=== PATIENT | male | born 1940 | race Hispanic/Latino ===

== ENCOUNTER 2016-08-30 10:42 | Emergency (ER) | payer MEDICARE ==
[2016-08-30 10:43] VITALS: BMI 29.7
[2016-08-30 11:20] VITALS: TEMP 98.2
[2016-08-30 13:02] LABS: BASO % 0.4 % (0.0-2.0); EOS # 0.2 K/uL (0.0-0.7); EOS % 2.3 % (0.0-4.0); HEMATOCRIT 37.7 % (35.0-51.0); LYMPH # 2.7 K/uL (1.0-4.3); MEAN CELL VOLUME 73.3 fl (80.0-94.0); MEAN CORPUSCULAR HEMOGLOBIN 23.8 pg (27.0-31.0); MEAN CORPUSCULAR HGB CONC 32.5 g/dL (33.0-37.0); MEAN PLATELET VOLUME 8.1 fl (7.2-11.7); MONO # 0.6 K/uL (0.0-0.8); MONO % 8.3 % (0.0-10.0); NEUT # 3.7 K/uL (1.8-7.0); NRBC % 0.1 % (0.0-0.0); RED CELL DISTRIBUTION WIDTH 18.2 % (11.5-14.5); WHITE BLOOD COUNT 7.2 K/uL (4.8-10.8)
[2016-08-30] MEDS: Sodium Chloride 0.9% 1,000 ML IV STA (13:02)
[2016-08-30 13:09] LABS: CARBON DIOXIDE 28 mmol/L (22-30); CHLORIDE 104 mmol/L (98-107); GFR AFRICAN-AMERICAN > 60; GLUCOSE,RANDOM 94 mg/dL (75-110); POTASSIUM 3.6 MMOL/L (3.6-5.0); SODIUM 145 mmol/l (132-148)
[2016-08-30 13:10] LABS: ALB/GLOB RATIO 1.1 (1.0-2.1); ALKALINE PHOSPHATASE 68 U/L (38-126); ALT/SGPT 43 U/L (21-72); AST/SGOT 39 U/L (17-59); BILIRUBIN,TOTAL 0.8 mg/dl (0.2-1.3); BLOOD UREA NITROGEN 7 mg/dl (9-20)
[2016-08-30 13:13] LABS: RBC URINE < 1 /hpf (0-3); URINE BILIRUBIN NEGATIVE (NEGATIVE); URINE BLOOD NEGATIVE (NEGATIVE); URINE COLOR STRAW (YELLOW); URINE GLUCOSE (UA) NEG (Normal); URINE KETONE NEGATIVE (NEGATIVE); URINE LEUKOCYTE ESTERASE NEG Leu/uL (Negative); URINE PROTEIN NEGATIVE (NEGATIVE); URINE UROBILINOGEN 0.2-1.0 mg/dL (0.2-1.0); WBC URINE < 1 /hpf (0-5)
[2016-08-30] MEDS ORDERED: Iohexol 240 (50 ml) ONE (14:55)
[2016-08-30] MEDS: Iohexol 240 (50 ml) PO ONE (15:07)
[2016-08-30] MEDS ORDERED: Iohexol 300 100 ML IJ ONE (15:38)
[2016-08-30] MEDS ORDERED: Sodium Chloride 0.9% 50 ML IV ONE (15:39)
[2016-08-30 15:46] VITALS: BP 143/83; PULSE 61; RESP 18; O2SAT 100
--- NOTE | 2016-08-30 17:06 | CT ---
PROCEDURE: CT Abdomen and Pelvis with contrast HISTORY: Left sided abdominal pain, frequency COMPARISON: Comparison is made to the previous study dated 06/27/2012 TECHNIQUE: Contrast dose: 95 cc of Omnipaque 300 Radiation dose: Total exam DLP = 949.6 mGy-cm. FINDINGS: LOWER THORAX: The heart is mildly enlarged. Small bibasilar opacity likely atelectasis. LIVER: Unremarkable. No gross lesion or ductal dilatation. GALLBLADDER AND BILE DUCTS: No evidence of acute cholecystitis PANCREAS: No evidence of pancreatitis. The main pancreatic duct is not dilated. SPLEEN: Unremarkable. ADRENALS: Unremarkable. No mass. KIDNEYS AND URETERS: Again seen is 7.5 millimeter calcification at the midpole left kidney. No evidence of hydronephrosis. The kidneys enhance symmetrically. VASCULATURE: Unremarkable. No aortic aneurysm. BOWEL: Few scattered colonic diverticulosis without evidence of diverticulitis. No evidence of bowel obstruction. APPENDIX: No evidence of appendicitis. PERITONEUM: Unremarkable. No free fluid. No free air. LYMPH NODES: Unremarkable. No enlarged lymph nodes. BLADDER: The urinary bladder is mildly distended. REPRODUCTIVE: Prostate is mildly enlarged. BONES: Moderate to severe degenerative changes more prominent at L2-L3. OTHER FINDINGS: None. IMPRESSION: 7.5 millimeter calcification at the midpole left kidney. No evidence of hydronephrosis or hydroureter. Few scattered colonic diverticulosis without CT evidence of diverticulitis.
--- NOTE | 2016-08-30 18:42 | ED PDOC ---
HPI: Male Pain Time Seen by Provider: 08/30/16 11:33 Chief Complaint (Nursing): Male Genitourinary Past Medical History Vital Signs: Last Vital Signs Temp 98.2 F 08/30/16 11:18 Pulse 61 08/30/16 15:45 Resp 18 08/30/16 15:45 BP 143/83 08/30/16 15:45 Pulse Ox 100 08/30/16 15:45 - Medical History PMH: Anxiety, Bronchitis, Diabetes, Gastritis, HTN Denies: Chronic Kidney Disease - Surgical History Surgical History: Appendectomy, Endoscopy - Family History Family History: States: Unknown Family Hx - Home Medications Home Medications: Ambulatory Orders Medication Instructions Recorded Amlodipine Besylate/Benazepril 1 cap PO DAILY 05/21/15 [Amlodipine Besylate and Benazepril Hydrochlor] Omeprazole 1 ecc PO DAILY 05/21/15 Oxybutynin Chloride 1 tab PO DAILY 05/21/15 Sitagliptin Phos/Metformin HCl 1 tab PO BID 05/21/15 [Janumet Xr 500 mg-50 mg] Tamsulosin [Flomax] 1 cap PO BID 05/21/15 Azithromycin [Zithromax] 250 mg PO DAILY #6 tab 04/15/16 predniSONE [predniSONE Tab] 10 mg PO TID #15 tab 04/15/16 Tamsulosin [Flomax] 0.4 mg PO BID #20 cap 08/30/16 - Allergies Allergies/Adverse Reactions: Allergies Allergy/AdvReac Type Severity Reaction Status Date / Time No Known Allergies Allergy Verified 08/30/16 11:18 - Laboratory Results Result Diagrams: 08/30/16 12:40 08/30/16 12:40 - ECG O2 Sat by Pulse Oximetry: 100 Disposition - Clinical Impression Clinical Impression: Enlarged prostate - Patient ED Disposition Is Patient to be Admitted: No Counseled Patient/Family Regarding: Diagnosis, Need For Followup, Rx Given - Disposition Referrals: [facility] [Outside] Disposition: Routine/Home Disposition Time: 18:37 Condition: GOOD Prescriptions: Tamsulosin [Flomax] 0.4 mg PO BID #20 cap Instructions: Benign Prostatic Hypertrophy (ED)
--- NOTE | 2016-08-31 07:10 | CARD ---
APPROVED REPORT EKG Measurement Heart [id number] <Conclusion> Sinus rhythm with occasional premature ventricular complexes Left anterior fascicular block Nonspecific ST and T wave abnormality Abnormal ECG
== END 2016-08-30 18:50 | disposition home or self-care (01) ==
LOC: H.ER 10:42
DX: N40.0 Benign prostatic hyperplasia without lower urinary tract symptoms (principal); E11.9 Type 2 diabetes mellitus without complications; I10 Essential (primary) hypertension; I49.3 Ventricular premature depolarization; K57.30 Diverticulosis of large intestine without perforation or abscess without bleeding
CPT/HCPCS: 74177; 80053; 81003; 82948; 85025; 87086; 93005; 96360; 96361; 99285; J7040; Q9966; Q9967

== ENCOUNTER 2016-09-09 15:59 | Emergency (ER) | payer MEDICARE, OTHER ==
[2016-09-09 15:59] VITALS: BMI 29.7
[2016-09-09 16:05] VITALS: BP 123/72; PULSE 78; RESP 16; O2SAT 100
[2016-09-09 16:13] VITALS: TEMP 97.8
[2016-09-09] MEDS ORDERED: Sodium Chloride 0.9% 1,000 ML IV STA (16:21)
[2016-09-09] MEDS ORDERED: Iohexol 240 (50 ml) PO ONE (16:21)
--- NOTE | 2016-09-09 16:27 | ED PDOC ---
HPI: Abdomen Time Seen by Provider: 09/09/16 16:12 Chief Complaint (Nursing): GI Problem Chief Complaint (Provider): GI Problem History Per: Patient History/Exam Limitations: no limitations Onset/Duration Of Symptoms: Days (x2 days) Additional Complaint(s): 76 y/o male with a past medical history of hypertension, hypercholesterolemia, arthritis, and diabetes who presents to the emergency department with a complaint of nausea, abdominal pain and 9 diarrhea (non-bloody, had resolved since) episodes since yesterday, 09/08/2016. Reports taking pepto bismol for the relief of symptoms. Denies any new foods or drinks, vomiting, chest pain, and shortness of breath. PMD: Dr. Shaik Kavya CHURCH Past Medical History Reviewed: Historical Data, Nursing Documentation, Vital Signs Vital Signs: Last Vital Signs Temp 97.8 F 09/09/16 16:03 Pulse 78 09/09/16 16:03 Resp 16 09/09/16 16:03 BP 123/72 09/09/16 16:03 Pulse Ox 100 09/09/16 16:30 - Medical History PMH: Anxiety, Bronchitis, Diabetes, Gastritis, HTN Denies: Chronic Kidney Disease - Surgical History Surgical History: Appendectomy, Endoscopy - Family History Family History: States: Unknown Family Hx - Social History Current smoker - smoking cessation education provided: No Alcohol: None Drugs: Denies - Home Medications Home Medications: Ambulatory Orders Medication Instructions Recorded Amlodipine Besylate/Benazepril 1 cap PO DAILY 05/21/15 [Amlodipine Besylate and Benazepril Hydrochlor] Omeprazole 1 ecc PO DAILY 05/21/15 Oxybutynin Chloride 1 tab PO DAILY 05/21/15 Sitagliptin Phos/Metformin HCl 1 tab PO BID 05/21/15 [Janumet Xr 500 mg-50 mg] Tamsulosin [Flomax] 1 cap PO BID 05/21/15 Azithromycin [Zithromax] 250 mg PO DAILY #6 tab 04/15/16 predniSONE [predniSONE Tab] 10 mg PO TID #15 tab 04/15/16 Tamsulosin [Flomax] 0.4 mg PO BID #20 cap 08/30/16 - Allergies Allergies/Adverse Reactions: Allergies Allergy/AdvReac Type Severity Reaction Status Date / Time No Known Allergies Allergy Verified 08/30/16 11:18 Review of Systems ROS Statement: Except As Marked, All Systems Reviewed And Found Negative Cardiovascular: Negative for: Chest Pain Respiratory: Negative for: Shortness of Breath Gastrointestinal: Positive for: Nausea, Abdominal Pain, Diarrhea (9 episodes). Negative for: Vomiting Physical Exam - Reviewed Nursing Documentation Reviewed: Yes Vital Signs Reviewed: Yes - Physical Exam Appears: Positive for: Non-toxic, No Acute Distress Head Exam: Positive for: ATRAUMATIC, NORMOCEPHALIC Skin: Positive for: Normal Color, Warm, Dry Neck: Positive for: Normal, Supple Cardiovascular/Chest: Positive for: Regular Rate, Rhythm. Negative for: Murmur Respiratory: Positive for: Normal Breath Sounds. Negative for: Accessory Muscle Use, Respiratory Distress Gastrointestinal/Abdominal: Positive for: Soft, Tenderness (Periumbilical) Back: Positive for: Normal Inspection. Negative for: L CVA Tenderness, R CVA Tenderness Extremity: Positive for: Normal ROM. Negative for: Pedal Edema, Swelling Neurologic/Psych: Positive for: Alert, Oriented - Laboratory Results Result Diagrams: 09/09/16 17:03 09/09/16 17:03 Interpretation Of Abn Labs: 11.2 wbc - ECG O2 Sat by Pulse Oximetry: 100 (RA) Pulse Ox Interpretation: Normal - Progress ED Course And Treament: 1833: Dr. Uribe to take over care. FU on CT. Stable. Medical Decision Making Medical Decision Making: Time: 16:12 Initial impression: Abdominal Pain Initial plan: --Abd pelvis PO & IV Contrast CT --COMP Metabolic Panel --Lipase Stat --CBC w/ differential --Bentyl 10 mg PO --Sodium Chloride 1,000 m IV 1,000 mls/hr --Omnipaque 240 50 ml PO --Toradol 50 mg IV --Zofran Inj 4 mg IV --Revaluation Scribe Attestation: Documented by Kaylin Perez, acting as a scribe for Junito Comer MD. Provider Scribe Attestation: All medical record entries made by the Scribe were at my direction and personally dictated by me. I have reviewed the chart and agree that the record accurately reflects my personal performance of the history, physical exam, medical decision making, and the department course for this patient. I have also personally directed, reviewed, and agree with the discharge instructions and disposition. Disposition - Clinical Impression Clinical Impression: Abdominal pain - Patient ED Disposition Is Patient to be Admitted: Transfer of Care - Disposition Disposition: Transfer of Care Disposition Time: 18:40 Condition: STABLE Patient Signed Over To: Kwesi Uribe
[2016-09-09] MEDS ORDERED: Iohexol 240 (50 ml) ONE (16:37)
[2016-09-09 17:07] LABS: BASO % 0.1 % (0.0-2.0); EOS # 0.1 K/uL (0.0-0.7); EOS % 0.6 % (0.0-4.0); HEMATOCRIT 37.5 % (35.0-51.0); LYMPH # 0.7 K/uL (1.0-4.3); LYMPH % 6.3 % (20.0-40.0); MEAN CELL VOLUME 73.9 fl (80.0-94.0); MEAN CORPUSCULAR HEMOGLOBIN 23.4 pg (27.0-31.0); MEAN CORPUSCULAR HGB CONC 31.6 g/dL (33.0-37.0); MEAN PLATELET VOLUME 8.1 fl (7.2-11.7); MONO # 0.6 K/uL (0.0-0.8); MONO % 4.9 % (0.0-10.0); NEUT # 9.9 K/uL (1.8-7.0); NEUT % 88.1 % (50.0-75.0); PLATELET COUNT 294 K/uL (130-400); RED CELL DISTRIBUTION WIDTH 18.4 % (11.5-14.5); WHITE BLOOD COUNT 11.2 K/uL (4.8-10.8)
[2016-09-09 18:11] LABS: ALKALINE PHOSPHATASE 71 U/L (38-126); ALT/SGPT 42 U/L (21-72); AST/SGOT 52 U/L (17-59); BLOOD UREA NITROGEN 17 mg/dl (9-20); CALCIUM 9.7 mg/dL (8.4-10.2); CARBON DIOXIDE 26 mmol/L (22-30); CHLORIDE 105 mmol/L (98-107); GFR AFRICAN-AMERICAN > 60; GLUCOSE,RANDOM 141 mg/dL (75-110); LIPASE 60 U/L (23-300); SODIUM 147 mmol/l (132-148)
[2016-09-09 18:37] LABS: EOSINOPHIL 1 % (0-7); NEUTROPHIL 89 % (42-75); TOTAL CELLS COUNTED 100
[2016-09-09 18:38] LABS: LARGE PLATELETS PRESENT
[2016-09-09 18:39] LABS: PLATELET CLUMPS PRESENT
[2016-09-09] MEDS ORDERED: Iohexol 300 100 ML IJ ONE (18:51)
--- NOTE | 2016-09-09 19:16 | ED PDOC ---
- Laboratory Results Result Diagrams: 09/09/16 17:03 09/09/16 17:03 - ECG O2 Sat by Pulse Oximetry: 100 (RA) Pulse Ox Interpretation: Normal - CT Scan/US CT A/P w/PO and IV contrast Other Rad Studies (CT/US): Read By Radiologist, Radiology Report Reviewed Other Rad Interpretation: see MDM - Progress Re-evaluation Time: 19:52 Condition: Re-examined, Improved Medical Decision Making Medical Decision Makin:00 Patient endorsed over to me by Junito Comer MD, pending CT A/P, reevaluation and final disposition. 19:26 CT A/P report reviewed: FINDINGS: Limitations: Study limited by patient motion. Lower thorax: Bibasilar atelectasis. ABDOMEN: Liver: Unremarkable. No mass. Gallbladder and bile ducts: Unremarkable. No calcified stones. No ductal dilation. Pancreas: Unremarkable. No mass. No ductal dilation. Spleen: Unremarkable. No splenomegaly. Adrenals: Unremarkable. No mass. Kidneys and ureters: 7 mm nonobstructing stone in the collecting system of the left kidney. No additional urinary calculi. No hydronephrosis. Stomach and bowel: No bowel obstruction or inflammation. Appendix: No findings to suggest acute appendicitis. PELVIS: Bladder: Unremarkable. No mass. Reproductive: Unremarkable as visualized. ABDOMEN and PELVIS: Intraperitoneal space: Unremarkable. No free air. No significant fluid collection. Bones/joints: No acute fracture. No dislocation. Soft tissues: Unremarkable. Vasculature: Unremarkable. No abdominal aortic aneurysm. Lymph nodes: Unremarkable. No enlarged lymph nodes. IMPRESSION: 7 mm nonobstructing stone in the collecting system of the left kidney. No additional urinary calculi. No hydronephrosis. No bowel obstruction or inflammation. Scribe Attestation: Documented by Liberty Youngblood, acting as a scribe for Kwesi Uribe MD. Provider Scribe Attestation: All medical record entries made by the Scribe were at my direction and personally dictated by me. I have reviewed the chart and agree that the record accurately reflects my personal performance of the history, physical exam, medical decision making, and the department course for this patient. I have also personally directed, reviewed, and agree with the discharge instructions and disposition. Disposition Doctor Will See Patient In The: Office Counseled Patient/Family Regarding: Studies Performed, Diagnosis, Need For Followup - Clinical Impression Clinical Impression: Abdominal pain, Diarrhea, Renal calculus, left - POA Present On Arrival: None - Disposition Referrals: Shaik Hoff MD [Family Provider] - Disposition: Routine/Home Disposition Time: 19:53 Condition: GOOD Additional Instructions: Follow up with your PCP in 2-3 days. Prescriptions: Dicyclomine [Dicyclomine HCl] 10 mg PO Q8 PRN #12 cap PRN Reason: Diarrhea Ondansetron ODT [Zofran ODT] 4 mg PO Q8 PRN #12 odt PRN Reason: Nausea/Vomiting Instructions: Acute Diarrhea (ED), Kidney Stones (ED)
--- NOTE | 2016-09-10 09:00 | CT ---
PROCEDURE: CT Abdomen and Pelvis with contrast HISTORY: abd pain COMPARISON: TECHNIQUE: Contrast dose: 100 mL Omnipaque 300 Radiation dose: Total exam DLP = 941.81 mGy-cm. This CT exam was performed using one or more of the following dose reduction techniques: Automated exposure control, adjustment of the mA and/or kV according to patient size, and/or use of iterative reconstruction technique. FINDINGS: LOWER THORAX: Unremarkable. LIVER: Normal size, contour and attenuation. No mass. No biliary dilatation. Punctate calcification in lateral left hepatic lobe consistent with calcified granuloma. GALLBLADDER AND BILE DUCTS: Unremarkable. PANCREAS: Unremarkable. No gross lesion or ductal dilatation. SPLEEN: Unremarkable. ADRENALS: Unremarkable. No mass. KIDNEYS AND URETERS: Nonobstructing 8 mm left upper pole renal calculus. No hydronephrosis. No renal mass. No hydroureter. VASCULATURE: Unremarkable. No aortic aneurysm. BOWEL: Unremarkable. No obstruction. No gross mural thickening. APPENDIX: Not definitely identified. No secondary findings to suggest acute appendicitis. PERITONEUM: Unremarkable. No free fluid. No free air. LYMPH NODES: Unremarkable. No enlarged lymph nodes. BLADDER: Unremarkable. REPRODUCTIVE: Normal prostate BONES: No fracture. 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 OTHER FINDINGS: None. IMPRESSION: Nonobstructing 8 mm left upper pole renal calculus. No other significant abnormality. Preliminary interpretation of this examination was reported by [employer] at 7:26 p.m. on 09/09/2016. There is concurrence of this report with the preliminary interpretation.
== END 2016-09-09 20:10 | disposition home or self-care (01) ==
LOC: H.ER 15:59
DX: N20.0 Calculus of kidney (principal); R19.7 Diarrhea, unspecified; E11.9 Type 2 diabetes mellitus without complications; F41.9 Anxiety disorder, unspecified; I10 Essential (primary) hypertension
CPT/HCPCS: 74177; 80053; 83690; 85025; 96360; 99282; J1885; J2405; J7040; Q9966; Q9967

== ENCOUNTER 2016-12-22 02:20 | Emergency (ER) | payer MEDICARE, OTHER ==
[2016-12-22 02:21] VITALS: BMI 29.7
[2016-12-22 02:29] VITALS: BP 142/75; PULSE 74; RESP 16; TEMP 99; O2SAT 98
[2016-12-22 03:23] LABS: BASO % 0.4 % (0.0-2.0); EOS # 0.1 K/uL (0.0-0.7); EOS % 2.7 % (0.0-4.0); HEMOGLOBIN 11.3 g/dL (12.0-18.0); LYMPH # 2.1 K/uL (1.0-4.3); LYMPH % 40.2 % (20.0-40.0); MEAN CELL VOLUME 72.9 fl (80.0-94.0); MEAN CORPUSCULAR HEMOGLOBIN 23.7 pg (27.0-31.0); MEAN CORPUSCULAR HGB CONC 32.6 g/dL (33.0-37.0); MEAN PLATELET VOLUME 7.5 fl (7.2-11.7); MONO # 0.5 K/uL (0.0-0.8); MONO % 8.8 % (0.0-10.0); NEUT # 2.5 K/uL (1.8-7.0); NEUT % 47.9 % (50.0-75.0); NRBC % 0.1 % (0.0-0.0); RBC 4.75 Mil/uL (4.40-5.90); RED CELL DISTRIBUTION WIDTH 18.6 % (11.5-14.5); WHITE BLOOD COUNT 5.3 K/uL (4.8-10.8)
[2016-12-22 03:48] LABS: BLOOD UREA NITROGEN 10 mg/dl (9-20); CALCIUM 8.9 mg/dL (8.4-10.2); GFR AFRICAN-AMERICAN > 60; GFR NON-AFRICAN AMERICAN > 60
--- NOTE | 2016-12-22 04:31 | ED PDOC ---
HPI: Back Time Seen by Provider: 12/22/16 02:40 Chief Complaint (Nursing): Cough, Cold, Congestion Chief Complaint (Provider): Cough, Cold, Congestion History Per: Patient History/Exam Limitations: no limitations Onset/Duration Of Symptoms: Other ((+)Chronic) Current Symptoms Are (Timing): Still Present Previous Symptoms: Back Pain, Chronic Pain Exacerbating Factor(s): Movement, Other ((+)Bending) Additional Complaint(s): 76 y/o male patient presenting to the ED with back pain and congestion. Patient states he has been having lower back pain for three hours radiating to the upper back that worsens with movement or bending. He states he has taken nothing for the pain and that he has had several months of this pain due to Arthritis. Patient denies any dizziness, respiratory distress, chest pain and states that he does not take medications for his medical history because "he does not like how the side effects make him feel". Patient also states he has a history of bronchitis but no congestion is currently present in addition to high blood pressure, hypertension and diabetes. He also has chronic prostate issues which include enlargement of his prostate. His primary care physician is Dr. Kavya MD. Past Medical History Reviewed: Historical Data, Nursing Documentation, Vital Signs Vital Signs: Last Vital Signs Temp 99 F 12/22/16 02:26 Pulse 74 12/22/16 02:26 Resp 16 12/22/16 02:26 BP 142/75 12/22/16 02:26 Pulse Ox 98 12/22/16 02:26 - Medical History PMH: Anxiety, Bronchitis, Diabetes, Gastritis, HTN Denies: Chronic Kidney Disease - Surgical History Surgical History: Appendectomy, Endoscopy - Family History Family History: States: Unknown Family Hx - Social History Current smoker - smoking cessation education provided: No Alcohol: None Drugs: Denies - Home Medications Home Medications: Ambulatory Orders Medication Instructions Recorded Amlodipine Besylate/Benazepril 1 cap PO DAILY 05/21/15 [Amlodipine Besylate and Benazepril Hydrochlor] Omeprazole 1 ecc PO DAILY 05/21/15 Oxybutynin Chloride 1 tab PO DAILY 05/21/15 Sitagliptin Phos/Metformin HCl 1 tab PO BID 05/21/15 [Janumet Xr 500 mg-50 mg] Tamsulosin [Flomax] 1 cap PO BID 05/21/15 Azithromycin [Zithromax] 250 mg PO DAILY #6 tab 04/15/16 predniSONE [predniSONE Tab] 10 mg PO TID #15 tab 04/15/16 Tamsulosin [Flomax] 0.4 mg PO BID #20 cap 08/30/16 Dicyclomine [Dicyclomine HCl] 10 mg PO Q8 PRN #12 cap 09/09/16 Ondansetron ODT [Zofran ODT] 4 mg PO Q8 PRN #12 odt 09/09/16 Naproxen 500 mg PO BID #20 ect 12/22/16 - Allergies Allergies/Adverse Reactions: Allergies Allergy/AdvReac Type Severity Reaction Status Date / Time No Known Allergies Allergy Verified 08/30/16 11:18 Review of Systems ROS Statement: Except As Marked, All Systems Reviewed And Found Negative ENT: Negative for: Nose Congestion Cardiovascular: Negative for: Chest Pain, Palpitations Respiratory: Negative for: Cough, Shortness of Breath Musculoskeletal: Positive for: Back Pain ((+)Lower back pain radiating to the upper back.) Neurological: Negative for: Dizziness Physical Exam - Reviewed Nursing Documentation Reviewed: Yes Vital Signs Reviewed: Yes - Physical Exam Appears: Positive for: Non-toxic, No Acute Distress Head Exam: Positive for: ATRAUMATIC, NORMAL INSPECTION, NORMOCEPHALIC Skin: Positive for: Normal Color, Warm, Dry Neck: Positive for: Normal, Painless ROM, Supple Cardiovascular/Chest: Positive for: Regular Rate, Rhythm. Negative for: Murmur Respiratory: Positive for: Normal Breath Sounds. Negative for: Respiratory Distress Back: Positive for: L CVA Tenderness, R CVA Tenderness Extremity: Positive for: Normal ROM Neurologic/Psych: Positive for: Alert, Oriented. Negative for: Motor/Sensory Deficits - Laboratory Results Result Diagrams: 12/22/16 03:17 12/22/16 03:17 - ECG ECG: Positive for: Interpreted By Me, Viewed By Me ECG Rhythm: Positive for: Normal QRS, Normal ST Segment, Sinus Rhythm, Nonspecific Changes Rate: 74 O2 Sat by Pulse Oximetry: 98 (RA) Pulse Ox Interpretation: Normal Medical Decision Making Medical Decision Making: Time: 250 Initial impression: Acute and Chronic Back Pain, Muscular/Skeletal pain, ACS rule out Initial plan: --EKG --DIPSTICK --EKG-ED --KETOROLAC Scribe Attestation: Documented by Anita Swanson, acting as a scribe for Kwesi Uribe MD. Scribe Attestation: All medical record entries made by the Scribe were at my direction and personally dictated by me. I have reviewed the chart and agree that the record accurately reflects my personal performance of the history, physical exam, medical decision making, and the department course for this patient. I have also personally directed, reviewed, and agree with the discharge instructions and disposition. Disposition - Clinical Impression Clinical Impression: Back pain - Patient ED Disposition Is Patient to be Admitted: No Doctor Will See Patient In The: Office Counseled Patient/Family Regarding: Studies Performed, Diagnosis, Need For Followup - Disposition Referrals: Shaik Hoff MD [Medical Doctor] - Disposition: Routine/Home Disposition Time: 05:00 Condition: GOOD Additional Instructions: Follow up with your PCP in 2-3 days. Prescriptions: Naproxen 500 mg PO BID #20 ect Instructions: Back Pain (ED)
--- NOTE | 2016-12-22 16:02 | CARD ---
APPROVED REPORT EKG Measurement Heart [id number] <Conclusion> Normal sinus rhythm Left anterior fascicular block T wave abnormality, consider anterolateral ischemia Abnormal ECG
== END 2016-12-22 05:06 | disposition home or self-care (01) ==
LOC: H.ER 02:20
DX: M54.9 Dorsalgia, unspecified (principal); R05 Cough; E11.9 Type 2 diabetes mellitus without complications; F41.9 Anxiety disorder, unspecified; G89.29 Other chronic pain; I10 Essential (primary) hypertension; N40.0 Benign prostatic hyperplasia without lower urinary tract symptoms
CPT/HCPCS: 80048; 84484; 85025; 93005; 96372; 99281; J1885

== ENCOUNTER 2018-05-11 13:49 | Emergency (ER) | payer MEDICARE, OTHER ==
[2018-05-11 13:50] VITALS: BMI 29.7
--- NOTE | 2018-05-11 14:26 | ED PDOC ---
HPI: Abdomen Time Seen by Provider: 05/11/18 14:10 Chief Complaint (Nursing): Abdominal Pain Chief Complaint (Provider): Abdominal Pain History Per: Patient, [employer] (MikeRoselia Baker #[id number]) History/Exam Limitations: no limitations Onset/Duration Of Symptoms: Days (x 4) Current Symptoms Are (Timing): Still Present Location Of Pain/Discomfort: RLQ Quality Of Discomfort: "Pain" Associated Symptoms: Urinary Symptoms (mild dysuria) Additional Complaint(s): 77 year old male with a history of arthritis and HTN presents to the ED with constant right lower quadrant pain for four days. Patient was sent to the ED by his PMD in [place]. He also reports mild pain with urination intermittently. Denies nausea, vomiting, constipation and diarrhea. PMD: Dr. Gwendolyn Tai Past Medical History Reviewed: Historical Data, Nursing Documentation, Vital Signs Vital Signs: Last Vital Signs Temp 97.4 F L 05/11/18 13:55 Pulse 91 H 05/11/18 13:55 Resp 16 05/11/18 13:55 BP 139/78 05/11/18 13:55 Pulse Ox 98 05/11/18 13:55 - Medical History PMH: Anxiety, Bronchitis, Diabetes, Gastritis, HTN Denies: Chronic Kidney Disease - Surgical History Surgical History: Appendectomy, Endoscopy - Family History Family History: States: Unknown Family Hx - Social History Current smoker - smoking cessation education provided: No Alcohol: None - Home Medications Home Medications: Ambulatory Orders Medication Instructions Recorded Amlodipine Besylate/Benazepril 1 cap PO DAILY 05/21/15 [Amlodipine Besylate and Benazepril Hydrochlor] Omeprazole 1 ecc PO DAILY 05/21/15 Oxybutynin Chloride 1 tab PO DAILY 05/21/15 Sitagliptin Phos/Metformin HCl 1 tab PO BID 05/21/15 [Janumet Xr 500 mg-50 mg] Tamsulosin [Flomax] 1 cap PO BID 05/21/15 Azithromycin [Zithromax] 250 mg PO DAILY #6 tab 04/15/16 predniSONE [predniSONE Tab] 10 mg PO TID #15 tab 04/15/16 Tamsulosin [Flomax] 0.4 mg PO BID #20 cap 08/30/16 Dicyclomine [Dicyclomine HCl] 10 mg PO Q8 PRN #12 cap 09/09/16 Ondansetron ODT [Zofran ODT] 4 mg PO Q8 PRN #12 odt 09/09/16 Naproxen 500 mg PO BID #20 ect 12/22/16 - Allergies Allergies/Adverse Reactions: Allergies Allergy/AdvReac Type Severity Reaction Status Date / Time No Known Allergies Allergy Verified 08/30/16 11:18 Review of Systems ROS Statement: Except As Marked, All Systems Reviewed And Found Negative Gastrointestinal: Positive for: Abdominal Pain (constant RLQ). Negative for: Nausea, Vomiting, Diarrhea, Constipation Genitourinary Male: Positive for: Dysuria (mild intermittent) Physical Exam - Reviewed Nursing Documentation Reviewed: Yes Vital Signs Reviewed: Yes - Physical Exam Appears: Positive for: No Acute Distress Head Exam: Positive for: ATRAUMATIC, NORMAL INSPECTION, NORMOCEPHALIC Skin: Positive for: Normal Color, Warm, Dry Eye Exam: Positive for: EOMI, Normal appearance, PERRL Neck: Positive for: Normal, Painless ROM, Supple Cardiovascular/Chest: Positive for: Regular Rate, Rhythm. Negative for: Murmur Respiratory: Positive for: Normal Breath Sounds. Negative for: Respiratory Distress Gastrointestinal/Abdominal: Positive for: Soft, Tenderness (RLQ ) Extremity: Positive for: Normal ROM (upper and lower). Negative for: Deformity Neurologic/Psych: Positive for: Alert, Oriented. Negative for: Motor/Sensory Deficits - ECG O2 Sat by Pulse Oximetry: 98 (RA) Pulse Ox Interpretation: Normal Medical Decision Making Medical Decision Makin:22 Impression: RLQ abdominal pain Initial Plan: --CT Abd & Pelvis --CBC --CMP --PTT/PT --Morphine 2 mg IV --UA --Urine dip Scribe Attestation: Documented by Billie Rodriguez acting as a scribe for Theresa Prater MD Provider Scribe Attestation: All medical record entries made by the Scribe were at my direction and personally dictated by me. I have reviewed the chart and agree that the record accurately reflects my personal performance of the history, physical exam, medical decision making, and the department course for this patient. I have also personally directed, reviewed, and agree with the discharge instructions and disposition. Disposition - Disposition Condition: STABLE Forms: [employer] (Slovenian)
[2018-05-11 14:37] LABS: BASO # 0.1 K/uL (0.0-0.2); EOS # 0.1 K/uL (0.0-0.7); EOS % 1.6 % (0.0-4.0); HEMOGLOBIN 11.2 g/dL (12.0-18.0); LYMPH # 2.2 K/uL (1.0-4.3); LYMPH % 30.8 % (20.0-40.0); MEAN CELL VOLUME 69.4 fl (80.0-94.0); MEAN CORPUSCULAR HEMOGLOBIN 22.3 pg (27.0-31.0); MEAN CORPUSCULAR HGB CONC 32.2 g/dL (33.0-37.0); MEAN PLATELET VOLUME 8.6 fl (7.2-11.7); MONO # 0.6 K/uL (0.0-0.8); MONO % 8.1 % (0.0-10.0); NEUT # 4.1 K/uL (1.8-7.0); NEUT % 58.5 % (50.0-75.0); NRBC % 0.3 % (0.0-0.0); RBC 5.02 Mil/uL (4.40-5.90); RED CELL DISTRIBUTION WIDTH 21.1 % (11.5-14.5); WHITE BLOOD COUNT 7.1 K/uL (4.8-10.8)
[2018-05-11 14:42] LABS: INR 1.1; PROTHROMBIN TIME 12.3 Seconds (9.8-13.1)
[2018-05-11 14:45] LABS: PARTIAL THROMBOPLASTIN TIME 28.5 Seconds (25.6-37.1)
[2018-05-11 15:01] LABS: ALB/GLOB RATIO 0.9 (1.0-2.1); ALBUMIN 4.1 g/dL (3.5-5.0); CALCIUM 9.7 mg/dL (8.4-10.2)
--- NOTE | 2018-05-11 15:27 | ED PDOC ---
- Laboratory Results Result Diagrams: 05/11/18 14:20 05/11/18 14:20 - ECG O2 Sat by Pulse Oximetry: 98 (RA) Pulse Ox Interpretation: Normal Medical Decision Making Medical Decision Making: Time: 1500 --Patient presents with right lower quadrant pain and occasional dysuria. Workup for abdominal pathology. Patient signed out to this provider by Dr. Prater pending labs and CT Abdomen and Pelvis. 18:00 CT Abdomen and Pelvis FINDINGS: LUNG BASES: Small parenchymal nodules measuring up to 1 9 mm in dimension is seen at the lung bases more prominently at the right lung base. Small left pleural effusion. LIVER: Unremarkable. GALLBLADDER AND BILE DUCTS: The gallbladder appears within normal limits. No radioopaque gallstones are seen. No biliary ductal dilatation is evident. PANCREAS: Unremarkable. SPLEEN: Unremarkable. ADRENAL GLANDS: Unremarkable. KIDNEYS, URETERS, AND BLADDER: Right kidney is moderately enlarged and heterogeneous attenuation and there is no perinephric stranding about the kidney. There is no clear obstruction or obvious renal calculus. An inflammatory process such as pyelonephritis may be considered. There is an approximate 6 mm calculus at the midportion left kidney. Note is made of a small amount of free fluid right flank region. Prostate gland appears moderately enlarged. STOMACH AND BOWEL: Unremarkable appearance of the stomach and bowel. No evidence of bowel obstruction. No evidence suggesting enteritis or colitis. APPENDIX: No evidence of acute appendicitis on CT examination. PERITONEUM: No free fluid. No free air. LYMPH NODES: No lymphadenopathy is evident. VASCULATURE: No evidence of abdominal aortic aneurysm. BONES: No aggressive appearing osseous lesion. No acute osseous pathology evident. IMPRESSION: Small parenchymal nodules at the lung bases more seen at the right lung base. Small left pleural effusion. Enlarged heterogeneous right kidney with perinephric stranding which may be inflammatory in nature such as pyelonephritis. A small nonobstructing left renal calculus. Enlarged prostate gland. Correlation with ultrasound examination of the kidneys recommended. 18:53 --CT shows perinephric renal stranding, no obstructing stones and an enlarged prostate with the recommendation of an ultrasound of kidneys Patient refuses to stay for further examination Given Bactrim for UTI. Discussed results for kidney infection, kidney stones and incidental findings of pulmonary nodules Will follow up with PMD and urologist in one week and discharged with prescription for Bactrim. Scribe Attestation: Documented by Yasmeen Marcelo, acting as a scribe for Yvrose Dias MD Provider Scribe Attestation: All medical record entries made by the Scribe were at my direction and personally dictated by me. I have reviewed the chart and agree that the record accurately reflects my personal performance of the history, physical exam, medical decision making, and the department course for this patient. I have also personally directed, reviewed, and agree with the discharge instructions and disposition. Disposition - Clinical Impression Clinical Impression: Pyelonephritis, Renal stones - POA Present On Arrival: None - Disposition Disposition: Routine/Home Disposition Time: 18:45 Condition: IMPROVED Additional Instructions: Follow up with your urologist in one week for evaluation of kidney stones, kidney infection, and enlarged prostate. Follow up with your primary doctor regarding incidental nodules seen on your lungs. Take antibiotics as prescribed. Continue to take all home medications as prescribed by your other doctors. Return to the emergency department if symptoms worsen or if new symptoms develop. Prescriptions: Sulfamethoxazole/Trimethoprim [Bactrim DS 800 mg-160 mg] 1 tab PO BID #28 tab Instructions: Kidney Stones (DC), Renal Colic (DC), Kidney Infection (DC) Forms: [employer] [facility] (Welsh) Print Language: FILIPINO
[2018-05-11 15:47] LABS: SQUAMOUS EPITHIAL < 1 /hpf (0-5); URINE BACTERIA RARE (<OCC); URINE BILIRUBIN NEGATIVE (NEGATIVE); URINE BLOOD LARGE (NEGATIVE); URINE CLARITY CLOUDY (Clear); URINE COLOR YELLOW (YELLOW); URINE GLUCOSE (UA) NEG (NEGATIVE); URINE LEUKOCYTE ESTERASE NEG Leu/uL (Negative); URINE PROTEIN 30 mg/dL (NEGATIVE); URINE UROBILINOGEN 0.2-1.0 mg/dL (0.2-1.0)
[2018-05-11] MEDS ORDERED: Sodium Chloride 0.9% 50 ML IV ONE (16:48)
[2018-05-11] MEDS ORDERED: Iohexol 300 100 ML IJ ONE (16:48)
[2018-05-11] MEDS ORDERED: Tmp-Smz 800 mg-160 mg DS Tab PO STA (18:42)
[2018-05-11] MEDS ORDERED: Tmp-Smz 800 mg-160 mg DS Tab ONE (18:47)
[2018-05-11 18:56] VITALS: BP 138/66; PULSE 71; RESP 18; TEMP 97.9
[2018-05-11 19:12] VITALS: O2SAT 98
--- NOTE | 2018-05-12 09:04 | CT ---
Date of service: 05/11/2018 PROCEDURE: CT Abdomen and Pelvis with and without intravenous contrast HISTORY: RLQ pain, h/o appendectomy COMPARISON: 09/09/2016 TECHNIQUE: Axial images of the abdomen were obtained in the pre contrast, portal venous and delayed phases of enhancement. Coronal and sagittal reformats were generated. Contrast dose: Radiation dose: Total exam DLP = 644.79 mGy-cm. This CT exam was performed using one or more of the following dose reduction techniques: Automated exposure control, adjustment of the mA and/or kV according to patient size, and/or use of iterative reconstruction technique. FINDINGS: LOWER THORAX: Multiple nonspecific right basilar lung nodules measuring up to 8 millimeters. Small left pleural effusion with subsegmental atelectasis. LIVER: Unremarkable. No gross lesion or ductal dilatation. GALLBLADDER AND BILE DUCTS: Unremarkable. PANCREAS: Unremarkable. No gross lesion or ductal dilatation. SPLEEN: Unremarkable. ADRENALS: Unremarkable. No mass. KIDNEYS AND URETERS: Hypertrophied right kidney with perinephric stranding and delayed nephrogram with soft tissue density in the renal hilum. Hyperdense material in the right renal pelvis and collecting system. Findings may be secondary to an acute obstruction of the possibility of an obstruction secondary to underlying tumor is not excluded. Associated retroperitoneal and retrocaval lymphadenopathy suspicious for underlying malignancy. VASCULATURE: Unremarkable. No aortic aneurysm. No aortic atherosclerotic calcification or mural plaque present. BOWEL: Unremarkable. No obstruction. No gross mural thickening. APPENDIX: Normal appendix. PERITONEUM: Unremarkable. No free fluid. No free air. LYMPH NODES: Unremarkable. No enlarged lymph nodes. BLADDER: Unremarkable. REPRODUCTIVE: Unremarkable. BONES: No acute fracture. OTHER FINDINGS: None. IMPRESSION: Hypertrophied right kidney with perinephric stranding and delayed nephrogram with soft tissue density in the renal hilum. Hyperdense material in the right renal pelvis and collecting system. Right renal artery encasement. Findings may be secondary to an acute obstruction of the possibility of an obstruction secondary to underlying tumor is not excluded. Associated retroperitoneal and retrocaval lymphadenopathy suspicious for underlying malignancy.
== END 2018-05-11 18:20 | disposition home or self-care (01) ==
LOC: H.ER 13:49
DX: N12 Tubulo-interstitial nephritis, not specified as acute or chronic (principal); N20.0 Calculus of kidney
CPT/HCPCS: 74177; 80053; 81003; 85025; 85610; 85730; 96374; 99283; J2270; Q9967

== ENCOUNTER 2018-06-08 12:23 | Inpatient (IN) | payer OTHER ==
[2018-06-08 12:23] VITALS: BMI 29.7
[2018-06-08] MEDS ORDERED: Sodium Chloride 0.9% 1,000 ML IV STA (13:41)
--- NOTE | 2018-06-08 14:02 | ED PDOC ---
HPI: General Adult Time Seen by Provider: 06/08/18 12:56 Chief Complaint (Nursing): Abdominal Pain Chief Complaint (Provider): Back pain and pain with urination History Per: Patient History/Exam Limitations: no limitations Current Symptoms Are (Timing): Still Present Additional Complaint(s): 77 year old male, with a past medical history of HTN and kidney stones, presents to the ED with multiple days of worsening bilateral back pain and pain with urination. Patient reports he has worked up for this before but has had no recent treatment. Denies blood in urine, penile discharge, testicular swelling, or vomiting, but states he has had decreased appetite due to pain. He also denies other abdominal pain or other complaints at this time. PMD: none provided Past Medical History Reviewed: Historical Data, Nursing Documentation, Vital Signs Vital Signs: Last Vital Signs Temp 97.7 F 06/08/18 12:38 Pulse 94 H 06/08/18 12:38 Resp 20 06/08/18 12:38 BP 135/83 06/08/18 12:38 Pulse Ox 96 06/08/18 12:38 - Medical History PMH: Anxiety, Bronchitis, Diabetes, Gastritis, HTN, Kidney Stones Denies: Chronic Kidney Disease - Surgical History Surgical History: Appendectomy, Endoscopy - Family History Family History: States: Unknown Family Hx - Home Medications Home Medications: Ambulatory Orders Medication Instructions Recorded Amlodipine Besylate/Benazepril 1 cap PO DAILY 05/21/15 [Amlodipine Besylate and Benazepril Hydrochlor] Sitagliptin Phos/Metformin HCl 1 tab PO BID 05/21/15 [Janumet Xr 500 mg-50 mg] Finasteride [Proscar] 5 mg PO DAILY 06/08/18 Icosapent Ethyl [Vascepa] 2 gm PO BID 06/08/18 Meloxicam [Mobic] 7.5 mg PO DAILY 06/08/18 RX: Esomeprazole Magnesium [Nexium 20 mg PO DAILY 06/08/18 24Hr] RX: Tamsulosin [Flomax] 0.4 mg PO DAILY 06/08/18 levoFLOXacin [Levaquin] 500 mg PO DAILY 06/08/18 - Allergies Allergies/Adverse Reactions: Allergies Allergy/AdvReac Type Severity Reaction Status Date / Time No Known Allergies Allergy Verified 08/30/16 11:18 Review of Systems ROS Statement: Except As Marked, All Systems Reviewed And Found Negative Gastrointestinal: Negative for: Vomiting, Abdominal Pain Genitourinary Male: Positive for: Dysuria. Negative for: Hematuria, Penile Discharge, Other (testicular swelling) Musculoskeletal: Positive for: Back Pain Physical Exam - Reviewed Nursing Documentation Reviewed: Yes Vital Signs Reviewed: Yes - Physical Exam Appears: Positive for: Non-toxic, No Acute Distress Head Exam: Positive for: ATRAUMATIC, NORMOCEPHALIC Skin: Positive for: Normal Color, Warm, Dry Eye Exam: Positive for: Normal appearance Neck: Positive for: Normal, Painless ROM Cardiovascular/Chest: Positive for: Regular Rate, Rhythm Respiratory: Positive for: Normal Breath Sounds. Negative for: Wheezing, Respiratory Distress Gastrointestinal/Abdominal: Positive for: Soft, Other (round enlarged stomach). Negative for: Tenderness Back: Positive for: L CVA Tenderness, R CVA Tenderness (worse on the right) Extremity: Positive for: Normal ROM Neurologic/Psych: Positive for: Alert, Oriented - Laboratory Results Result Diagrams: 06/10/18 05:40 06/10/18 05:40 - ECG O2 Sat by Pulse Oximetry: 96 (RA) Pulse Ox Interpretation: Normal Medical Decision Making Medical Decision Making: Initial Impression: workup for renal stones vs other genitourinary tract abnormalites Initial Plan: --CT abd/pelvis --ECG --CMP --CBC --Sodium chloride 1000mL IV --Toradol 15mg IV --Zofran 4mg IV --Urinalysis Basic labs, IV fluids, pain control, CT abd/pelvis without contrast to workup for stones and reevaluate. 16:36 CT scan shows multiple nodules on the kidneys, liver, and lungs which is increased from last CT. Chart review shows patient was to follow up with his primary doctor regarding nodules of the kidney after last visit. Patient states he knew he had the nodules but never followed up with his primary doctor. Patient told of nodules to the liver and lungs. He denies any shortness of breath or cough but states his stomach has been feeling full lately. Will attempt to call Dr. Kem Tai at [phone] and will admit patient for oncology follow up. Field Auditor number is [phone]. Had multiple discussions with the patient to explain the need for immediate follow up. Pt stated that he wanted to go home and would take a "shark carti samara drink" from [place] that cured his niece's cancer. Spoke with the patient in depth with healthcare interpreter and he now agrees to stay for further work up. Pt's currently bedside. Scribe Attestation: Documented by Mukesh Marcelo acting as a scribe for Yvrose Dias MD. Provider Scribe Attestation: All medical record entries made by the Scribe were at my direction and person ally dictated by me. I have reviewed the chart and agree that the record accurately reflects my personal performance of the history, physical exam, medical decision making, and the department course for this patient. I have also personally directed, reviewed, and agree with the discharge instructions and disposition. Disposition - Clinical Impression Clinical Impression: Renal mass, Metastasis - Patient ED Disposition Is Patient to be Admitted: Yes - Disposition Disposition Time: 16:36 Condition: STABLE
[2018-06-08 14:30] LABS: BASO % 0.3 % (0.0-2.0); EOS # 0.1 K/uL (0.0-0.7); HEMOGLOBIN 11.1 g/dL (12.0-18.0); LYMPH # 1.8 K/uL (1.0-4.3); LYMPH % 25.7 % (20.0-40.0); MEAN CELL VOLUME 72.2 fl (80.0-94.0); MEAN CORPUSCULAR HEMOGLOBIN 22.9 pg (27.0-31.0); MEAN CORPUSCULAR HGB CONC 31.6 g/dL (33.0-37.0); MEAN PLATELET VOLUME 7.3 fl (7.2-11.7); MONO # 0.6 K/uL (0.0-0.8); MONO % 8.4 % (0.0-10.0); NEUT # 4.4 K/uL (1.8-7.0); NEUT % 63.6 % (50.0-75.0); NRBC % 0.1 % (0.0-0.0); RBC 4.87 Mil/uL (4.40-5.90); RED CELL DISTRIBUTION WIDTH 21.4 % (11.5-14.5); WHITE BLOOD COUNT 6.9 K/uL (4.8-10.8)
[2018-06-08 14:41] LABS: URINE BILIRUBIN NEGATIVE (NEGATIVE); URINE BLOOD NEGATIVE (NEGATIVE); URINE CLARITY SLIGHTY-CLOUDY (Clear); URINE COLOR YELLOW (YELLOW); URINE GLUCOSE (UA) NEG (NEGATIVE); URINE LEUKOCYTE ESTERASE NEG Leu/uL (Negative); URINE PROTEIN NEGATIVE (NEGATIVE); URINE UROBILINOGEN 0.2-1.0 mg/dL (0.2-1.0)
[2018-06-08 14:45] LABS: ALBUMIN 4.1 g/dL (3.5-5.0); CALCIUM 9.9 mg/dL (8.4-10.2)
--- NOTE | 2018-06-08 15:34 | CT ---
Date of service: 06/08/2018 PROCEDURE: CT Abdomen and Pelvis without intravenous contrast HISTORY: renal stones COMPARISON: None. TECHNIQUE: Technique. Contrast dose: Radiation dose: Total exam DLP = 790.67 mGy-cm. This CT exam was performed using one or more of the following dose reduction techniques: Automated exposure control, adjustment of the mA and/or kV according to patient size, and/or use of iterative reconstruction technique. FINDINGS: LOWER THORAX: Redemonstration of multiple bibasilar lung nodules, increase in number likely metastatic. LIVER: Compared the prior report there are new numerous hypodense lesions scattered throughout the liver compatible with metastatic disease. GALLBLADDER AND BILE DUCTS: Unremarkable. PANCREAS: Unremarkable. No gross lesion or ductal dilatation. SPLEEN: Unremarkable. ADRENALS: 1.8 centimeter nodule in the right adrenal gland which could also be metastatic. KIDNEYS AND URETERS: Redemonstration of a hypertrophied right kidney with dilatation of the right renal collecting system which appears hyperdense possibly secondary to underlying tumor. Accompanying retroperitoneal soft tissue density which could represent metastatic adenopathy. 4 millimeter left renal calculus, nonobstructive. VASCULATURE: Unremarkable. No aortic aneurysm. No aortic atherosclerotic calcification or mural plaque present. BOWEL: Unremarkable. No obstruction. No gross mural thickening. APPENDIX: Unremarkable. Normal appendix. PERITONEUM: Unremarkable. No free fluid. No free air. LYMPH NODES: Multiple retroperitoneal, precaval and aortic caval lymph nodes suspicious for metastatic disease measuring up to 1.6 centimeters. BLADDER: Unremarkable. REPRODUCTIVE: Unremarkable. BONES: No acute fracture. OTHER FINDINGS: None. IMPRESSION: Metastatic disease likely originating from the right kidney with numerous metastatic lung nodules, liver nodules as well as retroperitoneal lymph nodes. Findings could be secondary to a transitional cell carcinoma in the proximal ureter versus renal cell carcinoma (less likely.)
[2018-06-08] MEDS: Insulin Regular 100 units/ml SC SCH (22:52)
[2018-06-09] MEDS: Insulin Regular 100 units/ml SC SCH ×4 (05:23→22:00)
[2018-06-09] MEDS ORDERED: levoFLOXacin 750 mg in D5W 150 ML BAG IVPB SCH (09:00)
[2018-06-09] MEDS ORDERED: METFORMIN HCL PO SCH (09:00)
[2018-06-09] MEDS ORDERED: [UNRECOGNIZED DRUG - OTHER] PO SCH (09:00)
[2018-06-09] MEDS ORDERED: AMLODIPINE BESYLATE PO SCH (09:00)
[2018-06-09] MEDS ORDERED: BENAZEPRIL PO SCH (09:00)
[2018-06-09] MEDS ORDERED: ICOSAPENT ETHYL 2 GM PO SCH (09:00)
[2018-06-09] MEDS ORDERED: Patient's Own Med (Meloxicam [Mobic] 7.5 MG) PO SCH (09:00)
[2018-06-09] MEDS ORDERED: SITAGLIPTIN PHOS PO SCH (09:00)
[2018-06-09] MEDS ORDERED: ESOMEPRAZOLE MAGNESIUM 20 MG PO SCH (09:00)
[2018-06-09] MEDS: Pantoprazole 40 mg EC Tab PO SCH (09:37)
--- NOTE | 2018-06-09 12:03 | HP ---
CHIEF COMPLAINT: Abdominal and back pain and pain with urination. HISTORY OF PRESENT ILLNESS: This is a 77-year-old male known case of hypertension, kidney stones, gastritis, diabetes, anxiety, bronchitis, who was having abdominal pain and back pain and pain with urination, so the patient was brought to emergency room and was admitted for further management. The patient was having for a while but was worse this time, so the patient came to emergency room. REVIEW OF SYSTEMS: Positive for abdominal pain, back pain, and urinary symptoms. Review of systems otherwise is negative for headache, dizziness, syncope, loss of consciousness, chest pain, shortness of breath, nausea, vomiting, diarrhea, constipation, any new joint or extremity pain other than the one described in the history of present illness. Review of systems of all other organ system is unremarkable. PAST MEDICAL HISTORY: Significant for diabetes, hypertension, dyspepsia, kidney stones, bronchitis, and anxiety. PAST SURGICAL HISTORY: Remarkable for endoscopies and appendectomy. PERSONAL HISTORY: The patient is currently nonsmoker, nondrinker, no substance abuse. MEDICATIONS: The patient is on Lotrel, omeprazole, oxybutynin, Janumet, Flomax, azithromycin, Levaquin, prednisone, dicyclomine, Zofran, Naprosyn, and Bactrim. ALLERGIES: THE PATIENT IS NOT ALLERGIC TO ANY MEDICATIONS. FAMILY HISTORY: Noncontributory. PHYSICAL EXAMINATION: GENERAL: A well-built, well-nourished, overweight, 77-year-old male in no acute distress. VITAL SIGNS: Temperature 98.2, pulse 72, respirations 20, blood pressure 155/81, saturation 97%. HEENT: Pupils reacting to light. No nystagmus. Normocephalic and atraumatic skull. NECK: No JVD, no thyromegaly, no lymphadenopathy. HEART: S1 and S2 normal and regular. No significant murmur, gallop or rub is heard. LUNGS: Exam shows good bilateral air exchange. No rales or rhonchi. ABDOMEN: Soft and nontender. No organomegaly, no fluid. Bowel sounds are present and normal. No sign of acute abdomen. No guarding, no rigidity, no rebound. EXTREMITIES: No edema, no calf swelling, no tenderness, no acute ischemia. CENTRAL NERVOUS SYSTEM: Essentially unchanged. DIAGNOSTIC DATA: Available diagnostic data reviewed. Urinalysis showed 7 WBC's, the patient was on antibiotic. WBC 6.9, hemoglobin 11.1, hematocrit 35.2, platelets 323. Sodium 140, potassium 4.8, chloride 106, bicarbonate 23, BUN 25, creatinine 1.5. SMA-12 is unremarkable. 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 Plan as ordered. Case and plan discussed with the patient. ADMITTING IMPRESSION: Metastatic urogenital carcinoma, diabetes type 2 with hyperglycemia, hypertension, bronchitis, anxiety, overweight with body mass index of 27. PLAN: As ordered. Case and plan discussed with the patient. Dax Brownlee MD
--- NOTE | 2018-06-09 20:15 | CARD ---
APPROVED REPORT Date of service: 06/08/2018 EKG Measurement Heart [id number] <Conclusion> Normal sinus rhythm Left anterior fascicular block Nonspecific ST abnormality Abnormal ECG
[2018-06-10 01:44] VITALS: PULSE 67; TEMP 97.5
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
[2018-06-10] MEDS: Insulin Regular 100 units/ml SC SCH (04:53)
[2018-06-10 06:32] LABS: HEMOGLOBIN 10.7 g/dL (12.0-18.0); MEAN CELL VOLUME 70.6 fl (80.0-94.0); MEAN CORPUSCULAR HGB CONC 32.6 g/dL (33.0-37.0); RBC 4.66 Mil/uL (4.40-5.90); RED CELL DISTRIBUTION WIDTH 21.6 % (11.5-14.5); WHITE BLOOD COUNT 6.9 K/uL (4.8-10.8)
[2018-06-10 06:50] LABS: ALBUMIN 3.7 g/dL (3.5-5.0); CALCIUM 9.4 mg/dL (8.4-10.2)
[2018-06-10 07:15] LABS: FERRITIN 42.5 ng/Ml (17.9-464)
[2018-06-10 08:44] VITALS: BP 131/80; RESP 20
[2018-06-10] MEDS: Pantoprazole 40 mg EC Tab PO SCH (09:20)
[2018-06-10 11:11] LABS: INR 1.2; PROTHROMBIN TIME 13.7 Seconds (9.8-13.1)
[2018-06-10 11:13] LABS: PARTIAL THROMBOPLASTIN TIME 25.5 Seconds (25.6-37.1)
[2018-06-10] MEDS ORDERED: Insulin Regular 100 units/ml SC SCH (11:45)
[2018-06-10] MEDS ORDERED: Sodium Chloride 0.9% 1,000 ML IV SCH (12:15)
[2018-06-10 12:57] LABS: FOLATE 9.7 ng/mL
--- NOTE | 2018-06-10 13:16 | PN ---
DATE: 06/10/2018 SUBJECTIVE: The patient seen and examined. Interim events noted. Consults noted and appreciated. Hematology/Oncology interventions noted and appreciated. The patient remains in regular medical floor. Feels okay. Complains of pain, back pain and abdominal pain, but no chest pain or shortness of breath. PHYSICAL EXAMINATION: GENERAL: The patient is in no acute distress. VITAL SIGNS: Stable. HEART: S1, S2 normal and regular. LUNGS: Good bilateral air exchange. ABDOMEN: Soft, nontender. No sign of acute abdomen. No guarding, no rigidity, no rebound. EXTREMITIES: No edema. No calf swelling. No tenderness. No acute ischemia. CENTRAL NERVOUS SYSTEM: Essentially unchanged. DIAGNOSTIC DATA: Available diagnostic data reviewed. ASSESSMENT AND PLAN: Overall, the patient's general medical condition is stable. Plan as ordered. Dax Brownlee MD
[2018-06-10] MEDS ORDERED: Omega-3-Acid Ethyl Esters 1 GM Cap PO SCH (17:00)
--- NOTE | 2018-06-11 05:01 | CON ---
DATE: 06/10/2018 NEPHROLOGY CONSULTATION HISTORY OF PRESENT ILLNESS: The patient is a 77-year-old male with past medical history of hypertension, kidney stone, and diabetes, reportedly presented to the ED with worsening bilateral back pain and dysuria; Nephrology being consulted for acute kidney injury. The patient presented to the ED initially about one month ago with right lower quadrant pain and some dysuria. At that time, CAT scan of abdomen and pelvis was done which showed hypertrophied right kidney with delayed nephrogram and right renal artery encasement with findings concerning for possible obstruction secondary to underlying tumor. The patient was discharged with outpatient followup; however, he was not able to see a urologist. He was discharged on p.o. Bactrim and reports that dysuria did improve. The patient reports significant weight loss lately. Denies any night sweats. Appetite has been poor. Denies any vomiting or diarrhea. The patient otherwise without any shortness of breath, chest pain or palpitations. Denies any leg swelling. He says he is only taking Tylenol Arthritis for pain in his legs; sometimes has somewhat foul smelling urine. PAST MEDICAL HISTORY: As above. SOCIAL HISTORY: Denies smoking. FAMILY HISTORY: Reports mother had some sort of cancer. REVIEW OF SYSTEMS: CONSTITUTIONAL: As per HPI. HEENT: Denies any difficulty swallowing. RESPIRATORY: As per HPI. CARDIOVASCULAR: As per HPI. GI: As per HPI. : As per HPI. MUSCULOSKELETAL: Gets arthritis type pains in his legs. Has low back pain. SKIN: Denies any pruritus or rashes. PHYSICAL EXAMINATION: VITAL SIGNS: This morning blood pressure 131/80, heart rate 67, respirations 20, temperature 97.5, O2 sat 95% on room air. GENERAL: No distress. Conversing coherently in full sentences. HEENT: Moist mucous membranes. Nonicteric. NECK: No cervical lymphadenopathy. RESPIRATORY: Lungs are clear to auscultation bilaterally. No rales. No rhonchi. No wheezes. CARDIOVASCULAR: Heart sounds S1, S2 normal. No murmurs. No gallops. No rubs. GASTROINTESTINAL: Abdomen is soft, nontender, nondistended. GENITOURINARY: No overt bladder distention. No CVA tenderness. EXTREMITIES: No lower leg edema. SKIN: Warm. No cyanosis. PSYCHIATRIC: Normal mood. Normal affect. NEURO: No overt resting tremor. LABORATORY DATA: From this morning, CBC: WBC 6.9, hemoglobin 10.7, hematocrit 32.9, platelets 302. Chemistry panel: Sodium 139, potassium 4.5, chloride 102, bicarb 27, BUN 29, creatinine 1.9 - increased from 1.5 on presentation, glucose 95, calcium 9.4, phosphorus 4.1, magnesium 1.7, AST 44, ALT 19, albumin 3.7. Urine studies: UA negative for protein, negative for blood, 7 wbc's per high power field. Abdominal CT, abdomen and pelvis without contrast reviewed showing dilatation of right renal collecting system, left renal calculus. ASSESSMENT AND PLAN: 1. Acute kidney injury. 2. Baseline renal function unclear as serum creatinine was 1.4 one month ago but 0.8 back in 12/2016; has evidence of right-sided obstruction on imaging. Given findings of retroperitoneal lymphadenopathy and what was eventually noted as right renal artery encasement, findings are concerning for metastatic disease with unclear primary tumor. I agree with obtaining biopsy of either lymph node or the kidney itself. Need to also assess for any partial left-sided obstruction despite lack of hydronephrosis as renal function has worsened significantly. We will stop any nephrotoxic medications. Should avoid nonsteroidal antiinflammatory drugs as the patient is already on [id number] system blockade with lisinopril and nonsteroidal antiinflammatory drugs will further blunt any renal artery regulation necessary to sustain adequate glomerular filtration rate. We will obtain renal nuclear scan with Lasix to assess for left-sided partial obstruction. 3. Hypertension, blood pressure currently controlled on amlodipine 10 mg daily and lisinopril 20 mg daily. Continue the same. Thank you for this referral. We will be following closely. Eliseo Jean MD
[2018-06-12 23:06] VITALS: O2SAT 96
--- NOTE | 2018-06-17 13:26 | PQF ---
PROVIDER RESPONSE TEXT: Provider was unable to determine a response for this query. REVIEWER QUERY TEXT: Clarification of Clinical Diagnostic Findings COULD YOU PLEASE CLARIFY IF SITE OF METASTATIC NEOPLASM EVER DETERMINED? PLEASE CONFIRM THE PRINCIPAL DIAGNOSIS. Please clarify documentation or clinical relevance for the clinical / diagnostic findings or whether those are insignificant or unable to be further specified. The patient's Clinical Indicators include: HEMATOLOGY/ONCOLOGY CONSULT: STATES ? METASTATIC DISEASE UROTHELIAL Query created by: Gogo Duron on 06/12/2018 3:06 PM Electronically signed by: Dax Brownlee 06/17/2018 1:23 PM
== END 2018-06-10 15:20 | disposition left against medical advice (07) | DRG 687 ==
LOC: H.ER 12:23 → H.ERHOLD 17:08 → H.MEDSURG1 21:10
PROVIDERS: ADMIT Internal Medicine; ATTEND Internal Medicine
DX: C79.01 Secondary malignant neoplasm of right kidney and renal pelvis (principal); N17.9 Acute kidney failure, unspecified; C78.01 Secondary malignant neoplasm of right lung; C77.2 Secondary and unspecified malignant neoplasm of intra-abdominal lymph nodes; C78.7 Secondary malignant neoplasm of liver and intrahepatic bile duct; N20.0 Calculus of kidney; C80.1 Malignant (primary) neoplasm, unspecified; E66.3 Overweight; Z68.27 Body mass index [BMI] 27.0-27.9, adult; F41.9 Anxiety disorder, unspecified; I12.9 Hypertensive chronic kidney disease with stage 1 through stage 4 chronic kidney disease, or unspecified chronic kidney disease; E11.22 Type 2 diabetes mellitus with diabetic chronic kidney disease; E11.65 Type 2 diabetes mellitus with hyperglycemia; J40 Bronchitis, not specified as acute or chronic; K29.70 Gastritis, unspecified, without bleeding; N18.9 Chronic kidney disease, unspecified; Z79.4 Long term (current) use of insulin; Z79.899 Other long term (current) drug therapy; Z87.442 Personal history of urinary calculi; Z90.49 Acquired absence of other specified parts of digestive tract; M19.90 Unspecified osteoarthritis, unspecified site; R26.81 Unsteadiness on feet; R59.0 Localized enlarged lymph nodes; N28.89 Other specified disorders of kidney and ureter

== ENCOUNTER 2018-06-10 16:10 | Inpatient (IN) | payer OTHER ==
[2018-06-10 16:11] VITALS: BMI 29.7
[2018-06-10] MEDS ORDERED: Sodium Chloride 0.9% 1,000 ML IV STA (19:45)
[2018-06-10 20:17] LABS: HEMOGLOBIN 10.9 g/dL (12.0-18.0); MEAN CELL VOLUME 70.1 fl (80.0-94.0); MEAN CORPUSCULAR HEMOGLOBIN 22.9 pg (27.0-31.0); MEAN CORPUSCULAR HGB CONC 32.6 g/dL (33.0-37.0); RBC 4.77 Mil/uL (4.40-5.90); RED CELL DISTRIBUTION WIDTH 20.7 % (11.5-14.5); WHITE BLOOD COUNT 7.5 K/uL (4.8-10.8)
[2018-06-10 20:26] LABS: CALCIUM 9.3 mg/dL (8.4-10.2)
--- NOTE | 2018-06-10 22:13 | ED PDOC ---
HPI: General Adult Time Seen by Provider: 06/10/18 19:23 Chief Complaint (Nursing): Abnormal Labs History Per: Patient, Family, Nurse Researcher (Olivia [id number]) History/Exam Limitations: no limitations Additional Complaint(s): Hx of DM, recently diagnosed urinary cancer presenting with abdominal pain, states he left the hospital today because he had bills to pay, returns to the ER for completion of his workup. States he's still having abdominal pain and bloating but denies fevers, chills, sweats, nausea, vomiting, diarrhea. Past Medical History Reviewed: Historical Data, Nursing Documentation, Vital Signs Vital Signs: Last Vital Signs Temp 98.0 F 06/10/18 22:00 Pulse 79 06/10/18 22:00 Resp 18 06/10/18 22:00 BP 149/94 H 06/10/18 22:00 Pulse Ox 95 06/10/18 22:00 - Medical History PMH: Anxiety, Bronchitis, Diabetes, Gastritis, HTN, Kidney Stones, Chronic Kidney Disease - Surgical History Surgical History: Appendectomy, Endoscopy - Family History Family History: States: Unknown Family Hx - Home Medications Home Medications: Ambulatory Orders Medication Instructions Recorded Amlodipine Besylate/Benazepril 1 cap PO DAILY 05/21/15 [Amlodipine Besylate and Benazepril Hydrochlor] Sitagliptin Phos/Metformin HCl 1 tab PO BID 05/21/15 [Janumet Xr 500 mg-50 mg] Esomeprazole Magnesium [Nexium 20 mg PO DAILY 06/08/18 24Hr] Finasteride [Proscar] 5 mg PO DAILY 06/08/18 Icosapent Ethyl [Vascepa] 2 gm PO BID 06/08/18 Meloxicam [Mobic] 7.5 mg PO DAILY 06/08/18 Tamsulosin [Flomax] 0.4 mg PO DAILY 06/08/18 levoFLOXacin [Levaquin] 500 mg PO DAILY 06/08/18 - Allergies Allergies/Adverse Reactions: Allergies Allergy/AdvReac Type Severity Reaction Status Date / Time No Known Allergies Allergy Verified 08/30/16 11:18 Review of Systems ROS Statement: Except As Marked, All Systems Reviewed And Found Negative Gastrointestinal: Positive for: Abdominal Pain Physical Exam - Reviewed Nursing Documentation Reviewed: Yes Vital Signs Reviewed: Yes - Physical Exam Appears: Positive for: Well, Non-toxic, No Acute Distress Head Exam: Positive for: ATRAUMATIC, NORMAL INSPECTION, NORMOCEPHALIC Skin: Positive for: Normal Color, Warm, DRY Eye Exam: Positive for: EOMI, Normal appearance, PERRL ENT: Positive for: Normal ENT Inspection Neck: Positive for: Normal, Painless ROM Cardiovascular/Chest: Positive for: Regular Rate, Rhythm Respiratory: Positive for: CNT, Normal Breath Sounds Gastrointestinal/Abdominal: Positive for: Soft, Asicites. Negative for: Tenderness Back: Positive for: Normal Inspection Extremity: Positive for: Normal ROM Neurologic/Psych: Positive for: Alert, Oriented - Laboratory Results Result Diagrams: 06/10/18 20:05 06/10/18 20:05 - ECG O2 Sat by Pulse Oximetry: 95 Pulse Ox Interpretation: Normal Medical Decision Making Medical Decision MakinPM Patient returns for completion of workup for cancer Abdomen with ascites Case discussed with Dr. Brownlee, will admit for further workup Disposition - Clinical Impression Clinical Impression: Abdominal pain, Metastatic disease - Disposition Disposition Time: 20:00 Condition: FAIR
[2018-06-11] MEDS: Sodium Chloride 0.9% 1,000 ML IV SCH ×2 (06:56→19:50)
[2018-06-11] MEDS ORDERED: Insulin Regular 100 units/ml SC SCH (07:00)
[2018-06-11] MEDS: levoFLOXacin 750 mg in D5W 750 MG/150 ML BAG IVPB SCH (08:05)
--- NOTE | 2018-06-11 08:13 | CP.PCM.HP ---
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 States patient lost 14 lbs w/in last couple of months. Patient initially presented to hospital on 06/08/18 for similar complaints, admitted to [facility] but signed out against medical advice yesterday. Patient returned to ER yesterday later in the evening w/ complaints of abdominal pain and right flank pain, and to have workup for recently diagnosed with ?metastatic urothelial cancer. CT of the abdomen and pelvis on 06/08/18 shows metastatic disease likely originating from the right kidney with numerous metastatic lung nodules, liver nodules as well as retroperitoneal lymph nodes. ROS: All 12 systems reviewed and negative except as mentioned above PMD: Dr. Gwendolyn Tai PMHx: HTN, DMII, renal stone, gastritis and BPH PSHx: Appendectomy Family hx: mother of unknown abdominal CA at age 49 Social hx: Denies smoking cigarettes, drinking EtOH or using drugs. Allergies: NKDA Medications: reviewed stunt person: Lupe Youssef (daughter in law) [phone] Present on Admission - Present on Admission Any Indicators Present on Admission: No Review of Systems - Review of Systems All systems: reviewed and no additional remarkable complaints except Past Patient History - Past Medical History & Family History Past Medical History?: Yes - Past Social History Smoking Status: Never Smoked - CARDIAC Hx Cardiac Disorders: Yes Hx Hypertension: Yes - PULMONARY Hx Respiratory Disorders: Yes Hx Asthma: Yes Hx Bronchitis: Yes - NEUROLOGICAL Hx Neurological Disorder: No - HEENT Hx HEENT Problems: No - RENAL Hx Chronic Kidney Disease: Yes (CKD) Hx Kidney Stones: Yes - ENDOCRINE/METABOLIC Hx Endocrine Disorders: Yes Hx Diabetes Mellitus Type 2: Yes - HEMATOLOGICAL/ONCOLOGICAL Hx Blood Disorders: No - INTEGUMENTARY Hx Dermatological Problems: No - MUSCULOSKELETAL/RHEUMATOLOGICAL Hx Musculoskeletal Disorders: Yes Hx Back Pain: Yes Hx Falls: No - GASTROINTESTINAL Hx Gastrointestinal Disorders: Yes Hx Gastritis: Yes - GENITOURINARY/GYNECOLOGICAL Hx Genitourinary Disorders: Yes Other/Comment: BPH - PSYCHIATRIC Hx Psychophysiologic Disorder: Yes Hx Anxiety: Yes Hx Substance Use: No - SURGICAL HISTORY Hx Surgeries: Yes Hx Appendectomy: Yes - ANESTHESIA Hx Anesthesia: Yes Hx Anesthesia Reactions: No Hx Malignant Hyperthermia: No Meds Allergies/Adverse Reactions: Allergies Allergy/AdvReac Type Severity Reaction Status Date / Time No Known Allergies Allergy Verified 08/30/16 11:18 Physical Exam - Constitutional Appears: Non-toxic, No Acute Distress - Head Exam Head Exam: NORMAL INSPECTION - Eye Exam Eye Exam: Normal appearance - ENT Exam ENT Exam: Mucous Membranes Moist, Normal Exam - Neck Exam Neck exam: Positive for: Normal Inspection - Respiratory Exam Respiratory Exam: Clear to Auscultation Bilateral, NORMAL BREATHING PATTERN. absent: Rhonchi, Wheezes - Cardiovascular Exam Cardiovascular Exam: REGULAR RHYTHM, +S1, +S2 - GI/Abdominal Exam GI & Abdominal Exam: Distended, Normal Bowel Sounds, Soft, Tenderness (mild tenderness to right sided abdomen). absent: Guarding, Rebound - Extremities Exam Extremities exam: Positive for: normal inspection. Negative for: calf tenderness, pedal edema - Back Exam Back exam: absent: CVA tenderness (L), CVA tenderness (R) - Neurological Exam Neurological exam: Alert, Oriented x3 - Psychiatric Exam Psychiatric exam: Normal Affect, Normal Mood - Skin Skin Exam: Normal Color Results - Vital Signs Recent Vital Signs: Last Vital Signs Temp 97.8 F 06/11/18 00:08 Pulse 70 06/11/18 00:08 Resp 18 06/11/18 00:08 BP 129/77 06/11/18 00:08 Pulse Ox 95 06/11/18 00:08 - Labs Result Diagrams: 06/10/18 20:05 06/10/18 20:05 Labs: Laboratory Results - last 24 hr 06/10/18 06/10/18 06/11/18 20:05 20:05 07:03 WBC 7.5 RBC 4.77 Hgb 10.9 L Hct 33.4 L MCV 70.1 L MCH 22.9 L MCHC 32.6 L RDW 20.7 H Plt Count 303 Sodium 138 Potassium 4.9 Chloride 102 Carbon Dioxide 27 Anion Gap 14 BUN 31 H Creatinine 2.0 H Est GFR ( Amer) 40 Est GFR (Non-Af Amer) 33 POC Glucose (mg/dL) 93 Random Glucose 118 H Calcium 9.3 Assessment & Plan - Assessment and Plan (Free Text) Assessment: 77 year old male with PMHx of DMII, HTN, left renal stone and BPH presented to [facility] ER w/ complaints of right sided abdominal pain and right flank pain for more than 1 month associated with poor appetite and weight loss. CT of the abdomen and pelvis shows metastatic disease likely originating from the right kidney with numerous metastatic lung nodules, liver nodules as well as retroper itoneal lymph nodes. Patient is admitted for evaluation of metastatic CA and acute kidney injury. Plan: Metastatic disease likely secondary to urothelial CA -Afebrile with stable vitals -WBC 6.9 yesterday. -CT A/P on 06/08/18 : IMPRESSION: Metastatic disease likely originating from the right kidney with numerous metastatic lung nodules, liver nodules as well as retroperitoneal lymph nodes. Findings could be secondary to a transitional cell carcinoma in the proximal ureter versus renal cell carcinoma (less likely.) -Hematology/oncology consult, Dr. Maynard, consult appreciated. -IR consult, Dr. Sena -Pain management -f/u AM labs Acute kidney injury -BUN/Cr 29/1.9 with eGFR 35 -Nephrology consult, Dr. Jean, recs appreciated. -Avoid nephrotoxic drugs -f/u Renal scan w/ Lasix Anemia -H&H 10.7/32.9 -Hem/onc on board -f/u AM labs Hypertension -Continue home medications DMII -Hold metformin due to RAMILA -c/w Januvia -Sliding scale insulin BPH -c/w flomax and finasteride DVT prophylasix -SCDs -Encourage ambulation Diet -Heart Healthy diet Patient seen, examined and plan d/w Dr. Kem Chacko, pgy-2 <Dax Brownlee - Last Filed: 06/12/18 10:37> Results - Vital Signs Recent Vital Signs: Last Vital Signs Temp 100.2 F H 06/12/18 08:09 Pulse 88 06/12/18 08:09 Resp 20 06/12/18 08:09 BP 136/80 06/12/18 08:09 Pulse Ox 91 L 06/12/18 08:09 - Labs Result Diagrams: 06/12/18 08:06 06/12/18 08:06 Labs: Laboratory Results - last 24 hr 0106/11/18 06/11/18 10:42 14:00 14:00 WBC RBC Hgb Hct MCV MCH MCHC RDW Plt Count PT INR APTT Sodium Potassium Chloride Carbon Dioxide Anion Gap BUN Creatinine Est GFR ( Amer) Est GFR (Non-Af Amer) POC Glucose (mg/dL) 159 H Random Glucose Calcium Total Bilirubin AST ALT Alkaline Phosphatase Total Protein Albumin Globulin Albumin/Globulin Ratio Urine Color Urine Clarity Urine pH Ur Specific Mouthcard Urine Protein Urine Glucose (UA) Urine Ketones Urine Blood Urine Nitrate Urine Bilirubin Urine Urobilinogen Ur Leukocyte Esterase Urine RBC (Auto) Urine Microscopic WBC Urine Bacteria U Random Total Protein 33 Urine Creatinine 56 Urine Microalbumin 7.3 Microalb/Creat Ratio 130 H 06/11/18 06/11/18 06/11/18 14:10 17:05 21:12 WBC RBC Hgb Hct MCV MCH MCHC RDW Plt Count PT INR APTT Sodium Potassium Chloride Carbon Dioxide Anion Gap BUN Creatinine Est GFR ( Amer) Est GFR (Non-Af Amer) POC Glucose (mg/dL) 124 H 97 Random Glucose Calcium Total Bilirubin AST ALT Alkaline Phosphatase Total Protein Albumin Globulin Albumin/Globulin Ratio Urine Color Yellow Urine Clarity Slighty-cloudy Urine pH 6.0 Ur Specific Mouthcard 1.010 Urine Protein Negative Urine Glucose (UA) Neg Urine Ketones Negative Urine Blood Small Urine Nitrate Positive H Urine Bilirubin Negative Urine Urobilinogen 0.2-1.0 Ur Leukocyte Esterase Mod Urine RBC (Auto) 5 H Urine Microscopic WBC 41 H Urine Bacteria Rare U Random Total Protein Urine Creatinine Urine Microalbumin Microalb/Creat Ratio 06/12/18 06/12/18 06/12/18 05:31 08:06 08:06 WBC 15.7 H D RBC 4.63 Hgb 10.5 L Hct 33.1 L MCV 71.5 L MCH 22.7 L MCHC 31.8 L RDW 21.0 H Plt Count 330 PT INR APTT Sodium 138 Potassium 3.9 Chloride 103 Carbon Dioxide 25 Anion Gap 14 BUN 28 H Creatinine 1.8 H Est GFR ( Amer) 45 Est GFR (Non-Af Amer) 37 POC Glucose (mg/dL) 116 H Random Glucose 116 H Calcium 9.1 Total Bilirubin 0.4 AST 35 ALT 12 L D Alkaline Phosphatase 126 Total Protein 7.6 Albumin 3.7 Globulin 3.9 Albumin/Globulin Ratio 1.0 Urine Color Urine Clarity Urine pH Ur Specific Mouthcard Urine Protein Urine Glucose (UA) Urine Ketones Urine Blood Urine Nitrate Urine Bilirubin Urine Urobilinogen Ur Leukocyte Esterase Urine RBC (Auto) Urine Microscopic WBC Urine Bacteria U Random Total Protein Urine Creatinine Urine Microalbumin Microalb/Creat Ratio 06/12/18 08:06 WBC RBC Hgb Hct MCV MCH MCHC RDW Plt Count PT 15.0 H INR 1.3 APTT 27.4 Sodium Potassium Chloride Carbon Dioxide Anion Gap BUN Creatinine Est GFR ( Amer) Est GFR (Non-Af Amer) POC Glucose (mg/dL) Random Glucose Calcium Total Bilirubin AST ALT Alkaline Phosphatase Total Protein Albumin Globulin Albumin/Globulin Ratio Urine Color Urine Clarity Urine pH Ur Specific Mouthcard Urine Protein Urine Glucose (UA) Urine Ketones Urine Blood Urine Nitrate Urine Bilirubin Urine Urobilinogen Ur Leukocyte Esterase Urine RBC (Auto) Urine Microscopic WBC Urine Bacteria U Random Total Protein Urine Creatinine Urine Microalbumin Microalb/Creat Ratio Assessment & Plan - Assessment and Plan (Free Text) Assessment: Patient was personally seen and examined by me in rounds with residents. Available labs and diagnostic data reviewed. Case, Patient's condition and management plan discussed with residents in rounds. Agree with resident's progress note. Plan: As ordered.
[2018-06-11] MEDS: Omega-3-Acid Ethyl Esters 1 GM Cap PO SCH ×2 (09:22→17:20)
[2018-06-11] MEDS: Pantoprazole 40 mg EC Tab PO SCH (09:28)
[2018-06-11] MEDS: Insulin Regular 100 units/ml SC SCH ×3 (12:49→22:04)
--- NOTE | 2018-06-11 14:18 | CP.PCM.CON ---
History of Present Illness - History of Present Illness History of Present Illness: 77 year old male with a history of HTN, kidney stones, representing with back pain, found to have radiographic evidence of metastatic malignancy. The patient left the hospital as he had to take care of an emergent financial issue. The patient notes to increasing flank/back pain which prompted him to come to the hospital. A CT A/P revealed dilation of renal collecting system with lung, liver, adrenal nodules and retroperitoneal lymphadenopathy. Past medical history: HTN, kidney stones Past surgical history: Appendectomy Family history: Denies hematologic and oncologic problems Social history: Denies tobacco, alcohol, and illicit drug use. Allergies: NKA Review of systems: All remaining review of systems including HEENT, cardiovascular, respiratory, gastrointestinal, genitourinary, musculoskeletal, dermatologic, neurologic, and psychiatric are negative unless mentioned in the HPI. Past Patient History - Past Medical History & Family History Past Medical History?: Yes - Past Social History Smoking Status: Never Smoked - CARDIAC Hx Cardiac Disorders: Yes Hx Hypertension: Yes - PULMONARY Hx Respiratory Disorders: Yes Hx Asthma: Yes Hx Bronchitis: Yes - NEUROLOGICAL Hx Neurological Disorder: No - HEENT Hx HEENT Problems: No - RENAL Hx Chronic Kidney Disease: Yes (CKD) Hx Kidney Stones: Yes - ENDOCRINE/METABOLIC Hx Endocrine Disorders: Yes Hx Diabetes Mellitus Type 2: Yes - HEMATOLOGICAL/ONCOLOGICAL Hx Blood Disorders: No - INTEGUMENTARY Hx Dermatological Problems: No - MUSCULOSKELETAL/RHEUMATOLOGICAL Hx Musculoskeletal Disorders: Yes Hx Back Pain: Yes Hx Falls: No - GASTROINTESTINAL Hx Gastrointestinal Disorders: Yes Hx Gastritis: Yes - GENITOURINARY/GYNECOLOGICAL Hx Genitourinary Disorders: Yes Other/Comment: BPH - PSYCHIATRIC Hx Psychophysiologic Disorder: Yes Hx Anxiety: Yes Hx Substance Use: No - SURGICAL HISTORY Hx Surgeries: Yes Hx Appendectomy: Yes - ANESTHESIA Hx Anesthesia: Yes Hx Anesthesia Reactions: No Hx Malignant Hyperthermia: No Meds Allergies/Adverse Reactions: Allergies Allergy/AdvReac Type Severity Reaction Status Date / Time No Known Allergies Allergy Verified 08/30/16 11:18 - Medications Medications: Current Medications Acetaminophen (Tylenol 325mg Tab) 650 mg PO Q6 PRN PRN Reason: Pain, Mild (1-3) Amlodipine Besylate (Norvasc) 10 mg PO DAILY [facility] Last Admin: 06/11/18 09:28 Dose: 10 mg Finasteride (Proscar) 5 mg PO DAILY [facility] Last Admin: 06/11/18 09:21 Dose: 5 mg Levofloxacin/Dextrose (Levaquin 750mg) 750 mg in 150 mls @ 100 mls/hr IVPB DAILY [facility]; Protocol Last Admin: 06/11/18 08:05 Dose: 100 mls/hr Sodium Chloride (Sodium Chloride 0.9%) 1,000 mls @ 75 mls/hr IV .[id number] [facility] Stop: 06/12/18 06:26 Last Admin: 06/11/18 06:56 Dose: Not Given Insulin Human Regular (Humulin R) 0 units SC ACHS [facility]; Protocol Last Admin: 06/11/18 12:49 Dose: 2 units Lisinopril (Zestril) 20 mg PO DAILY [facility] Last Admin: 06/11/18 09:28 Dose: 20 mg Metformin HCl (Glucophage) 500 mg PO BID [facility] Last Admin: 06/11/18 09:21 Dose: 500 mg Morphine Sulfate (Morphine) 1 mg IVP Q4 PRN PRN Reason: Pain, moderate (4-7) Morphine Sulfate (Morphine) 2 mg IVP Q4 PRN PRN Reason: Pain, severe (8-10) [id number] Ethyl Esters (Lovaza) 2 gm PO BID [facility] Last Admin: 06/11/18 09:22 Dose: 2 gm Pantoprazole Sodium (Protonix Ec Tab) 40 mg PO DAILY [facility] Last Admin: 06/11/18 09:28 Dose: 40 mg Sitagliptin Phosphate (Januvia) 50 mg PO BID [facility] Last Admin: 06/11/18 09:21 Dose: 50 mg Tamsulosin HCl (Flomax) 0.4 mg PO DAILY [facility] Last Admin: 06/11/18 09:28 Dose: 0.4 mg Physical Exam - Head Exam Head Exam: ATRAUMATIC - Eye Exam Eye Exam: Normal appearance - ENT Exam ENT Exam: Mucous Membranes Dry - Respiratory Exam Respiratory Exam: NORMAL BREATHING PATTERN - Cardiovascular Exam Cardiovascular Exam: +S1, +S2 - GI/Abdominal Exam GI & Abdominal Exam: Normal Bowel Sounds - Extremities Exam Extremities exam: Positive for: normal inspection - Neurological Exam Neurological exam: Oriented x3 - Psychiatric Exam Psychiatric exam: Normal Affect, Normal Mood - Skin Skin Exam: Warm Results - Vital Signs Recent Vital Signs: Last Vital Signs Temp 97.5 F L 06/11/18 08:51 Pulse 82 06/11/18 09:28 Resp 19 06/11/18 08:51 BP 162/82 H 06/11/18 09:28 Pulse Ox 96 06/11/18 08:51 - Labs Result Diagrams: 06/10/18 20:05 06/10/18 20:05 Labs: Laboratory Results - last 24 hr 06/10/18 06/10/18 06/11/18 20:05 20:05 07:03 WBC 7.5 RBC 4.77 Hgb 10.9 L Hct 33.4 L MCV 70.1 L MCH 22.9 L MCHC 32.6 L RDW 20.7 H Plt Count 303 Sodium 138 Potassium 4.9 Chloride 102 Carbon Dioxide 27 Anion Gap 14 BUN 31 H Creatinine 2.0 H Est GFR ( Amer) 40 Est GFR (Non-Af Amer) 33 POC Glucose (mg/dL) 93 Random Glucose 118 H Calcium 9.3 06/11/18 10:42 WBC RBC Hgb Hct MCV MCH MCHC RDW Plt Count Sodium Potassium Chloride Carbon Dioxide Anion Gap BUN Creatinine Est GFR ( Amer) Est GFR (Non-Af Amer) POC Glucose (mg/dL) 159 H Random Glucose Calcium Assessment & Plan (1) Anemia Assessment and Plan: hypoproliferative erythroid response borderline iron stores will start IV iron Status: Acute (2) Metastatic disease Assessment and Plan: needs IR biopsy of most accessible lesion Thank you for this interesting consult. Status: Acute
[2018-06-11 14:25] LABS: URINE BACTERIA RARE (<OCC); URINE BILIRUBIN NEGATIVE (NEGATIVE); URINE BLOOD SMALL (NEGATIVE); URINE CLARITY SLIGHTY-CLOUDY (Clear); URINE COLOR YELLOW (YELLOW); URINE GLUCOSE (UA) NEG (NEGATIVE); URINE LEUKOCYTE ESTERASE MOD Leu/uL (Negative); URINE PROTEIN NEGATIVE (NEGATIVE); URINE UROBILINOGEN 0.2-1.0 mg/dL (0.2-1.0)
--- NOTE | 2018-06-11 21:57 | CP.PCM.CON ---
History of Present Illness - History of Present Illness History of Present Illness: The patient is a 77-year-old male with past medical history of hypertension, kidney stone, and diabetes, initially presented to the ED 3 days ago with worsening bilateral back pain and dysuria; Nephrology being consulted for acute kidney injury. Of note, patient was seen by us yesterday but then decided to sign AMA due to having to take care of some financial issues; he promptly came back to ED for admission; The patient presented to the ED initially about one month ago with right lower quadrant pain and some dysuria. At that time, CAT scan of abdomen and pelvis was done which showed hypertrophied right kidney with delayed nephrogram and right renal artery encasement with findings concerning for possible obstruction secondary to underlying tumor. The patient was discharged with outpatient followup; however, he was not able to see a urologist. He was discharged on p.o. Bactrim and reports that dysuria did improve. The patient reports significant weight loss lately. Denies any night sweats. Appetite has been poor. Denies any vomiting or diarrhea. The patient otherwise without any shortness of breath, chest pain or palpitations. Denies any leg swelling. He says he is only taking Tylenol Arthritis for pain in his legs; sometimes has somewhat foul smelling urine. PAST MEDICAL HISTORY: As above. SOCIAL HISTORY: Denies smoking. FAMILY HISTORY: Reports mother had some sort of cancer. REVIEW OF SYSTEMS: CONSTITUTIONAL: As per HPI. HEENT: Denies any difficulty swallowing. RESPIRATORY: As per HPI. CARDIOVASCULAR: As per HPI. GI: As per HPI; has R sided abd pain; : As per HPI. MUSCULOSKELETAL: Gets arthritis type pains in his legs. Has low back pain. SKIN: Denies any pruritus or rashes. PHYSICAL EXAMINATION: GENERAL: No distress. Conversing coherently in full sentences. HEENT: Moist mucous membranes. Nonicteric. NECK: No cervical lymphadenopathy. RESPIRATORY: Lungs are clear to auscultation bilaterally. No rales. No rhonchi. No wheezes. CARDIOVASCULAR: Heart sounds S1, S2 normal. No murmurs. No gallops. No rubs. GASTROINTESTINAL: Abdomen is soft, R sided tenderness, nondistended. GENITOURINARY: No overt bladder distention. EXTREMITIES: No lower leg edema. SKIN: Warm. No cyanosis. PSYCHIATRIC: Normal mood. Normal affect. NEURO: No overt resting tremor. Abdominal CT, abdomen and pelvis without contrast reviewed showing dilatation of right renal collecting system, left renal calculus. ASSESSMENT AND PLAN: 1. Acute kidney injury. Baseline renal function unclear as serum creatinine was 1.4 one month ago but 0.8 back in 12/2016; has evidence of right-sided obstruction on imaging. Given findings of retroperitoneal lymphadenopathy and what was noted as right renal artery encasement, findings are concerning for metastatic disease with unclear primary tumor. I agree with obtaining biopsy of either lymph node or any lesion adjacent to the kidney. -Obtaining renal lasix scan to assess for any partial left-sided obstruction despite lack of hydronephrosis as renal function has worsened significantly. -Stop any nephrotoxic medications. Should avoid nonsteroidal antiinflammatory drugs as the patient is already on fpgbq-bpeolopbocd-ebvnxcdunob system blockade with lisinopril and nonsteroidal antiinflammatory drugs will further blunt any renal auto-regulation necessary to sustain adequate glomerular filtration rate. -Agree with gentle IVF; 2. Hypertension, blood pressure currently controlled on amlodipine 10 mg daily and lisinopril 20 mg daily. Continue the same. Thank you for this referral. We will be following closely. Past Patient History - Past Medical History & Family History Past Medical History?: Yes - Past Social History Smoking Status: Never Smoked - CARDIAC Hx Cardiac Disorders: Yes Hx Hypertension: Yes - PULMONARY Hx Respiratory Disorders: Yes Hx Asthma: Yes Hx Bronchitis: Yes - NEUROLOGICAL Hx Neurological Disorder: No - HEENT Hx HEENT Problems: No - RENAL Hx Chronic Kidney Disease: Yes (CKD) Hx Kidney Stones: Yes - ENDOCRINE/METABOLIC Hx Endocrine Disorders: Yes Hx Diabetes Mellitus Type 2: Yes - HEMATOLOGICAL/ONCOLOGICAL Hx Blood Disorders: No - INTEGUMENTARY Hx Dermatological Problems: No - MUSCULOSKELETAL/RHEUMATOLOGICAL Hx Musculoskeletal Disorders: Yes Hx Back Pain: Yes Hx Falls: No - GASTROINTESTINAL Hx Gastrointestinal Disorders: Yes Hx Gastritis: Yes - GENITOURINARY/GYNECOLOGICAL Hx Genitourinary Disorders: Yes Other/Comment: BPH - PSYCHIATRIC Hx Psychophysiologic Disorder: Yes Hx Anxiety: Yes Hx Substance Use: No - SURGICAL HISTORY Hx Surgeries: Yes Hx Appendectomy: Yes - ANESTHESIA Hx Anesthesia: Yes Hx Anesthesia Reactions: No Hx Malignant Hyperthermia: No Meds Allergies/Adverse Reactions: Allergies Allergy/AdvReac Type Severity Reaction Status Date / Time No Known Allergies Allergy Verified 08/30/16 11:18 - Medications Medications: Current Medications Acetaminophen (Tylenol 325mg Tab) 650 mg PO Q6 PRN PRN Reason: Pain, Mild (1-3) Amlodipine Besylate (Norvasc) 10 mg PO DAILY [facility] Last Admin: 06/11/18 09:28 Dose: 10 mg Finasteride (Proscar) 5 mg PO DAILY [facility] Last Admin: 06/11/18 09:21 Dose: 5 mg Levofloxacin/Dextrose (Levaquin 750mg) 750 mg in 150 mls @ 100 mls/hr IVPB DAILY [facility]; Protocol Last Admin: 06/11/18 08:05 Dose: 100 mls/hr Sodium Chloride (Sodium Chloride 0.9%) 1,000 mls @ 75 mls/hr IV .[id number] [facility] Stop: 06/12/18 06:26 Last Admin: 06/11/18 06:56 Dose: Not Given Iron Sucrose 200 mg/ Sodium (Chloride) 110 mls @ 110 mls/hr IVPB DAILY [facility] Last Admin: 06/11/18 17:47 Dose: 110 mls/hr Insulin Human Regular (Humulin R) 0 units SC ACHS [facility]; Protocol Last Admin: 06/11/18 17:19 Dose: Not Given Lisinopril (Zestril) 20 mg PO DAILY [facility] Last Admin: 06/11/18 09:28 Dose: 20 mg Metformin HCl (Glucophage) 500 mg PO BID [facility] Last Admin: 06/11/18 09:21 Dose: 500 mg Morphine Sulfate (Morphine) 1 mg IVP Q4 PRN PRN Reason: Pain, moderate (4-7) Morphine Sulfate (Morphine) 2 mg IVP Q4 PRN PRN Reason: Pain, severe (8-10) Nfunp-5-[id number] Ethyl Esters (Lovaza) 2 gm PO BID [facility] Last Admin: 06/11/18 17:20 Dose: 2 gm Pantoprazole Sodium (Protonix Ec Tab) 40 mg PO DAILY [facility] Last Admin: 06/11/18 09:28 Dose: 40 mg Sitagliptin Phosphate (Januvia) 50 mg PO BID [facility] Last Admin: 06/11/18 17:47 Dose: 50 mg Tamsulosin HCl (Flomax) 0.4 mg PO DAILY [facility] Last Admin: 06/11/18 09:28 Dose: 0.4 mg Results - Vital Signs Recent Vital Signs: Last Vital Signs Temp 97.5 F L 06/11/18 17:00 Pulse 78 06/11/18 17:00 Resp 19 06/11/18 17:00 BP 143/83 06/11/18 17:00 Pulse Ox 78 L 06/11/18 17:00 - Labs Result Diagrams: 06/12/18 08:06 06/12/18 08:06 Labs: Laboratory Results - last 24 hr 06/11/18 06/11/18 06/11/18 07:03 10:42 14:00 POC Glucose (mg/dL) 93 159 H Urine Color Urine Clarity Urine pH Ur Specific [place] Urine Protein Urine Glucose (UA) Urine Ketones Urine Blood Urine Nitrate Urine Bilirubin Urine Urobilinogen Ur Leukocyte Esterase Urine RBC (Auto) Urine Microscopic WBC Urine Bacteria U Random Total Protein 33 06/11/18 06/11/18 06/11/18 14:10 17:05 21:12 POC Glucose (mg/dL) 124 H 97 Urine Color Yellow Urine Clarity Slighty-cloudy Urine pH 6.0 Ur Specific [place] 1.010 Urine Protein Negative Urine Glucose (UA) Neg Urine Ketones Negative Urine Blood Small Urine Nitrate Positive H Urine Bilirubin Negative Urine Urobilinogen 0.2-1.0 Ur Leukocyte Esterase Mod Urine RBC (Auto) 5 H Urine Microscopic WBC 41 H Urine Bacteria Rare U Random Total Protein
[2018-06-11] MEDS: Morphine 4 MG/ML VIAL IVP PRN (23:06)
[2018-06-12] MEDS: Sodium Chloride 0.9% 1,000 ML IV SCH (05:41)
--- NOTE | 2018-06-12 07:44 | CP.PCM.PN ---
<ElmiraSultan del - Last Filed: 06/12/18 09:39> Subjective - Date & Time of Evaluation Date of Evaluation: 06/12/18 Time of Evaluation: 07:00 - Subjective Subjective: Patient seen and examined this morning with Dr. Brownlee No acute overnight events. Reports intermittent right sided abdominal pain and pain is controlled with pain medications. States he felt warm and had nausea last night but denies any chills, vomiting or dizziness. Denies any dysuria or hematuria. Patient declined blood test this morning but agreed to do it after explaining importance of checking labs. NPO for IR biopsy today. Objective - Vital Signs/Intake and Output Vital Signs (last 24 hours): Temp Pulse Resp BP Pulse Ox 98.8 F 84 18 126/72 95 06/12/18 00:18 06/12/18 00:18 06/12/18 00:18 06/12/18 00:18 06/12/18 00:18 - Medications Medications: Current Medications Acetaminophen (Tylenol 325mg Tab) 650 mg PO Q6 PRN PRN Reason: Pain, Mild (1-3) Amlodipine Besylate (Norvasc) 10 mg PO DAILY [facility] Last Admin: 06/11/18 09:28 Dose: 10 mg Finasteride (Proscar) 5 mg PO DAILY [facility] Last Admin: 06/11/18 09:21 Dose: 5 mg Levofloxacin/Dextrose (Levaquin 750mg) 750 mg in 150 mls @ 100 mls/hr IVPB DAILY [facility]; Protocol Last Admin: 06/11/18 08:05 Dose: 100 mls/hr Iron Sucrose 200 mg/ Sodium (Chloride) 110 mls @ 110 mls/hr IVPB DAILY [facility] Last Admin: 06/11/18 17:47 Dose: 110 mls/hr Insulin Human Regular (Humulin R) 0 units SC ACHS [facility]; Protocol Last Admin: 06/11/18 22:04 Dose: Not Given Lisinopril (Zestril) 20 mg PO DAILY [facility] Last Admin: 06/11/18 09:28 Dose: 20 mg Metformin HCl (Glucophage) 500 mg PO BID [facility] Last Admin: 06/11/18 09:21 Dose: 500 mg Morphine Sulfate (Morphine) 1 mg IVP Q4 PRN PRN Reason: Pain, moderate (4-7) Morphine Sulfate (Morphine) 2 mg IVP Q4 PRN PRN Reason: Pain, severe (8-10) Last Admin: 06/11/18 23:06 Dose: 2 mg Unxny-0-Bvhu Ethyl Esters (Lovaza) 2 gm PO BID [facility] Last Admin: 06/11/18 17:20 Dose: 2 gm Pantoprazole Sodium (Protonix Ec Tab) 40 mg PO DAILY [facility] Last Admin: 06/11/18 09:28 Dose: 40 mg Sitagliptin Phosphate (Januvia) 50 mg PO BID [facility] Last Admin: 06/11/18 17:47 Dose: 50 mg Tamsulosin HCl (Flomax) 0.4 mg PO DAILY [facility] Last Admin: 06/11/18 09:28 Dose: 0.4 mg - Labs Labs: 06/10/18 20:05 06/10/18 20:05 - Constitutional Appears: No Acute Distress - Head Exam Head Exam: NORMAL INSPECTION - Eye Exam Eye Exam: Normal appearance - ENT Exam ENT Exam: Mucous Membranes Moist - Respiratory Exam Respiratory Exam: Clear to Ausculation Bilateral, NORMAL BREATHING PATTERN. absent: Rhonchi, Wheezes - Cardiovascular Exam Cardiovascular Exam: REGULAR RHYTHM, +S1, +S2 - GI/Abdominal Exam GI & Abdominal Exam: Distended, Soft, Normal Bowel Sounds. absent: Guarding, Tenderness, Rebound - Extremities Exam Extremities Exam: Normal Inspection. absent: Calf Tenderness, Pedal Edema - Back Exam Back Exam: CVA tenderness (R). absent: CVA tenderness (L) - Neurological Exam Neurological Exam: Alert, Awake, Oriented x3 - Psychiatric Exam Psychiatric exam: Normal Affect, Normal Mood - Skin Skin Exam: Normal Color Assessment and Plan - Assessment and Plan (Free Text) Assessment: 77 year old male with PMHx of DMII, HTN, left renal stone and BPH presented to [facility] ER w/ complaints of right sided abdominal pain and right flank pain for more than 1 month associated with poor appetite and weight loss. CT of the abd omen and pelvis shows metastatic disease likely originating from the right kidney with numerous metastatic lung nodules, liver nodules as well as retroperitoneal lymph nodes. Patient is admitted for evaluation of metastatic CA, acute kidney injury and complicated UTI. Plan: Metastatic disease likely secondary to urothelial CA -CT A/P on 06/08/18 : IMPRESSION: Metastatic disease likely originating from the right kidney with numerous metastatic lung nodules, liver nodules as well as retroperitoneal lymph nodes. Findings could be secondary to a transitional cell carcinoma in the proximal ureter versus renal cell carcinoma (less likely.) -Hematology/oncology consult, Dr. Maynard, consult appreciated. -IR consult, Dr. Sena. Scheduled for biopsy today. -NPO -Pain management -f/u AM labs Complicated urinary tract infection -UA: +nitrite and moderate leuk -WBC 15.7 this morning -Vitals stable -Urology consult, Dr. Mojica, f/u recommendation. -s/p Levaquin 750 mg IVPB yesterday -Stop levaquin due to CrCl ( patient's CrCl is 41 and recommended dosing is q48 hrs) -Start Ceftriaxone 1 gm IVPB Q24 -f/u blood cx, urine cx and AM labs Acute kidney injury -BUN/Cr 28/1.8 with eGFR 37, slight improvement. -IVF's NS @75 CC/hr -[facility] Warm Up Dr. Jean on board, recs appreciated. -Avoid nephrotoxic drugs -f/u Renal scan w/ Lasix and AM labs Anemia -H&H 10.5/33.1 -retic count 1.0%, b12 and folate: WNL -Hem/onc on board -C/W IV venofar 200 mg daily. -f/u AM labs Hypertension -Continue home medications DMII -Hold metformin due to RAMILA -c/w Januvia -Sliding scale insulin BPH -c/w flomax and finasteride DVT prophylasix -SCDs -Encourage ambulation Diet -Heart Healthy diet Patient seen, examined and plan d/w Dr. Kem Chacko, pgy-2 <Dax Brownlee - Last Filed: 06/12/18 10:36> Objective - Vital Signs/Intake and Output Vital Signs (last 24 hours): Temp Pulse Resp BP Pulse Ox 100.2 F H 88 20 136/80 91 L 06/12/18 08:09 06/12/18 08:09 06/12/18 08:09 06/12/18 08:09 06/12/18 08:09 - Medications Medications: Current Medications Acetaminophen (Tylenol 325mg Tab) 650 mg PO Q6 PRN PRN Reason: Pain, Mild (1-3) Amlodipine Besylate (Norvasc) 10 mg PO DAILY [facility] Last Admin: 06/12/18 09:50 Dose: Not Given Finasteride (Proscar) 5 mg PO DAILY [facility] Last Admin: 06/12/18 09:50 Dose: Not Given Iron Sucrose 200 mg/ Sodium (Chloride) 110 mls @ 110 mls/hr IVPB DAILY [facility] Last Admin: 06/12/18 08:54 Dose: 110 mls/hr Ceftriaxone Sodium 1 gm/ (Sodium Chloride) 100 mls @ 100 mls/hr IVPB DAILY [facility]; Protocol Insulin Human Regular (Humulin R) 0 units SC ACHS [facility]; Protocol Last Admin: 06/12/18 09:49 Dose: Not Given Lisinopril (Zestril) 20 mg PO DAILY [facility] Last Admin: 06/12/18 09:50 Dose: Not Given Metformin HCl (Glucophage) 500 mg PO BID [facility] Last Admin: 06/11/18 09:21 Dose: 500 mg Morphine Sulfate (Morphine) 1 mg IVP Q4 PRN PRN Reason: Pain, moderate (4-7) Last Admin: 06/12/18 08:46 Dose: 1 mg Morphine Sulfate (Morphine) 2 mg IVP Q4 PRN PRN Reason: Pain, severe (8-10) Last Admin: 06/11/18 23:06 Dose: 2 mg Ryqbz-4-Mkox Ethyl Esters (Lovaza) 2 gm PO BID [facility] Last Admin: 06/12/18 09:50 Dose: Not Given Ondansetron HCl (Zofran Inj) 4 mg IVP Q6 PRN PRN Reason: Nausea/Vomiting Pantoprazole Sodium (Protonix Ec Tab) 40 mg PO DAILY [facility] Last Admin: 06/12/18 09:50 Dose: Not Given Sitagliptin Phosphate (Januvia) 50 mg PO BID [facility] Last Admin: 06/12/18 09:49 Dose: Not Given Tamsulosin HCl (Flomax) 0.4 mg PO DAILY [facility] Last Admin: 06/12/18 09:49 Dose: Not Given - Labs Labs: 06/12/18 08:06 06/12/18 08:06 PT 15.0 Seconds (9.8-13.1) H 06/12/18 08:06 INR 1.3 06/12/18 08:06 APTT 27.4 Seconds (25.6-37.1) 06/12/18 08:06 Assessment and Plan - Assessment and Plan (Free Text) Assessment: Patient was personally seen and examined by me in rounds with residents. Available labs and diagnostic data reviewed. Case, Patient's condition and management plan discussed with residents in rounds. Agree with resident's progress note. Plan: As ordered.
[2018-06-12 08:15] LABS: HEMOGLOBIN 10.5 g/dL (12.0-18.0); MEAN CELL VOLUME 71.5 fl (80.0-94.0); MEAN CORPUSCULAR HEMOGLOBIN 22.7 pg (27.0-31.0); MEAN CORPUSCULAR HGB CONC 31.8 g/dL (33.0-37.0); RBC 4.63 Mil/uL (4.40-5.90); WHITE BLOOD COUNT 15.7 K/uL (4.8-10.8)
[2018-06-12 08:39] LABS: INR 1.3
[2018-06-12 08:42] LABS: PARTIAL THROMBOPLASTIN TIME 27.4 Seconds (25.6-37.1)
[2018-06-12] MEDS: Morphine 4 MG/ML VIAL IVP PRN ×2 (08:46→21:06)
[2018-06-12 08:48] LABS: ALBUMIN 3.7 g/dL (3.5-5.0); CALCIUM 9.1 mg/dL (8.4-10.2)
[2018-06-12] MEDS: levoFLOXacin 750 mg in D5W 750 MG/150 ML BAG IVPB SCH (08:48)
[2018-06-12] MEDS: Insulin Regular 100 units/ml SC SCH ×4 (09:49→23:00)
[2018-06-12] MEDS: Pantoprazole 40 mg EC Tab PO SCH (09:50)
[2018-06-12] MEDS: Omega-3-Acid Ethyl Esters 1 GM Cap PO SCH ×2 (09:50→17:21)
--- NOTE | 2018-06-12 11:32 | NM ---
Date of service: 06/11/2018 PROCEDURE: Renal scan with Lasix challenge. HISTORY: assess for partial L sided obstruction COMPARISON: 06/08/2018 CT abdomen and pelvis TECHNIQUE: 8.25 mg technetium 99 M Mag 3 administered intravenously. 40 mg of Lasix administered intravenously at 25 min. FINDINGS: Right Kidney: Flow component: Diminished flow/perfusion to the right kidney relative to the left. Time to peak: 1.26 min Peak to T1/2 Peak: 31 min. Diuretic T1 half 31 min. Left Kidney: Flow component: Normal flow/perfusion of the left kidney. Time to peak: 4.26 min Peak to T1/2 Peak: 11 min Diuretic T1 half 11 min Split Renal Function: Right kidney 16.7 % Left kidney 83.3 % IMPRESSION: Poorly functioning right kidney consistent with findings on recent CT scan. No evidence of obstructive uropathy left kidney.
[2018-06-12] MEDS ORDERED: Midazolam 2 MG/2 ML VIAL ONE (13:40)
[2018-06-12] MEDS ORDERED: Absorbable Gelatin Sponge Size 12-7 ONE (13:48)
[2018-06-12] MEDS ORDERED: Lidocaine 1% Inj (20ml) ONE (13:48)
--- NOTE | 2018-06-12 14:01 | PCM.SURG1 ---
Surgeon's Initial Post Op Note - Surgeon's Notes Surgeon: Shar Sena MD Online Marketing Manager: NONE Type of Anesthesia: IV Sedation Pre-Operative Diagnosis: Right renal mass Operative Findings: US showed increased size and decrease echogenicity of right kidney compared to left. Post-Operative Diagnosis: Right renal mass Operation Performed: US guided core biopsy right renal biopsy Specimen/Specimens Removed: 18 g core x 3 Estimated Blood Loss: EBL {In ML}: 3 Blood Products Given: N/A Drains Used: No Drains Post-Op Condition: Fair Date of Surgery/Procedure: 06/12/18 Time of Surgery/Procedure: 14:00
[2018-06-12] MEDS ORDERED: Sodium Chloride 0.9% 250 ML IV ONE (14:05)
--- NOTE | 2018-06-12 15:56 | RAD ---
Date of service: 06/12/2018 HISTORY: low grade fever and elevated WBC COMPARISON: 09/11/2016 TECHNIQUE: Chest PA and lateral FINDINGS: LUNGS: Multiple pulmonary nodules/masses consistent with metastatic disease. PLEURA: No significant pleural effusion identified. No pneumothorax apparent. CARDIOVASCULAR: No aortic atherosclerotic calcification present. Normal cardiac size. No pulmonary vascular congestion. OSSEOUS STRUCTURES: No significant abnormalities. VISUALIZED UPPER ABDOMEN: Normal. OTHER FINDINGS: None. IMPRESSION: Innumerable pulmonary nodules/metastatic lesions.
--- NOTE | 2018-06-12 19:19 | CP.PCM.PN ---
Subjective - Date & Time of Evaluation Date of Evaluation: 06/12/18 Time of Evaluation: 19:16 - Subjective Subjective: 77 year old male who was found right renal mass with evidence of Distant mets to lung and liver PE is unremarkabke. Plan Await biopsy results pt should be referd to oncology there is no indication for surgery in metestatic renal cancer. [place] Objective - Vital Signs/Intake and Output Vital Signs (last 24 hours): Temp Pulse Resp BP Pulse Ox 97.7 F 86 20 117/72 92 L 06/12/18 16:01 06/12/18 16:01 06/12/18 16:01 06/12/18 16:01 06/12/18 16:01 Intake and Output: 06/12/18 06/13/18 18:59 06:59 Intake Total 100 Output Total 100 Balance 0 - Medications Medications: Current Medications Acetaminophen (Tylenol 325mg Tab) 650 mg PO Q6 PRN PRN Reason: Pain, Mild (1-3) Amlodipine Besylate (Norvasc) 10 mg PO DAILY [facility] Last Admin: 06/12/18 09:50 Dose: Not Given Finasteride (Proscar) 5 mg PO DAILY [facility] Last Admin: 06/12/18 09:50 Dose: Not Given Iron Sucrose 200 mg/ Sodium (Chloride) 110 mls @ 110 mls/hr IVPB DAILY [facility] Last Admin: 06/12/18 08:54 Dose: 110 mls/hr Ceftriaxone Sodium 1 gm/ (Sodium Chloride) 100 mls @ 100 mls/hr IVPB DAILY [facility]; Protocol Last Admin: 06/12/18 11:37 Dose: 100 mls/hr Insulin Human Regular (Humulin R) 0 units SC ACHS [facility]; Protocol Last Admin: 06/12/18 17:19 Dose: Not Given Lisinopril (Zestril) 20 mg PO DAILY [facility] Last Admin: 06/12/18 09:50 Dose: Not Given Metformin HCl (Glucophage) 500 mg PO BID [facility] Last Admin: 06/11/18 09:21 Dose: 500 mg Morphine Sulfate (Morphine) 1 mg IVP Q4 PRN PRN Reason: Pain, moderate (4-7) Last Admin: 06/12/18 08:46 Dose: 1 mg Morphine Sulfate (Morphine) 2 mg IVP Q4 PRN PRN Reason: Pain, severe (8-10) Last Admin: 06/11/18 23:06 Dose: 2 mg Xgvaq-9-Tfuu Ethyl Esters (Lovaza) 2 gm PO BID [facility] Last Admin: 06/12/18 17:21 Dose: 2 gm Ondansetron HCl (Zofran Inj) 4 mg IVP Q6 PRN PRN Reason: Nausea/Vomiting Pantoprazole Sodium (Protonix Ec Tab) 40 mg PO DAILY [facility] Last Admin: 06/12/18 09:50 Dose: Not Given Sitagliptin Phosphate (Januvia) 50 mg PO BID [facility] Last Admin: 06/12/18 17:21 Dose: 50 mg Tamsulosin HCl (Flomax) 0.4 mg PO DAILY [facility] Last Admin: 06/12/18 09:49 Dose: Not Given - Labs Labs: 06/12/18 08:06 06/12/18 08:06 PT 15.0 Seconds (9.8-13.1) H 06/12/18 08:06 INR 1.3 06/12/18 08:06 APTT 27.4 Seconds (25.6-37.1) 06/12/18 08:06
--- NOTE | 2018-06-12 22:18 | CP.PCM.PN ---
Subjective - Date & Time of Evaluation Date of Evaluation: 06/12/18 Time of Evaluation: 11:00 - Subjective Subjective: For percutaneous biopsy by IR today. Objective - Vital Signs/Intake and Output Vital Signs (last 24 hours): Temp Pulse Resp BP Pulse Ox 98 F 82 20 112/72 93 L 06/12/18 17:15 06/12/18 17:15 06/12/18 17:15 06/12/18 17:15 06/12/18 17:15 Intake and Output: 06/12/18 06/13/18 18:59 06:59 Intake Total 100 Output Total 100 Balance 0 - Medications Medications: Current Medications Acetaminophen (Tylenol 325mg Tab) 650 mg PO Q6 PRN PRN Reason: Pain, Mild (1-3) Amlodipine Besylate (Norvasc) 10 mg PO DAILY [facility] Last Admin: 06/12/18 09:50 Dose: Not Given Finasteride (Proscar) 5 mg PO DAILY [facility] Last Admin: 06/12/18 09:50 Dose: Not Given Iron Sucrose 200 mg/ Sodium (Chloride) 110 mls @ 110 mls/hr IVPB DAILY [facility] Last Admin: 06/12/18 08:54 Dose: 110 mls/hr Ceftriaxone Sodium 1 gm/ (Sodium Chloride) 100 mls @ 100 mls/hr IVPB DAILY [facility]; Protocol Last Admin: 06/12/18 11:37 Dose: 100 mls/hr Insulin Human Regular (Humulin R) 0 units SC ACHS [facility]; Protocol Last Admin: 06/12/18 17:19 Dose: Not Given Lisinopril (Zestril) 20 mg PO DAILY [facility] Last Admin: 06/12/18 09:50 Dose: Not Given Metformin HCl (Glucophage) 500 mg PO BID [facility] Last Admin: 06/11/18 09:21 Dose: 500 mg Morphine Sulfate (Morphine) 1 mg IVP Q4 PRN PRN Reason: Pain, moderate (4-7) Last Admin: 06/12/18 21:06 Dose: 1 mg Morphine Sulfate (Morphine) 2 mg IVP Q4 PRN PRN Reason: Pain, severe (8-10) Last Admin: 06/11/18 23:06 Dose: 2 mg Lwwfn-2-Wygz Ethyl Esters (Lovaza) 2 gm PO BID [facility] Last Admin: 06/12/18 17:21 Dose: 2 gm Ondansetron HCl (Zofran Inj) 4 mg IVP Q6 PRN PRN Reason: Nausea/Vomiting Pantoprazole Sodium (Protonix Ec Tab) 40 mg PO DAILY [facility] Last Admin: 06/12/18 09:50 Dose: Not Given Sitagliptin Phosphate (Januvia) 50 mg PO BID [facility] Last Admin: 06/12/18 17:21 Dose: 50 mg Tamsulosin HCl (Flomax) 0.4 mg PO DAILY [facility] Last Admin: 06/12/18 09:49 Dose: Not Given - Labs Labs: 06/12/18 08:06 06/12/18 08:06 PT 15.0 Seconds (9.8-13.1) H 06/12/18 08:06 INR 1.3 06/12/18 08:06 APTT 27.4 Seconds (25.6-37.1) 06/12/18 08:06 - Head Exam Head Exam: ATRAUMATIC - Eye Exam Eye Exam: Normal appearance - ENT Exam ENT Exam: Mucous Membranes Dry - Respiratory Exam Respiratory Exam: NORMAL BREATHING PATTERN - Cardiovascular Exam Cardiovascular Exam: +S1, +S2 - GI/Abdominal Exam GI & Abdominal Exam: Normal Bowel Sounds Assessment and Plan (1) Anemia Assessment & Plan: chronic disease Status: Acute (2) Metastatic disease Assessment & Plan: for IR biopsy today further treatment recommendations based on pathology Status: Acute
[2018-06-13 06:21] LABS: BASO % 0.2 % (0.0-2.0); EOS % 0.2 % (0.0-4.0); LYMPH # 1.8 K/uL (1.0-4.3); MEAN CELL VOLUME 70.3 fl (80.0-94.0); MEAN CORPUSCULAR HEMOGLOBIN 22.7 pg (27.0-31.0); MEAN CORPUSCULAR HGB CONC 32.3 g/dL (33.0-37.0); MEAN PLATELET VOLUME 7.6 fl (7.2-11.7); MONO # 1.5 K/uL (0.0-0.8); MONO % 7.7 % (0.0-10.0); NEUT # 16.4 K/uL (1.8-7.0); NEUT % 82.9 % (50.0-75.0); PLATELET COUNT 276 K/uL (130-400); RBC 4.41 Mil/uL (4.40-5.90); RED CELL DISTRIBUTION WIDTH 20.7 % (11.5-14.5); WHITE BLOOD COUNT 19.7 K/uL (4.8-10.8)
[2018-06-13 06:37] LABS: ALB/GLOB RATIO 0.9 (1.0-2.1); ALBUMIN 3.4 g/dL (3.5-5.0); CALCIUM 8.9 mg/dL (8.4-10.2)
--- NOTE | 2018-06-13 07:29 | CP.PCM.PN ---
<Sultan Ginna - Last Filed: 06/13/18 09:23> Subjective - Date & Time of Evaluation Date of Evaluation: 06/13/18 Time of Evaluation: 07:05 - Subjective Subjective: Patient seen and examined with Dr. Brownlee this morning. Patient had temperature of 101.3 F yesterday afternoon. No acute overnight events. Reports abdominal pain is better. Had renal biopsy yesterday. Objective - Vital Signs/Intake and Output Vital Signs (last 24 hours): Temp Pulse Resp BP Pulse Ox 98.1 F 87 18 129/72 95 06/13/18 00:27 06/13/18 00:27 06/13/18 00:27 06/13/18 00:27 06/13/18 00:27 - Medications Medications: Current Medications Acetaminophen (Tylenol 325mg Tab) 650 mg PO Q6 PRN PRN Reason: Pain, Mild (1-3) Amlodipine Besylate (Norvasc) 10 mg PO DAILY [facility] Last Admin: 06/12/18 09:50 Dose: Not Given Enoxaparin Sodium (Lovenox) 40 mg SC DAILY [facility]; Protocol Finasteride (Proscar) 5 mg PO DAILY [facility] Last Admin: 06/12/18 09:50 Dose: Not Given Iron Sucrose 200 mg/ Sodium (Chloride) 110 mls @ 110 mls/hr IVPB DAILY [facility] Last Admin: 06/12/18 08:54 Dose: 110 mls/hr Ceftriaxone Sodium 1 gm/ (Sodium Chloride) 100 mls @ 100 mls/hr IVPB DAILY [facility]; Protocol Last Admin: 06/12/18 11:37 Dose: 100 mls/hr Insulin Human Regular (Humulin R) 0 units SC ACHS [facility]; Protocol Last Admin: 06/12/18 23:00 Dose: Not Given Lisinopril (Zestril) 20 mg PO DAILY [facility] Last Admin: 06/12/18 09:50 Dose: Not Given Metformin HCl (Glucophage) 500 mg PO BID [facility] Last Admin: 06/11/18 09:21 Dose: 500 mg Morphine Sulfate (Morphine) 1 mg IVP Q4 PRN PRN Reason: Pain, moderate (4-7) Last Admin: 06/12/18 21:06 Dose: 1 mg Morphine Sulfate (Morphine) 2 mg IVP Q4 PRN PRN Reason: Pain, severe (8-10) Last Admin: 06/11/18 23:06 Dose: 2 mg Tdzpx-2-Surl Ethyl Esters (Lovaza) 2 gm PO BID [facility] Last Admin: 06/12/18 17:21 Dose: 2 gm Ondansetron HCl (Zofran Inj) 4 mg IVP Q6 PRN PRN Reason: Nausea/Vomiting Pantoprazole Sodium (Protonix Ec Tab) 40 mg PO DAILY [facility] Last Admin: 06/12/18 09:50 Dose: Not Given Sitagliptin Phosphate (Januvia) 50 mg PO BID [facility] Last Admin: 06/12/18 17:21 Dose: 50 mg Tamsulosin HCl (Flomax) 0.4 mg PO DAILY [facility] Last Admin: 06/12/18 09:49 Dose: Not Given - Labs Labs: 06/13/18 05:45 06/13/18 05:45 PT 15.0 Seconds (9.8-13.1) H 06/12/18 08:06 INR 1.3 06/12/18 08:06 APTT 27.4 Seconds (25.6-37.1) 06/12/18 08:06 - Constitutional Appears: No Acute Distress - Head Exam Head Exam: NORMAL INSPECTION - Eye Exam Eye Exam: Normal appearance - ENT Exam ENT Exam: Mucous Membranes Moist - Respiratory Exam Respiratory Exam: Clear to Ausculation Bilateral, NORMAL BREATHING PATTERN. absent: Rhonchi, Wheezes - Cardiovascular Exam Cardiovascular Exam: REGULAR RHYTHM, +S1, +S2 - GI/Abdominal Exam GI & Abdominal Exam: Soft, Normal Bowel Sounds. absent: Guarding, Tenderness - Extremities Exam Extremities Exam: Normal Inspection. absent: Calf Tenderness - Back Exam Back Exam: CVA tenderness (R). absent: CVA tenderness (L) - Neurological Exam Neurological Exam: Alert, Awake - Psychiatric Exam Psychiatric exam: Normal Affect, Normal Mood - Skin Skin Exam: Normal Color Assessment and Plan - Assessment and Plan (Free Text) Assessment: 77 year old male with PMHx of DMII, HTN, left renal stone and BPH presented to [facility] ER w/ complaints of right sided abdominal pain and right flank pain for more than 1 month associated with poor appetite and weight loss. CT of the abdomen and pelvis shows metastatic disease likely originating from the right kidney with numerous metastatic lung nodules, liver nodules as well as retroperitoneal lymph nodes. Patient is admitted for evaluation of metastatic CA, acute kidney injury and complicated UTI. Plan: Metastatic disease likely secondary to urothelial CA -CT A/P on 06/08/18 : IMPRESSION: Metastatic disease likely originating from the right kidney with numerous metastatic lung nodules, liver nodules as well as retroperitoneal lymph nodes. Findings could be secondary to a transitional cell carcinoma in the proximal ureter versus renal cell carcinoma (less likely.) -Hematology/oncology consult, Dr. Maynard, consult appreciated. --Urology consult, Dr. Mojica, rec appreciated -IR consult, Dr. Sena. s/p renal biopsy on 06/12/18. -Pain management -f/u AM labs Complicated urinary tract infection -UA: +nitrite and moderate leuk -WBC 19.7, trending up -ID consult, Dr. Self, f/u recommendation. -s/p Levaquin 750 mg IVPB on 02/09/19 -cw Ceftriaxone 1 gm IVPB Q24 (day 2) -f/u blood cx, urine cx and AM labs Acute kidney injury -BUN/Cr 26/1.7 improving. -IVF's NS @75 CC/hr -Insurance Defense Attorney Dr. Jean on board, recs appreciated. -Avoid nephrotoxic drugs -Renal scan w/ Lasix: impression: poorly functioning right kidney consistent findings on recent CT scan. No evidence of obstructive uropathy. -f/u AM labs Anemia -H&H 10.0/31.0 -retic count 1.0%, b12 and folate: WNL -Hem/onc on board -C/W IV venofar 200 mg daily. -f/u AM labs Hypertension -Continue home medications DMII -Hold metformin due to RAMILA -c/w Januvia -Sliding scale insulin BPH -c/w flomax and finasteride DVT prophylasix -Lovenox 40 mg sc -Encourage ambulation Diet -Heart Healthy diet Patient seen, examined and plan d/w Dr. Kem Chacko, pgy-2 <Dax Brownlee - Last Filed: 06/13/18 15:42> Objective - Vital Signs/Intake and Output Vital Signs (last 24 hours): Temp Pulse Resp BP Pulse Ox 98 F 83 20 129/76 96 06/13/18 15:38 06/13/18 15:38 06/13/18 15:38 06/13/18 15:38 06/13/18 15:38 - Medications Medications: Current Medications Acetaminophen (Tylenol 325mg Tab) 650 mg PO Q6 PRN PRN Reason: Pain, Mild (1-3) Amlodipine Besylate (Norvasc) 10 mg PO DAILY [facility] Last Admin: 06/13/18 11:11 Dose: 10 mg Enoxaparin Sodium (Lovenox) 40 mg SC DAILY [facility]; Protocol Last Admin: 06/13/18 11:11 Dose: 40 mg Finasteride (Proscar) 5 mg PO DAILY [facility] Last Admin: 06/13/18 11:12 Dose: 5 mg Iron Sucrose 200 mg/ Sodium (Chloride) 110 mls @ 110 mls/hr IVPB DAILY [facility] Last Admin: 06/13/18 11:12 Dose: 110 mls/hr Meropenem 500 mg/ Sodium (Chloride) 100 mls @ 100 mls/hr IVPB Q8 [facility]; Protocol Last Admin: 06/13/18 11:23 Dose: 100 mls/hr Insulin Human Regular (Humulin R) 0 units SC ACHS [facility]; Protocol Last Admin: 06/13/18 14:26 Dose: 3 units Lisinopril (Zestril) 20 mg PO DAILY [facility] Last Admin: 06/13/18 11:13 Dose: 20 mg Metformin HCl (Glucophage) 500 mg PO BID [facility] Last Admin: 06/11/18 09:21 Dose: 500 mg Morphine Sulfate (Morphine) 1 mg IVP Q4 PRN PRN Reason: Pain, moderate (4-7) Last Admin: 06/12/18 21:06 Dose: 1 mg Morphine Sulfate (Morphine) 2 mg IVP Q4 PRN PRN Reason: Pain, severe (8-10) Last Admin: 06/11/18 23:06 Dose: 2 mg Cpaho-5-Lnjj Ethyl Esters (Lovaza) 2 gm PO BID [facility] Last Admin: 06/13/18 11:11 Dose: 2 gm Ondansetron HCl (Zofran Inj) 4 mg IVP Q6 PRN PRN Reason: Nausea/Vomiting Pantoprazole Sodium (Protonix Ec Tab) 40 mg PO DAILY [facility] Last Admin: 06/13/18 11:12 Dose: 40 mg Sitagliptin Phosphate (Januvia) 50 mg PO BID [facility] Last Admin: 06/13/18 11:10 Dose: 50 mg Tamsulosin HCl (Flomax) 0.4 mg PO DAILY [facility] Last Admin: 06/13/18 11:08 Dose: 0.4 mg - Labs Labs: 06/13/18 05:45 06/13/18 05:45 PT 15.0 Seconds (9.8-13.1) H 06/12/18 08:06 INR 1.3 06/12/18 08:06 APTT 27.4 Seconds (25.6-37.1) 06/12/18 08:06 Assessment and Plan - Assessment and Plan (Free Text) Assessment: Patient was personally seen and examined by me in rounds with residents. Available labs and diagnostic data reviewed. Case, Patient's condition and management plan discussed with residents in rounds. Agree with resident's progress note. Plan: As ordered.
[2018-06-13] MEDS: Insulin Regular 100 units/ml SC SCH ×4 (11:10→22:36)
[2018-06-13] MEDS: Enoxaparin 40 mg Syringe SC SCH (11:11)
[2018-06-13] MEDS: Omega-3-Acid Ethyl Esters 1 GM Cap PO SCH ×2 (11:11→17:41)
[2018-06-13] MEDS: Pantoprazole 40 mg EC Tab PO SCH (11:12)
[2018-06-13] MEDS: Meropenem 500 MG in Sodium Chloride 0.9% 100 ML IVPB SCH ×2 (11:23→17:40)
[2018-06-13 11:54] LABS: LYMPHOCYTE 7 % (20-50); MONOCYTE 5 % (0-10); NEUTROPHIL 87 % (42-75); REACTIVE LYMPHOCYTES 1 % (0-0); TOTAL CELLS COUNTED 100
[2018-06-13 11:55] LABS: ANISOCYTOSIS MODERATE; PLATELET ESTIMATE NORMAL (NORMAL)
[2018-06-13 11:56] LABS: HYPOCHROMIC SLIGHT; MICROCYTOSIS SLIGHT; TOXIC GRANULATION PRESENT
[2018-06-13 13:32] LABS: FOLATE 8.3 ng/mL
--- NOTE | 2018-06-13 14:27 | CT ---
PROCEDURE: Date of procedure: 06/12/2018 Procedure: Ultrasound-guided biopsy of right renal mass Medications: The patient was received IV sedation administered by anesthesiologist along with physiologic monitoring, 6cc 1 percent lidocaine. HISTORY: Right renal mass TECHNIQUE: Following informed consent and procedure time-out, the patient was placed prone and limited ultrasound of the patient's right kidney showed an enlarged, hypoechoic kidney. After the patient right back was prepped and draped in the usual sterile fashion, the skin was anesthetized with 1% lidocaine. An 17 g core needle was advanced under ultrasound guidance into the mass. Upon confirmation of needle position, Ultrasound-guided core biopsy was performed using a coaxial technique. Three 18-gauge core biopsy specimens were obtained and sent for routine pathology. The biopsy tract was embolized with Gelfoam. The post biopsy ultrasound showed no hematoma. IMPRESSION: Ultrasound-guided core biopsy of right renal mass. There were no immediate complications.
--- NOTE | 2018-06-13 15:08 | PCM.SURG1 ---
Surgeon's Initial Post Op Note - Surgeon's Notes Surgeon: Shar Sena MD Wire Drawing Machine Tender: NONE Type of Anesthesia: IV Sedation Pre-Operative Diagnosis: Infection Operative Findings: Patent right IJV Post-Operative Diagnosis: Infection Operation Performed: Tunneled picc via right IJV, 22 cm. Tip in the SVC. Specimen/Specimens Removed: None Estimated Blood Loss: EBL {In ML}: 3 Blood Products Given: N/A Drains Used: No Drains Post-Op Condition: Fair Date of Surgery/Procedure: 06/13/18 Time of Surgery/Procedure: 15:05
--- NOTE | 2018-06-13 18:01 | CP.PCM.CON ---
History of Present Illness - History of Present Illness History of Present Illness: 77 yo male with recently diagnosed renal mass is spiking fevers and c/o worsening dysuria s/p renal biopsy Infectious disease consulted for this Had been seen here several weeks ago for mass lesion but left hospital before diagnostics completed A CT abdomen revealed dilation of renal collecting system with lung, liver, adrenal nodules and retroperitoneal lymphadenopathy. Past medical history: HTN, kidney stones Past surgical history: Appendectomy Family history: Denies hematologic and oncologic problems Social history: Denies tobacco, alcohol, and illicit drug use. Allergies: NKA Review of Systems - Review of Systems All systems: reviewed and no additional remarkable complaints except - Constitutional Constitutional: As Per HPI, Chills, Fever - EENT Eyes: absent: As Per HPI, Blind Spots, Blurred Vision, Change in Vision, Decreased Night Vision, Diplopia, Discharge, Dry Eye, Exophthalmos, Floaters, Irritation, Itchy Eyes, Loss of Peripheral Vision, Pain, Photophobia, Requires Corrective Lenses, Sees Flashes, Spots in Vision, Tunnel Vision, Other Visual Disturbances, Loss of Vision, Other Ears: absent: As Per HPI, Decreased Hearing, Ear Discharge, Ear Pain, Tinnitus, Abnormal Hearing, Disequilibrium, Dizziness, Other Nose/Mouth/Throat: absent: As Per HPI, Epistaxis, Nasal Congestion, Nasal Discharge, Nasal Obstruction, Nasal Trauma, Nose Pain, Post Nasal Drip, Sinus Pain, Sinus Pressure, Bleeding Gums, Change in Voice, Dental Pain, Dry Mouth, Dysphagia, Halitosis, Hoarsness, Lip Swelling, Mouth Lesions, Mouth Pain, Odynophagia, Sore Throat, Throat Swelling, Tongue Swelling, Facial Pain, Neck Pain, Neck Mass, Other - Cardiovascular Cardiovascular: absent: As Per HPI, Acrocyanosis, Chest Pain, Chest Pain at Rest, Chest Pain with Activity, Claudication, Diaphoresis, Dyspnea, Dyspnea on Exertion, Edema, Irregular Heart Rhythm, Pain Radiating to Arm/Neck/Jaw, Leg Edema, Leg Ulcers, Lightheadedness, Orthopnea, Palpitations, Paroxysmal Nocturnal Dyspnea, Pedal Edema, Radiating Pain, Rapid Heart Rate, Slow Heart Rate, Syncope, Other - Respiratory Respiratory: absent: As Per HPI, Cough, Dyspnea, Hemoptysis, Dyspnea on Exert ion, Wheezing, Snoring, Stridor, Pain on Inspiration, Chest Congestion, Excessive Mucous Production, Change in Mucous Color, Pain with Coughing, Other - Gastrointestinal Gastrointestinal: absent: As Per HPI, Abdominal Pain, Belching, Bloating, Change in Bowel Habits, Change in Stool Character, Coffee Ground Emesis, Constipation, Cramping, Diarrhea, Dyspepsia, Dysphagia, Early Satiety, Excessive Flatus, Fecal Incontinence, Heartburn, Hematemesis, Hematochezia, Loose Stools, Melena, Nausea, Odynophagia, Temesmus, Vomiting, Other - Genitourinary Genitourinary: As Per HPI - Musculoskeletal Musculoskeletal: absent: As Per HPI, Abnormal Gait, Arthralgias, Atrophy, Back Pain, Deformity, Joint Swelling, Limited Range of Motion, Loss of Height, Muscle Cramps, Muscle Weakness, Myalgias, Neck Pain, Numbness, Radiating Pain into Limb, Stiffness, Tingling, Other - Integumentary Integumentary: absent: As Per HPI, Acne, Alopecia, Bleeding Lesions, Change in Hair, Change in Nails, Change in Pigmentation, Changing Lesions, Dry Skin, Erythema, Furuncle, Hirsutism, Lesions, New Lesions, Non-Healing Lesions, Photosensitivity, Pruritus, Rash, Skin Pain, Skin Ulcer, Sores, Striae, Swelling, Unusual Bruising, Wounds, Jaundice, Other - Neurological Neurological: absent: As Per HPI, Abnormal Gait, Abnormal Hearing, Abnormal Movements, Abnormal Speech, Behavioral Changes, Burning Sensations, Confusion, Convulsions, Disequilibrium, Dizziness, Numbness, Focal Weakness, Frequent Falls, Headaches, Lack of Coordination, Loss of Vision, Memory Loss, Paresthesias, Radicular Pain, Restless Legs, Sensory Deficit, Syncope, Tingling, Tremor, Vertigo, Weakness, Other Visual Disturbances, Other - Psychiatric Psychiatric: absent: As Per HPI, Abnormal Sleep Pattern, Anhedonia, Anxiety, Auditory Hallucinations, Behavioral Changes, Change in Appetite, Change in Libido, Confusion, Depression, Difficulty Concentrating, Hallucinations, Homicidal Ideation, Hopelessness, Irritability, Memory Loss, Mood Swings, Panic Attacks, Paranoia, Suicidal Ideation, Visual Hallucinations, Tactile Hallucinations, Other - Endocrine Endocrine: absent: As Per HPI, Change in Body Appearance, Change in Libido, Cold Intolorance, Deepening of Voice, Excessive Sweating, Fatigue, Flushing, Heat Intolorance, Increase in Ring/Shoe/Hat Size, Palpitations, Polydipsia, Polyphagia, Polyuria, Other - Hematologic/Lymphatic Hematologic: absent: As Per HPI, Easy Bleeding, Easy Bruising, Lymphadenopathy, Other Past Patient History - Past Medical History & Family History Past Medical History?: Yes - Past Social History Smoking Status: Never Smoked - CARDIAC Hx Cardiac Disorders: Yes Hx Hypertension: Yes - PULMONARY Hx Respiratory Disorders: Yes Hx Asthma: Yes Hx Bronchitis: Yes - NEUROLOGICAL Hx Neurological Disorder: No - HEENT Hx HEENT Problems: No - RENAL Hx Chronic Kidney Disease: Yes (CKD) Hx Kidney Stones: Yes - ENDOCRINE/METABOLIC Hx Endocrine Disorders: Yes Hx Diabetes Mellitus Type 2: Yes - HEMATOLOGICAL/ONCOLOGICAL Hx Blood Disorders: No - INTEGUMENTARY Hx Dermatological Problems: No - MUSCULOSKELETAL/RHEUMATOLOGICAL Hx Musculoskeletal Disorders: Yes Hx Back Pain: Yes Hx Falls: No - GASTROINTESTINAL Hx Gastrointestinal Disorders: Yes Hx Gastritis: Yes - GENITOURINARY/GYNECOLOGICAL Hx Genitourinary Disorders: Yes Other/Comment: BPH - PSYCHIATRIC Hx Psychophysiologic Disorder: Yes Hx Anxiety: Yes Hx Substance Use: No - SURGICAL HISTORY Hx Surgeries: Yes Hx Appendectomy: Yes - ANESTHESIA Hx Anesthesia: Yes Hx Anesthesia Reactions: No Hx Malignant Hyperthermia: No Meds Allergies/Adverse Reactions: Allergies Allergy/AdvReac Type Severity Reaction Status Date / Time No Known Allergies Allergy Verified 08/30/16 11:18 - Medications Medications: Current Medications Acetaminophen (Tylenol 325mg Tab) 650 mg PO Q6 PRN PRN Reason: Pain, Mild (1-3) Amlodipine Besylate (Norvasc) 10 mg PO DAILY [facility] Last Admin: 06/13/18 11:11 Dose: 10 mg Enoxaparin Sodium (Lovenox) 40 mg SC DAILY [facility]; Protocol Last Admin: 06/13/18 11:11 Dose: 40 mg Finasteride (Proscar) 5 mg PO DAILY [facility] Last Admin: 06/13/18 11:12 Dose: 5 mg Iron Sucrose 200 mg/ Sodium (Chloride) 110 mls @ 110 mls/hr IVPB DAILY [facility] Last Admin: 06/13/18 11:12 Dose: 110 mls/hr Meropenem 500 mg/ Sodium (Chloride) 100 mls @ 100 mls/hr IVPB Q8 [facility]; Protocol Last Admin: 06/13/18 17:40 Dose: 100 mls/hr Insulin Human Regular (Humulin R) 0 units SC ACHS [facility]; Protocol Last Admin: 06/13/18 17:41 Dose: 2 units Lisinopril (Zestril) 20 mg PO DAILY [facility] Last Admin: 06/13/18 11:13 Dose: 20 mg Metformin HCl (Glucophage) 500 mg PO BID [facility] Last Admin: 06/11/18 09:21 Dose: 500 mg Morphine Sulfate (Morphine) 1 mg IVP Q4 PRN PRN Reason: Pain, moderate (4-7) Last Admin: 06/12/18 21:06 Dose: 1 mg Morphine Sulfate (Morphine) 2 mg IVP Q4 PRN PRN Reason: Pain, severe (8-10) Last Admin: 06/11/18 23:06 Dose: 2 mg Jdmia-5-Idtr Ethyl Esters (Lovaza) 2 gm PO BID [facility] Last Admin: 06/13/18 17:41 Dose: 2 gm Ondansetron HCl (Zofran Inj) 4 mg IVP Q6 PRN PRN Reason: Nausea/Vomiting Pantoprazole Sodium (Protonix Ec Tab) 40 mg PO DAILY [facility] Last Admin: 06/13/18 11:12 Dose: 40 mg Sitagliptin Phosphate (Januvia) 50 mg PO BID [facility] Last Admin: 06/13/18 17:41 Dose: 50 mg Tamsulosin HCl (Flomax) 0.4 mg PO DAILY [facility] Last Admin: 06/13/18 11:08 Dose: 0.4 mg Physical Exam - Constitutional Appears: Non-toxic, Chronically Ill - Head Exam Head Exam: NORMOCEPHALIC - Eye Exam Eye Exam: absent: Scleral icterus - ENT Exam ENT Exam: Mucous Membranes Dry - Neck Exam Neck exam: Negative for: Lymphadenopathy - Respiratory Exam Respiratory Exam: Decreased Breath Sounds - Cardiovascular Exam Cardiovascular Exam: REGULAR RHYTHM, +S1, +S2 - GI/Abdominal Exam GI & Abdominal Exam: Diminished Bowel Sounds, Distended, Soft, Tenderness. absent: Guarding, Rebound, Rigid - Rectal Exam Rectal Exam: Deferred - Exam Exam: NORMAL INSPECTION - Extremities Exam Extremities exam: Negative for: pedal edema - Back Exam Back exam: absent: CVA tenderness (L), CVA tenderness (R) - Neurological Exam Neurological exam: Alert, CN II-XII Intact, Oriented x3, Reflexes Normal - Psychiatric Exam Psychiatric exam: Depressed - Skin Skin Exam: Dry Results - Vital Signs Recent Vital Signs: Last Vital Signs Temp 98 F 06/13/18 15:38 Pulse 83 06/13/18 15:38 Resp 20 06/13/18 15:38 BP 129/76 06/13/18 15:38 Pulse Ox 96 06/13/18 15:38 - Labs Result Diagrams: 06/13/18 05:45 06/13/18 05:45 Labs: Laboratory Results - last 24 hr 06/12/18 06/13/18 06/13/18 20:22 05:45 05:45 WBC 19.7 H RBC 4.41 Hgb 10.0 L Hct 31.0 L MCV 70.3 L MCH 22.7 L MCHC 32.3 L RDW 20.7 H Plt Count 276 MPV 7.6 Neut % (Auto) 82.9 H Lymph % (Auto) 9.0 L Garvin % (Auto) 7.7 Eos % (Auto) 0.2 Baso % (Auto) 0.2 Neut # (Auto) 16.4 H Lymph # (Auto) 1.8 Garvin # (Auto) 1.5 H Eos # (Auto) 0.0 Baso # (Auto) 0.0 Neutrophils % (Manual) 87 H Lymphocytes % (Manual) 7 L Reactive Lymphs % 1 H Monocytes % (Manual) 5 Toxic Granulation Present Platelet Estimate Normal Hypochromasia (manual) Slight Anisocytosis (manual) Moderate Microcytosis (manual) Slight Retic Count Sodium 138 Potassium 3.9 Chloride 103 Carbon Dioxide 26 Anion Gap 13 BUN 26 H Creatinine 1.7 H Est GFR ( Amer) 48 Est GFR (Non-Af Amer) 39 POC Glucose (mg/dL) 160 H Random Glucose 131 H Calcium 8.9 Phosphorus 3.2 Magnesium 1.8 Ferritin 258.0 Total Bilirubin 0.6 AST 42 ALT 22 Alkaline Phosphatase 128 H Total Protein 7.3 Albumin 3.4 L Globulin 3.9 Albumin/Globulin Ratio 0.9 L Vitamin B12 508 Folate 8.3 06/13/18 06/13/18 06/13/18 05:45 05:53 10:58 WBC RBC Hgb Hct MCV MCH MCHC RDW Plt Count MPV Neut % (Auto) Lymph % (Auto) Garvin % (Auto) Eos % (Auto) Baso % (Auto) Neut # (Auto) Lymph # (Auto) Garvin # (Auto) Eos # (Auto) Baso # (Auto) Neutrophils % (Manual) Lymphocytes % (Manual) Reactive Lymphs % Monocytes % (Manual) Toxic Granulation Platelet Estimate Hypochromasia (manual) Anisocytosis (manual) Microcytosis (manual) Retic Count 1.5 D Sodium Potassium Chloride Carbon Dioxide Anion Gap BUN Creatinine Est GFR ( Amer) Est GFR (Non-Af Amer) POC Glucose (mg/dL) 136 H 233 H Random Glucose Calcium Phosphorus Magnesium Ferritin Total Bilirubin AST ALT Alkaline Phosphatase Total Protein Albumin Globulin Albumin/Globulin Ratio Vitamin B12 Folate 06/13/18 15:53 WBC RBC Hgb Hct MCV MCH MCHC RDW Plt Count MPV Neut % (Auto) Lymph % (Auto) Garvin % (Auto) Eos % (Auto) Baso % (Auto) Neut # (Auto) Lymph # (Auto) Garvin # (Auto) Eos # (Auto) Baso # (Auto) Neutrophils % (Manual) Lymphocytes % (Manual) Reactive Lymphs % Monocytes % (Manual) Toxic Granulation Platelet Estimate Hypochromasia (manual) Anisocytosis (manual) Microcytosis (manual) Retic Count Sodium Potassium Chloride Carbon Dioxide Anion Gap BUN Creatinine Est GFR ( Amer) Est GFR (Non-Af Amer) POC Glucose (mg/dL) 174 H Random Glucose Calcium Phosphorus Magnesium Ferritin Total Bilirubin AST ALT Alkaline Phosphatase Total Protein Albumin Globulin Albumin/Globulin Ratio Vitamin B12 Folate Assessment & Plan (1) Abdominal pain Status: Acute (2) Metastatic disease Status: Acute (3) Complicated UTI (urinary tract infection) Status: Acute - Assessment and Plan (Free Text) Assessment: add merrem pending cultures await final reports duration of rx to be determined
[2018-06-13] MEDS: Morphine 4 MG/ML VIAL IVP PRN (18:18)
--- NOTE | 2018-06-13 22:39 | CP.PCM.PN ---
Subjective - Date & Time of Evaluation Date of Evaluation: 06/13/18 Time of Evaluation: 20:00 - Subjective Subjective: s/p percutaneous biopsy Objective - Vital Signs/Intake and Output Vital Signs (last 24 hours): Temp Pulse Resp BP Pulse Ox 98 F 83 20 129/76 96 06/13/18 15:38 06/13/18 15:38 06/13/18 15:38 06/13/18 15:38 06/13/18 15:38 - Medications Medications: Current Medications Acetaminophen (Tylenol 325mg Tab) 650 mg PO Q6 PRN PRN Reason: Pain, Mild (1-3) Amlodipine Besylate (Norvasc) 10 mg PO DAILY [facility] Last Admin: 06/13/18 11:11 Dose: 10 mg Enoxaparin Sodium (Lovenox) 40 mg SC DAILY [facility]; Protocol Last Admin: 06/13/18 11:11 Dose: 40 mg Finasteride (Proscar) 5 mg PO DAILY [facility] Last Admin: 06/13/18 11:12 Dose: 5 mg Iron Sucrose 200 mg/ Sodium (Chloride) 110 mls @ 110 mls/hr IVPB DAILY [facility] Last Admin: 06/13/18 11:12 Dose: 110 mls/hr Meropenem 500 mg/ Sodium (Chloride) 100 mls @ 100 mls/hr IVPB Q8 [facility]; Protocol Last Admin: 06/13/18 17:40 Dose: 100 mls/hr Insulin Human Regular (Humulin R) 0 units SC ACHS [facility]; Protocol Last Admin: 06/13/18 17:41 Dose: 2 units Lisinopril (Zestril) 20 mg PO DAILY [facility] Last Admin: 06/13/18 11:13 Dose: 20 mg Metformin HCl (Glucophage) 500 mg PO BID [facility] Last Admin: 06/11/18 09:21 Dose: 500 mg Morphine Sulfate (Morphine) 1 mg IVP Q4 PRN PRN Reason: Pain, moderate (4-7) Last Admin: 06/13/18 18:18 Dose: 1 mg Morphine Sulfate (Morphine) 2 mg IVP Q4 PRN PRN Reason: Pain, severe (8-10) Last Admin: 06/11/18 23:06 Dose: 2 mg Viand-2-Qvkz Ethyl Esters (Lovaza) 2 gm PO BID [facility] Last Admin: 06/13/18 17:41 Dose: 2 gm Ondansetron HCl (Zofran Inj) 4 mg IVP Q6 PRN PRN Reason: Nausea/Vomiting Pantoprazole Sodium (Protonix Ec Tab) 40 mg PO DAILY [facility] Last Admin: 06/13/18 11:12 Dose: 40 mg Sitagliptin Phosphate (Januvia) 50 mg PO BID [facility] Last Admin: 06/13/18 17:41 Dose: 50 mg Tamsulosin HCl (Flomax) 0.4 mg PO DAILY [facility] Last Admin: 06/13/18 11:08 Dose: 0.4 mg - Labs Labs: 06/13/18 05:45 06/13/18 05:45 PT 15.0 Seconds (9.8-13.1) H 06/12/18 08:06 INR 1.3 06/12/18 08:06 APTT 27.4 Seconds (25.6-37.1) 06/12/18 08:06 - Head Exam Head Exam: ATRAUMATIC - Eye Exam Eye Exam: Normal appearance - ENT Exam ENT Exam: Mucous Membranes Dry - Respiratory Exam Respiratory Exam: NORMAL BREATHING PATTERN - Cardiovascular Exam Cardiovascular Exam: +S1, +S2 - GI/Abdominal Exam GI & Abdominal Exam: Normal Bowel Sounds Assessment and Plan (1) Anemia Assessment & Plan: chronic disease from likely malignancy Status: Acute (2) Metastatic disease Assessment & Plan: s/p percutaneous biopsy f/u pathology Status: Acute
--- NOTE | 2018-06-13 23:42 | CP.PCM.PN ---
Subjective - Date & Time of Evaluation Date of Evaluation: 06/13/18 Time of Evaluation: 13:00 - Subjective Subjective: Decreased appetite but eating; still some dysuria, suprapubic pain improved; Objective - Vital Signs/Intake and Output Vital Signs (last 24 hours): Temp Pulse Resp BP Pulse Ox 98 F 83 20 129/76 96 06/13/18 15:38 06/13/18 15:38 06/13/18 15:38 06/13/18 15:38 06/13/18 15:38 - Medications Medications: Current Medications Acetaminophen (Tylenol 325mg Tab) 650 mg PO Q6 PRN PRN Reason: Pain, Mild (1-3) Amlodipine Besylate (Norvasc) 10 mg PO DAILY [facility] Last Admin: 06/13/18 11:11 Dose: 10 mg Enoxaparin Sodium (Lovenox) 40 mg SC DAILY [facility]; Protocol Last Admin: 06/13/18 11:11 Dose: 40 mg Finasteride (Proscar) 5 mg PO DAILY [facility] Last Admin: 06/13/18 11:12 Dose: 5 mg Iron Sucrose 200 mg/ Sodium (Chloride) 110 mls @ 110 mls/hr IVPB DAILY [facility] Last Admin: 06/13/18 11:12 Dose: 110 mls/hr Meropenem 500 mg/ Sodium (Chloride) 100 mls @ 100 mls/hr IVPB Q8 [facility]; Protocol Last Admin: 06/13/18 17:40 Dose: 100 mls/hr Insulin Human Regular (Humulin R) 0 units SC ACHS [facility]; Protocol Last Admin: 06/13/18 17:41 Dose: 2 units Lisinopril (Zestril) 20 mg PO DAILY [facility] Last Admin: 06/13/18 11:13 Dose: 20 mg Metformin HCl (Glucophage) 500 mg PO BID [facility] Last Admin: 06/11/18 09:21 Dose: 500 mg Morphine Sulfate (Morphine) 1 mg IVP Q4 PRN PRN Reason: Pain, moderate (4-7) Last Admin: 06/13/18 18:18 Dose: 1 mg Morphine Sulfate (Morphine) 2 mg IVP Q4 PRN PRN Reason: Pain, severe (8-10) Last Admin: 06/11/18 23:06 Dose: 2 mg Hgjpq-9-[id number] Ethyl Esters (Lovaza) 2 gm PO BID [facility] Last Admin: 06/13/18 17:41 Dose: 2 gm Ondansetron HCl (Zofran Inj) 4 mg IVP Q6 PRN PRN Reason: Nausea/Vomiting Pantoprazole Sodium (Protonix Ec Tab) 40 mg PO DAILY [facility] Last Admin: 06/13/18 11:12 Dose: 40 mg Sitagliptin Phosphate (Januvia) 50 mg PO BID [facility] Last Admin: 06/13/18 17:41 Dose: 50 mg Tamsulosin HCl (Flomax) 0.4 mg PO DAILY [facility] Last Admin: 06/13/18 11:08 Dose: 0.4 mg - Labs Labs: 06/13/18 05:45 06/13/18 05:45 PT 15.0 Seconds (9.8-13.1) H 06/12/18 08:06 INR 1.3 06/12/18 08:06 APTT 27.4 Seconds (25.6-37.1) 06/12/18 08:06 - Constitutional Appears: Non-toxic, No Acute Distress - Eye Exam Eye Exam: Normal appearance. absent: Scleral icterus - ENT Exam ENT Exam: Mucous Membranes Moist - Respiratory Exam Respiratory Exam: Clear to Ausculation Bilateral. absent: Respiratory Distress - Cardiovascular Exam Cardiovascular Exam: RRR, +S1, +S2 - GI/Abdominal Exam GI & Abdominal Exam: Soft. absent: Distended, Tenderness - Extremities Exam Additional comments: no leg edema - Neurological Exam Neurological Exam: Alert, Awake - Psychiatric Exam Psychiatric exam: Normal Mood. absent: Agitated - Skin Skin Exam: Warm. absent: Cyanosis Assessment and Plan (1) Acute kidney injury Assessment & Plan: RAMILA on CKD; renal function improved, likely had some pre-renal component; nevertheless, R renal function is severely impaired due to obstruction with mass/metastatic disease and is likely not salvageable; L kidney showing no obstruction on renal lasix scan; -continue lisinopril (for both proteinuric and anti-htn control, especially with likely renal artery compression involving R kidney); -avoid nephrotoxic agents (especially NSAIDS which will interfere with already compromised renal perfusion); -f/u pathology from renal mass biopsy; Status: Acute (2) HTN (hypertension) Assessment & Plan: BP controlled, continue current meds; Status: Chronic (3) Complicated UTI (urinary tract infection) Assessment & Plan: Symptoms improved, no longer febrile; antibiotics changed to meropenem, dosed for renal insufficiency; f/u culture results; Status: Acute (4) Metastatic disease Status: Acute
[2018-06-14] MEDS: Meropenem 500 MG in Sodium Chloride 0.9% 100 ML IVPB SCH ×3 (00:32→16:27)
[2018-06-14] MEDS: Morphine 4 MG/ML VIAL IVP PRN ×2 (00:33→20:42)
[2018-06-14] MEDS: Insulin Regular 100 units/ml SC SCH ×4 (06:40→21:19)
[2018-06-14 06:46] LABS: BASO % 0.2 % (0.0-2.0); EOS # 0.2 K/uL (0.0-0.7); EOS % 1.1 % (0.0-4.0); HEMOGLOBIN 9.2 g/dL (12.0-18.0); LYMPH # 1.5 K/uL (1.0-4.3); LYMPH % 9.3 % (20.0-40.0); MEAN CELL VOLUME 70.7 fl (80.0-94.0); MEAN CORPUSCULAR HEMOGLOBIN 23.3 pg (27.0-31.0); MEAN PLATELET VOLUME 7.7 fl (7.2-11.7); MONO # 1.4 K/uL (0.0-0.8); NEUT # 12.9 K/uL (1.8-7.0); NEUT % 80.4 % (50.0-75.0); RBC 3.95 Mil/uL (4.40-5.90); RED CELL DISTRIBUTION WIDTH 21.5 % (11.5-14.5); WHITE BLOOD COUNT 16.1 K/uL (4.8-10.8)
[2018-06-14 06:52] LABS: ALB/GLOB RATIO 0.9 (1.0-2.1); ALBUMIN 3.1 g/dL (3.5-5.0); CALCIUM 8.4 mg/dL (8.4-10.2)
--- NOTE | 2018-06-14 08:53 | CP.PCM.PN ---
<CaroleenSultan - Last Filed: 06/14/18 09:58> Subjective - Date & Time of Evaluation Date of Evaluation: 06/14/18 Time of Evaluation: 08:10 - Subjective Subjective: Patient seen and examined this morning with Dr. Perea No acute overnight events. Afebrile for >24 hours. Still reports dysuria and right flank pain improved. Denies any nausea,vomiting, fever, chills or dizziness. Objective - Vital Signs/Intake and Output Vital Signs (last 24 hours): Temp Pulse Resp BP Pulse Ox 97.8 F 73 18 125/75 95 06/14/18 08:22 06/14/18 08:22 06/14/18 08:22 06/14/18 08:22 06/14/18 08:22 - Medications Medications: Current Medications Acetaminophen (Tylenol 325mg Tab) 650 mg PO Q6 PRN PRN Reason: Pain, Mild (1-3) Amlodipine Besylate (Norvasc) 10 mg PO DAILY [facility] Last Admin: 06/13/18 11:11 Dose: 10 mg Enoxaparin Sodium (Lovenox) 40 mg SC DAILY [facility]; Protocol Last Admin: 06/13/18 11:11 Dose: 40 mg Finasteride (Proscar) 5 mg PO DAILY [facility] Last Admin: 06/13/18 11:12 Dose: 5 mg Iron Sucrose 200 mg/ Sodium (Chloride) 110 mls @ 110 mls/hr IVPB DAILY [facility] Last Admin: 06/13/18 11:12 Dose: 110 mls/hr Meropenem 500 mg/ Sodium (Chloride) 100 mls @ 100 mls/hr IVPB Q8 [facility]; Protocol Last Admin: 06/14/18 00:32 Dose: 100 mls/hr Insulin Human Regular (Humulin R) 0 units SC ACHS [facility]; Protocol Last Admin: 06/14/18 06:40 Dose: Not Given Lisinopril (Zestril) 20 mg PO DAILY [facility] Last Admin: 06/13/18 11:13 Dose: 20 mg Metformin HCl (Glucophage) 500 mg PO BID [facility] Last Admin: 06/11/18 09:21 Dose: 500 mg Morphine Sulfate (Morphine) 1 mg IVP Q4 PRN PRN Reason: Pain, moderate (4-7) Last Admin: 06/13/18 18:18 Dose: 1 mg Morphine Sulfate (Morphine) 2 mg IVP Q4 PRN PRN Reason: Pain, severe (8-10) Last Admin: 06/14/18 00:33 Dose: 2 mg Vqsih-5-Cqto Ethyl Esters (Lovaza) 2 gm PO BID [facility] Last Admin: 06/13/18 17:41 Dose: 2 gm Ondansetron HCl (Zofran Inj) 4 mg IVP Q6 PRN PRN Reason: Nausea/Vomiting Pantoprazole Sodium (Protonix Ec Tab) 40 mg PO DAILY [facility] Last Admin: 06/13/18 11:12 Dose: 40 mg Phenazopyridine HCl (Pyridium) 100 mg PO TID [facility] Sitagliptin Phosphate (Januvia) 50 mg PO BID [facility] Last Admin: 06/13/18 17:41 Dose: 50 mg Tamsulosin HCl (Flomax) 0.4 mg PO DAILY [facility] Last Admin: 06/13/18 11:08 Dose: 0.4 mg - Labs Labs: 06/14/18 05:55 06/14/18 05:55 PT 15.0 Seconds (9.8-13.1) H 06/12/18 08:06 INR 1.3 06/12/18 08:06 APTT 27.4 Seconds (25.6-37.1) 06/12/18 08:06 - Constitutional Appears: No Acute Distress - Head Exam Head Exam: NORMAL INSPECTION - ENT Exam ENT Exam: Mucous Membranes Moist - Respiratory Exam Respiratory Exam: Clear to Ausculation Bilateral, NORMAL BREATHING PATTERN. absent: Rhonchi, Wheezes - Cardiovascular Exam Cardiovascular Exam: REGULAR RHYTHM, +S1, +S2 - GI/Abdominal Exam GI & Abdominal Exam: Distended, Soft, Normal Bowel Sounds. absent: Guarding, Tenderness, Rebound - Back Exam Back Exam: absent: CVA tenderness (L), CVA tenderness (R) - Neurological Exam Neurological Exam: Alert, Normal Gait - Psychiatric Exam Psychiatric exam: Normal Affect, Normal Mood - Skin Skin Exam: Normal Color Assessment and Plan - Assessment and Plan (Free Text) Assessment: 77 year old male with PMHx of DMII, HTN, left renal stone and BPH presented to [facility] ER w/ complaints of right sided abdominal pain and right flank pain for more than 1 month associated with poor appetite and weight loss. CT of the abdomen and pelvis shows metastatic disease likely originating from the right kidney with numerous metastatic lung nodules, liver nodules as well as retroperitoneal lymph nodes. Patient is admitted for evaluation of metastatic CA, acute kidney injury and complicated UTI. Plan: Metastatic disease likely secondary to urothelial CA -CT A/P on 06/08/18 : IMPRESSION: Metastatic disease likely originating from the right kidney with numerous metastatic lung nodules, liver nodules as well as retroperitoneal lymph nodes. Findings could be secondary to a transitional cell carcinoma in the proximal ureter versus renal cell carcinoma (less likely.) -Hematology/oncology consult, Dr. Maynard, consult appreciated. --Urology consult, Dr. Mojica, rec appreciated -IR consult, Dr. Sena. s/p renal biopsy on 06/12/18. -Pain management -f/u RENAL biopsy, AM labs Complicated urinary tract infection -Urine culture this morning: Klebsiella pneumoniae, sensitive to meropenem -WBC 16.1, slightly improved. -ID consult, Dr. Self, recs appreciated. -s/p Levaquin 750 mg IVPB on 02/09/19 -s/p Ceftriaxone 1 gm IVPB Q24 (2 days) -c/w Meropenem 500 mg IPV Q8 -f/u blood cx, AM labs Acute kidney injury -BUN/Cr mproving. -IVF's NS @60 CC/hr -Branding Machine Operator Dr. Jean on board, recs appreciated. -Avoid nephrotoxic drugs -Renal scan w/ Lasix: impression: poorly functioning right kidney consistent findings on recent CT scan. No evidence of obstructive uropathy. -f/u AM labs Anemia -H&H 9.2/27.9 -retic count 1.0%, b12 and folate: WNL -Hem/onc on board -C/W IV venofar 200 mg daily. -f/u AM labs Hypertension -Continue home medications DMII -Hold metformin due to RAMILA -c/w Januvia -Sliding scale insulin BPH -c/w flomax and finasteride DVT prophylasix -Lovenox 40 mg sc -Encourage ambulation Diet -Heart Healthy diet Patient seen, examined and plan discussed with Dr. Eliazar Chacko, pgy-2 <Brian Perea - Last Filed: 06/16/18 23:04> Objective - Vital Signs/Intake and Output Vital Signs (last 24 hours): Temp Pulse Resp BP Pulse Ox 98.4 F 90 20 153/77 H 94 L 06/16/18 16:48 06/16/18 16:48 06/16/18 16:48 06/16/18 16:48 06/16/18 16:48 - Medications Medications: Current Medications Acetaminophen (Tylenol 325mg Tab) 650 mg PO Q6 PRN PRN Reason: Pain, Mild (1-3) Amlodipine Besylate (Norvasc) 10 mg PO DAILY [facility] Last Admin: 06/16/18 09:59 Dose: 10 mg Finasteride (Proscar) 5 mg PO DAILY [facility] Last Admin: 06/16/18 09:59 Dose: 5 mg Iron Sucrose 200 mg/ Sodium (Chloride) 110 mls @ 110 mls/hr IVPB DAILY [facility] Last Admin: 06/16/18 10:00 Dose: 110 mls/hr Meropenem 500 mg/ Sodium (Chloride) 100 mls @ 100 mls/hr IVPB Q8 [facility]; Protocol Last Admin: 06/16/18 17:03 Dose: 100 mls/hr Insulin Human Regular (Humulin R) 0 units SC ACHS [facility]; Protocol Last Admin: 06/16/18 17:12 Dose: 2 units Lisinopril (Zestril) 20 mg PO DAILY [facility] Last Admin: 06/16/18 10:00 Dose: 20 mg Metformin HCl (Glucophage) 500 mg PO BID [facility] Last Admin: 06/11/18 09:21 Dose: 500 mg Morphine Sulfate (Morphine) 1 mg IVP Q4 PRN PRN Reason: Pain, moderate (4-7) Last Admin: 06/13/18 18:18 Dose: 1 mg Morphine Sulfate (Morphine) 2 mg IVP Q4 PRN PRN Reason: Pain, severe (8-10) Last Admin: 06/16/18 01:11 Dose: 2 mg Xzgmz-8-Cupo Ethyl Esters (Lovaza) 2 gm PO BID [facility] Last Admin: 06/16/18 17:12 Dose: 2 gm Ondansetron HCl (Zofran Inj) 4 mg IVP Q6 PRN PRN Reason: Nausea/Vomiting Pantoprazole Sodium (Protonix Ec Tab) 40 mg PO DAILY [facility] Last Admin: 06/16/18 10:00 Dose: 40 mg Phenazopyridine HCl (Pyridium) 100 mg PO TID [facility] Last Admin: 01/13/19 17:12 Dose: 100 mg Sitagliptin Phosphate (Januvia) 50 mg PO BID [facility] Last Admin: 06/16/18 17:12 Dose: 50 mg Tamsulosin HCl (Flomax) 0.4 mg PO DAILY [facility] Last Admin: 06/16/18 09:57 Dose: 0.4 mg - Labs Labs: 06/15/18 05:30 06/15/18 05:30 PT 15.0 Seconds (9.8-13.1) H 06/12/18 08:06 INR 1.3 06/12/18 08:06 APTT 27.4 Seconds (25.6-37.1) 06/12/18 08:06 Assessment and Plan - Assessment and Plan (Free Text) Plan: I was present during evaluation and discussed with Dr Ginna miramontes of [facility] [place] and [facility]. Brian Perea M.D.
[2018-06-14] MEDS: Omega-3-Acid Ethyl Esters 1 GM Cap PO SCH ×2 (09:10→16:24)
[2018-06-14] MEDS: Enoxaparin 40 mg Syringe SC SCH (09:10)
[2018-06-14] MEDS: Pantoprazole 40 mg EC Tab PO SCH (09:12)
--- NOTE | 2018-06-14 14:04 | CP.PCM.PN ---
Subjective - Date & Time of Evaluation Date of Evaluation: 06/14/18 Time of Evaluation: 09:00 - Subjective Subjective: 77 yo male with recently diagnosed renal mass is spiking fevers and c/o worsening dysuria s/p renal biopsy Infectious disease consulted for this Had been seen here several weeks ago for mass lesion but left hospital before diagnostics completed A CT abdomen revealed dilation of renal collecting system with lung, liver, adrenal nodules and retroperitoneal lymphadenopathy. Objective - Vital Signs/Intake and Output Vital Signs (last 24 hours): Temp Pulse Resp BP Pulse Ox 97.8 F 73 18 125/73 95 06/14/18 08:22 06/14/18 09:14 06/14/18 08:22 06/14/18 09:14 06/14/18 08:22 - Medications Medications: Current Medications Acetaminophen (Tylenol 325mg Tab) 650 mg PO Q6 PRN PRN Reason: Pain, Mild (1-3) Amlodipine Besylate (Norvasc) 10 mg PO DAILY [facility] Last Admin: 06/14/18 09:12 Dose: 10 mg Enoxaparin Sodium (Lovenox) 40 mg SC DAILY [facility]; Protocol Last Admin: 06/14/18 09:10 Dose: 40 mg Finasteride (Proscar) 5 mg PO DAILY [facility] Last Admin: 06/14/18 09:12 Dose: 5 mg Iron Sucrose 200 mg/ Sodium (Chloride) 110 mls @ 110 mls/hr IVPB DAILY [facility] Last Admin: 06/14/18 10:48 Dose: 110 mls/hr Meropenem 500 mg/ Sodium (Chloride) 100 mls @ 100 mls/hr IVPB Q8 [facility]; Protocol Last Admin: 06/14/18 09:10 Dose: 100 mls/hr Insulin Human Regular (Humulin R) 0 units SC ACHS [facility]; Protocol Last Admin: 06/14/18 12:36 Dose: Not Given Lisinopril (Zestril) 20 mg PO DAILY [facility] Last Admin: 06/14/18 09:14 Dose: 20 mg Metformin HCl (Glucophage) 500 mg PO BID [facility] Last Admin: 06/11/18 09:21 Dose: 500 mg Morphine Sulfate (Morphine) 1 mg IVP Q4 PRN PRN Reason: Pain, moderate (4-7) Last Admin: 06/13/18 18:18 Dose: 1 mg Morphine Sulfate (Morphine) 2 mg IVP Q4 PRN PRN Reason: Pain, severe (8-10) Last Admin: 06/14/18 00:33 Dose: 2 mg Rfzoj-5-Jqgg Ethyl Esters (Lovaza) 2 gm PO BID [facility] Last Admin: 06/14/18 09:10 Dose: 2 gm Ondansetron HCl (Zofran Inj) 4 mg IVP Q6 PRN PRN Reason: Nausea/Vomiting Pantoprazole Sodium (Protonix Ec Tab) 40 mg PO DAILY [facility] Last Admin: 06/14/18 09:12 Dose: 40 mg Phenazopyridine HCl (Pyridium) 100 mg PO TID [facility] Last Admin: 06/14/18 13:55 Dose: 100 mg Sitagliptin Phosphate (Januvia) 50 mg PO BID [facility] Last Admin: 06/14/18 09:09 Dose: 50 mg Tamsulosin HCl (Flomax) 0.4 mg PO DAILY [facility] Last Admin: 06/14/18 09:09 Dose: 0.4 mg - Labs Labs: 06/14/18 05:55 06/14/18 05:55 PT 15.0 Seconds (9.8-13.1) H 06/12/18 08:06 INR 1.3 06/12/18 08:06 APTT 27.4 Seconds (25.6-37.1) 06/12/18 08:06 - Constitutional Appears: Non-toxic, Chronically Ill - Head Exam Head Exam: NORMOCEPHALIC - Eye Exam Eye Exam: absent: Scleral icterus Pupil Exam: NORMAL ACCOMODATION - ENT Exam ENT Exam: Mucous Membranes Dry - Neck Exam Neck Exam: absent: Lymphadenopathy - Respiratory Exam Respiratory Exam: Decreased Breath Sounds - Cardiovascular Exam Cardiovascular Exam: REGULAR RHYTHM, +S1, +S2 - GI/Abdominal Exam GI & Abdominal Exam: Distended, Soft - Rectal Exam Rectal Exam: Deferred - Exam Exam: NORMAL INSPECTION. absent: Scrotal Swelling - Extremities Exam Extremities Exam: Pedal Edema - Back Exam Back Exam: absent: CVA tenderness (L), CVA tenderness (R) - Neurological Exam Neurological Exam: Alert, Awake, CN II-XII Intact, Oriented x3 - Psychiatric Exam Psychiatric exam: Depressed - Skin Skin Exam: Dry Assessment and Plan (1) Abdominal pain Status: Acute (2) Metastatic disease Status: Acute (3) Complicated UTI (urinary tract infection) Status: Acute (4) Infection due to ESBL-producing Klebsiella pneumoniae Status: Acute - Assessment and Plan (Free Text) Assessment: + Klebs ESBL + On Merrem day 2 cont rx min 14-21 days
--- NOTE | 2018-06-14 22:05 | CP.PCM.PN ---
Subjective - Date & Time of Evaluation Date of Evaluation: 06/14/18 Time of Evaluation: 11:00 - Subjective Subjective: Has some flank pain. Objective - Vital Signs/Intake and Output Vital Signs (last 24 hours): Temp Pulse Resp BP Pulse Ox 98 F 72 20 147/80 97 06/14/18 16:24 06/14/18 16:24 06/14/18 16:24 06/14/18 16:24 06/14/18 16:24 - Medications Medications: Current Medications Acetaminophen (Tylenol 325mg Tab) 650 mg PO Q6 PRN PRN Reason: Pain, Mild (1-3) Amlodipine Besylate (Norvasc) 10 mg PO DAILY [facility] Last Admin: 06/14/18 09:12 Dose: 10 mg Enoxaparin Sodium (Lovenox) 40 mg SC DAILY [facility]; Protocol Last Admin: 06/14/18 09:10 Dose: 40 mg Finasteride (Proscar) 5 mg PO DAILY [facility] Last Admin: 06/14/18 09:12 Dose: 5 mg Iron Sucrose 200 mg/ Sodium (Chloride) 110 mls @ 110 mls/hr IVPB DAILY [facility] Last Admin: 06/14/18 10:48 Dose: 110 mls/hr Meropenem 500 mg/ Sodium (Chloride) 100 mls @ 100 mls/hr IVPB Q8 [facility]; Protocol Last Admin: 06/14/18 16:27 Dose: 100 mls/hr Insulin Human Regular (Humulin R) 0 units SC ACHS [facility]; Protocol Last Admin: 06/14/18 21:19 Dose: Not Given Lisinopril (Zestril) 20 mg PO DAILY [facility] Last Admin: 06/14/18 09:14 Dose: 20 mg Metformin HCl (Glucophage) 500 mg PO BID [facility] Last Admin: 06/11/18 09:21 Dose: 500 mg Morphine Sulfate (Morphine) 1 mg IVP Q4 PRN PRN Reason: Pain, moderate (4-7) Last Admin: 06/13/18 18:18 Dose: 1 mg Morphine Sulfate (Morphine) 2 mg IVP Q4 PRN PRN Reason: Pain, severe (8-10) Last Admin: 06/14/18 20:42 Dose: 2 mg Rrpin-4-Qouo Ethyl Esters (Lovaza) 2 gm PO BID [facility] Last Admin: 06/14/18 16:24 Dose: 2 gm Ondansetron HCl (Zofran Inj) 4 mg IVP Q6 PRN PRN Reason: Nausea/Vomiting Pantoprazole Sodium (Protonix Ec Tab) 40 mg PO DAILY [facility] Last Admin: 06/14/18 09:12 Dose: 40 mg Phenazopyridine HCl (Pyridium) 100 mg PO TID [facility] Last Admin: 06/14/18 16:24 Dose: 100 mg Sitagliptin Phosphate (Januvia) 50 mg PO BID [facility] Last Admin: 06/14/18 16:23 Dose: 50 mg Tamsulosin HCl (Flomax) 0.4 mg PO DAILY [facility] Last Admin: 06/14/18 09:09 Dose: 0.4 mg - Labs Labs: 06/14/18 05:55 06/14/18 05:55 PT 15.0 Seconds (9.8-13.1) H 06/12/18 08:06 INR 1.3 06/12/18 08:06 APTT 27.4 Seconds (25.6-37.1) 06/12/18 08:06 - Head Exam Head Exam: ATRAUMATIC - Eye Exam Eye Exam: Normal appearance - ENT Exam ENT Exam: Mucous Membranes Dry - Respiratory Exam Respiratory Exam: NORMAL BREATHING PATTERN - Cardiovascular Exam Cardiovascular Exam: +S1, +S2 - GI/Abdominal Exam GI & Abdominal Exam: Normal Bowel Sounds Assessment and Plan (1) Anemia Assessment & Plan: anemia of chronic disease Status: Acute (2) Metastatic disease Assessment & Plan: f/u percutaneous biopsy results. Status: Acute
--- NOTE | 2018-06-14 22:07 | CP.PCM.PN ---
Subjective - Date & Time of Evaluation Date of Evaluation: 06/14/18 Time of Evaluation: 19:00 - Subjective Subjective: Reports decreased appetite; no nausea/vomiting/diarrhea; no sob; still with some dysuria; Objective - Vital Signs/Intake and Output Vital Signs (last 24 hours): Temp Pulse Resp BP Pulse Ox 98 F 72 20 147/80 97 06/14/18 16:24 06/14/18 16:24 06/14/18 16:24 06/14/18 16:24 06/14/18 16:24 - Medications Medications: Current Medications Acetaminophen (Tylenol 325mg Tab) 650 mg PO Q6 PRN PRN Reason: Pain, Mild (1-3) Amlodipine Besylate (Norvasc) 10 mg PO DAILY [facility] Last Admin: 06/14/18 09:12 Dose: 10 mg Enoxaparin Sodium (Lovenox) 40 mg SC DAILY [facility]; Protocol Last Admin: 06/14/18 09:10 Dose: 40 mg Finasteride (Proscar) 5 mg PO DAILY [facility] Last Admin: 06/14/18 09:12 Dose: 5 mg Iron Sucrose 200 mg/ Sodium (Chloride) 110 mls @ 110 mls/hr IVPB DAILY [facility] Last Admin: 06/14/18 10:48 Dose: 110 mls/hr Meropenem 500 mg/ Sodium (Chloride) 100 mls @ 100 mls/hr IVPB Q8 [facility]; Protocol Last Admin: 06/14/18 16:27 Dose: 100 mls/hr Insulin Human Regular (Humulin R) 0 units SC ACHS [facility]; Protocol Last Admin: 06/14/18 21:19 Dose: Not Given Lisinopril (Zestril) 20 mg PO DAILY [facility] Last Admin: 06/14/18 09:14 Dose: 20 mg Metformin HCl (Glucophage) 500 mg PO BID [facility] Last Admin: 06/11/18 09:21 Dose: 500 mg Morphine Sulfate (Morphine) 1 mg IVP Q4 PRN PRN Reason: Pain, moderate (4-7) Last Admin: 06/13/18 18:18 Dose: 1 mg Morphine Sulfate (Morphine) 2 mg IVP Q4 PRN PRN Reason: Pain, severe (8-10) Last Admin: 06/14/18 20:42 Dose: 2 mg Cvoni-8-Ezvp Ethyl Esters (Lovaza) 2 gm PO BID [facility] Last Admin: 06/14/18 16:24 Dose: 2 gm Ondansetron HCl (Zofran Inj) 4 mg IVP Q6 PRN PRN Reason: Nausea/Vomiting Pantoprazole Sodium (Protonix Ec Tab) 40 mg PO DAILY [facility] Last Admin: 06/14/18 09:12 Dose: 40 mg Phenazopyridine HCl (Pyridium) 100 mg PO TID [facility] Last Admin: 06/14/18 16:24 Dose: 100 mg Sitagliptin Phosphate (Januvia) 50 mg PO BID [facility] Last Admin: 06/14/18 16:23 Dose: 50 mg Tamsulosin HCl (Flomax) 0.4 mg PO DAILY [facility] Last Admin: 06/14/18 09:09 Dose: 0.4 mg - Labs Labs: 06/14/18 05:55 06/14/18 05:55 PT 15.0 Seconds (9.8-13.1) H 06/12/18 08:06 INR 1.3 06/12/18 08:06 APTT 27.4 Seconds (25.6-37.1) 06/12/18 08:06 - Constitutional Appears: Non-toxic, No Acute Distress - Eye Exam Eye Exam: Normal appearance - Respiratory Exam Respiratory Exam: Clear to Ausculation Bilateral. absent: Respiratory Distress - Cardiovascular Exam Cardiovascular Exam: RRR, +S1, +S2 - GI/Abdominal Exam GI & Abdominal Exam: Soft. absent: Distended, Tenderness - Extremities Exam Additional comments: no leg edema; - Neurological Exam Neurological Exam: Alert, Awake - Psychiatric Exam Psychiatric exam: Normal Mood. absent: Agitated - Skin Skin Exam: Warm. absent: Cyanosis Assessment and Plan (1) Acute kidney injury Assessment & Plan: RAMILA in the setting of R kidney obstructive/infiltrative process from malignancy, possible pyelo; improving with patient on antibiotics for E coli ESBL; -continue antibiotics per ID; -avoid nephrotoxic agents (especially NSAIDS); -can restart metformin as eGFR > 30 ml/min; -f/u pathology results; Status: Acute (2) HTN (hypertension) Assessment & Plan: BP well controlled on lisinopril and amlodipine, continue same; Status: Chronic (3) Complicated UTI (urinary tract infection) Status: Acute (4) Metastatic disease Status: Acute
[2018-06-15] MEDS: Meropenem 500 MG in Sodium Chloride 0.9% 100 ML IVPB SCH ×3 (01:36→17:30)
[2018-06-15 07:53] LABS: ALB/GLOB RATIO 0.9 (1.0-2.1); ALBUMIN 3.2 g/dL (3.5-5.0); CALCIUM 8.8 mg/dL (8.4-10.2)
[2018-06-15 07:55] LABS: BASO % 0.5 % (0.0-2.0); EOS # 0.1 K/uL (0.0-0.7); EOS % 0.9 % (0.0-4.0); HEMOGLOBIN 9.7 g/dL (12.0-18.0); LYMPH # 1.4 K/uL (1.0-4.3); LYMPH % 14.8 % (20.0-40.0); MEAN CELL VOLUME 70.6 fl (80.0-94.0); MEAN CORPUSCULAR HEMOGLOBIN 23.3 pg (27.0-31.0); MEAN PLATELET VOLUME 8.1 fl (7.2-11.7); MONO # 1.1 K/uL (0.0-0.8); MONO % 11.5 % (0.0-10.0); NEUT # 6.7 K/uL (1.8-7.0); NEUT % 72.3 % (50.0-75.0); NRBC % 0.1 % (0.0-0.0); RBC 4.16 Mil/uL (4.40-5.90); RED CELL DISTRIBUTION WIDTH 21.2 % (11.5-14.5); WHITE BLOOD COUNT 9.3 K/uL (4.8-10.8)
[2018-06-15] MEDS: Insulin Regular 100 units/ml SC SCH ×4 (08:00→22:00)
[2018-06-15] MEDS: Omega-3-Acid Ethyl Esters 1 GM Cap PO SCH ×2 (10:01→17:30)
[2018-06-15] MEDS: Enoxaparin 40 mg Syringe SC SCH (10:01)
[2018-06-15] MEDS: Pantoprazole 40 mg EC Tab PO SCH (10:03)
[2018-06-15] MEDS: Morphine 4 MG/ML VIAL IVP PRN (21:38)
--- NOTE | 2018-06-15 22:21 | CP.PCM.PN ---
Subjective - Date & Time of Evaluation Date of Evaluation: 06/15/18 Time of Evaluation: 20:00 - Subjective Subjective: Has back pain. Objective - Vital Signs/Intake and Output Vital Signs (last 24 hours): Temp Pulse Resp BP Pulse Ox 98.1 F 74 20 134/73 97 06/15/18 16:49 06/15/18 16:49 06/15/18 16:49 06/15/18 16:49 06/15/18 16:49 - Medications Medications: Current Medications Acetaminophen (Tylenol 325mg Tab) 650 mg PO Q6 PRN PRN Reason: Pain, Mild (1-3) Amlodipine Besylate (Norvasc) 10 mg PO DAILY [facility] Last Admin: 06/15/18 10:02 Dose: 10 mg Enoxaparin Sodium (Lovenox) 40 mg SC DAILY [facility]; Protocol Last Admin: 06/15/18 10:01 Dose: 40 mg Finasteride (Proscar) 5 mg PO DAILY [facility] Last Admin: 06/15/18 10:03 Dose: 5 mg Iron Sucrose 200 mg/ Sodium (Chloride) 110 mls @ 110 mls/hr IVPB DAILY [facility] Last Admin: 06/15/18 10:16 Dose: 110 mls/hr Meropenem 500 mg/ Sodium (Chloride) 100 mls @ 100 mls/hr IVPB Q8 [facility]; Protocol Last Admin: 06/15/18 17:30 Dose: 100 mls/hr Insulin Human Regular (Humulin R) 0 units SC ACHS [facility]; Protocol Last Admin: 06/15/18 22:00 Dose: Not Given Lisinopril (Zestril) 20 mg PO DAILY [facility] Last Admin: 06/15/18 10:07 Dose: 20 mg Metformin HCl (Glucophage) 500 mg PO BID [facility] Last Admin: 06/11/18 09:21 Dose: 500 mg Morphine Sulfate (Morphine) 1 mg IVP Q4 PRN PRN Reason: Pain, moderate (4-7) Last Admin: 06/13/18 18:18 Dose: 1 mg Morphine Sulfate (Morphine) 2 mg IVP Q4 PRN PRN Reason: Pain, severe (8-10) Last Admin: 06/15/18 21:38 Dose: 2 mg Dzaxv-5-Qqhr Ethyl Esters (Lovaza) 2 gm PO BID [facility] Last Admin: 01/12/19 17:30 Dose: 2 gm Ondansetron HCl (Zofran Inj) 4 mg IVP Q6 PRN PRN Reason: Nausea/Vomiting Pantoprazole Sodium (Protonix Ec Tab) 40 mg PO DAILY [facility] Last Admin: 06/15/18 10:03 Dose: 40 mg Phenazopyridine HCl (Pyridium) 100 mg PO TID [facility] Last Admin: 06/15/18 17:31 Dose: 100 mg Sitagliptin Phosphate (Januvia) 50 mg PO BID [facility] Last Admin: 06/15/18 17:29 Dose: 50 mg Tamsulosin HCl (Flomax) 0.4 mg PO DAILY [facility] Last Admin: 06/15/18 09:59 Dose: 0.4 mg - Labs Labs: 06/15/18 05:30 06/15/18 05:30 PT 15.0 Seconds (9.8-13.1) H 06/12/18 08:06 INR 1.3 06/12/18 08:06 APTT 27.4 Seconds (25.6-37.1) 06/12/18 08:06 - Head Exam Head Exam: ATRAUMATIC - Eye Exam Eye Exam: Normal appearance - ENT Exam ENT Exam: Mucous Membranes Dry - Respiratory Exam Respiratory Exam: NORMAL BREATHING PATTERN - Cardiovascular Exam Cardiovascular Exam: +S1, +S2 - GI/Abdominal Exam GI & Abdominal Exam: Normal Bowel Sounds Assessment and Plan (1) Anemia Assessment & Plan: chronic disease Status: Acute (2) Metastatic disease Assessment & Plan: f/u biopsy results elevated PSA noted Status: Acute
[2018-06-16] MEDS: Meropenem 500 MG in Sodium Chloride 0.9% 100 ML IVPB SCH ×4 (01:00→17:03)
[2018-06-16] MEDS: Morphine 4 MG/ML VIAL IVP PRN ×2 (01:11→23:23)
[2018-06-16] MEDS: Insulin Regular 100 units/ml SC SCH ×4 (06:32→21:50)
[2018-06-16] MEDS: Omega-3-Acid Ethyl Esters 1 GM Cap PO SCH ×2 (09:57→17:12)
[2018-06-16] MEDS: Enoxaparin 40 mg Syringe SC SCH (09:57)
[2018-06-16] MEDS: Pantoprazole 40 mg EC Tab PO SCH (10:00)
--- NOTE | 2018-06-16 12:47 | CP.PCM.PN ---
Subjective - Date & Time of Evaluation Date of Evaluation: 06/16/18 Time of Evaluation: 09:00 - Subjective Subjective: afebrile less dysuria awake alert Objective - Vital Signs/Intake and Output Vital Signs (last 24 hours): Temp Pulse Resp BP Pulse Ox 98.5 F 75 20 140/80 95 06/16/18 08:59 06/16/18 10:00 06/16/18 08:59 06/16/18 10:00 06/16/18 08:59 - Medications Medications: Current Medications Acetaminophen (Tylenol 325mg Tab) 650 mg PO Q6 PRN PRN Reason: Pain, Mild (1-3) Amlodipine Besylate (Norvasc) 10 mg PO DAILY [facility] Last Admin: 06/16/18 09:59 Dose: 10 mg Finasteride (Proscar) 5 mg PO DAILY [facility] Last Admin: 06/16/18 09:59 Dose: 5 mg Iron Sucrose 200 mg/ Sodium (Chloride) 110 mls @ 110 mls/hr IVPB DAILY [facility] Last Admin: 06/16/18 10:00 Dose: 110 mls/hr Insulin Human Regular (Humulin R) 0 units SC [facility]; Protocol Last Admin: 06/16/18 06:32 Dose: Not Given Lisinopril (Zestril) 20 mg PO DAILY [facility] Last Admin: 06/16/18 10:00 Dose: 20 mg Metformin HCl (Glucophage) 500 mg PO BID [facility] Last Admin: 06/11/18 09:21 Dose: 500 mg Morphine Sulfate (Morphine) 1 mg IVP Q4 PRN PRN Reason: Pain, moderate (4-7) Last Admin: 06/13/18 18:18 Dose: 1 mg Morphine Sulfate (Morphine) 2 mg IVP Q4 PRN PRN Reason: Pain, severe (8-10) Last Admin: 06/16/18 01:11 Dose: 2 mg Erjec-4-Pexc Ethyl Esters (Lovaza) 2 gm PO BID [facility] Last Admin: 06/16/18 09:57 Dose: 2 gm Ondansetron HCl (Zofran Inj) 4 mg IVP Q6 PRN PRN Reason: Nausea/Vomiting Pantoprazole Sodium (Protonix Ec Tab) 40 mg PO DAILY [facility] Last Admin: 06/16/18 10:00 Dose: 40 mg Phenazopyridine HCl (Pyridium) 100 mg PO TID [facility] Last Admin: 06/16/18 10:00 Dose: 100 mg Sitagliptin Phosphate (Januvia) 50 mg PO BID [facility] Last Admin: 06/16/18 09:57 Dose: 50 mg Tamsulosin HCl (Flomax) 0.4 mg PO DAILY [facility] Last Admin: 06/16/18 09:57 Dose: 0.4 mg - Labs Labs: 06/15/18 05:30 06/15/18 05:30 PT 15.0 Seconds (9.8-13.1) H 06/12/18 08:06 INR 1.3 06/12/18 08:06 APTT 27.4 Seconds (25.6-37.1) 06/12/18 08:06 - Constitutional Appears: Non-toxic, Chronically Ill - Head Exam Head Exam: NORMOCEPHALIC - Eye Exam Eye Exam: absent: Scleral icterus - ENT Exam ENT Exam: Mucous Membranes Dry - Neck Exam Neck Exam: absent: Lymphadenopathy - Respiratory Exam Respiratory Exam: Decreased Breath Sounds - Cardiovascular Exam Cardiovascular Exam: REGULAR RHYTHM - GI/Abdominal Exam GI & Abdominal Exam: Distended, Soft - Rectal Exam Rectal Exam: Deferred - Exam Exam: NORMAL INSPECTION - Extremities Exam Extremities Exam: absent: Pedal Edema - Back Exam Back Exam: absent: CVA tenderness (L), CVA tenderness (R) - Neurological Exam Neurological Exam: Alert, Awake, CN II-XII Intact - Psychiatric Exam Psychiatric exam: Depressed - Skin Skin Exam: Dry Assessment and Plan (1) Abdominal pain Status: Acute (2) Metastatic disease Status: Acute (3) Complicated UTI (urinary tract infection) Status: Acute (4) Infection due to ESBL-producing Klebsiella pneumoniae Status: Acute - Assessment and Plan (Free Text) Assessment: ESBL Klebs in urine - IV antibiotics to continue for min 14 days
--- NOTE | 2018-06-16 23:07 | CP.PCM.PN ---
Subjective - Date & Time of Evaluation Date of Evaluation: 06/15/18 Time of Evaluation: 10:30 - Subjective Subjective: patient feels a lot better Has no fever' Noted WBC to have normalized Urine showed Kleb sen to meropenem Objective - Vital Signs/Intake and Output Vital Signs (last 24 hours): Temp Pulse Resp BP Pulse Ox 98.4 F 90 20 153/77 H 94 L 06/16/18 16:48 06/16/18 16:48 06/16/18 16:48 06/16/18 16:48 06/16/18 16:48 - Medications Medications: Current Medications Acetaminophen (Tylenol 325mg Tab) 650 mg PO Q6 PRN PRN Reason: Pain, Mild (1-3) Amlodipine Besylate (Norvasc) 10 mg PO DAILY [facility] Last Admin: 06/16/18 09:59 Dose: 10 mg Finasteride (Proscar) 5 mg PO DAILY [facility] Last Admin: 06/16/18 09:59 Dose: 5 mg Iron Sucrose 200 mg/ Sodium (Chloride) 110 mls @ 110 mls/hr IVPB DAILY [facility] Last Admin: 06/16/18 10:00 Dose: 110 mls/hr Meropenem 500 mg/ Sodium (Chloride) 100 mls @ 100 mls/hr IVPB Q8 [facility]; Protocol Last Admin: 06/16/18 17:03 Dose: 100 mls/hr Insulin Human Regular (Humulin R) 0 units SC ACHS [facility]; Protocol Last Admin: 06/16/18 17:12 Dose: 2 units Lisinopril (Zestril) 20 mg PO DAILY [facility] Last Admin: 06/16/18 10:00 Dose: 20 mg Metformin HCl (Glucophage) 500 mg PO BID [facility] Last Admin: 06/11/18 09:21 Dose: 500 mg Morphine Sulfate (Morphine) 1 mg IVP Q4 PRN PRN Reason: Pain, moderate (4-7) Last Admin: 06/13/18 18:18 Dose: 1 mg Morphine Sulfate (Morphine) 2 mg IVP Q4 PRN PRN Reason: Pain, severe (8-10) Last Admin: 06/16/18 01:11 Dose: 2 mg Tileq-2-Cqnp Ethyl Esters (Lovaza) 2 gm PO BID [facility] Last Admin: 06/16/18 17:12 Dose: 2 gm Ondansetron HCl (Zofran Inj) 4 mg IVP Q6 PRN PRN Reason: Nausea/Vomiting Pantoprazole Sodium (Protonix Ec Tab) 40 mg PO DAILY [facility] Last Admin: 06/16/18 10:00 Dose: 40 mg Phenazopyridine HCl (Pyridium) 100 mg PO TID [facility] Last Admin: 06/16/18 17:12 Dose: 100 mg Sitagliptin Phosphate (Januvia) 50 mg PO BID [facility] Last Admin: 06/16/18 17:12 Dose: 50 mg Tamsulosin HCl (Flomax) 0.4 mg PO DAILY [facility] Last Admin: 06/16/18 09:57 Dose: 0.4 mg - Labs Labs: 06/15/18 05:30 06/15/18 05:30 PT 15.0 Seconds (9.8-13.1) H 06/12/18 08:06 INR 1.3 06/12/18 08:06 APTT 27.4 Seconds (25.6-37.1) 06/12/18 08:06 - Head Exam Head Exam: NORMAL INSPECTION - ENT Exam ENT Exam: Mucous Membranes Moist - Respiratory Exam Respiratory Exam: Clear to Ausculation Bilateral - Cardiovascular Exam Cardiovascular Exam: REGULAR RHYTHM - GI/Abdominal Exam GI & Abdominal Exam: Normal Bowel Sounds Assessment and Plan (1) Complicated UTI (urinary tract infection) Status: Acute (2) Infection due to ESBL-producing Klebsiella pneumoniae Status: Acute (3) HTN (hypertension) Status: Chronic (4) Anemia Status: Acute (5) Diabetes mellitus type 2 in nonobese Status: Acute - Assessment and Plan (Free Text) Plan: Cont meds IV merem cont hydrate accucheck januvia
--- NOTE | 2018-06-16 23:10 | CP.PCM.PN ---
Subjective - Date & Time of Evaluation Date of Evaluation: 06/16/18 Time of Evaluation: 17:00 - Subjective Subjective: Patient feels a lot better Has no fever WBC is now normal. Objective - Vital Signs/Intake and Output Vital Signs (last 24 hours): Temp Pulse Resp BP Pulse Ox 98.4 F 90 20 153/77 H 94 L 06/16/18 16:48 06/16/18 16:48 06/16/18 16:48 06/16/18 16:48 06/16/18 16:48 - Medications Medications: Current Medications Acetaminophen (Tylenol 325mg Tab) 650 mg PO Q6 PRN PRN Reason: Pain, Mild (1-3) Amlodipine Besylate (Norvasc) 10 mg PO DAILY [facility] Last Admin: 06/16/18 09:59 Dose: 10 mg Finasteride (Proscar) 5 mg PO DAILY [facility] Last Admin: 06/16/18 09:59 Dose: 5 mg Iron Sucrose 200 mg/ Sodium (Chloride) 110 mls @ 110 mls/hr IVPB DAILY [facility] Last Admin: 06/16/18 10:00 Dose: 110 mls/hr Meropenem 500 mg/ Sodium (Chloride) 100 mls @ 100 mls/hr IVPB Q8 [facility]; Protocol Last Admin: 06/16/18 17:03 Dose: 100 mls/hr Insulin Human Regular (Humulin R) 0 units SC ACHS [facility]; Protocol Last Admin: 06/16/18 17:12 Dose: 2 units Lisinopril (Zestril) 20 mg PO DAILY [facility] Last Admin: 06/16/18 10:00 Dose: 20 mg Metformin HCl (Glucophage) 500 mg PO BID [facility] Last Admin: 06/11/18 09:21 Dose: 500 mg Morphine Sulfate (Morphine) 1 mg IVP Q4 PRN PRN Reason: Pain, moderate (4-7) Last Admin: 06/13/18 18:18 Dose: 1 mg Morphine Sulfate (Morphine) 2 mg IVP Q4 PRN PRN Reason: Pain, severe (8-10) Last Admin: 06/16/18 01:11 Dose: 2 mg Tckvr-5-Anid Ethyl Esters (Lovaza) 2 gm PO BID [facility] Last Admin: 06/16/18 17:12 Dose: 2 gm Ondansetron HCl (Zofran Inj) 4 mg IVP Q6 PRN PRN Reason: Nausea/Vomiting Pantoprazole Sodium (Protonix Ec Tab) 40 mg PO DAILY [facility] Last Admin: 06/16/18 10:00 Dose: 40 mg Phenazopyridine HCl (Pyridium) 100 mg PO TID [facility] Last Admin: 06/16/18 17:12 Dose: 100 mg Sitagliptin Phosphate (Januvia) 50 mg PO BID [facility] Last Admin: 06/16/18 17:12 Dose: 50 mg Tamsulosin HCl (Flomax) 0.4 mg PO DAILY [facility] Last Admin: 06/16/18 09:57 Dose: 0.4 mg - Labs Labs: 06/15/18 05:30 06/15/18 05:30 PT 15.0 Seconds (9.8-13.1) H 06/12/18 08:06 INR 1.3 06/12/18 08:06 APTT 27.4 Seconds (25.6-37.1) 06/12/18 08:06 - Head Exam Head Exam: NORMAL INSPECTION - Eye Exam Eye Exam: Normal appearance - ENT Exam ENT Exam: Mucous Membranes Moist - Respiratory Exam Respiratory Exam: Clear to Ausculation Bilateral - Cardiovascular Exam Cardiovascular Exam: REGULAR RHYTHM - GI/Abdominal Exam GI & Abdominal Exam: Normal Bowel Sounds - Neurological Exam Neurological Exam: Awake, Oriented x3 Assessment and Plan (1) Complicated UTI (urinary tract infection) Status: Acute (2) Infection due to ESBL-producing Klebsiella pneumoniae Status: Acute (3) HTN (hypertension) Status: Chronic (4) Anemia Status: Acute (5) Diabetes mellitus type 2 in nonobese Status: Acute - Assessment and Plan (Free Text) Plan: Cont meds Cont tx Cont PT change januvia to daily dose add metformin
[2018-06-17] MEDS: Meropenem 500 MG in Sodium Chloride 0.9% 100 ML IVPB SCH ×3 (01:38→17:04)
[2018-06-17 06:35] LABS: BASO % 0.4 % (0.0-2.0); EOS # 0.1 K/uL (0.0-0.7); HEMOGLOBIN 10.5 g/dL (12.0-18.0); LYMPH # 2.2 K/uL (1.0-4.3); MEAN CELL VOLUME 73.5 fl (80.0-94.0); MEAN CORPUSCULAR HEMOGLOBIN 23.3 pg (27.0-31.0); MEAN CORPUSCULAR HGB CONC 31.6 g/dL (33.0-37.0); MEAN PLATELET VOLUME 7.8 fl (7.2-11.7); MONO # 1.3 K/uL (0.0-0.8); MONO % 11.8 % (0.0-10.0); NEUT % 65.8 % (50.0-75.0); NRBC % 0.2 % (0.0-0.0); RBC 4.52 Mil/uL (4.40-5.90); RED CELL DISTRIBUTION WIDTH 21.4 % (11.5-14.5); WHITE BLOOD COUNT 10.7 K/uL (4.8-10.8)
[2018-06-17 06:47] LABS: ALB/GLOB RATIO 0.9 (1.0-2.1); ALBUMIN 3.3 g/dL (3.5-5.0); ALT/SGPT 41 U/L (21-72); AST/SGOT 53 U/L (17-59); BLOOD UREA NITROGEN 17 mg/dl (9-20); CALCIUM 9.1 mg/dL (8.4-10.2); GFR NON-AFRICAN AMERICAN 59
[2018-06-17] MEDS: Insulin Regular 100 units/ml SC SCH ×4 (07:07→22:15)
[2018-06-17] MEDS: Morphine 4 MG/ML VIAL IVP PRN ×4 (07:46→23:38)
[2018-06-17] MEDS: Omega-3-Acid Ethyl Esters 1 GM Cap PO SCH ×2 (09:19→17:03)
[2018-06-17] MEDS: Pantoprazole 40 mg EC Tab PO SCH (09:20)
[2018-06-17] MEDS ORDERED: Lidocaine 1% Inj (20ml) ONE (12:38)
--- NOTE | 2018-06-17 13:34 | PCM.SURG1 ---
Surgeon's Initial Post Op Note - Surgeon's Notes Surgeon: Shar Sena MD Laboratory Chief: NONE Pre-Operative Diagnosis: Infection Operative Findings: US showed a patent left brachial vein Post-Operative Diagnosis: Infection Operation Performed: Single lumen picc placement left arm, 43 cm. Specimen/Specimens Removed: none Estimated Blood Loss: EBL {In ML}: 2 Blood Products Given: N/A Drains Used: No Drains Post-Op Condition: Fair Date of Surgery/Procedure: 06/17/18 Time of Surgery/Procedure: 13:30
[2018-06-18] MEDS: Meropenem 500 MG in Sodium Chloride 0.9% 100 ML IVPB SCH ×3 (00:58→17:07)
[2018-06-18] MEDS: Insulin Regular 100 units/ml SC SCH ×3 (07:03→17:06)
--- NOTE | 2018-06-18 08:10 | CP.PCM.PN ---
Subjective - Date & Time of Evaluation Date of Evaluation: 06/17/18 Time of Evaluation: 13:00 - Subjective Subjective: Patient reports decreased appetite; no vomiting/diarrhea; still with dysuria; Objective - Vital Signs/Intake and Output Vital Signs (last 24 hours): Temp Pulse Resp BP Pulse Ox 97.7 F 91 H 19 132/79 96 06/18/18 00:51 06/18/18 00:51 06/18/18 00:51 06/18/18 00:51 06/18/18 00:51 - Medications Medications: Current Medications Acetaminophen (Tylenol 325mg Tab) 650 mg PO Q6 PRN PRN Reason: Pain, Mild (1-3) Amlodipine Besylate (Norvasc) 10 mg PO DAILY [facility] Last Admin: 06/17/18 09:19 Dose: 10 mg Enoxaparin Sodium (Lovenox) 40 mg SC DAILY [facility]; Protocol Finasteride (Proscar) 5 mg PO DAILY [facility] Last Admin: 06/17/18 09:19 Dose: 5 mg Iron Sucrose 200 mg/ Sodium (Chloride) 110 mls @ 110 mls/hr IVPB DAILY [facility] Last Admin: 06/17/18 11:09 Dose: 110 mls/hr Meropenem 500 mg/ Sodium (Chloride) 100 mls @ 100 mls/hr IVPB Q8 [facility]; Protocol Last Admin: 06/18/18 00:58 Dose: 100 mls/hr Insulin Human Regular (Humulin R) 0 units SC ACHS [facility]; Protocol Last Admin: 06/18/18 07:03 Dose: Not Given Lisinopril (Zestril) 20 mg PO DAILY [facility] Last Admin: 06/17/18 09:19 Dose: 20 mg Metformin HCl (Glucophage) 500 mg PO BID [facility] Last Admin: 06/11/18 09:21 Dose: 500 mg Metformin HCl (Glucophage) 1,000 mg PO BRK [facility] Last Admin: 06/17/18 09:19 Dose: 1,000 mg Morphine Sulfate (Morphine) 1 mg IVP Q4 PRN PRN Reason: Pain, moderate (4-7) Last Admin: 06/13/18 18:18 Dose: 1 mg Morphine Sulfate (Morphine) 2 mg IVP Q4 PRN PRN Reason: Pain, severe (8-10) Last Admin: 06/17/18 23:38 Dose: 2 mg Wmtif-1-Ebbw Ethyl Esters (Lovaza) 2 gm PO BID [facility] Last Admin: 06/17/18 17:03 Dose: 2 gm Ondansetron HCl (Zofran Inj) 4 mg IVP Q6 PRN PRN Reason: Nausea/Vomiting Pantoprazole Sodium (Protonix Ec Tab) 40 mg PO DAILY [facility] Last Admin: 06/17/18 09:20 Dose: 40 mg Phenazopyridine HCl (Pyridium) 100 mg PO TID [facility] Last Admin: 06/17/18 17:04 Dose: 100 mg Sitagliptin Phosphate (Januvia) 100 mg PO DAILY [facility] Last Admin: 06/17/18 09:20 Dose: 100 mg Tamsulosin HCl (Flomax) 0.4 mg PO DAILY [facility] Last Admin: 06/17/18 09:20 Dose: 0.4 mg - Labs Labs: 06/17/18 05:50 06/17/18 05:50 PT 15.0 Seconds (9.8-13.1) H 06/12/18 08:06 INR 1.3 06/12/18 08:06 APTT 27.4 Seconds (25.6-37.1) 06/12/18 08:06 - Constitutional Appears: Non-toxic, No Acute Distress - Eye Exam Eye Exam: Normal appearance - Respiratory Exam Respiratory Exam: Clear to Ausculation Bilateral. absent: Respiratory Distress - Cardiovascular Exam Cardiovascular Exam: RRR, +S1, +S2 - GI/Abdominal Exam GI & Abdominal Exam: Soft. absent: Distended, Tenderness - Extremities Exam Additional comments: no leg edema - Neurological Exam Neurological Exam: Alert, Awake - Psychiatric Exam Psychiatric exam: Normal Mood. absent: Agitated - Skin Skin Exam: Warm. absent: Cyanosis Assessment and Plan (1) Acute kidney injury Assessment & Plan: Improving with treatment of UTI; consider increasing meropenem dose to 1 g q8h for CrCl > 50 ml/min; avoid nephrotoxic agents; Status: Acute (2) HTN (hypertension) Assessment & Plan: BP well controlled; continue current meds (will benefit from remaining on MOISÉS inhibitor due to concern for potential R renal artery compression); Status: Chronic (3) Complicated UTI (urinary tract infection) Status: Acute (4) Metastatic disease Status: Acute
[2018-06-18 08:23] VITALS: RESP 20
--- NOTE | 2018-06-18 08:28 | CP.PCM.PN ---
Subjective - Date & Time of Evaluation Date of Evaluation: 06/18/18 Time of Evaluation: 07:55 - Subjective Subjective: Patient seen and examined with Dr. Perea No acute overnight events. Afebrile with stable vitals. Reports lower back pain and pain is controlled with pain medication. Right forearm pain improved. Denies any chest pain, dyspnea, nausea,vomiting, fever, or chills. Objective - Vital Signs/Intake and Output Vital Signs (last 24 hours): Temp Pulse Resp BP Pulse Ox 97.5 F L 84 20 127/81 94 L 06/18/18 08:22 06/18/18 08:22 06/18/18 08:22 06/18/18 08:22 06/18/18 08:22 - Medications Medications: Current Medications Acetaminophen (Tylenol 325mg Tab) 650 mg PO Q6 PRN PRN Reason: Pain, Mild (1-3) Amlodipine Besylate (Norvasc) 10 mg PO DAILY [facility] Last Admin: 06/17/18 09:19 Dose: 10 mg Enoxaparin Sodium (Lovenox) 40 mg SC DAILY [facility]; Protocol Finasteride (Proscar) 5 mg PO DAILY [facility] Last Admin: 06/17/18 09:19 Dose: 5 mg Iron Sucrose 200 mg/ Sodium (Chloride) 110 mls @ 110 mls/hr IVPB DAILY [facility] Last Admin: 06/17/18 11:09 Dose: 110 mls/hr Meropenem 500 mg/ Sodium (Chloride) 100 mls @ 100 mls/hr IVPB Q8 [facility]; Protocol Last Admin: 06/18/18 00:58 Dose: 100 mls/hr Insulin Human Regular (Humulin R) 0 units SC ACHS [facility]; Protocol Last Admin: 06/18/18 07:03 Dose: Not Given Lisinopril (Zestril) 20 mg PO DAILY [facility] Last Admin: 06/17/18 09:19 Dose: 20 mg Metformin HCl (Glucophage) 500 mg PO BID [facility] Last Admin: 06/11/18 09:21 Dose: 500 mg Metformin HCl (Glucophage) 1,000 mg PO BRK [facility] Last Admin: 06/17/18 09:19 Dose: 1,000 mg Morphine Sulfate (Morphine) 1 mg IVP Q4 PRN PRN Reason: Pain, moderate (4-7) Last Admin: 06/13/18 18:18 Dose: 1 mg Morphine Sulfate (Morphine) 2 mg IVP Q4 PRN PRN Reason: Pain, severe (8-10) Last Admin: 06/17/18 23:38 Dose: 2 mg Bnkto-6-Gsxb Ethyl Esters (Lovaza) 2 gm PO BID [facility] Last Admin: 06/17/18 17:03 Dose: 2 gm Ondansetron HCl (Zofran Inj) 4 mg IVP Q6 PRN PRN Reason: Nausea/Vomiting Pantoprazole Sodium (Protonix Ec Tab) 40 mg PO DAILY [facility] Last Admin: 06/17/18 09:20 Dose: 40 mg Phenazopyridine HCl (Pyridium) 100 mg PO TID [facility] Last Admin: 06/17/18 17:04 Dose: 100 mg Sitagliptin Phosphate (Januvia) 100 mg PO DAILY [facility] Last Admin: 06/17/18 09:20 Dose: 100 mg Tamsulosin HCl (Flomax) 0.4 mg PO DAILY [facility] Last Admin: 06/17/18 09:20 Dose: 0.4 mg - Labs Labs: 06/17/18 05:50 06/17/18 05:50 PT 15.0 Seconds (9.8-13.1) H 06/12/18 08:06 INR 1.3 06/12/18 08:06 APTT 27.4 Seconds (25.6-37.1) 06/12/18 08:06 - Constitutional Appears: No Acute Distress - Head Exam Head Exam: NORMAL INSPECTION - ENT Exam ENT Exam: Mucous Membranes Moist - Neck Exam Neck Exam: Normal Inspection - Respiratory Exam Respiratory Exam: Clear to Ausculation Bilateral, NORMAL BREATHING PATTERN. absent: Rhonchi, Wheezes - Cardiovascular Exam Cardiovascular Exam: REGULAR RHYTHM, +S1, +S2 - GI/Abdominal Exam GI & Abdominal Exam: Distended, Soft, Normal Bowel Sounds. absent: Tenderness - Extremities Exam Extremities Exam: Normal Inspection. absent: Calf Tenderness - Neurological Exam Neurological Exam: Alert, Awake, Oriented x3 - Psychiatric Exam Psychiatric exam: Normal Affect, Normal Mood - Skin Skin Exam: Normal Color Assessment and Plan - Assessment and Plan (Free Text) Assessment: 77 year old male with PMHx of DMII, HTN, left renal stone and BPH presented to [facility] ER w/ complaints of right sided abdominal pain and right flank pain for more than 1 month associated with poor appetite and weight loss. CT of the abdomen and pelvis shows metastatic disease likely originating from the right kidney with numerous metastatic lung nodules, liver nodules as well as retroperitoneal lymph nodes. Patient is admitted for evaluation of metastatic CA, acute kidney injury and complicated UTI. Anticipate discharge to [facility] for IV abx. Plan: Metastatic disease likely secondary to urothelial CA -CT A/P on 06/08/18 : IMPRESSION: Metastatic disease likely originating from the right kidney with numerous metastatic lung nodules, liver nodules as well as retroperitoneal lymph nodes. Findings could be secondary to a transitional cell carcinoma in the proximal ureter versus renal cell carcinoma (less likely.) -Hematology/oncology consult, Dr. Maynard, consult appreciated. -Urology consult, Dr. Mojica, rec appreciated -IR consult, Dr. Sena. s/p renal biopsy on 06/12/18. -Pain management -f/u RENAL biopsy, AM labs Complicated urinary tract infection -Urine culture this morning: Klebsiella pneumoniae, sensitive to meropenem -WBC 10.7 yesterday. -ID consult, Dr. Self, recs appreciated. -c/w Meropenem 500 mg IPV Q8 (days 6), -Blood cx: no growth after 5 days -f/u AM labs -Right forearm pain -F/u duplex US -pain management Acute kidney injury -BUN/Cr mproving. -Shredding Machine Tender Dr. Jean on board, recs appreciated. -Avoid nephrotoxic drugs -Renal scan w/ Lasix: impression: poorly functioning right kidney consistent findings on recent CT scan. No evidence of obstructive uropathy. -f/u AM labs Anemia -H&H 10.5/33.2 -retic count 1.0%, b12 and folate: WNL -Hem/onc on board -C/W IV venofar 200 mg daily for total of 5 days -f/u AM labs Hypertension -Continue home medications DMII -c/w metformin -c/w Januvia -Sliding scale insulin BPH -c/w flomax and finasteride DVT prophylasix -Lovenox 40 mg sc -Encourage ambulation Diet -Heart Healthy diet Patient seen, examined and plan discussed with Dr. Eliazar Chacko, pgy-2
[2018-06-18] MEDS ORDERED: Enoxaparin 40 mg Syringe SC SCH (09:00)
[2018-06-18] MEDS: Pantoprazole 40 mg EC Tab PO SCH (09:57)
[2018-06-18] MEDS: Omega-3-Acid Ethyl Esters 1 GM Cap PO SCH ×2 (09:59→17:06)
--- NOTE | 2018-06-18 11:33 | CP.PCM.PN ---
Subjective - Date & Time of Evaluation Date of Evaluation: 06/18/18 Time of Evaluation: 08:00 - Subjective Subjective: less pain no fever iv rx in progress PICC in place to cont iv rx Objective - Vital Signs/Intake and Output Vital Signs (last 24 hours): Temp Pulse Resp BP Pulse Ox 97.5 F L 84 20 127/81 94 L 06/18/18 08:22 06/18/18 09:57 06/18/18 08:22 06/18/18 09:57 06/18/18 08:22 - Medications Medications: Current Medications Acetaminophen (Tylenol 325mg Tab) 650 mg PO Q6 PRN PRN Reason: Pain, Mild (1-3) Amlodipine Besylate (Norvasc) 10 mg PO DAILY COUNTS INCLUDE 234 BEDS AT THE [facility] Last Admin: 06/18/18 09:56 Dose: 10 mg Enoxaparin Sodium (Lovenox) 40 mg SC DAILY COUNTS INCLUDE 234 BEDS AT THE [facility]; Protocol Last Admin: 06/18/18 09:59 Dose: 40 mg Finasteride (Proscar) 5 mg PO DAILY COUNTS INCLUDE 234 BEDS AT THE [facility] Last Admin: 06/18/18 09:56 Dose: 5 mg Iron Sucrose 200 mg/ Sodium (Chloride) 110 mls @ 110 mls/hr IVPB DAILY COUNTS INCLUDE 234 BEDS AT THE [facility] Last Admin: 06/18/18 09:57 Dose: 110 mls/hr Meropenem 500 mg/ Sodium (Chloride) 100 mls @ 100 mls/hr IVPB Q8 COUNTS INCLUDE 234 BEDS AT THE [facility]; Protocol Last Admin: 06/18/18 09:58 Dose: 100 mls/hr Insulin Human Regular (Humulin R) 0 units SC ACHS COUNTS INCLUDE 234 BEDS AT THE [facility]; Protocol Last Admin: 06/18/18 07:03 Dose: Not Given Lisinopril (Zestril) 20 mg PO DAILY COUNTS INCLUDE 234 BEDS AT THE [facility] Last Admin: 06/18/18 09:57 Dose: 20 mg Metformin HCl (Glucophage) 500 mg PO BID COUNTS INCLUDE 234 BEDS AT THE [facility] Last Admin: 06/11/18 09:21 Dose: 500 mg Metformin HCl (Glucophage) 1,000 mg PO BRK COUNTS INCLUDE 234 BEDS AT THE [facility] Last Admin: 06/18/18 09:56 Dose: 1,000 mg Morphine Sulfate (Morphine) 1 mg IVP Q4 PRN PRN Reason: Pain, moderate (4-7) Last Admin: 06/13/18 18:18 Dose: 1 mg Morphine Sulfate (Morphine) 2 mg IVP Q4 PRN PRN Reason: Pain, severe (8-10) Last Admin: 06/17/18 23:38 Dose: 2 mg [id number] Ethyl Esters (Lovaza) 2 gm PO BID COUNTS INCLUDE 234 BEDS AT THE [facility] Last Admin: 06/18/18 09:59 Dose: 2 gm Ondansetron HCl (Zofran Inj) 4 mg IVP Q6 PRN PRN Reason: Nausea/Vomiting Pantoprazole Sodium (Protonix Ec Tab) 40 mg PO DAILY COUNTS INCLUDE 234 BEDS AT THE [facility] Last Admin: 06/18/18 09:57 Dose: 40 mg Phenazopyridine HCl (Pyridium) 100 mg PO TID COUNTS INCLUDE 234 BEDS AT THE [facility] Last Admin: 06/18/18 09:57 Dose: 100 mg Sitagliptin Phosphate (Januvia) 100 mg PO DAILY COUNTS INCLUDE 234 BEDS AT THE [facility] Last Admin: 06/18/18 10:00 Dose: 100 mg Tamsulosin HCl (Flomax) 0.4 mg PO DAILY COUNTS INCLUDE 234 BEDS AT THE [facility] Last Admin: 06/18/18 09:56 Dose: 0.4 mg - Labs Labs: 06/17/18 05:50 06/17/18 05:50 PT 15.0 Seconds (9.8-13.1) H 06/12/18 08:06 INR 1.3 06/12/18 08:06 APTT 27.4 Seconds (25.6-37.1) 06/12/18 08:06 - Constitutional Appears: Non-toxic, Chronically Ill - Head Exam Head Exam: NORMOCEPHALIC - Eye Exam Eye Exam: absent: Scleral icterus - ENT Exam ENT Exam: Mucous Membranes Dry - Neck Exam Neck Exam: absent: Lymphadenopathy - Respiratory Exam Respiratory Exam: Decreased Breath Sounds - Cardiovascular Exam Cardiovascular Exam: REGULAR RHYTHM - GI/Abdominal Exam GI & Abdominal Exam: Distended, Soft - Rectal Exam Rectal Exam: Deferred - Exam Exam: NORMAL INSPECTION - Extremities Exam Extremities Exam: absent: Pedal Edema - Back Exam Back Exam: absent: CVA tenderness (L), CVA tenderness (R) Assessment and Plan (1) Abdominal pain Status: Acute (2) Metastatic disease Status: Acute (3) Complicated UTI (urinary tract infection) Status: Acute (4) Infection due to ESBL-producing Klebsiella pneumoniae Status: Acute - Assessment and Plan (Free Text) Assessment: cont iv antibiotics min 14 days with follow up imaging
--- NOTE | 2018-06-18 14:51 | US ---
Date of service: 06/18/2018 PROCEDURE: Duplex Doppler ultrasound examination of right upper extremity HISTORY: Swelling, pain and erythema COMPARISON: Not available TECHNIQUE: Deep vessels evaluated include internal jugular, subclavian, axillary, brachial and radial and ulnar veins. Additional superficial veins evaluated include right basilic and cephalic veins. FINDINGS: No evidence of deep venous thrombosis. There is thrombus seen within the mid and distal right cephalic vein, considered superficial venous thrombosis. The vessel is noncompressible in the region of the visualized thrombus. The remaining vessels are fully compressible throughout their length, where compressibility can be assessed. Normal flow is demonstrated, with respiratory variation and augmentation. IMPRESSION: No evidence of deep venous thrombosis. There is superficial venous thrombosis in the mid and distal right cephalic vein.
--- NOTE | 2018-06-18 15:22 | CP.PCM.DIS ---
Provider - Provider Date of Admission: 06/10/18 19:47 Attending physician: Dax Brownlee MD Consults: 06/11/18 06:37 Hematology Oncology Consult Routine Comment: Consulting Provider: Devaughn Maynard Consulting Physician: Devaughn Maynard Reason for Consult: metastatic CA Nephrology Consult Routine Comment: Consulting Provider: Eliseo Jean Consulting Physician: Eliseo Jean Reason for Consult: metastatic CA Urology Consult Routine Comment: Consulting Provider: Saji Mojica Jr. Consulting Physician: Saji Mojica Jr. Reason for Consult: metastatic CA,Right renal mass, ?complicated UTI 06/11/18 07:01 Physician Consult Routine Comment: Consulting Provider: Shar Sena Consulting Physician: Shar Sena Reason for Consult: biopsy of most accessible lesion, metastatic CA 06/13/18 07:27 Infectious Disease Consult Routine Comment: Consulting Provider: Siddhartha Self Consulting Physician: Siddhartha Self Reason for Consult: Complicated UTI, metastatic CA Time Spent in preparation of Discharge (in minutes): 30 Diagnosis - Discharge Diagnosis (1) Infection due to ESBL-producing Klebsiella pneumoniae Status: Acute (2) Complicated UTI (urinary tract infection) Status: Acute (3) Acute kidney injury Status: Acute (4) Diabetes mellitus type 2 in nonobese Status: Acute (5) Metastatic disease Status: Acute (6) HTN (hypertension) Status: Chronic (7) Anemia Status: Acute (8) Elevated PSA Status: Acute Hospital Course - Lab Results Lab Results: Micro Results 06/12/18 10:07 Blood Blood Culture - Final NO GROWTH AFTER 5 DAYS 06/12/18 10:07 Blood Gram Stain - Final TEST NOT PERFORMED 06/12/18 10:07 Blood Blood Culture - Final NO GROWTH AFTER 5 DAYS 06/12/18 10:07 Blood Gram Stain - Final TEST NOT PERFORMED 06/11/18 08:13 Urine,Clean Catch Urine Culture - Final Klebsiella Pneumoniae Ssp Pneu Most Recent Lab Values WBC 10.7 K/uL (4.8-10.8) 06/17/18 05:50 RBC 4.52 Mil/uL (4.40-5.90) 06/17/18 05:50 Hgb 10.5 g/dL (12.0-18.0) L 06/17/18 05:50 Hct 33.2 % (35.0-51.0) L 06/17/18 05:50 MCV 73.5 fl (80.0-94.0) L D 06/17/18 05:50 MCH 23.3 pg (27.0-31.0) L 06/17/18 05:50 MCHC 31.6 g/dL (33.0-37.0) L 06/17/18 05:50 RDW 21.4 % (11.5-14.5) H 06/17/18 05:50 Plt Count 315 K/uL (130-400) 06/17/18 05:50 MPV 7.8 fl (7.2-11.7) 06/17/18 05:50 Neut % (Auto) 65.8 % (50.0-75.0) 06/17/18 05:50 Lymph % (Auto) 21.0 % (20.0-40.0) 06/17/18 05:50 Brown % (Auto) 11.8 % (0.0-10.0) H 06/17/18 05:50 Eos % (Auto) 1.0 % (0.0-4.0) 06/17/18 05:50 Baso % (Auto) 0.4 % (0.0-2.0) 06/17/18 05:50 Neut # (Auto) 7.0 K/uL (1.8-7.0) 06/17/18 05:50 Lymph # (Auto) 2.2 K/uL (1.0-4.3) 06/17/18 05:50 Brown # (Auto) 1.3 K/uL (0.0-0.8) H 06/17/18 05:50 Eos # (Auto) 0.1 K/uL (0.0-0.7) 06/17/18 05:50 Baso # (Auto) 0.0 K/uL (0.0-0.2) 06/17/18 05:50 Neutrophils % (Manual) 87 % (42-75) H 06/13/18 05:45 Lymphocytes % (Manual) 7 % (20-50) L 06/13/18 05:45 Reactive Lymphs % 1 % (0-0) H 06/13/18 05:45 Monocytes % (Manual) 5 % (0-10) 06/13/18 05:45 Toxic Granulation Present 06/13/18 05:45 Platelet Estimate Normal (NORMAL) 06/13/18 05:45 Hypochromasia (manual) Slight 06/13/18 05:45 Anisocytosis (manual) Moderate 06/13/18 05:45 Microcytosis (manual) Slight 06/13/18 05:45 Retic Count 1.5 % (0.5-1.5) D 06/13/18 05:45 PT 15.0 Seconds (9.8-13.1) H 06/12/18 08:06 INR 1.3 06/12/18 08:06 APTT 27.4 Seconds (25.6-37.1) 06/12/18 08:06 Sodium 137 mmol/l (132-148) 06/17/18 05:50 Potassium 4.3 MMOL/L (3.6-5.0) 06/17/18 05:50 Chloride 102 mmol/L (98-107) 06/17/18 05:50 Carbon Dioxide 29 mmol/L (22-30) 06/17/18 05:50 Anion Gap 10 (10-20) 06/17/18 05:50 BUN 17 mg/dl (9-20) 06/17/18 05:50 Creatinine 1.2 mg/dl (0.8-1.5) 06/17/18 05:50 Est GFR ( Amer) > 60 06/17/18 05:50 Est GFR (Non-Af Amer) 59 06/17/18 05:50 POC Glucose (mg/dL) 161 mg/dL (65-110) H 06/18/18 10:55 Random Glucose 113 mg/dL (75-110) H 06/17/18 05:50 Hemoglobin A1c 5.7 % (4.2-6.5) 06/17/18 05:50 Lactic Acid 1.8 MMOL/L (0.7-2.1) 06/12/18 15:56 Calcium 9.1 mg/dL (8.4-10.2) 06/17/18 05:50 Phosphorus 3.2 mg/dl (2.5-4.5) 06/13/18 05:45 Magnesium 1.8 MG/DL (1.6-2.3) 06/13/18 05:45 Ferritin 258.0 ng/Ml (17.9-464) 06/13/18 05:45 Total Bilirubin 0.4 mg/dl (0.2-1.3) 06/17/18 05:50 AST 53 U/L (17-59) 06/17/18 05:50 ALT 41 U/L (21-72) 06/17/18 05:50 Alkaline Phosphatase 273 U/L (38-126) H D 06/17/18 05:50 Total Protein 7.2 G/DL (6.3-8.2) 06/17/18 05:50 Albumin 3.3 g/dL (3.5-5.0) L 06/17/18 05:50 Globulin 3.9 gm/dL (2.2-3.9) 06/17/18 05:50 Albumin/Globulin Ratio 0.9 (1.0-2.1) L 06/17/18 05:50 Free PSA 2.4 ng/mL 06/14/18 10:54 % Free PSA Not calculated % (calc) (>25) 06/14/18 10:54 Total PSA 21.0 ng/mL (< or = 4.0) H 06/14/18 10:54 Vitamin B12 508 pg/mL (239-931) 06/13/18 05:45 Folate 8.3 ng/mL 06/13/18 05:45 Urine Color Yellow (YELLOW) 06/11/18 14:10 Urine Clarity Slighty-cloudy (Clear) 06/11/18 14:10 Urine pH 6.0 (5.0-8.0) 06/11/18 14:10 Ur Specific [place] 1.010 (1.003-1.030) 06/11/18 14:10 Urine Protein Negative mg/dL (NEGATIVE) 06/11/18 14:10 Urine Glucose (UA) Neg mg/dL (NEGATIVE) 06/11/18 14:10 Urine Ketones Negative mg/dL (NEGATIVE) 06/11/18 14:10 Urine Blood Small (NEGATIVE) 06/11/18 14:10 Urine Nitrate Positive (NEGATIVE) H 06/11/18 14:10 Urine Bilirubin Negative (NEGATIVE) 06/11/18 14:10 Urine Urobilinogen 0.2-1.0 mg/dL (0.2-1.0) 06/11/18 14:10 Ur Leukocyte Esterase Mod Mihir/uL (Negative) 06/11/18 14:10 Urine RBC (Auto) 5 /hpf (0-3) H 06/11/18 14:10 Urine Microscopic WBC 41 /hpf (0-5) H 06/11/18 14:10 Urine Bacteria Rare (<OCC) 06/11/18 14:10 U Random Total Protein 33 mg/L 06/11/18 14:00 Urine Creatinine 56 mg/dL (20-320) 06/11/18 14:00 Urine Microalbumin 7.3 mg/dL 06/11/18 14:00 Microalb/Creat Ratio 130 (<30) H 06/11/18 14:00 - Hospital Course Hospital Course: 77 year old male with PMHx of DMII, HTN, left renal stone and BPH presented to [facility] ED on 06/08/18 complaints of right sided abdominal pain, right flank pain and dysuria for more than 1 month associated with poor appetite and weight loss. CT of the abdomen and pelvis on 06/08/18 showed metastatic disease likely originating from the right kidney with numerous metastatic lung nodules, liver nodules as well as retroperitoneal lymph nodes. Patient was febile with elevated WBC and urine cx grew ESBL E coli. Patient was diagnosed with complicated UTI with ESBL E coli. Patient had right renal biopsy on 06/12/18, pending pathology report. During patients hospitalization, ID Dr. Self, hem/onc Dr. Maynard, Urologist Dr. Mojica and Sign Erector And Repairer Dr. Jean were consulted. Patient had single lumen PICC line placed on 06/17/18 and will need Meropenem 500 mg IVPB q 8 hours for 2 weeks. Patient had right upper extremity US due to pain in the right forearm and antecubital fossa. US shows NO DVT but superficial venous thrombosis in the mid and distal right cephalic vein. Per Dr. Maynard, no need to be treated with anticoagulant since its from IV line. Patient has been afebrile since 06/12/18 and is hemodynamically stable to discharge to [facility] for IV antibiotics. Advised to follow up with Dr. Maynard in 1 week. Discharge Exam - Head Exam Head Exam: NORMAL INSPECTION - Eye Exam Eye Exam: Normal appearance - ENT Exam ENT Exam: Mucous Membranes Moist - Respiratory Exam Respiratory Exam: Clear to PA & Lateral, NORMAL BREATHING PATTERN. absent: Wheezes, Respiratory Distress - Cardiovascular Exam Cardiovascular Exam: REGULAR RHYTHM, +S1, +S2 - GI/Abdominal Exam GI & Abdominal Exam: Distended, Normal Bowel Sounds, Soft. absent: Tenderness - Extremities Exam Extremities exam: normal inspection Additional comments: Mild erythema of the right antecubital fossa and erythema and some swelling extending to proximal mid forearm. - Back Exam Back exam: absent: CVA tenderness (L), CVA tenderness (R) - Neurological Exam Neurological exam: Alert, Oriented x3 - Psychiatric Exam Psychiatric exam: Normal Affect, Normal Mood - Skin Skin Exam: Normal Color, Warm Discharge Plan - Discharge Medications Prescriptions: Ferrous Sulfate 325 mg PO BID #60 tablet MEROPENEM 500 MG in NS [Merrem IV 500 MG/NS 50 ML] 500 mg IV Q8 14 Days bag - Follow Up Plan Condition: FAIR Disposition: HOME/ ROUTINE Instructions: Acute Abdominal Pain (DC) Additional Instructions: hacer kehinde con glover doctor primario dentro de 1 semana Please follow up with Dr. Maynard (digester operator helper/Oncologist) in one week to discuss kidney biopsy report Referrals: Devaughn Maynard MD [Staff Provider] - Denny Ritter MD [Medical Doctor] - Eliseo Jean MD [Staff Provider] -
[2018-06-18 16:17] VITALS: BP 115/72; PULSE 79; TEMP 98.1; O2SAT 98
--- NOTE | 2018-06-24 11:45 | VASCULAR ---
PROCEDURE: Date of procedure: 06/17/2018 Procedure: 1. Placement of a left arm PICC with ultrasound and fluoroscopic guidance, CPT 40358 2. PICC tip confirmation with spot radiograph and is in the superior vena cava Medications: 1 percent lidocaine Total Fluoro time: 23.4 Seconds Radiation: 3.26 MGy EBL: 3 cc HISTORY: Infection requiring long-term IV antibiotics TECHNIQUE: Following informed consent and procedure time-out, the patient placed supine on the interventional table and the left arm prepped and draped in the usual sterile fashion. Ultrasound showed a patent and compressible left basilic vein. After the skin was anesthetized with lidocaine, the basilic vein was accessed with micro micropuncture technique using ultrasound guidance. A guidewire was then advanced under fluoroscopic guidance into the superior vena cava. An image documenting ultrasound guidance for vascular access was permanently saved. The length of a single-lumen 4 [place] PICC was trimmed to 43 cm and advanced through a peel-away sheath. The PICC was position with tip of PICC confirm a spot radiograph the superior vena cava. The PICC was secured to the patient's skin. The PICC was flushed. A biopatch and sterile dressing was applied. IMPRESSION: Placement of a single-lumen 4 [place] PICC left basilic vein trimmed to 43 cm. The tip of the PICC is confirmed with spot radiograph and is in the superior vena cava.
== END 2018-06-18 20:50 | DRG 687 ==
LOC: H.ER 16:10 → H.ERHOLD 19:47 → H.MEDSURG1 22:28
PROVIDERS: ADMIT Internal Medicine; ATTEND Internal Medicine
PROC: 0TB03ZX Excision of Right Kidney, Percutaneous Approach, Diagnostic (ICD-10-PCS; principal; 2018-06-12 14:30)
PROC: 02HV33Z Insertion of Infusion Device into Superior Vena Cava, Percutaneous Approach (ICD-10-PCS; 2018-06-17)
PROC: B518ZZA Fluoroscopy of Superior Vena Cava, Guidance (ICD-10-PCS; 2018-06-17)
PROC: B548ZZA Ultrasonography of Superior Vena Cava, Guidance (ICD-10-PCS; 2018-06-17)
PROC: 3E04329 Introduction of Other Anti-infective into Central Vein, Percutaneous Approach (ICD-10-PCS; 2018-06-17)
DX: C64.1 Malignant neoplasm of right kidney, except renal pelvis (principal); N17.9 Acute kidney failure, unspecified; N39.0 Urinary tract infection, site not specified; C78.00 Secondary malignant neoplasm of unspecified lung; C78.7 Secondary malignant neoplasm of liver and intrahepatic bile duct; R18.8 Other ascites; B96.1 Klebsiella pneumoniae [K. pneumoniae] as the cause of diseases classified elsewhere; B96.29 Other Escherichia coli [E. coli] as the cause of diseases classified elsewhere; I12.9 Hypertensive chronic kidney disease with stage 1 through stage 4 chronic kidney disease, or unspecified chronic kidney disease; N18.9 Chronic kidney disease, unspecified; N28.89 Other specified disorders of kidney and ureter; E11.22 Type 2 diabetes mellitus with diabetic chronic kidney disease; D63.8 Anemia in other chronic diseases classified elsewhere; N40.0 Benign prostatic hyperplasia without lower urinary tract symptoms; F41.9 Anxiety disorder, unspecified; Z79.84 Long term (current) use of oral hypoglycemic drugs; Z87.442 Personal history of urinary calculi

== ENCOUNTER 2018-08-17 14:45 | Inpatient (IN) | payer OTHER ==
[2018-08-17] MEDS ORDERED: Sodium Chloride 0.9% 1,000 ML IV STA ×3 (15:14→19:51)
--- NOTE | 2018-08-17 15:58 | RAD ---
Date of service: 08/17/2018 PROCEDURE: CHEST RADIOGRAPH, 1 VIEW HISTORY: weakness COMPARISON: 06/12/2018 FINDINGS: LUNGS: There is evidence of multiple pulmonary nodules consistent with pulmonary metastatic disease and seen on prior study. There is mild loss of volume at the lung bases with some mild bibasilar atelectasis appreciated. No new focal infiltrate is seen. PLEURA: No pneumothorax or pleural fluid seen. CARDIOVASCULAR: No aortic atherosclerotic calcification present. Mild aneurysmal dilatation. This however is stable. OSSEOUS STRUCTURES: Degenerative changes in the spine. No fracture. VISUALIZED UPPER ABDOMEN: Normal. OTHER FINDINGS: None. IMPRESSION: Pulmonary metastatic disease. Bibasilar volume loss.
[2018-08-17 16:16] LABS: VENOUS BLOOD GAS BASE EXCESS -0.4 mmol/L (0.0-2.0); VENOUS BLOOD GAS PCO2 33 mmHg (40-60); VENOUS BLOOD GAS PO2 55 mm/Hg (30-55); VENOUS BLOOD PH 7.45 (7.32-7.43)
[2018-08-17 16:17] LABS: INR 1.1; PROTHROMBIN TIME 12.8 Seconds (9.8-13.1)
[2018-08-17 16:19] LABS: PARTIAL THROMBOPLASTIN TIME 28.9 Seconds (25.6-37.1)
[2018-08-17 16:20] LABS: BASO % 0.1 % (0.0-2.0); HEMOGLOBIN 11.4 g/dL (12.0-18.0); LYMPH % 21.8 % (20.0-40.0); MEAN CELL VOLUME 84.5 fl (80.0-94.0); MEAN CORPUSCULAR HEMOGLOBIN 27.6 pg (27.0-31.0); MEAN CORPUSCULAR HGB CONC 32.6 g/dL (33.0-37.0); MEAN PLATELET VOLUME 8.6 fl (7.2-11.7); MONO # 0.2 K/uL (0.0-0.8); MONO % 4.5 % (0.0-10.0); NEUT # 3.5 K/uL (1.8-7.0); NEUT % 73.6 % (50.0-75.0); NRBC % 0.6 % (0.0-0.0); RBC 4.15 Mil/uL (4.40-5.90); RED CELL DISTRIBUTION WIDTH 29.6 % (11.5-14.5); WHITE BLOOD COUNT 4.7 K/uL (4.8-10.8)
[2018-08-17 16:29] LABS: ALB/GLOB RATIO 0.9 (1.0-2.1); ALBUMIN 3.4 g/dL (3.5-5.0); CALCIUM 9.2 mg/dL (8.4-10.2)
[2018-08-17 16:55] LABS: TROPONIN I 0.165 ng/mL (0.00-0.120)
[2018-08-17] MEDS ORDERED: Morphine 4 MG/ML VIAL IVP ONE (17:05)
[2018-08-17] MEDS ORDERED: Morphine 4 MG/ML VIAL ONE (17:23)
[2018-08-17] MEDS ORDERED: Piperacillin/Tazobact 3.375 GM in Sodium Chloride 0.9% 100 ML IVPB STA (17:47)
[2018-08-17 17:57] LABS: URINE BACTERIA MANY (<OCC); URINE BILIRUBIN NEGATIVE (NEGATIVE); URINE BLOOD MODERATE (NEGATIVE); URINE CLARITY CLOUDY (Clear); URINE COLOR AMBER (YELLOW); URINE GLUCOSE (UA) NEG (NEGATIVE); URINE LEUKOCYTE ESTERASE LARGE Leu/uL (Negative); URINE PROTEIN 30 mg/dL (NEGATIVE)
[2018-08-17] MEDS ORDERED: Piperacillin/Tazobact 3.375 gm Inj IVPB ONE (18:03)
--- NOTE | 2018-08-17 18:21 | ED PDOC ---
HPI: Abdomen Time Seen by Provider: 08/17/18 14:55 Chief Complaint (Nursing): GI Problem Chief Complaint (Provider): GI Problem History Per: Patient, Family (daughter) History/Exam Limitations: no limitations Onset/Duration Of Symptoms: Days (x4) Current Symptoms Are (Timing): Still Present Context: Other (cancer) Quality Of Discomfort: "Pain" Associated Symptoms: Vomiting. denies: Fever, Diarrhea, Chest Pain, Urinary Symptoms Additional Complaint(s): 78 year old male with a history of metastatic renal cancer and hypertension presents to the ED with abdominal pain and vomiting for 4 days. As per family, patient is vomiting everything he eats and they are concerned he is dehydrated. Patient denies any diarrhea, fever, urinary problems, chest pain, difficulty breathing, or cough. He states he has renal metastatic cancer but is no longer on chemotherapy, which was corroborated by daughter. Patient is currently taking OxyContin for pain related to cancer. Oncologist: Dr. Devaughn Maynard PMD: Dr. Tai in [place] Past Medical History Reviewed: Historical Data, Nursing Documentation, Vital Signs Vital Signs: Last Vital Signs Temp 97.7 F 08/17/18 14:49 Pulse 82 08/17/18 17:56 Resp 18 08/17/18 17:56 BP 108/69 08/17/18 17:56 Pulse Ox 97 08/17/18 17:56 - Medical History PMH: Anxiety, Asthma, Bronchitis, Diabetes, Gastritis, HTN, Kidney Stones, Chronic Kidney Disease (CKD) Other PMH: metastatic renal cancer - Surgical History Surgical History: Appendectomy, Endoscopy - Family History Family History: States: Unknown Family Hx - Home Medications Home Medications: Ambulatory Orders Medication Instructions Recorded Amlodipine Besylate/Benazepril 20 mg PO DAILY 05/21/15 [Amlodipine-Benazepril 10-20 mg] Esomeprazole Magnesium [Nexium 20 mg PO DAILY 06/08/18 24Hr] Icosapent Ethyl [Vascepa] 2 gm PO BID 06/08/18 Tamsulosin [Flomax] 0.4 mg PO DAILY 06/08/18 Ferrous Sulfate 325 mg PO BID #60 tablet 06/18/18 Aspirin [Lo-Dose Aspirin EC] 81 mg PO DAILY 08/17/18 Dexamethasone [Decadron] 2 mg PO DAILY 08/17/18 Finasteride [Proscar] 5 mg PO DAILY 08/17/18 Ondansetron [Zofran Tab] 4 mg PO DAILY 08/17/18 Sitagliptin Phos/Metformin HCl 50 mg PO DAILY 08/17/18 [Janumet 50-1,000 mg Tablet] Tamsulosin HCl [Flomax] 0.4 mg PO DAILY 08/17/18 oxyCODONE [oxyCODONE Immediate 5 mg PO PRN PRN 08/17/18 Release Tab] Sunitinib Malate [Sutent] 37.5 mg PO DAILY 08/18/18 - Allergies Allergies/Adverse Reactions: Allergies Allergy/AdvReac Type Severity Reaction Status Date / Time No Known Allergies Allergy Verified 08/17/18 14:49 Review of Systems ROS Statement: Except As Marked, All Systems Reviewed And Found Negative Constitutional: Negative for: Fever Cardiovascular: Negative for: Chest Pain Respiratory: Negative for: Cough, Shortness of Breath Gastrointestinal: Positive for: Vomiting, Abdominal Pain. Negative for: Constipation Genitourinary Male: Negative for: Dysuria, Frequency, Hematuria Physical Exam - Reviewed Nursing Documentation Reviewed: Yes Vital Signs Reviewed: Yes - Physical Exam Appears: Negative for: Well (patient appears sick) Head Exam: Positive for: ATRAUMATIC Skin: Positive for: Warm, Pallor, Jaundice Eye Exam: Positive for: EOMI, PERRL, Scleral icterus, Other (pale conjunctiva) ENT: Positive for: Normal ENT Inspection Cardiovascular/Chest: Positive for: Regular Rate, Rhythm, Tachycardia, Other (regular rate) Respiratory: Positive for: Normal Breath Sounds. Negative for: Respiratory Distress Gastrointestinal/Abdominal: Positive for: Normal Exam, Soft, Tenderness (diffuse). Negative for: Distended Extremity: Negative for: Pedal Edema, Deformity Neurological/Psych: Positive for: Awake, Alert, Oriented. 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 II-XII - Laboratory Results Result Diagrams: 08/19/18 05:25 08/19/18 05:25 Lab Results: pO2 55 mm/Hg (30-55) 08/17/18 16:06 VBG pH 7.45 (7.32-7.43) H 08/17/18 16:06 VBG pCO2 33 mmHg (40-60) L 08/17/18 16:06 VBG HCO3 24.4 mmol/L 08/17/18 16:06 VBG Total CO2 23.9 mmol/L (22-28) 08/17/18 16:06 VBG O2 Sat (Calc) 93.7 % (40-65) H 08/17/18 16:06 VBG Base Excess -0.4 mmol/L (0.0-2.0) L 08/17/18 16:06 VBG Potassium 5.1 mmol/L (3.6-5.2) 08/17/18 16:06 Sodium 139.0 mmol/L (132-148) 08/17/18 16:06 Chloride 107.0 mmol/L (98-107) 08/17/18 16:06 Glucose 121 mg/dL (75-110) H 08/17/18 16:06 Lactate 3.4 mmol/L (0.7-2.1) H 08/17/18 16:06 FiO2 21.0 % 08/17/18 16:06 Crit Value Called To seth Uribe md 08/17/18 16:06 Crit Value Called By Juancarlos basilio 08/17/18 16:06 Crit Value Read Back Y 08/17/18 16:06 Blood Gas Notified Time 1615 08/17/18 16:06 PT 12.8 Seconds (9.8-13.1) 08/17/18 16:00 INR 1.1 08/17/18 16:00 APTT 28.9 Seconds (25.6-37.1) 08/17/18 16:00 Troponin I 0.1650 ng/mL (0.00-0.120) H* 08/17/18 16:00 Total Bilirubin 2.5 mg/dl (0.2-1.3) H 08/17/18 16:00 AST 150 U/L (17-59) H D 08/17/18 16:00 ALT 46 U/L (21-72) 08/17/18 16:00 Alkaline Phosphatase 759 U/L (38-126) H D 08/17/18 16:00 Total Protein 7.3 G/DL (6.3-8.2) 08/17/18 16:00 Albumin 3.4 g/dL (3.5-5.0) L 08/17/18 16:00 Globulin 3.9 gm/dL (2.2-3.9) 08/17/18 16:00 Albumin/Globulin Ratio 0.9 (1.0-2.1) L 08/17/18 16:00 Lipase 319 U/L (23-300) H 08/17/18 16:00 Urine Color Tanna (YELLOW) 08/17/18 17:26 Urine Clarity Cloudy (Clear) 08/17/18 17:26 Urine pH 5.0 (5.0-8.0) 08/17/18 17:26 Ur Specific Haiku 1.015 (1.003-1.030) 08/17/18 17:26 Urine Protein 30 mg/dL (NEGATIVE) 08/17/18 17:26 Urine Glucose (UA) Neg mg/dL (NEGATIVE) 08/17/18 17:26 Urine Ketones Negative mg/dL (NEGATIVE) 08/17/18 17:26 Urine Blood Moderate (NEGATIVE) 08/17/18 17:26 Urine Nitrate Negative (NEGATIVE) 08/17/18 17:26 Urine Bilirubin Negative (NEGATIVE) 08/17/18 17:26 Urine Urobilinogen 4.0 mg/dL (0.2-1.0) 08/17/18 17:26 Ur Leukocyte Esterase Large Mihir/uL (Negative) 08/17/18 17:26 Urine RBC (Auto) 8 /hpf (0-3) H 08/17/18 17:26 Urine Microscopic WBC 276 /hpf (0-5) H 08/17/18 17:26 Urine Bacteria Many (<OCC) H 08/17/18 17:26 - ECG O2 Sat by Pulse Oximetry: 97 (RA) Pulse Ox Interpretation: Normal Medical Decision Making Medical Decision Making: Time: 1513 Impression: Abdominal pain, vomiting and jaundice Differential diagnoses include but are not limited to: for abdominal pain: m etastatic cancer pain, small bowel obstruction, UTI, renal failure due to dehydration, or complications of metastatic cancer such as pneumonia, hypovolemic shock. Rule out sepsis. Plan: --antibody identification --type and screen --VBG --CT abdomen and pelvis --EKG --CMP --Lipase --Troponin --u dip --CBC --PTT --PT/INR --CXR --Morphine 4 mg IVP --IV fluids --Zosyn --Zofran 4 mg IVP --Blood culture --Urine C&S --Prado catheter --UA Time: 1817 CT abdomen and pelvis FINDINGS: LUNG BASES: There are numerous parenchymal nodules present in both lower lungs as well as a moderate-sized right pleural effusion. Small to moderate size pericardial effusion. LIVER: Marked heterogeneous appearance of the liver with multiple masses within the liver suspected. GALLBLADDER AND BILE DUCTS: The gallbladder appears within normal limits. No radioopaque gallstones are seen. No biliary ductal dilatation is evident. PANCREAS: Unremarkable. SPLEEN: Unremarkable. ADRENAL GLANDS: Unremarkable. KIDNEYS, URETERS, AND BLADDER: Markedly enlarged and heterogeneous right kidney with perinephric stranding with underlying inflammatory and/or neoplastic process suspected. Left kidney much smaller in size with an approximate 6 mm calculus present. STOMACH AND BOWEL: Unremarkable appearance of the stomach and bowel. No evidence of bowel obstruction. No evidence suggesting enteritis or colitis. APPENDIX: No evidence of acute appendicitis on CT examination. PERITONEUM: No free fluid. No free air. LYMPH NODES: Extensive lymphadenopathy seen at the retroperitoneum and peripancreatic lymph nodes. REPRODUCTIVE: Unremarkable as visualized. VASCULATURE: No evidence of abdominal aortic aneurysm. BONES: Advanced hypertrophic and degenerative change thoracic and lumbar spine. IMPRESSION: Impression: Numerous parenchymal nodules within the lower lungs as well as m oderate-sized right pleural effusion all compatible with metastatic disease. Pericardial effusion. Extensive metastatic disease to the liver. Enlarged heterogeneous right kidney with perinephric stranding likely inflammatory and/or neoplastic in nature. Small nonobstructing left renal calculus. Retroperitoneal and peripancreatic mesenteric lymphadenopathy. Clinical correlation advised. Time: 1949 --Case discussed with Dr. Brownlee who will accept admission for inpatient telemetry. He will assume care of patient and place admission orders for Dr. Tai. Scribe Attestation: Documented by Yasmeen Marcelo, acting as a scribe for Seth Uribe MD. Provider Scribe Attestation: All medical record entries made by the Scribe were at my direction and personally dictated by me. I have reviewed the chart and agree that the record accurately reflects my personal performance of the history, physical exam, medical decision making, and the department course for this patient. I have also personally directed, reviewed, and agree with the discharge instructions and disposition. Disposition - Clinical Impression Clinical Impression: Metastatic cancer, ARF (acute renal failure), UTI (urinary tract infection), Elevated troponin - Patient ED Disposition Is Patient to be Admitted: Yes Discussed With DrJacob: Dax Brownlee Doctor Will See Patient In The: Hospital Counseled Patient/Family Regarding: Studies Performed, Diagnosis - Disposition Disposition Time: 19:49 Condition: FAIR - Pt Status Changed To: Hospital Disposition Of: Inpatient - Admit Certification Admit to Inpatient:: After my assessment, the patient will require hospitalization for at least two midnights. This is because of the severity of symptoms shown, intensity of services needed, and/or the medical risk in this patient being treated as an outpatient. - POA Present On Arrival: Poor Glycemic Control
[2018-08-18 00:16] VITALS: BMI 24.3
[2018-08-18] MEDS ORDERED: oxyCODONE 5 mg Immediate Release Tab PO SCH (04:00)
[2018-08-18 06:30] LABS: HEMOGLOBIN 10.6 g/dL (12.0-18.0); MEAN CELL VOLUME 85.9 fl (80.0-94.0); MEAN CORPUSCULAR HEMOGLOBIN 28.1 pg (27.0-31.0); MEAN CORPUSCULAR HGB CONC 32.7 g/dL (33.0-37.0); RBC 3.76 Mil/uL (4.40-5.90); RED CELL DISTRIBUTION WIDTH 30.9 % (11.5-14.5); WHITE BLOOD COUNT 3.6 K/uL (4.8-10.8)
[2018-08-18 07:00] LABS: ALB/GLOB RATIO 0.8 (1.0-2.1); ALBUMIN 2.9 g/dL (3.5-5.0); CALCIUM 8.7 mg/dL (8.4-10.2)
[2018-08-18] MEDS: Pantoprazole 40 mg EC Tab PO SCH (08:40)
[2018-08-18] MEDS: Insulin Regular 100 units/ml SC SCH ×3 (08:46→18:14)
[2018-08-18] MEDS ORDERED: Enoxaparin 40 mg Syringe SC SCH (09:00)
[2018-08-18] MEDS ORDERED: METFORMIN HCL PO SCH (09:00)
[2018-08-18] MEDS ORDERED: ESOMEPRAZOLE MAGNESIUM 20 MG PO SCH (09:00)
[2018-08-18] MEDS ORDERED: SITAGLIPTIN PHOS PO SCH (09:00)
--- NOTE | 2018-08-18 10:38 | CT ---
Date of service: 08/17/2018 PROCEDURE: CT Abdomen and Pelvis without intravenous contrast HISTORY: abdominal pain vomiting, right renal neoplasm and metastatic disease COMPARISON: 06/08/2018 TECHNIQUE: Technique. Contrast dose: Radiation dose: Total exam DLP = 734.57 mGy-cm. This CT exam was performed using one or more of the following dose reduction techniques: Automated exposure control, adjustment of the mA and/or kV according to patient size, and/or use of iterative reconstruction technique. FINDINGS: LOWER THORAX: There is once again evidence of numerous pulmonary nodules, most consistent with pulmonary metastatic disease. These appear to be increased in size and number and there is a new right pleural effusion identified with mild compressive atelectasis at the right lung base. Minor left pleural effusion is also seen. There is new pericardial effusion when compared to the prior exam. Visualized distal esophagus is unremarkable. LIVER: Innumerable metastatic lesions are seen throughout the liver, also probably increased. No appreciable intrahepatic ductal dilatation is seen. Common bile duct is normal in size. GALLBLADDER AND BILE DUCTS: A mild amount of gallbladder wall thickening is not excluded. PANCREAS: Mild peripancreatic lymphadenopathy is noted with some minor stranding adjacent to the pancreas although no pancreatic enlargement is seen. SPLEEN: Mild ascites is seen adjacent to the spleen. Spleen is otherwise normal in size. ADRENALS: There is moderate enlargement of the right adrenal gland, increased from prior study. Left adrenal gland is normal in size. KIDNEYS AND URETERS: There is once again evidence of an enlarged right kidney with adjacent perinephric inflammatory changes. The this is mildly increased from the prior study and may reflect superimposed infection or inflammatory process in addition to the suspected right renal neoplasm. There is soft tissue density seen within the proximal right ureter and noted on the prior CT scan. Left kidney is unremarkable. There are adjacent perinephric lymph nodes noted as well as some increased inflammatory changes adjacent to the right psoas musculature and retroperitoneum. VASCULATURE: No aortic aneurysm is seen. Mild aorta atherosclerotic change. No aortic wall thickening seen. BOWEL: Visualized stomach is decompressed although there does appear to be some new thickening in the region of the gastric antrum and duodenum which may suggest interval development of gastritis and duodenitis. This should be further correlated clinically. This was not mentioned on the preliminary report. Mild fluid is seen in the right pericolic gutter and adjacent to the liver. No appreciable colonic wall thickening or small bowel obstruction is identified. APPENDIX: Appendix is not well seen although no right lower quadrant inflammatory change is noted. PERITONEUM: Induration of the posterior retroperitoneal fat, greater on the right is noted. No free intraperitoneal air is seen. Mild ascites is once again noted. LYMPH NODES: There is mild increase in scattered retroperitoneal, tram hepatis and periceliac lymph nodes. BLADDER: Unremarkable. REPRODUCTIVE: Unremarkable. BONES: Degenerative changes are seen in the spine without compression fracture. No definite bony metastatic disease seen. OTHER FINDINGS: None. IMPRESSION: Interval increase in pulmonary and hepatic metastatic disease. There is additionally new areas of perinephric inflammatory change with increased ascites. An element of pylorus sinus extravasation is not excluded. Perinephric inflammatory changes may also be related to increased metastatic disease. Increased pericardial effusion and new right pleural effusion. Increased abdominal and retroperitoneal adenopathy.
--- NOTE | 2018-08-18 13:19 | CP.PCM.CON ---
History of Present Illness - History of Present Illness History of Present Illness: 78 year old male with a history of metastatic renal cancer and hypertension presents to the ED with abdominal pain and vomiting for 4 days. Patient denies any diarrhea, fever, urinary problems, chest pain, difficulty breathing, or co ugh. He states he has renal metastatic cancer but is no longer on chemotherapy. On admission was found to have elevated troponins- cardio on board Denies chaest pain at present Referred for ID evaluation of UTI r/o sepsis - Medical History PMH: Anxiety, Asthma, Bronchitis, Diabetes, Gastritis, HTN, Kidney Stones, Chronic Kidney Disease (CKD) Other PMH: metastatic renal cancer - Surgical History Surgical History: Appendectomy, Endoscopy Review of Systems - Review of Systems All systems: reviewed and no additional remarkable complaints except - Constitutional Constitutional: As Per HPI - EENT Eyes: absent: As Per HPI, Blind Spots, Blurred Vision, Change in Vision, Decreased Night Vision, Diplopia, Discharge, Dry Eye, Exophthalmos, Floaters, Irritation, Itchy Eyes, Loss of Peripheral Vision, Pain, Photophobia, Requires Corrective Lenses, Sees Flashes, Spots in Vision, Tunnel Vision, Other Visual Disturbances, Loss of Vision, Other Ears: absent: As Per HPI, Decreased Hearing, Ear Discharge, Ear Pain, Tinnitus, Abnormal Hearing, Disequilibrium, Dizziness, Other Nose/Mouth/Throat: absent: As Per HPI, Epistaxis, Nasal Congestion, Nasal Discharge, Nasal Obstruction, Nasal Trauma, Nose Pain, Post Nasal Drip, Sinus Pain, Sinus Pressure, Bleeding Gums, Change in Voice, Dental Pain, Dry Mouth, Dysphagia, Halitosis, Hoarsness, Lip Swelling, Mouth Lesions, Mouth Pain, Odynophagia, Sore Throat, Throat Swelling, Tongue Swelling, Facial Pain, Neck Pain, Neck Mass, Other - Cardiovascular Cardiovascular: As Per HPI - Respiratory Respiratory: absent: As Per HPI, Cough, Dyspnea, Hemoptysis, Dyspnea on Exertio n, Wheezing, Snoring, Stridor, Pain on Inspiration, Chest Congestion, Excessive Mucous Production, Change in Mucous Color, Pain with Coughing, Other - Gastrointestinal Gastrointestinal: As Per HPI, Abdominal Pain - Genitourinary Genitourinary: As Per HPI - Musculoskeletal Musculoskeletal: absent: As Per HPI, Abnormal Gait, Arthralgias, Atrophy, Back Pain, Deformity, Joint Swelling, Limited Range of Motion, Loss of Height, Muscle Cramps, Muscle Weakness, Myalgias, Neck Pain, Numbness, Radiating Pain into Limb, Stiffness, Tingling, Other - Integumentary Integumentary: absent: As Per HPI, Acne, Alopecia, Bleeding Lesions, Change in Hair, Change in Nails, Change in Pigmentation, Changing Lesions, Dry Skin, Erythema, Furuncle, Hirsutism, Lesions, New Lesions, Non-Healing Lesions, Photosensitivity, Pruritus, Rash, Skin Pain, Skin Ulcer, Sores, Striae, Swelling, Unusual Bruising, Wounds, Jaundice, Other - Neurological Neurological: absent: As Per HPI, Abnormal Gait, Abnormal Hearing, Abnormal Move ments, Abnormal Speech, Behavioral Changes, Burning Sensations, Confusion, Convulsions, Disequilibrium, Dizziness, Numbness, Focal Weakness, Frequent Falls, Headaches, Lack of Coordination, Loss of Vision, Memory Loss, Paresthesias, Radicular Pain, Restless Legs, Sensory Deficit, Syncope, Tingling, Tremor, Vertigo, Weakness, Other Visual Disturbances, Other - Psychiatric Psychiatric: absent: As Per HPI, Abnormal Sleep Pattern, Anhedonia, Anxiety, Auditory Hallucinations, Behavioral Changes, Change in Appetite, Change in Libido, Confusion, Depression, Difficulty Concentrating, Hallucinations, Homicidal Ideation, Hopelessness, Irritability, Memory Loss, Mood Swings, Panic Attacks, Paranoia, Suicidal Ideation, Visual Hallucinations, Tactile Hallucinations, Other - Hematologic/Lymphatic Hematologic: absent: As Per HPI, Easy Bleeding, Easy Bruising, Lymphadenopathy, Other Past Patient History - Past Medical History & Family History Past Medical History?: Yes - Past Social History Smoking Status: Never Smoked - CARDIAC Hx Cardiac Disorders: Yes Hx Hypertension: Yes - PULMONARY Hx Respiratory Disorders: Yes Hx Asthma: Yes Hx Bronchitis: Yes - NEUROLOGICAL Hx Neurological Disorder: No - HEENT Hx HEENT Problems: No - RENAL Hx Chronic Kidney Disease: Yes (CKD) - ENDOCRINE/METABOLIC Hx Endocrine Disorders: Yes - HEMATOLOGICAL/ONCOLOGICAL Hx Blood Disorders: No - INTEGUMENTARY Hx Dermatological Problems: No - MUSCULOSKELETAL/RHEUMATOLOGICAL Hx Musculoskeletal Disorders: Yes Hx Falls: Yes - GASTROINTESTINAL Hx Gastrointestinal Disorders: Yes Hx Gastritis: Yes - GENITOURINARY/GYNECOLOGICAL Hx Genitourinary Disorders: Yes Hx Bladder Cancer: Yes - PSYCHIATRIC Hx Psychophysiologic Disorder: Yes Hx Anxiety: Yes - SURGICAL HISTORY Hx Surgeries: Yes Hx Appendectomy: Yes - ANESTHESIA Hx Anesthesia: Yes Hx Anesthesia Reactions: No Hx Malignant Hyperthermia: No Meds Allergies/Adverse Reactions: Allergies Allergy/AdvReac Type Severity Reaction Status Date / Time No Known Allergies Allergy Verified 08/17/18 14:49 - Medications Medications: Current Medications Aspirin (Ecotrin) 81 mg PO DAILY [facility] Last Admin: 08/18/18 08:35 Dose: 81 mg Dexamethasone (Decadron) 2 mg PO DAILY [facility] Last Admin: 08/18/18 08:39 Dose: 2 mg Enoxaparin Sodium (Lovenox) 30 mg SC DAILY [facility]; Protocol Ferrous Sulfate (Feosol) 325 mg PO BID [facility] Last Admin: 08/18/18 08:38 Dose: 325 mg Finasteride (Proscar) 5 mg PO DAILY [facility] Last Admin: 08/18/18 08:37 Dose: 5 mg Home Med (Icosapent Ethyl [Vascepa]) 2 gm PO BID [facility] Piperacillin Sod/Tazobactam (Sod 2.25 gm/ Sodium Chloride) 100 mls @ 100 mls/hr IVPB Q8 [facility]; Protocol Last Admin: 08/18/18 08:42 Dose: 100 mls/hr Insulin Human Regular (Humulin R) 0 units SC ACCU-CHECK [facility]; Protocol Last Admin: 08/18/18 11:33 Dose: Not Given Metformin HCl (Glucophage) 500 mg PO BIDWM [facility] Last Admin: 08/18/18 08:37 Dose: 500 mg Ondansetron HCl (Zofran Tab) 4 mg PO DAILY [facility] Last Admin: 08/18/18 08:41 Dose: 4 mg Oxycodone HCl (Oxycodone Immediate Release Tab) 5 mg PO Q6 PRN PRN Reason: Pain, moderate (4-7) Pantoprazole Sodium (Protonix Ec Tab) 40 mg PO DAILY [facility] Last Admin: 08/18/18 08:40 Dose: 40 mg Sitagliptin Phosphate (Januvia) 50 mg PO DAILY [facility] Last Admin: 08/18/18 08:37 Dose: 50 mg Tamsulosin HCl (Flomax) 0.4 mg PO DAILY [facility] Last Admin: 08/18/18 08:37 Dose: 0.4 mg Physical Exam - Constitutional Appears: Non-toxic, No Acute Distress, Chronically Ill - Head Exam Head Exam: ATRAUMATIC, NORMAL INSPECTION, NORMOCEPHALIC - Eye Exam Eye Exam: PERRL. absent: Scleral icterus - ENT Exam ENT Exam: Mucous Membranes Dry, Normal External Ear Exam, Normal Oropharynx - Neck Exam Neck exam: Negative for: Lymphadenopathy - Respiratory Exam Respiratory Exam: Decreased Breath Sounds, Clear to Auscultation Bilateral - Cardiovascular Exam Cardiovascular Exam: REGULAR RHYTHM, +S1, +S2 - GI/Abdominal Exam GI & Abdominal Exam: Diminished Bowel Sounds, Distended, Soft. absent: Tenderness - Rectal Exam Rectal Exam: Deferred - Exam Exam: NORMAL INSPECTION - Extremities Exam Extremities exam: Negative for: pedal edema - Back Exam Back exam: absent: CVA tenderness (L), CVA tenderness (R) - Neurological Exam Neurological exam: Alert, CN II-XII Intact, Oriented x3, Reflexes Normal - Psychiatric Exam Psychiatric exam: Depressed - Skin Skin Exam: Dry Results - Vital Signs Recent Vital Signs: Last Vital Signs Temp 98.5 F 08/18/18 12:00 Pulse 84 08/18/18 12:00 Resp 18 08/18/18 12:00 BP 114/80 08/18/18 12:00 Pulse Ox 95 08/18/18 12:00 - Labs Result Diagrams: 08/18/18 04:30 08/18/18 04:30 Labs: Laboratory Results - last 24 hr 08/17/18 08/17/18 08/17/18 13:30 16:00 16:00 WBC 4.7 L D RBC 4.15 L Hgb 11.4 L Hct 35.0 MCV 84.5 D MCH 27.6 MCHC 32.6 L RDW 29.6 H Plt Count 83 L D MPV 8.6 Neut % (Auto) 73.6 Lymph % (Auto) 21.8 Rush % (Auto) 4.5 Eos % (Auto) 0.0 Baso % (Auto) 0.1 Neut # (Auto) 3.5 Lymph # (Auto) 1.0 Rush # (Auto) 0.2 Eos # (Auto) 0.0 Baso # (Auto) 0.0 PT INR APTT pO2 VBG pH VBG pCO2 VBG HCO3 VBG Total CO2 VBG O2 Sat (Calc) VBG Base Excess VBG Potassium Glucose Lactate FiO2 Crit Value Called To Crit Value Called By Crit Value Read Back Blood Gas Notified Time Sodium 141 Potassium 5.1 H Chloride 101 Carbon Dioxide 22 Anion Gap 23 H BUN 68 H Creatinine 3.2 H Est GFR ( Amer) 23 Est GFR (Non-Af Amer) 19 POC Glucose (mg/dL) Random Glucose 118 H Calcium 9.2 Total Bilirubin 2.5 H AST 150 H D ALT 46 Alkaline Phosphatase 759 H D Ammonia Troponin I 0.1650 H* Total Protein 7.3 Albumin 3.4 L Globulin 3.9 Albumin/Globulin Ratio 0.9 L Lipase 319 H Venous Blood Potassium Urine Color Urine Clarity Urine pH Ur Specific Ed[place] Urine Protein Urine Glucose (UA) Urine Ketones Urine Blood Urine Nitrate Urine Bilirubin Urine Urobilinogen Ur Leukocyte Esterase Urine RBC (Auto) Urine Microscopic WBC Urine Bacteria Blood Type Blood Type Confirm B POSITIVE Antibody Screen Antibody Identification BBK History Checked 08/17/18 08/17/18 08/17/18 16:00 16:00 16:00 WBC RBC Hgb Hct MCV MCH MCHC RDW Plt Count MPV Neut % (Auto) Lymph % (Auto) Rush % (Auto) Eos % (Auto) Baso % (Auto) Neut # (Auto) Lymph # (Auto) Rush # (Auto) Eos # (Auto) Baso # (Auto) PT 12.8 INR 1.1 APTT 28.9 pO2 VBG pH VBG pCO2 VBG HCO3 VBG Total CO2 VBG O2 Sat (Calc) VBG Base Excess VBG Potassium Glucose Lactate FiO2 Crit Value Called To Crit Value Called By Crit Value Read Back Blood Gas Notified Time Sodium Potassium Chloride Carbon Dioxide Anion Gap BUN Creatinine Est GFR ( Amer) Est GFR (Non-Af Amer) POC Glucose (mg/dL) Random Glucose Calcium Total Bilirubin AST ALT Alkaline Phosphatase Ammonia 68 H Troponin I Total Protein Albumin Globulin Albumin/Globulin Ratio Lipase Venous Blood Potassium Urine Color Urine Clarity Urine pH Ur Specific Ed[place] Urine Protein Urine Glucose (UA) Urine Ketones Urine Blood Urine Nitrate Urine Bilirubin Urine Urobilinogen Ur Leukocyte Esterase Urine RBC (Auto) Urine Microscopic WBC Urine Bacteria Blood Type B POSITIVE Blood Type Confirm Antibody Screen Negative Antibody Identification Cancelled BBK History Checked No verified bt 08/17/18 08/17/18 08/17/18 16:06 17:26 20:44 WBC RBC Hgb Hct MCV MCH MCHC RDW Plt Count MPV Neut % (Auto) Lymph % (Auto) Rush % (Auto) Eos % (Auto) Baso % (Auto) Neut # (Auto) Lymph # (Auto) Rush # (Auto) Eos # (Auto) Baso # (Auto) PT INR APTT pO2 55 VBG pH 7.45 H VBG pCO2 33 L VBG HCO3 24.4 VBG Total CO2 23.9 VBG O2 Sat (Calc) 93.7 H VBG Base Excess -0.4 L VBG Potassium 5.1 Glucose 121 H Lactate 3.4 H FiO2 21.0 Crit Value Called To seth Uribe md Crit Value Called By chetna Crit Value Read Back Y Blood Gas Notified Time 1615 Sodium 139.0 Potassium Chloride 107.0 Carbon Dioxide Anion Gap BUN Creatinine Est GFR ( Amer) Est GFR (Non-Af Amer) POC Glucose (mg/dL) 111 H Random Glucose Calcium Total Bilirubin AST ALT Alkaline Phosphatase Ammonia Troponin I Total Protein Albumin Globulin Albumin/Globulin Ratio Lipase Venous Blood Potassium 5.1 Urine Color Tanna Urine Clarity Cloudy Urine pH 5.0 Ur Specific Edmond 1.015 Urine Protein 30 Urine Glucose (UA) Neg Urine Ketones Negative Urine Blood Moderate Urine Nitrate Negative Urine Bilirubin Negative Urine Urobilinogen 4.0 Ur Leukocyte Esterase Large Urine RBC (Auto) 8 H Urine Microscopic WBC 276 H Urine Bacteria Many H Blood Type Blood Type Confirm Antibody Screen Antibody Identification BBK History Checked 08/18/18 08/18/18 08/18/18 04:30 04:30 05:10 WBC 3.6 L RBC 3.76 L Hgb 10.6 L Hct 32.3 L MCV 85.9 MCH 28.1 MCHC 32.7 L RDW 30.9 H Plt Count 70 L MPV Neut % (Auto) Lymph % (Auto) Rush % (Auto) Eos % (Auto) Baso % (Auto) Neut # (Auto) Lymph # (Auto) Rush # (Auto) Eos # (Auto) Baso # (Auto) PT INR APTT pO2 VBG pH VBG pCO2 VBG HCO3 VBG Total CO2 VBG O2 Sat (Calc) VBG Base Excess VBG Potassium Glucose Lactate FiO2 Crit Value Called To Crit Value Called By Crit Value Read Back Blood Gas Notified Time Sodium 144 Potassium 5.0 Chloride 106 Carbon Dioxide 22 Anion Gap 21 H BUN 64 H Creatinine 3.0 H Est GFR ( Amer) 25 Est GFR (Non-Af Amer) 20 POC Glucose (mg/dL) 91 Random Glucose 96 Calcium 8.7 Total Bilirubin 2.2 H AST 132 H ALT 41 Alkaline Phosphatase 538 H D Ammonia Troponin I Total Protein 6.5 Albumin 2.9 L Globulin 3.6 Albumin/Globulin Ratio 0.8 L Lipase Venous Blood Potassium Urine Color Urine Clarity Urine pH Ur Specific [place] Urine Protein Urine Glucose (UA) Urine Ketones Urine Blood Urine Nitrate Urine Bilirubin Urine Urobilinogen Ur Leukocyte Esterase Urine RBC (Auto) Urine Microscopic WBC Urine Bacteria Blood Type Blood Type Confirm Antibody Screen Antibody Identification BBK History Checked 08/18/18 08/18/18 10:44 12:15 WBC RBC Hgb Hct MCV MCH MCHC RDW Plt Count MPV Neut % (Auto) Lymph % (Auto) Rush % (Auto) Eos % (Auto) Baso % (Auto) Neut # (Auto) Lymph # (Auto) Rush # (Auto) Eos # (Auto) Baso # (Auto) PT INR APTT pO2 VBG pH VBG pCO2 VBG HCO3 VBG Total CO2 VBG O2 Sat (Calc) VBG Base Excess VBG Potassium Glucose Lactate FiO2 Crit Value Called To Crit Value Called By Crit Value Read Back Blood Gas Notified Time Sodium Potassium Chloride Carbon Dioxide Anion Gap BUN Creatinine Est GFR ( Amer) Est GFR (Non-Af Amer) POC Glucose (mg/dL) 98 Random Glucose Calcium Total Bilirubin AST ALT Alkaline Phosphatase Ammonia Troponin I 0.1430 H* Total Protein Albumin Globulin Albumin/Globulin Ratio Lipase Venous Blood Potassium Urine Color Urine Clarity Urine pH Ur Specific [place] Urine Protein Urine Glucose (UA) Urine Ketones Urine Blood Urine Nitrate Urine Bilirubin Urine Urobilinogen Ur Leukocyte Esterase Urine RBC (Auto) Urine Microscopic WBC Urine Bacteria Blood Type Blood Type Confirm Antibody Screen Antibody Identification BBK History Checked Assessment & Plan (1) Abdominal pain Status: Acute (2) Acute kidney injury Status: Acute (3) Complicated UTI (urinary tract infection) Status: Acute (4) Diabetes mellitus type 2 in nonobese Status: Acute (5) Metastasis Status: Acute - Assessment and Plan (Free Text) Assessment: 78 yo male with hx of metastatic renal cell Ca is admitted with vomiting and abd pain CT shows increased lung and liver mets as well as perinephric extension of primary malignancy in addition to ascites Has hx of UTI with ESBL Klebs in past cultures sent IV antibiotics ordered empirically
[2018-08-18] MEDS: Enoxaparin 30 mg Syringe SC SCH (14:19)
[2018-08-18] MEDS ORDERED: Alum-Mag Hydrox-Simethicone Susp (30 mL) PO PRN (15:00)
--- NOTE | 2018-08-18 15:12 | CP.PCM.CON ---
History of Present Illness - History of Present Illness History of Present Illness: pt is seen and examined full consult is dictated #[id number] Past Patient History - Past Medical History & Family History Past Medical History?: Yes - Past Social History Smoking Status: Never Smoked - CARDIAC Hx Cardiac Disorders: Yes Hx Hypertension: Yes - PULMONARY Hx Respiratory Disorders: Yes Hx Asthma: Yes Hx Bronchitis: Yes - NEUROLOGICAL Hx Neurological Disorder: No - HEENT Hx HEENT Problems: No - RENAL Hx Chronic Kidney Disease: Yes (CKD) - ENDOCRINE/METABOLIC Hx Endocrine Disorders: Yes - HEMATOLOGICAL/ONCOLOGICAL Hx Blood Disorders: No - INTEGUMENTARY Hx Dermatological Problems: No - MUSCULOSKELETAL/RHEUMATOLOGICAL Hx Musculoskeletal Disorders: Yes Hx Falls: Yes - GASTROINTESTINAL Hx Gastrointestinal Disorders: Yes Hx Gastritis: Yes - GENITOURINARY/GYNECOLOGICAL Hx Genitourinary Disorders: Yes Hx Bladder Cancer: Yes - PSYCHIATRIC Hx Psychophysiologic Disorder: Yes Hx Anxiety: Yes - SURGICAL HISTORY Hx Surgeries: Yes Hx Appendectomy: Yes - ANESTHESIA Hx Anesthesia: Yes Hx Anesthesia Reactions: No Hx Malignant Hyperthermia: No Meds Allergies/Adverse Reactions: Allergies Allergy/AdvReac Type Severity Reaction Status Date / Time No Known Allergies Allergy Verified 08/17/18 14:49 - Medications Medications: Current Medications Al Hydrox/Mg Hydrox/Simethicone (Maalox Plus 30 Ml) 30 ml PO Q6 PRN PRN Reason: Indigestion / Heartburn Last Admin: 08/18/18 15:09 Dose: 30 ml Aspirin (Ecotrin) 81 mg PO DAILY [facility] Last Admin: 08/18/18 08:35 Dose: 81 mg Dexamethasone (Decadron) 2 mg PO DAILY [facility] Last Admin: 08/18/18 08:39 Dose: 2 mg Enoxaparin Sodium (Lovenox) 30 mg SC DAILY [facility]; Protocol Last Admin: 08/18/18 14:19 Dose: 30 mg Ferrous Sulfate (Feosol) 325 mg PO BID [facility] Last Admin: 08/18/18 08:38 Dose: 325 mg Finasteride (Proscar) 5 mg PO DAILY [facility] Last Admin: 08/18/18 08:37 Dose: 5 mg Home Med (Icosapent Ethyl [Vascepa]) 2 gm PO BID [facility] Meropenem 500 mg/ Sodium (Chloride) 100 mls @ 100 mls/hr IVPB Q12@0500,1700 [facility]; Protocol Insulin Human Regular (Humulin R) 0 units SC ACCU-CHECK [facility]; Protocol Last Admin: 08/18/18 11:33 Dose: Not Given Metformin HCl (Glucophage) 500 mg PO BIDWM [facility] Last Admin: 08/18/18 08:37 Dose: 500 mg Ondansetron HCl (Zofran Tab) 4 mg PO DAILY [facility] Last Admin: 08/18/18 08:41 Dose: 4 mg Oxycodone HCl (Oxycodone Immediate Release Tab) 5 mg PO Q6 PRN PRN Reason: Pain, moderate (4-7) Pantoprazole Sodium (Protonix Ec Tab) 40 mg PO DAILY [facility] Last Admin: 08/18/18 08:40 Dose: 40 mg Sitagliptin Phosphate (Januvia) 50 mg PO DAILY [facility] Last Admin: 08/18/18 08:37 Dose: 50 mg Tamsulosin HCl (Flomax) 0.4 mg PO DAILY [facility] Last Admin: 08/18/18 08:37 Dose: 0.4 mg Results - Vital Signs Recent Vital Signs: Last Vital Signs Temp 98.5 F 08/18/18 12:00 Pulse 84 08/18/18 12:00 Resp 18 08/18/18 12:00 BP 114/80 08/18/18 12:00 Pulse Ox 95 08/18/18 12:00 - Labs Result Diagrams: 08/18/18 04:30 08/18/18 04:30 Labs: Laboratory Results - last 24 hr 08/17/18 08/17/18 08/17/18 13:30 16:00 16:00 WBC 4.7 L D RBC 4.15 L Hgb 11.4 L Hct 35.0 MCV 84.5 D MCH 27.6 MCHC 32.6 L RDW 29.6 H Plt Count 83 L D MPV 8.6 Neut % (Auto) 73.6 Lymph % (Auto) 21.8 Jennings % (Auto) 4.5 Eos % (Auto) 0.0 Baso % (Auto) 0.1 Neut # (Auto) 3.5 Lymph # (Auto) 1.0 Jennings # (Auto) 0.2 Eos # (Auto) 0.0 Baso # (Auto) 0.0 PT INR APTT pO2 VBG pH VBG pCO2 VBG HCO3 VBG Total CO2 VBG O2 Sat (Calc) VBG Base Excess VBG Potassium Glucose Lactate FiO2 Crit Value Called To Crit Value Called By Crit Value Read Back Blood Gas Notified Time Sodium 141 Potassium 5.1 H Chloride 101 Carbon Dioxide 22 Anion Gap 23 H BUN 68 H Creatinine 3.2 H Est GFR ( Amer) 23 Est GFR (Non-Af Amer) 19 POC Glucose (mg/dL) Random Glucose 118 H Calcium 9.2 Total Bilirubin 2.5 H AST 150 H D ALT 46 Alkaline Phosphatase 759 H D Ammonia Troponin I 0.1650 H* Total Protein 7.3 Albumin 3.4 L Globulin 3.9 Albumin/Globulin Ratio 0.9 L Lipase 319 H Venous Blood Potassium Urine Color Urine Clarity Urine pH Ur Specific Tate Urine Protein Urine Glucose (UA) Urine Ketones Urine Blood Urine Nitrate Urine Bilirubin Urine Urobilinogen Ur Leukocyte Esterase Urine RBC (Auto) Urine Microscopic WBC Urine Bacteria Blood Type Blood Type Confirm B POSITIVE Antibody Screen Antibody Identification BBK History Checked 08/17/18 08/17/18 08/17/18 16:00 16:00 16:00 WBC RBC Hgb Hct MCV MCH MCHC RDW Plt Count MPV Neut % (Auto) Lymph % (Auto) Jennings % (Auto) Eos % (Auto) Baso % (Auto) Neut # (Auto) Lymph # (Auto) Jennings # (Auto) Eos # (Auto) Baso # (Auto) PT 12.8 INR 1.1 APTT 28.9 pO2 VBG pH VBG pCO2 VBG HCO3 VBG Total CO2 VBG O2 Sat (Calc) VBG Base Excess VBG Potassium Glucose Lactate FiO2 Crit Value Called To Crit Value Called By Crit Value Read Back Blood Gas Notified Time Sodium Potassium Chloride Carbon Dioxide Anion Gap BUN Creatinine Est GFR ( Amer) Est GFR (Non-Af Amer) POC Glucose (mg/dL) Random Glucose Calcium Total Bilirubin AST ALT Alkaline Phosphatase Ammonia 68 H Troponin I Total Protein Albumin Globulin Albumin/Globulin Ratio Lipase Venous Blood Potassium Urine Color Urine Clarity Urine pH Ur Specific Tate Urine Protein Urine Glucose (UA) Urine Ketones Urine Blood Urine Nitrate Urine Bilirubin Urine Urobilinogen Ur Leukocyte Esterase Urine RBC (Auto) Urine Microscopic WBC Urine Bacteria Blood Type B POSITIVE Blood Type Confirm Antibody Screen Negative Antibody Identification Cancelled BBK History Checked No verified bt 08/17/18 08/17/18 08/17/18 16:06 17:26 20:44 WBC RBC Hgb Hct MCV MCH MCHC RDW Plt Count MPV Neut % (Auto) Lymph % (Auto) Jennings % (Auto) Eos % (Auto) Baso % (Auto) Neut # (Auto) Lymph # (Auto) Jennings # (Auto) Eos # (Auto) Baso # (Auto) PT INR APTT pO2 55 VBG pH 7.45 H VBG pCO2 33 L VBG HCO3 24.4 VBG Total CO2 23.9 VBG O2 Sat (Calc) 93.7 H VBG Base Excess -0.4 L VBG Potassium 5.1 Glucose 121 H Lactate 3.4 H FiO2 21.0 Crit Value Called To seth Uribe md Crit Value Called By Juancarlos basilio Crit Value Read Back Y Blood Gas Notified Time 1615 Sodium 139.0 Potassium Chloride 107.0 Carbon Dioxide Anion Gap BUN Creatinine Est GFR ( Amer) Est GFR (Non-Af Amer) POC Glucose (mg/dL) 111 H Random Glucose Calcium Total Bilirubin AST ALT Alkaline Phosphatase Ammonia Troponin I Total Protein Albumin Globulin Albumin/Globulin Ratio Lipase Venous Blood Potassium 5.1 Urine Color Tanna Urine Clarity Cloudy Urine pH 5.0 Ur Specific Tate 1.015 Urine Protein 30 Urine Glucose (UA) Neg Urine Ketones Negative Urine Blood Moderate Urine Nitrate Negative Urine Bilirubin Negative Urine Urobilinogen 4.0 Ur Leukocyte Esterase Large Urine RBC (Auto) 8 H Urine Microscopic WBC 276 H Urine Bacteria Many H Blood Type Blood Type Confirm Antibody Screen Antibody Identification BBK History Checked 08/18/18 08/18/18 08/18/18 04:30 04:30 05:10 WBC 3.6 L RBC 3.76 L Hgb 10.6 L Hct 32.3 L MCV 85.9 MCH 28.1 MCHC 32.7 L RDW 30.9 H Plt Count 70 L MPV Neut % (Auto) Lymph % (Auto) Jennings % (Auto) Eos % (Auto) Baso % (Auto) Neut # (Auto) Lymph # (Auto) Jennings # (Auto) Eos # (Auto) Baso # (Auto) PT INR APTT pO2 VBG pH VBG pCO2 VBG HCO3 VBG Total CO2 VBG O2 Sat (Calc) VBG Base Excess VBG Potassium Glucose Lactate FiO2 Crit Value Called To Crit Value Called By Crit Value Read Back Blood Gas Notified Time Sodium 144 Potassium 5.0 Chloride 106 Carbon Dioxide 22 Anion Gap 21 H BUN 64 H Creatinine 3.0 H Est GFR ( Amer) 25 Est GFR (Non-Af Amer) 20 POC Glucose (mg/dL) 91 Random Glucose 96 Calcium 8.7 Total Bilirubin 2.2 H AST 132 H ALT 41 Alkaline Phosphatase 538 H D Ammonia Troponin I Total Protein 6.5 Albumin 2.9 L Globulin 3.6 Albumin/Globulin Ratio 0.8 L Lipase Venous Blood Potassium Urine Color Urine Clarity Urine pH Ur Specific Tate Urine Protein Urine Glucose (UA) Urine Ketones Urine Blood Urine Nitrate Urine Bilirubin Urine Urobilinogen Ur Leukocyte Esterase Urine RBC (Auto) Urine Microscopic WBC Urine Bacteria Blood Type Blood Type Confirm Antibody Screen Antibody Identification BBK History Checked 08/18/18 08/18/18 10:44 12:15 WBC RBC Hgb Hct MCV MCH MCHC RDW Plt Count MPV Neut % (Auto) Lymph % (Auto) Jennings % (Auto) Eos % (Auto) Baso % (Auto) Neut # (Auto) Lymph # (Auto) Jennings # (Auto) Eos # (Auto) Baso # (Auto) PT INR APTT pO2 VBG pH VBG pCO2 VBG HCO3 VBG Total CO2 VBG O2 Sat (Calc) VBG Base Excess VBG Potassium Glucose Lactate FiO2 Crit Value Called To Crit Value Called By Crit Value Read Back Blood Gas Notified Time Sodium Potassium Chloride Carbon Dioxide Anion Gap BUN Creatinine Est GFR ( Amer) Est GFR (Non-Af Amer) POC Glucose (mg/dL) 98 Random Glucose Calcium Total Bilirubin AST ALT Alkaline Phosphatase Ammonia Troponin I 0.1430 H* Total Protein Albumin Globulin Albumin/Globulin Ratio Lipase Venous Blood Potassium Urine Color Urine Clarity Urine pH Ur Specific Tate Urine Protein Urine Glucose (UA) Urine Ketones Urine Blood Urine Nitrate Urine Bilirubin Urine Urobilinogen Ur Leukocyte Esterase Urine RBC (Auto) Urine Microscopic WBC Urine Bacteria Blood Type Blood Type Confirm Antibody Screen Antibody Identification BBK History Checked
[2018-08-18 16:55] LABS: CREATININE, RANDOM URINE 115.5 mg/dL
[2018-08-18] MEDS ORDERED: SUTENT PO SCH (17:00)
[2018-08-18] MEDS: Meropenem 500 MG in Sodium Chloride 0.9% 100 ML IVPB SCH (18:11)
[2018-08-18] MEDS: Patient's Own Med (Icosapent Ethyl [Vascepa] 1 GM) PO SCH (18:12)
[2018-08-18] MEDS: SUTENT PO SCH (18:12)
--- NOTE | 2018-08-18 18:42 | CARD ---
APPROVED REPORT Date of service: 08/17/2018 EKG Measurement Heart [id number] <Conclusion> Normal sinus rhythm Left anterior fascicular block Cannot rule out Anterior infarct, age undetermined T wave abnormality, consider lateral ischemia Abnormal ECG
[2018-08-19] MEDS: Meropenem 500 MG in Sodium Chloride 0.9% 100 ML IVPB SCH (04:17)
[2018-08-19 06:28] LABS: HEMOGLOBIN 11.1 g/dL (12.0-18.0); MEAN CELL VOLUME 86.2 fl (80.0-94.0); MEAN CORPUSCULAR HEMOGLOBIN 28.3 pg (27.0-31.0); MEAN CORPUSCULAR HGB CONC 32.8 g/dL (33.0-37.0); RBC 3.91 Mil/uL (4.40-5.90); RED CELL DISTRIBUTION WIDTH 31.5 % (11.5-14.5); WHITE BLOOD COUNT 4.3 K/uL (4.8-10.8)
--- NOTE | 2018-08-19 06:34 | CON ---
DATE: 08/18/2018 RENAL CONSULTATION LOCATION: The patient is located in room 417, bed 2. REQUESTED BY: Dax Brownlee MD REASON FOR RENAL CONSULTATION: Acute renal failure, metastatic renal carcinoma. HISTORY OF PRESENT ILLNESS: Mr. Zara John is a 78-year-old elderly male with past medical history significant for anxiety, asthma, diabetes, hypertension, gastritis, chronic kidney disease stage 3 with renal cell carcinoma metastatic to the lungs and liver, was admitted with the chief complaints of vomiting and decreased p.o. intake, abdominal discomfort and pain for 4 days, and the patient was brought into the hospital with concern for dehydration. The patient was found to have acute renal failure, admitted for further management. The patient denies any diarrhea. Denies any fever or cough. Denies any urinary symptoms. Denies chest pain or palpitation. Denies any cough. The patient has complaints of abdominal distention and some nausea and vomiting prior to the admission. The patient is not on any chemotherapy at this time. The patient is on OxyContin for pain related to his cancer and followed by Dr. Devaughn Maynard and also with Dr. Milan in [place] as a primary care physician. PAST MEDICAL HISTORY: Significant for anxiety, asthma, bronchitis, diabetes, hypertension, chronic kidney disease stage 3 and malignancy, renal cancer. PAST SURGICAL HISTORY: Status post appendectomy and endoscopy. ALLERGIES: NO KNOWN DRUG ALLERGIES. SOCIAL HISTORY: Denies any smoking, alcohol, or drugs at this time. CURRENT MEDICATIONS: Include Decadron 2 mg p.o. daily, aspirin 81 mg daily, Feosol 325 mg p.o. b.i.d., Flomax 0.4 mg daily, metformin 500 mg p.o. b.i.d., Humulin R for sliding scale, Januvia 50 mg p.o. daily, Lovenox 30 mg subcu daily, Maalox, oxycodone 5 mg p.o. every 6 hours p.r.n., Proscar 5 mg p.o. daily, Protonix 40 mg p.o. daily, and Zofran 4 mg p.o. daily. REVIEW OF SYSTEMS: Significant for nausea, vomiting, and abdominal distention. All other review of systems are reviewed and negative. PHYSICAL EXAMINATION: As follows; GENERAL: Mr. Zara John is a 78-year-old elderly male, moderately built, moderately nourished, not in distress. VITAL SIGNS: Blood pressure this morning 114/80, pulse 84, respirations 18, temperature 98.5, and saturation 95%. Height 5 feet 10 inches, weight is 170 pounds. HEENT: Pupils normally reactive to light and accommodation. Conjunctivae pink. Sclerae anicteric. Tongue is moist, and trachea is midline. LUNGS: Symmetric on both sides. Bilateral breath sounds present. Occasional basilar crackles present. CARDIOVASCULAR SYSTEM: [place] at the fifth intercostal space and midclavicular line. S1, S2 audible. No murmur, no gallop. ABDOMEN: Distended and soft. Bowel sounds present with dullness on both flanks. CENTRAL NERVOUS SYSTEM: The patient is alert, awake, oriented x3. Nonfocal neuro examination. Cranial nerves II through XII grossly intact. Sensory and motor system is within normal limits. EXTREMITIES: No cyanosis, no clubbing, no edema. LABORATORY DATA: His current laboratory data include as follows: As of 08/18/2018; WBC 3.6, hemoglobin 10.6, hematocrit is 32.3, platelets 70. Sodium 144, potassium 5, chloride 106, CO2 of 22, BUN 64, creatinine 3, and glucose 96, and calcium 8.7. Total bili 2.2, AST 132, ALT 41, alkaline phosphatase 538. Total protein 6.1, albumin 2.9, and troponin 0.143, and as of 08/17/2018, sodium 141, potassium 5.1, chloride 101, CO2 of 23, BUN 68, creatinine 3.2, glucose 118, calcium 9.2. Total bili 5.2, AST 150, ALT 346, alkaline phosphatase 759, ammonia 68. Troponin 0.165 and total protein 7.3, albumin is 3.4, lipase is 319. Urinalysis, brooke color, cloudy, pH 5, specific gravity 1.015, protein 30, glucose negative, ketones negative, blood negative, nitrites negative, and bilirubin negative. Urobilinogen 4, leukocyte esterase large, rbc 8, wbc 276, bacteria is many. 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 The other reports as of 06/17/2018, his serum creatinine is 1.2. On 08/17/2018, serum creatinine 3.2. On 06/17/2018, serum creatinine 1.2. CT of the abdomen and pelvis as of 08/17/2018, impression: Interval increase in pulmonary and hepatic metastatic disease. There are additionally new areas of perinephric inflammatory changes with increased ascites and element of pyelosinus extravasation is not excluded, and perinephric inflammatory changes may also be related to the increased metastatic disease, increased pericardial effusion and new right pleural effusion, increased abdominal and retroperitoneal lymphadenopathy. ASSESSMENT AND PLAN: In summary, Mr. Zara John is a 78-year-old elderly male with a history of diabetes, hypertension, anxiety, arthritis with renal cell carcinoma with metastasis to the liver and lungs, ascites, lymphadenopathy, and increased blood urea nitrogen and creatinine. 1. Acute renal failure, most likely secondary to intravascular volume depletion, rule out acute tubular necrosis. 2. Metastatic renal cell carcinoma with metastasis to the liver and lungs, ascites, and massive lymphadenopathy. 3. Hypertension. 4. Diabetes. PLAN: Continue gentle IV hydration. Overall prognosis is very very poor. Continue analgesics as needed. Repeat BMP in a.m. No further workup is needed for the renal cell carcinoma at this time. Follow up with Dr. Maynard. We will check urine lytes, osmolality, and urine creatinine. Dario Murphy MD
[2018-08-19 06:37] LABS: ALB/GLOB RATIO 0.8 (1.0-2.1); ALBUMIN 2.9 g/dL (3.5-5.0); CALCIUM 8.5 mg/dL (8.4-10.2)
--- NOTE | 2018-08-19 08:20 | HP ---
CHIEF COMPLAINT: Poor appetite and generalized weakness. HISTORY OF PRESENT ILLNESS: This is a 78-year-old male, known case of hypertension, diabetes, metastatic renal cancer, who was on chemotherapy but was stopped and now he is on pain management, who was not eating and drinking properly and was getting worse overall. So, the patient was brought to emergency room and was admitted for further management. The patient is not a good historian. Currently, the patient denies any specific complaints and the pain is controlled by current pain management. REVIEW OF SYSTEMS: Positive for generalized malaise, weakness, fatigue, tired, questionable subjective fever, poor appetite, had episodes of vomiting, not able to hold anything down for last three days. Review of systems otherwise is negative for headache, dizziness, syncope, loss of consciousness, chest pain, shortness of breath. Review of systems is also positive for PHYSICAL EXAMINATION: GENERAL: A well-built, well-nourished chronically sick looking elderly male, in no acute distress. VITAL SIGNS: Temperature afebrile, pulse 80, respirations 18, blood pressure 105/80. HEENT: Pupils reacting to light. No JVD. No thyromegaly. No lymphadenopathy. No nystagmus. Normocephalic and atraumatic skull. HEART: S1 and S2 normal and regular. No significant murmur, gallop or rub is heard. LUNGS: Clear . ABDOMEN: with possibility of ascites, but no sign of acute abdomen. No guarding, no rigidity, no rebound. EXTREMITIES: No calf swelling, no tenderness, no acute ischemia. CENTRAL NERVOUS SYSTEM: Essentially unchanged. There is no sign of any acute focal motor or sensory neurological deficit. DIAGNOSTIC DATA: Available diagnostic data reviewed. WBC count is elevated at 12. Urinalysis shows many bacteria. Troponin level is . Telemetry monitoring does not reveal arrhythmia. ADMITTING IMPRESSION: Questionable sepsis, urinary tract infection, metastatic renal cancer, hypertension, diabetes type 2 with hyperglycemia, questionable ascites. PLAN: As ordered. Case and plan discussed with the patient. Dax Brownlee MD
[2018-08-19] MEDS: Patient's Own Med (Icosapent Ethyl [Vascepa] 1 GM) PO SCH ×2 (08:30→18:52)
[2018-08-19] MEDS: Insulin Regular 100 units/ml SC SCH ×4 (08:30→22:39)
[2018-08-19] MEDS: Enoxaparin 30 mg Syringe SC SCH (08:31)
[2018-08-19] MEDS: Pantoprazole 40 mg EC Tab PO SCH (08:33)
--- NOTE | 2018-08-19 09:50 | PN ---
DATE: 08/19/2018 SUBJECTIVE: The patient is seen and examined. Interim events noted. Consults noted and appreciated. The patient remains in progressive care unit, on telemetry monitoring. The patient is not a good historian. He denies any specific complaints. No chest pain. No shortness of breath. No specific issue reported by nursing staff. PHYSICAL EXAMINATION: GENERAL: The patient is in no acute distress. VITAL SIGNS: Stable. HEART: S1, S2, normal and regular. LUNGS: Good bilateral air exchange. ABDOMEN: Soft, nontender. The patient has ascites. No sign of acute abdomen. No guarding. No rigidity. No rebound. Bowel sounds are present and normal. EXTREMITIES: No calf swelling. No tenderness. No acute ischemia. CENTRAL NERVOUS SYSTEM: Essentially unchanged. DIAGNOSTIC DATA: Available diagnostic data reviewed. Telemetry monitoring does not show any significant arrhythmias. ASSESSMENT AND PLAN: Overall, the patient's general medical condition is stable. The patient renal cell carcinoma. Plan as ordered. Dax Brownlee MD
--- NOTE | 2018-08-19 11:00 | CP.PCM.PN ---
Subjective - Date & Time of Evaluation Date of Evaluation: 08/19/18 Time of Evaluation: 08:00 - Subjective Subjective: awake alert depressed Objective - Vital Signs/Intake and Output Vital Signs (last 24 hours): Temp Pulse Resp BP Pulse Ox 97.6 F 90 20 111/80 96 08/19/18 09:13 08/19/18 09:13 08/19/18 09:13 08/19/18 09:13 08/19/18 09:13 Intake and Output: 08/19/18 08/19/18 06:59 18:59 Intake Total 2300 Output Total 350 Balance 1950 - Medications Medications: Current Medications Al Hydrox/Mg Hydrox/Simethicone (Maalox Plus 30 Ml) 30 ml PO Q6 PRN PRN Reason: Indigestion / Heartburn Last Admin: 08/18/18 15:09 Dose: 30 ml Aspirin (Ecotrin) 81 mg PO DAILY [facility] Last Admin: 08/19/18 08:28 Dose: 81 mg Dexamethasone (Decadron) 2 mg PO DAILY [facility] Last Admin: 08/19/18 08:28 Dose: 2 mg Enoxaparin Sodium (Lovenox) 30 mg SC DAILY [facility]; Protocol Last Admin: 08/19/18 08:31 Dose: 30 mg Ferrous Sulfate (Feosol) 325 mg PO BID [facility] Last Admin: 08/19/18 08:28 Dose: 325 mg Finasteride (Proscar) 5 mg PO DAILY [facility] Last Admin: 08/19/18 08:32 Dose: 5 mg Home Med (Icosapent Ethyl [Vascepa]) 2 gm PO BID [facility] Last Admin: 08/19/18 08:30 Dose: 2 gm Home Med (Patient's Own Medication) 1 unit PO DAILY [facility] Last Admin: 08/18/18 18:12 Dose: 1 unit Meropenem 500 mg/ Sodium (Chloride) 100 mls @ 100 mls/hr IVPB Q12@0500,1700 [facility]; Protocol Last Admin: 08/19/18 04:17 Dose: 100 mls/hr Insulin Human Regular (Humulin R) 0 units SC ACCU-CHECK [facility]; Protocol Last Admin: 08/19/18 08:30 Dose: Not Given Metformin HCl (Glucophage) 500 mg PO BIDWM [facility] Last Admin: 08/19/18 08:29 Dose: 500 mg Ondansetron HCl (Zofran Tab) 4 mg PO DAILY [facility] Last Admin: 08/19/18 08:33 Dose: 4 mg Oxycodone HCl (Oxycodone Immediate Release Tab) 5 mg PO Q6 PRN PRN Reason: Pain, moderate (4-7) Pantoprazole Sodium (Protonix Ec Tab) 40 mg PO DAILY [facility] Last Admin: 08/19/18 08:33 Dose: 40 mg Sitagliptin Phosphate (Januvia) 50 mg PO DAILY [facility] Last Admin: 08/19/18 08:31 Dose: 50 mg Tamsulosin HCl (Flomax) 0.4 mg PO DAILY [facility] Last Admin: 08/19/18 08:28 Dose: 0.4 mg - Labs Labs: 08/19/18 05:25 08/19/18 05:25 PT 12.8 Seconds (9.8-13.1) 08/17/18 16:00 INR 1.1 08/17/18 16:00 APTT 28.9 Seconds (25.6-37.1) 08/17/18 16:00 - Constitutional Appears: No Acute Distress, Chronically Ill - Head Exam Head Exam: NORMOCEPHALIC - Eye Exam Eye Exam: absent: Scleral icterus Pupil Exam: NORMAL ACCOMODATION - ENT Exam ENT Exam: Mucous Membranes Dry - Neck Exam Neck Exam: absent: Lymphadenopathy - Respiratory Exam Respiratory Exam: Decreased Breath Sounds - Cardiovascular Exam Cardiovascular Exam: REGULAR RHYTHM - GI/Abdominal Exam GI & Abdominal Exam: Distended, Soft, Tenderness Additional comments: ascites - Rectal Exam Rectal Exam: Deferred - Exam Exam: Scrotal Swelling - Back Exam Back Exam: absent: CVA tenderness (L), CVA tenderness (R) - Neurological Exam Neurological Exam: Alert, Awake, CN II-XII Intact - Psychiatric Exam Psychiatric exam: Depressed - Skin Skin Exam: Dry Assessment and Plan (1) Abdominal pain Status: Acute (2) Acute kidney injury Status: Acute (3) Complicated UTI (urinary tract infection) Status: Acute (4) Diabetes mellitus type 2 in nonobese Status: Acute (5) Metastasis Status: Acute - Assessment and Plan (Free Text) Assessment: UTI renal CA with Mets poor prognosis await cultures
--- NOTE | 2018-08-19 11:48 | CARD ---
APPROVED REPORT Date of service: 08/19/2018 EXAM: Two-dimensional and M-mode echocardiogram with Doppler and color Doppler. Other Information Quality : AverageRhythm : NSR INDICATION Pericardial Effusion M-Mode DIMENSIONS Left Atrium (MM)3.57 (2.5-4.0cm)Aortic Root3.86 (2.2-3.7cm) Aortic Cusp Exc.2.21 (1.5-2.0cm) Aortic Valve AoV Peak Mdnggjby016.1cm/sAoV VTI13.1cmAO Peak GR.4mmHg LVOT Peak Vdiartzn81.0cm/Leah Mean GR.2mmHg Mitral Valve E/A ratio0.0 TDI E/Lateral E'0.0E/Medial E'0.0 Tricuspid Valve TR Peak [id number]/sRAP [id number] Peak Gr.24mmHg [id number] LEFT VENTRICLE The left ventricle is normal size. There is normal left ventricular wall thickness. The left ventricular systolic function is normal. The estimated ejection fraction is 55-60% No regional wall motion abnormalities noted.. Transmitral Doppler flow pattern is Grade I-abnormal relaxation pattern. No left ventricle thrombus noted on this study. There is no ventricular septal defect visualized. There is no left ventricular aneurysm. There is no mass noted in the left ventricle. RIGHT VENTRICLE The right ventricle is normal size. There is normal right ventricular wall thickness. The right ventricular systolic function is normal. ATRIA The left atrium size is normal. The right atrium size is normal. The interatrial septum is intact with no evidence for an atrial septal defect. AORTIC VALVE The aortic valve is normal in structure. Mild aortic regurgitation is present. There is no aortic valvular stenosis. There is no aortic valvular vegetation. MITRAL VALVE The mitral valve is normal in structure. There is no evidence of mitral valve prolapse. There is no mitral valve stenosis. There is no mitral valve regurgitation noted. TRICUSPID VALVE The tricuspid valve is normal in structure. There is mild tricuspid valve regurgitation noted. RVSP is calculated at 30 mm Hg. There is no tricuspid valve prolapse or vegetation. There is no tricuspid valve stenosis. PULMONIC VALVE The pulmonary valve is normal in structure. There is no pulmonic valvular regurgitation. There is no pulmonic valvular stenosis. GREAT VESSELS The aortic root is normal in size. The ascending aorta is normal in size. The pulmonary artery is normal. The IVC is normal in size and collapses >50% with inspiration. PERICARDIAL EFFUSION There is no pericardial effusion. There is no pleural effusion. <Conclusion> The estimated ejection fraction is 55-60% Transmitral Doppler flow pattern is Grade I-abnormal relaxation pattern. The left atrium size is normal. Mild aortic regurgitation is present. There is mild tricuspid valve regurgitation noted. RVSP is calculated at 30 mm Hg. There is no pericardial effusion.
--- NOTE | 2018-08-19 12:53 | CP.PCM.CON ---
History of Present Illness - History of Present Illness History of Present Illness: Palliative care consult for patient of Dr. Brownlee Patient is a 78 year old Male from home. He has a hx of renal ca. He came to the ED with complaints of abdominal pain and vomiting for the previous 4 days. According to family members he did not have any fevers or diarrhea but they were concerned that he was getting dehydrated. Patient is no longer on any chemo and takes oxycontin for ca pain. Patient is not a good historian. 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 - Constitutional Constitutional: Weakness Additional comments: decreased appetite - Psychiatric Psychiatric: Change in Appetite, Depression Past Patient History - Past Medical History & Family History Past Medical History?: Yes - Past Social History Smoking Status: Never Smoked - CARDIAC Hx Cardiac Disorders: Yes Hx Hypertension: Yes - PULMONARY Hx Respiratory Disorders: Yes Hx Asthma: Yes Hx Bronchitis: Yes - NEUROLOGICAL Hx Neurological Disorder: No - HEENT Hx HEENT Problems: No - RENAL Hx Chronic Kidney Disease: Yes (CKD) - ENDOCRINE/METABOLIC Hx Endocrine Disorders: Yes - HEMATOLOGICAL/ONCOLOGICAL Hx Blood Disorders: No - INTEGUMENTARY Hx Dermatological Problems: No - MUSCULOSKELETAL/RHEUMATOLOGICAL Hx Musculoskeletal Disorders: Yes Hx Falls: Yes - GASTROINTESTINAL Hx Gastrointestinal Disorders: Yes Hx Gastritis: Yes - GENITOURINARY/GYNECOLOGICAL Hx Genitourinary Disorders: Yes Hx Bladder Cancer: Yes - PSYCHIATRIC Hx Psychophysiologic Disorder: Yes Hx Anxiety: Yes - SURGICAL HISTORY Hx Surgeries: Yes Hx Appendectomy: Yes - ANESTHESIA Hx Anesthesia: Yes Hx Anesthesia Reactions: No Hx Malignant Hyperthermia: No Meds Allergies/Adverse Reactions: Allergies Allergy/AdvReac Type Severity Reaction Status Date / Time No Known Allergies Allergy Verified 08/17/18 14:49 - Medications Medications: Current Medications Al Hydrox/Mg Hydrox/Simethicone (Maalox Plus 30 Ml) 30 ml PO Q6 PRN PRN Reason: Indigestion / Heartburn Last Admin: 08/18/18 15:09 Dose: 30 ml Aspirin (Ecotrin) 81 mg PO DAILY [facility] Last Admin: 08/19/18 08:28 Dose: 81 mg Dexamethasone (Decadron) 2 mg PO DAILY [facility] Last Admin: 08/19/18 08:28 Dose: 2 mg Enoxaparin Sodium (Lovenox) 30 mg SC DAILY [facility]; Protocol Last Admin: 08/19/18 08:31 Dose: 30 mg Ferrous Sulfate (Feosol) 325 mg PO BID [facility] Last Admin: 08/19/18 08:28 Dose: 325 mg Finasteride (Proscar) 5 mg PO DAILY [facility] Last Admin: 08/19/18 08:32 Dose: 5 mg Home Med (Icosapent Ethyl [Vascepa]) 2 gm PO BID [facility] Last Admin: 08/19/18 08:30 Dose: 2 gm Home Med (Patient's Own Medication) 1 unit PO DAILY [facility] Last Admin: 08/18/18 18:12 Dose: 1 unit Meropenem 500 mg/ Sodium (Chloride) 100 mls @ 100 mls/hr IVPB Q12@0500,1700 [facility]; Protocol Last Admin: 08/19/18 04:17 Dose: 100 mls/hr Insulin Human Regular (Humulin R) 0 units SC ACCU-CHECK [facility]; Protocol Last Admin: 08/19/18 08:30 Dose: Not Given Metformin HCl (Glucophage) 500 mg PO BIDWM [facility] Last Admin: 08/19/18 08:29 Dose: 500 mg Ondansetron HCl (Zofran Tab) 4 mg PO DAILY [facility] Last Admin: 08/19/18 08:33 Dose: 4 mg Oxycodone HCl (Oxycodone Immediate Release Tab) 5 mg PO Q6 PRN PRN Reason: Pain, moderate (4-7) Pantoprazole Sodium (Protonix Ec Tab) 40 mg PO DAILY [facility] Last Admin: 08/19/18 08:33 Dose: 40 mg Sitagliptin Phosphate (Januvia) 50 mg PO DAILY [facility] Last Admin: 08/19/18 08:31 Dose: 50 mg Tamsulosin HCl (Flomax) 0.4 mg PO DAILY [facility] Last Admin: 08/19/18 08:28 Dose: 0.4 mg Physical Exam - Constitutional Appears: In Acute Distress, Confused, Chronically Ill - Head Exam Head Exam: ATRAUMATIC, NORMAL INSPECTION, NORMOCEPHALIC - Eye Exam Eye Exam: Normal appearance, PERRL - ENT Exam ENT Exam: Mucous Membranes Moist - Respiratory Exam Respiratory Exam: Decreased Breath Sounds, Clear to Auscultation Bilateral - Cardiovascular Exam Cardiovascular Exam: REGULAR RHYTHM - GI/Abdominal Exam GI & Abdominal Exam: Normal Bowel Sounds - Rectal Exam Rectal Exam: Deferred - Extremities Exam Extremities exam: Positive for: pedal pulses present - Neurological Exam Neurological exam: Alert, Altered - Psychiatric Exam Psychiatric exam: Depressed, Flat Affect - Skin Skin Exam: Dry, Intact, Pallor, Warm Results - Vital Signs Recent Vital Signs: Last Vital Signs Temp 97.3 F L 08/19/18 12:11 Pulse 90 08/19/18 12:11 Resp 18 08/19/18 12:11 BP 98/71 L 08/19/18 12:11 Pulse Ox 96 08/19/18 12:11 - Labs Result Diagrams: 08/19/18 05:25 08/19/18 05:25 Labs: Laboratory Results - last 24 hr 08/18/18 08/18/18 08/18/18 12:15 16:00 16:29 WBC RBC Hgb Hct MCV MCH MCHC RDW Plt Count Sodium Potassium Chloride Carbon Dioxide Anion Gap BUN Creatinine Est GFR ( Amer) Est GFR (Non-Af Amer) POC Glucose (mg/dL) 139 H Random Glucose Lactic Acid Calcium Total Bilirubin AST ALT Alkaline Phosphatase Troponin I 0.1430 H* Total Protein Albumin Globulin Albumin/Globulin Ratio Urine Osmolality 390 Ur Random Creatinine 115.5 Ur Random Sodium 20 Ur Random Potassium 36.9 08/18/18 08/19/18 08/19/18 22:13 05:25 05:25 WBC 4.3 L RBC 3.91 L Hgb 11.1 L Hct 33.7 L MCV 86.2 MCH 28.3 MCHC 32.8 L RDW 31.5 H Plt Count 101 L D Sodium 140 Potassium 5.3 H Chloride 103 Carbon Dioxide 21 L Anion Gap 21 H BUN 66 H Creatinine 3.0 H Est GFR ( Amer) 25 Est GFR (Non-Af Amer) 20 POC Glucose (mg/dL) 118 H Random Glucose 101 Lactic Acid Calcium 8.5 Total Bilirubin 2.3 H AST 131 H ALT 37 Alkaline Phosphatase 529 H Troponin I Total Protein 6.5 Albumin 2.9 L Globulin 3.6 Albumin/Globulin Ratio 0.8 L Urine Osmolality Ur Random Creatinine Ur Random Sodium Ur Random Potassium 08/19/18 08/19/18 08/19/18 05:42 11:40 11:44 WBC RBC Hgb Hct MCV MCH MCHC RDW Plt Count Sodium Potassium Chloride Carbon Dioxide Anion Gap BUN Creatinine Est GFR ( Amer) Est GFR (Non-Af Amer) POC Glucose (mg/dL) 102 109 Random Glucose Lactic Acid 3.8 H Calcium Total Bilirubin AST ALT Alkaline Phosphatase Troponin I Total Protein Albumin Globulin Albumin/Globulin Ratio Urine Osmolality Ur Random Creatinine Ur Random Sodium Ur Random Potassium Assessment & Plan - Assessment and Plan (Free Text) Assessment: Full Code: There is NO advanced directive in the chart. PPS 30% I reviewed medical records, diagnostic studies, and examined patient in bed. at bedside. Patient and interviewed using certified Human Resources Team Member. (ID # [id number]) -Patient states that he is having generalized pain all over his body but his pain is worst in his abdomen. He rates the pain 9/10. There is prn pain medication available. Primary RN made aware -patient states that he is currently feeling very depressed due to his illnesses and expresses discontent with the severity of his illness AM Vital signs T 97.6, BP 111/80, HR 90, R 20, O2sat 96% on RA Goals of Care: Patient is not completely oriented at the moment. Patient is confused, oriented to self but disoriented to place and time. Patient is also a poor historian. His who is at bedside wants communication to be done through daughter in law Andrade who is listed on facesheet. When speaking to daughter in law Andrade, she states that she is not a decision maker for the patient and is only the contact representative for translation purposes for the family. She states that, at this moment, the patient has no POA and there is no particu lar person who is the decision maker. She states that the patient has children and a and that she will have a conversation with them regarding this. Primary RN made aware Code Status: Patient is currently full code and as per conversation with and daughter in law full treatment is desired pending conversation with patients children. Primary RN made aware Impression * Possible Depression * Weakness and decreased mobility * Decreased appetite * Pain * Nausea * Needs Goals of Care Planning Suggestion * Psych consult * Assist with ADLs and aid in repositioning Q2h * Continue with daily Zofran for nausea * Monitor for pain regularly and administer PRN pain medication when needed * Will continue Goals of Care discussion with family Palliative Care will remain on board as needed and can be reached at ext [phone] Advanced care planning 55 min
[2018-08-19] MEDS: SUTENT PO SCH (14:18)
[2018-08-19] MEDS ORDERED: Enoxaparin 100 mg Syringe IV SCH (17:00)
--- NOTE | 2018-08-19 17:12 | CP.PCM.CON ---
History of Present Illness - History of Present Illness History of Present Illness: Delfina Carrasco, PGY-1, Cardiology Consult Note for Dr. Conley 78 year old male with past medical history of renal cell carcinoma with m etastasis to the lungs, hypertension, anxiety, asthma, bronchitis, diabetes mellitus type II, gastritis, nephrolithiasis, and CKD presents with multiple episodes of vomiting from home. Patient had 3-4 episodes of NBNB vomiting Sunday prior to arrival at the hospital. Patient has not had any episodes of vomiting since Sunday. Patient did not complain of associated chest pain, shortness of breath, left arm pain, jaw pain, current nausea, dizziness, or any other symptoms. However, history was limited because patient's son wanted patient to come to hospital, while patient was not. As a result, there is a chance patient was not forthcoming with complete history. PMH: as stated above FMHx: noncontributary SHx: denies smoking, alcohol, and recreational drug use Review of Systems - Review of Systems Review of Systems: except as stated in HPI Past Patient History - Past Medical History & Family History Past Medical History?: Yes - Past Social History Smoking Status: Never Smoked - CARDIAC Hx Hypertension: Yes - PULMONARY Hx Asthma: Yes Hx Bronchitis: Yes - NEUROLOGICAL Hx Neurological Disorder: No - HEENT Hx HEENT Problems: No - RENAL Hx Chronic Kidney Disease: Yes (CKD) Hx Kidney Stones: Yes - ENDOCRINE/METABOLIC Hx Endocrine Disorders: Yes - HEMATOLOGICAL/ONCOLOGICAL Hx Blood Disorders: No - INTEGUMENTARY Hx Dermatological Problems: No - MUSCULOSKELETAL/RHEUMATOLOGICAL Hx Musculoskeletal Disorders: Yes Hx Falls: Yes - GASTROINTESTINAL Hx Gastritis: Yes - GENITOURINARY/GYNECOLOGICAL Hx Genitourinary Disorders: Yes Hx Bladder Cancer: Yes - PSYCHIATRIC Hx Anxiety: Yes - SURGICAL HISTORY Hx Appendectomy: Yes - ANESTHESIA Hx Anesthesia: Yes Hx Anesthesia Reactions: No Hx Malignant Hyperthermia: No Meds Allergies/Adverse Reactions: Allergies Allergy/AdvReac Type Severity Reaction Status Date / Time No Known Allergies Allergy Verified 08/17/18 14:49 - Medications Medications: Current Medications Al Hydrox/Mg Hydrox/Simethicone (Maalox Plus 30 Ml) 30 ml PO Q6 PRN PRN Reason: Indigestion / Heartburn Last Admin: 08/18/18 15:09 Dose: 30 ml Aspirin (Ecotrin) 81 mg PO DAILY [facility] Last Admin: 08/19/18 08:28 Dose: 81 mg Dexamethasone (Decadron) 2 mg PO DAILY [facility] Last Admin: 08/19/18 08:28 Dose: 2 mg Enoxaparin Sodium (Lovenox) 30 mg SC DAILY [facility]; Protocol Last Admin: 08/19/18 08:31 Dose: 30 mg Enoxaparin Sodium (Lovenox) 75 mg 1 mg/kg (75 mg) IV Q12H [facility]; Protocol Ferrous Sulfate (Feosol) 325 mg PO BID [facility] Last Admin: 08/19/18 08:28 Dose: 325 mg Finasteride (Proscar) 5 mg PO DAILY [facility] Last Admin: 08/19/18 08:32 Dose: 5 mg Home Med (Icosapent Ethyl [Vascepa]) 2 gm PO BID [facility] Last Admin: 08/19/18 08:30 Dose: 2 gm Home Med (Patient's Own Medication) 1 unit PO DAILY [facility] Last Admin: 08/19/18 14:18 Dose: Not Given Meropenem 500 mg/ Sodium (Chloride) 100 mls @ 100 mls/hr IVPB Q12@0500,1700 [facility]; Protocol Last Admin: 08/19/18 04:17 Dose: 100 mls/hr Insulin Human Regular (Humulin R) 0 units SC ACCU-CHECK [facility]; Protocol Last Admin: 08/19/18 14:16 Dose: Not Given Metformin HCl (Glucophage) 500 mg PO BIDWM [facility] Last Admin: 08/19/18 08:29 Dose: 500 mg Ondansetron HCl (Zofran Tab) 4 mg PO DAILY [facility] Last Admin: 08/19/18 08:33 Dose: 4 mg Oxycodone HCl (Oxycodone Immediate Release Tab) 5 mg PO Q6 PRN PRN Reason: Pain, moderate (4-7) Pantoprazole Sodium (Protonix Ec Tab) 40 mg PO DAILY [facility] Last Admin: 08/19/18 08:33 Dose: 40 mg Sitagliptin Phosphate (Januvia) 50 mg PO DAILY [facility] Last Admin: 08/19/18 08:31 Dose: 50 mg Tamsulosin HCl (Flomax) 0.4 mg PO DAILY [facility] Last Admin: 08/19/18 08:28 Dose: 0.4 mg Physical Exam - Constitutional Appears: Non-toxic, No Acute Distress, Cachectic - Head Exam Head Exam: ATRAUMATIC, NORMAL INSPECTION, NORMOCEPHALIC - Eye Exam Eye Exam: EOMI, PERRL - ENT Exam ENT Exam: Mucous Membranes Moist - Respiratory Exam Respiratory Exam: Clear to Auscultation Bilateral, NORMAL BREATHING PATTERN - Cardiovascular Exam Cardiovascular Exam: REGULAR RHYTHM, RRR - GI/Abdominal Exam GI & Abdominal Exam: Normal Bowel Sounds, Soft. absent: Tenderness - Extremities Exam Extremities exam: Positive for: full ROM, normal inspection. Negative for: pedal edema - Neurological Exam Neurological exam: Alert, CN II-XII Intact, Oriented x3 - Skin Skin Exam: Dry, Intact, Normal Color Results - Vital Signs Recent Vital Signs: Last Vital Signs Temp 97.2 F L 08/19/18 16:42 Pulse 97 H 08/19/18 16:42 Resp 18 08/19/18 16:42 BP 115/76 08/19/18 16:42 Pulse Ox 96 08/19/18 16:42 - Labs Result Diagrams: 08/19/18 05:25 08/19/18 05:25 Labs: Laboratory Results - last 24 hr 08/18/18 08/19/18 08/19/18 22:13 05:25 05:25 WBC 4.3 L RBC 3.91 L Hgb 11.1 L Hct 33.7 L MCV 86.2 MCH 28.3 MCHC 32.8 L RDW 31.5 H Plt Count 101 L D Sodium 140 Potassium 5.3 H Chloride 103 Carbon Dioxide 21 L Anion Gap 21 H BUN 66 H Creatinine 3.0 H Est GFR ( Amer) 25 Est GFR (Non-Af Amer) 20 POC Glucose (mg/dL) 118 H Random Glucose 101 Lactic Acid Calcium 8.5 Total Bilirubin 2.3 H AST 131 H ALT 37 Alkaline Phosphatase 529 H NT-Pro-B Natriuret Pep Total Protein 6.5 Albumin 2.9 L Globulin 3.6 Albumin/Globulin Ratio 0.8 L 08/19/18 08/19/18 08/19/18 05:42 11:40 11:44 WBC RBC Hgb Hct MCV MCH MCHC RDW Plt Count Sodium Potassium Chloride Carbon Dioxide Anion Gap BUN Creatinine Est GFR ( Amer) Est GFR (Non-Af Amer) POC Glucose (mg/dL) 102 109 Random Glucose Lactic Acid 3.8 H Calcium Total Bilirubin AST ALT Alkaline Phosphatase NT-Pro-B Natriuret Pep Total Protein Albumin Globulin Albumin/Globulin Ratio 08/19/18 13:46 WBC RBC Hgb Hct MCV MCH MCHC RDW Plt Count Sodium Potassium Chloride Carbon Dioxide Anion Gap BUN Creatinine Est GFR ( Amer) Est GFR (Non-Af Amer) POC Glucose (mg/dL) Random Glucose Lactic Acid Calcium Total Bilirubin AST ALT Alkaline Phosphatase NT-Pro-B Natriuret Pep 535 Total Protein Albumin Globulin Albumin/Globulin Ratio Assessment & Plan - Assessment and Plan (Free Text) Assessment: Nonbloody, nonbilious vomiting Rule out Pulmonary Embolism Pulmonary and liver metastasis of renal cell carcinoma Hypertension Diabetes Mellitus Plan: Nonbloody, nonbilious vomiting Elevated troponins Rule out Pulmonary Embolism Pulmonary and liver metastasis of renal cell carcinoma Hypertension Diabetes Mellitus Abdominal CT: interval increase in pulmonary and hepatic metastatic disease. There is new areas of perinephric inflmmatory change with increased ascites. Increased pericardial effusion and new right pleural effusion. Increased abdominal and retroperitoneal adenopathy CXR: multiple pulmonary nodules Echocardiogram: LVEF of 55-60%, grade I abnormal relaxation pattern, RVSP is 30 mmHg, mild TR, no pericardial effusion EKG: NSR with LAFB with HR: 91 Troponinx2: 0.1650, 0.1430 HgbA1c: 5.7 from 06/2018 BNP: 535 BUN/Cr: elevated at 66/3 on 08/19/2018 NBNB vomiting likely 2/2 to hepatic metastasis. NBNB vomitus has now resoled Cannot rule out pulmonary embolism. Follow up VQ scan. Started therapeutic lovenox Follow up heme/onc recommendations regarding further workup and treatment of renal cell carcinoma with metastasis Elevated troponins are likely a combination of right heart strain from pulmonary metastasis vs. pulmonary embolism and from RAMILA vs. CKD likely from renal metastasis Medications: aspirin 81 lovenox 75 mg Q12 metformin 500 mg BID Januvia Vascepa 2 gm BID - Date & Time Date: 08/19/18 Time: 17:13
--- NOTE | 2018-08-19 17:55 | RAD ---
Date of service: 08/19/2018 HISTORY: r/o pe, prior to vq scan COMPARISON: 08/17/2017. TECHNIQUE: Chest PA and lateral FINDINGS: LUNGS: Multiple pulmonary nodules and masses bilaterally. PLEURA: No significant pleural effusion identified. No pneumothorax apparent. CARDIOVASCULAR: No aortic atherosclerotic calcification present. Normal cardiac size. No pulmonary vascular congestion. OSSEOUS STRUCTURES: No significant abnormalities. VISUALIZED UPPER ABDOMEN: Normal. OTHER FINDINGS: None. IMPRESSION: No significant interval change compared to the prior examination(s).
--- NOTE | 2018-08-19 18:30 | NM ---
Take care adnexa call date of service: 08/19/2018 COMPARISON: August 19, 2018 two view chest. TECHNIQUE: 42.1 mCi technetium 99-m DTPA aerosol. 5.4 mCI technetium 99-m MAA administered intravenously. FINDINGS: VENTILATION COMPONENT: Heterogeneous ventilation consistent with findings on concurrent chest radiograph. Retention of radionuclide in the tracheobronchial tree and ingestion of radionuclide in the stomach, incidental findings PERFUSION COMPONENT: Heterogeneous distribution of radionuclide. No geographic, segmental, lobar abnormalities apparent on the present examination. Matched perfusion defects/abnormalities. IMPRESSION: Low probability ventilation perfusion scan for pulmonary embolism.
[2018-08-19 19:06] LABS: ABG ALLEN TEST YES; ARTERIAL BLOOD GAS HCO3 19.9 mmol/L (21-28); ARTERIAL BLOOD GAS HEMOGLOBIN 11.3 g/dL (11.7-17.4); ARTERIAL BLOOD GAS O2 CAPACITY 15.5 mL/dL (16-24); ARTERIAL BLOOD GAS O2 SAT 96.5 % (95-98); ARTERIAL BLOOD GAS PCO2 27 mm/Hg (35-45); ARTERIAL BLOOD GAS PH 7.41 (7.35-7.45); ARTERIAL BLOOD GAS PO2 78 mm/Hg (80-100); ARTERIAL BLOOD GAS TCO2 17.9 mmol/L (22-28)
[2018-08-19] MEDS: oxyCODONE 5 mg Immediate Release Tab PO PRN (22:08)
[2018-08-19] MEDS ORDERED: Enoxaparin 100 mg Syringe SC SCH (22:18)
--- NOTE | 2018-08-20 00:46 | CP.PCM.CON ---
History of Present Illness - History of Present Illness History of Present Illness: 78 year old male with a history of HTN, kidney stones, stage IV renal cell carcinoma dx in 06/2018 on sunitinib, admitted with progressive pain. The patient notes to worsening abdominal pain and constipation. He was seen by a visiting nurse who recommended he come to the hospital. A CT A/P revealed evidence of progressive malignancy. He has been taking sunitinib 37.5mg daily. Past medical history: HTN, kidney stones, stage IV renal cell carcinoma Past surgical history: Appendectomy Family history: Denies hematologic and oncologic problems Social history: Denies tobacco, alcohol, and illicit drug use. Allergies: NKA Review of systems: All remaining review of systems including HEENT, cardiovascular, respiratory, gastrointestinal, genitourinary, musculoskeletal, dermatologic, neurologic, and psychiatric are negative unless mentioned in the HPI. Past Patient History - Past Medical History & Family History Past Medical History?: Yes - Past Social History Smoking Status: Never Smoked - CARDIAC Hx Hypertension: Yes - PULMONARY Hx Asthma: Yes Hx Bronchitis: Yes - NEUROLOGICAL Hx Neurological Disorder: No - HEENT Hx HEENT Problems: No - RENAL Hx Chronic Kidney Disease: Yes (CKD) Hx Kidney Stones: Yes - ENDOCRINE/METABOLIC Hx Endocrine Disorders: Yes - HEMATOLOGICAL/ONCOLOGICAL Hx Blood Disorders: No - INTEGUMENTARY Hx Dermatological Problems: No - MUSCULOSKELETAL/RHEUMATOLOGICAL Hx Musculoskeletal Disorders: Yes Hx Falls: Yes - GASTROINTESTINAL Hx Gastritis: Yes - GENITOURINARY/GYNECOLOGICAL Hx Genitourinary Disorders: Yes Hx Bladder Cancer: Yes - PSYCHIATRIC Hx Anxiety: Yes - SURGICAL HISTORY Hx Appendectomy: Yes - ANESTHESIA Hx Anesthesia: Yes Hx Anesthesia Reactions: No Hx Malignant Hyperthermia: No Meds Allergies/Adverse Reactions: Allergies Allergy/AdvReac Type Severity Reaction Status Date / Time No Known Allergies Allergy Verified 08/17/18 14:49 - Medications Medications: Current Medications Al Hydrox/Mg Hydrox/Simethicone (Maalox Plus 30 Ml) 30 ml PO Q6 PRN PRN Reason: Indigestion / Heartburn Last Admin: 08/18/18 15:09 Dose: 30 ml Aspirin (Ecotrin) 81 mg PO DAILY [facility] Last Admin: 08/19/18 08:28 Dose: 81 mg Dexamethasone (Decadron) 2 mg PO DAILY [facility] Last Admin: 08/19/18 08:28 Dose: 2 mg Enoxaparin Sodium (Lovenox) 80 mg 1 mg/kg (75 mg) SC DAILY [facility]; Protocol Ferrous Sulfate (Feosol) 325 mg PO BID [facility] Last Admin: 08/19/18 18:47 Dose: 325 mg Finasteride (Proscar) 5 mg PO DAILY [facility] Last Admin: 08/19/18 08:32 Dose: 5 mg Home Med (Icosapent Ethyl [Vascepa]) 2 gm PO BID [facility] Last Admin: 08/19/18 18:52 Dose: 2 gm Home Med (Patient's Own Medication) 1 unit PO DAILY [facility] Last Admin: 08/19/18 14:18 Dose: Not Given Meropenem 500 mg/ Sodium (Chloride) 100 mls @ 100 mls/hr IVPB Q12@0500,1700 [facility]; Protocol Last Admin: 08/19/18 04:17 Dose: 100 mls/hr Insulin Human Regular (Humulin R) 0 units SC ACCU-CHECK [facility]; Protocol Last Admin: 08/19/18 22:39 Dose: Not Given Metformin HCl (Glucophage) 500 mg PO BIDWM [facility] Last Admin: 08/19/18 18:47 Dose: 500 mg Ondansetron HCl (Zofran Tab) 4 mg PO DAILY [facility] Last Admin: 08/19/18 08:33 Dose: 4 mg Oxycodone HCl (Oxycodone Immediate Release Tab) 5 mg PO Q6 PRN PRN Reason: Pain, moderate (4-7) Last Admin: 08/19/18 22:08 Dose: 5 mg Pantoprazole Sodium (Protonix Ec Tab) 40 mg PO DAILY [facility] Last Admin: 08/19/18 08:33 Dose: 40 mg Sitagliptin Phosphate (Januvia) 50 mg PO DAILY [facility] Last Admin: 08/19/18 08:31 Dose: 50 mg Tamsulosin HCl (Flomax) 0.4 mg PO DAILY [facility] Last Admin: 08/19/18 08:28 Dose: 0.4 mg Physical Exam - Eye Exam Eye Exam: Normal appearance - Respiratory Exam Respiratory Exam: Decreased Breath Sounds - Cardiovascular Exam Cardiovascular Exam: +S1, +S2 - GI/Abdominal Exam GI & Abdominal Exam: Normal Bowel Sounds Results - Vital Signs Recent Vital Signs: Last Vital Signs Temp 97.2 F L 08/19/18 20:21 Pulse 97 H 08/19/18 20:21 Resp 20 08/19/18 20:21 BP 111/79 08/19/18 20:21 Pulse Ox 97 08/19/18 20:21 - Labs Result Diagrams: 08/20/18 04:35 08/20/18 09:35 Labs: Laboratory Results - last 24 hr 08/19/18 08/19/18 08/19/18 05:25 05:25 05:42 WBC 4.3 L RBC 3.91 L Hgb 11.1 L Hct 33.7 L MCV 86.2 MCH 28.3 MCHC 32.8 L RDW 31.5 H Plt Count 101 L D pCO2 pO2 HCO3 ABG pH ABG Total CO2 ABG O2 Saturation ABG O2 Content ABG Base Excess ABG Hemoglobin ABG Carboxyhemoglobin POC ABG HHb (Measured) ABG Methemoglobin ABG O2 Capacity Franck Test A-a O2 Difference Hgb O2 Saturation FiO2 Sodium 140 Potassium 5.3 H Chloride 103 Carbon Dioxide 21 L Anion Gap 21 H BUN 66 H Creatinine 3.0 H Est GFR ( Amer) 25 Est GFR (Non-Af Amer) 20 POC Glucose (mg/dL) 102 Random Glucose 101 Lactic Acid Calcium 8.5 Total Bilirubin 2.3 H AST 131 H ALT 37 Alkaline Phosphatase 529 H NT-Pro-B Natriuret Pep Total Protein 6.5 Albumin 2.9 L Globulin 3.6 Albumin/Globulin Ratio 0.8 L 08/19/18 08/19/18 08/19/18 11:40 11:44 13:46 WBC RBC Hgb Hct MCV MCH MCHC RDW Plt Count pCO2 pO2 HCO3 ABG pH ABG Total CO2 ABG O2 Saturation ABG O2 Content ABG Base Excess ABG Hemoglobin ABG Carboxyhemoglobin POC ABG HHb (Measured) ABG Methemoglobin ABG O2 Capacity Franck Test A-a O2 Difference Hgb O2 Saturation FiO2 Sodium Potassium Chloride Carbon Dioxide Anion Gap BUN Creatinine Est GFR ( Amer) Est GFR (Non-Af Amer) POC Glucose (mg/dL) 109 Random Glucose Lactic Acid 3.8 H Calcium Total Bilirubin AST ALT Alkaline Phosphatase NT-Pro-B Natriuret Pep 535 Total Protein Albumin Globulin Albumin/Globulin Ratio 08/19/18 08/19/18 18:55 21:12 WBC RBC Hgb Hct MCV MCH MCHC RDW Plt Count pCO2 27 L pO2 78 L HCO3 19.9 L ABG pH 7.41 ABG Total CO2 17.9 L ABG O2 Saturation 96.5 ABG O2 Content 15.0 ABG Base Excess -6.3 L ABG Hemoglobin 11.3 L ABG Carboxyhemoglobin 1.8 H POC ABG HHb (Measured) 3.4 ABG Methemoglobin 1.0 ABG O2 Capacity 15.5 L Franck Test Yes A-a O2 Difference 38.0 Hgb O2 Saturation 93.8 L FiO2 21.0 Sodium Potassium Chloride Carbon Dioxide Anion Gap BUN Creatinine Est GFR ( Amer) Est GFR (Non-Af Amer) POC Glucose (mg/dL) 123 H Random Glucose Lactic Acid Calcium Total Bilirubin AST ALT Alkaline Phosphatase NT-Pro-B Natriuret Pep Total Protein Albumin Globulin Albumin/Globulin Ratio Assessment & Plan (1) Renal cell cancer Assessment and Plan: stage IV lung, liver, lymph node metastasis progressive disease by imaging discussed with the patient and family his disease has progressed on sunitinib; options would include trial of immunotherapy vs hospice they would like to think about it pain control with bowel regimen Status: Acute (2) Anemia Assessment and Plan: 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 infection related element from chemotherapy Thank you for this interesting consult. Status: Acute
[2018-08-20] MEDS: Meropenem 500 MG in Sodium Chloride 0.9% 100 ML IVPB SCH ×2 (04:40→17:27)
[2018-08-20] MEDS: oxyCODONE 5 mg Immediate Release Tab PO PRN (04:48)
[2018-08-20 05:25] LABS: HEMOGLOBIN 11.8 g/dL (12.0-18.0); MEAN CELL VOLUME 85.9 fl (80.0-94.0); MEAN CORPUSCULAR HEMOGLOBIN 28.2 pg (27.0-31.0); MEAN CORPUSCULAR HGB CONC 32.9 g/dL (33.0-37.0); RBC 4.16 Mil/uL (4.40-5.90); RED CELL DISTRIBUTION WIDTH 32.3 % (11.5-14.5); WHITE BLOOD COUNT 6.9 K/uL (4.8-10.8)
[2018-08-20 05:45] LABS: ALB/GLOB RATIO 0.8 (1.0-2.1); ALBUMIN 3.1 g/dL (3.5-5.0)
[2018-08-20] MEDS: Insulin Regular 100 units/ml SC SCH ×4 (06:15→22:23)
[2018-08-20] MEDS ORDERED: Sod Polystyrene Sulf 15 gm/60 ml Susp PO ONE (07:45)
--- NOTE | 2018-08-20 08:52 | CP.PCM.PN ---
Subjective - Date & Time of Evaluation Date of Evaluation: 08/20/18 Time of Evaluation: 07:00 - Subjective Subjective: Pt seen and examined this morning. Complains of abdominal pain. Denies CP or dyspnea. Poor prognosis. Objective - Vital Signs/Intake and Output Vital Signs (last 24 hours): Temp Pulse Resp BP Pulse Ox 97.1 F L 107 H 18 107/75 94 L 08/20/18 08:00 08/20/18 08:00 08/20/18 08:00 08/20/18 08:00 08/20/18 08:00 - Medications Medications: Current Medications Al Hydrox/Mg Hydrox/Simethicone (Maalox Plus 30 Ml) 30 ml PO Q6 PRN PRN Reason: Indigestion / Heartburn Last Admin: 08/18/18 15:09 Dose: 30 ml Aspirin (Ecotrin) 81 mg PO DAILY [facility] Last Admin: 08/19/18 08:28 Dose: 81 mg Dexamethasone (Decadron) 2 mg PO DAILY [facility] Last Admin: 08/19/18 08:28 Dose: 2 mg Enoxaparin Sodium (Lovenox) 80 mg 1 mg/kg (75 mg) SC DAILY [facility]; Protocol Ferrous Sulfate (Feosol) 325 mg PO BID [facility] Last Admin: 08/19/18 18:47 Dose: 325 mg Finasteride (Proscar) 5 mg PO DAILY [facility] Last Admin: 08/19/18 08:32 Dose: 5 mg Home Med (Icosapent Ethyl [Vascepa]) 2 gm PO BID [facility] Last Admin: 08/19/18 18:52 Dose: 2 gm Home Med (Patient's Own Medication) 1 unit PO DAILY [facility] Last Admin: 08/19/18 14:18 Dose: Not Given Meropenem 500 mg/ Sodium (Chloride) 100 mls @ 100 mls/hr IVPB Q12@0500,1700 [facility]; Protocol Last Admin: 08/20/18 04:40 Dose: 100 mls/hr Insulin Human Regular (Humulin R) 0 units SC ACCU-CHECK [facility]; Protocol Last Admin: 08/20/18 06:15 Dose: Not Given Metformin HCl (Glucophage) 500 mg PO BIDWM [facility] Last Admin: 08/19/18 18:47 Dose: 500 mg Ondansetron HCl (Zofran Tab) 4 mg PO DAILY [facility] Last Admin: 08/19/18 08:33 Dose: 4 mg Oxycodone HCl (Oxycodone Immediate Release Tab) 5 mg PO Q6 PRN PRN Reason: Pain, moderate (4-7) Last Admin: 08/20/18 04:48 Dose: 5 mg Pantoprazole Sodium (Protonix Ec Tab) 40 mg PO DAILY [facility] Last Admin: 08/19/18 08:33 Dose: 40 mg Sitagliptin Phosphate (Januvia) 50 mg PO DAILY [facility] Last Admin: 08/19/18 08:31 Dose: 50 mg Tamsulosin HCl (Flomax) 0.4 mg PO DAILY [facility] Last Admin: 08/19/18 08:28 Dose: 0.4 mg - Labs Labs: 08/20/18 04:35 08/20/18 04:35 PT 12.8 Seconds (9.8-13.1) 08/17/18 16:00 INR 1.1 08/17/18 16:00 APTT 28.9 Seconds (25.6-37.1) 08/17/18 16:00 - Constitutional Appears: Chronically Ill - Eye Exam Eye Exam: Scleral icterus - ENT Exam ENT Exam: Mucous Membranes Moist - Respiratory Exam Respiratory Exam: absent: Rales, Wheezes - Cardiovascular Exam Cardiovascular Exam: REGULAR RHYTHM - GI/Abdominal Exam GI & Abdominal Exam: Soft, Tenderness (mild diffuse tendnerness + Ascites) - Extremities Exam Extremities Exam: Normal Inspection - Neurological Exam Neurological Exam: Alert. absent: Oriented x3 - Psychiatric Exam Psychiatric exam: Flat Affect - Skin Skin Exam: Normal Color Assessment and Plan - Assessment and Plan (Free Text) Assessment: 78 y/o male with hx of Metastatic renal Ca and HTN addmited for abdominal pain and vomiting, found to have metastatic lesions in lung and liver, UTI and Acute renal failure. Poor prognosis. #Metastatic Ca #UTI #ARF #Troponemia Consultations on board: ID, Nephrology, Cardiology, Palliative, Heme/Onc - Acute renal failure with metabolic acidosis and hyperkalemia; Nephrology on board- Started gentle maintenance fluids w/ Bicarb. Hyperkalemia treated - Monitor I/O, electrolytes, acid-base, and volume status - Active goals of care discussion held between Palliative and family: Full code for now, pending POA - Cardiology on board for troponemia; V/Q low prob for PE, likely strain for r enal disease. Will discuss d/c therapeutic lonevox. Heparin preferential in light of declining renal function - Meropenem for UTI (hx of ESBL E.Coli in past) - Psych consult as per Palliative recommendation - Comfort measures as ordered Discussed case with Dr. Brownlee
[2018-08-20] MEDS: Pantoprazole 40 mg EC Tab PO SCH (08:59)
[2018-08-20] MEDS: Patient's Own Med (Icosapent Ethyl [Vascepa] 1 GM) PO SCH ×2 (08:59→17:26)
[2018-08-20] MEDS ORDERED: Enoxaparin 80 mg Syringe SC SCH (09:00)
[2018-08-20] MEDS: SUTENT PO SCH (09:00)
--- NOTE | 2018-08-20 09:25 | CP.PCM.PN ---
Subjective - Date & Time of Evaluation Date of Evaluation: 08/20/18 Time of Evaluation: 09:23 - Subjective Subjective: pt is seen and examined, follow up consult is dictated #[id number] 1. hernando on ckd-3 2. metastatic renal carcinoma 3. met. acidosis 4. hyperkalemia agree with kayexalate start ivf d5w with 150 meq nahco3 at 70 ml/hr please give 1 amp nahco3 now f/u bmp consider hoapice evaluation d/c lisinopril, agree to d/c metformin prognosis is very poor Objective - Vital Signs/Intake and Output Vital Signs (last 24 hours): Temp Pulse Resp BP Pulse Ox 97.1 F L 107 H 18 107/75 94 L 08/20/18 08:00 08/20/18 08:00 08/20/18 08:00 08/20/18 08:00 08/20/18 08:00 - Medications Medications: Current Medications Al Hydrox/Mg Hydrox/Simethicone (Maalox Plus 30 Ml) 30 ml PO Q6 PRN PRN Reason: Indigestion / Heartburn Last Admin: 08/18/18 15:09 Dose: 30 ml Aspirin (Ecotrin) 81 mg PO DAILY [facility] Last Admin: 08/20/18 08:59 Dose: 81 mg Dexamethasone (Decadron) 2 mg PO DAILY [facility] Last Admin: 08/20/18 09:01 Dose: 2 mg Enoxaparin Sodium (Lovenox) 80 mg 1 mg/kg (75 mg) SC DAILY [facility]; Protocol Last Admin: 08/20/18 08:58 Dose: 80 mg Ferrous Sulfate (Feosol) 325 mg PO BID [facility] Last Admin: 08/20/18 09:00 Dose: 325 mg Finasteride (Proscar) 5 mg PO DAILY [facility] Last Admin: 08/20/18 09:00 Dose: 5 mg Home Med (Icosapent Ethyl [Vascepa]) 2 gm PO BID [facility] Last Admin: 08/20/18 08:59 Dose: 2 gm Home Med (Patient's Own Medication) 1 unit PO DAILY [facility] Last Admin: 08/20/18 09:00 Dose: 1 unit Meropenem 500 mg/ Sodium (Chloride) 100 mls @ 100 mls/hr IVPB Q12@0500,1700 [facility]; Protocol Last Admin: 08/20/18 04:40 Dose: 100 mls/hr Dextrose/ Sodium Bicarbonate 1,150 mls @ 70 mls/hr IV .[id number] [facility] Stop: 08/21/18 09:03 Insulin Human Regular (Humulin R) 0 units SC ACCU-CHECK [facility]; Protocol Last Admin: 08/20/18 06:15 Dose: Not Given Metformin HCl (Glucophage) 500 mg PO BIDWM [facility] Last Admin: 08/20/18 08:59 Dose: 500 mg Ondansetron HCl (Zofran Tab) 4 mg PO DAILY [facility] Last Admin: 08/20/18 09:01 Dose: 4 mg Oxycodone HCl (Oxycodone Immediate Release Tab) 5 mg PO Q6 PRN PRN Reason: Pain, moderate (4-7) Last Admin: 08/20/18 04:48 Dose: 5 mg Pantoprazole Sodium (Protonix Ec Tab) 40 mg PO DAILY [facility] Last Admin: 08/20/18 08:59 Dose: 40 mg Sitagliptin Phosphate (Januvia) 50 mg PO DAILY [facility] Last Admin: 08/20/18 09:01 Dose: 50 mg Tamsulosin HCl (Flomax) 0.4 mg PO DAILY [facility] Last Admin: 08/20/18 08:59 Dose: 0.4 mg - Labs Labs: 08/20/18 04:35 08/20/18 04:35 PT 12.8 Seconds (9.8-13.1) 08/17/18 16:00 INR 1.1 08/17/18 16:00 APTT 28.9 Seconds (25.6-37.1) 08/17/18 16:00
--- NOTE | 2018-08-20 10:51 | CP.PCM.PN ---
Subjective - Date & Time of Evaluation Date of Evaluation: 08/20/18 Time of Evaluation: 07:00 - Subjective Subjective: awake alert depressed IV Merrem in progress Objective - Vital Signs/Intake and Output Vital Signs (last 24 hours): Temp Pulse Resp BP Pulse Ox 97.1 F L 107 H 18 107/75 94 L 08/20/18 08:00 08/20/18 08:00 08/20/18 08:00 08/20/18 08:00 08/20/18 08:00 - Medications Medications: Current Medications Al Hydrox/Mg Hydrox/Simethicone (Maalox Plus 30 Ml) 30 ml PO Q6 PRN PRN Reason: Indigestion / Heartburn Last Admin: 08/18/18 15:09 Dose: 30 ml Aspirin (Ecotrin) 81 mg PO DAILY [facility] Last Admin: 08/20/18 08:59 Dose: 81 mg Dexamethasone (Decadron) 2 mg PO DAILY [facility] Last Admin: 08/20/18 09:01 Dose: 2 mg Enoxaparin Sodium (Lovenox) 80 mg 1 mg/kg (75 mg) SC DAILY [facility]; Protocol Last Admin: 08/20/18 08:58 Dose: 80 mg Ferrous Sulfate (Feosol) 325 mg PO BID [facility] Last Admin: 08/20/18 09:00 Dose: 325 mg Finasteride (Proscar) 5 mg PO DAILY [facility] Last Admin: 08/20/18 09:00 Dose: 5 mg Home Med (Icosapent Ethyl [Vascepa]) 2 gm PO BID [facility] Last Admin: 08/20/18 08:59 Dose: 2 gm Home Med (Patient's Own Medication) 1 unit PO DAILY [facility] Last Admin: 08/20/18 09:00 Dose: 1 unit Meropenem 500 mg/ Sodium (Chloride) 100 mls @ 100 mls/hr IVPB Q12@0500,1700 [facility]; Protocol Last Admin: 08/20/18 04:40 Dose: 100 mls/hr Sodium Bicarbonate 133.8 meq/ (Dextrose) 1,150 mls @ 70 mls/hr IV .[id number] [facility] Insulin Human Regular (Humulin R) 0 units SC ACCU-CHECK [facility]; Protocol Last Admin: 08/20/18 06:15 Dose: Not Given Metformin HCl (Glucophage) 500 mg PO BIDWM [facility] Last Admin: 08/20/18 08:59 Dose: 500 mg Ondansetron HCl (Zofran Tab) 4 mg PO DAILY [facility] Last Admin: 08/20/18 09:01 Dose: 4 mg Oxycodone HCl (Oxycodone Immediate Release Tab) 5 mg PO Q6 PRN PRN Reason: Pain, moderate (4-7) Last Admin: 08/20/18 04:48 Dose: 5 mg Pantoprazole Sodium (Protonix Ec Tab) 40 mg PO DAILY [facility] Last Admin: 08/20/18 08:59 Dose: 40 mg Sitagliptin Phosphate (Januvia) 50 mg PO DAILY [facility] Last Admin: 08/20/18 09:01 Dose: 50 mg Tamsulosin HCl (Flomax) 0.4 mg PO DAILY [facility] Last Admin: 08/20/18 08:59 Dose: 0.4 mg - Labs Labs: 08/20/18 04:35 08/20/18 09:35 PT 12.8 Seconds (9.8-13.1) 08/17/18 16:00 INR 1.1 08/17/18 16:00 APTT 28.9 Seconds (25.6-37.1) 08/17/18 16:00 - Constitutional Appears: Confused, Chronically Ill - Head Exam Head Exam: NORMOCEPHALIC - Eye Exam Eye Exam: absent: Scleral icterus - ENT Exam ENT Exam: Mucous Membranes Dry - Neck Exam Neck Exam: absent: Lymphadenopathy - Respiratory Exam Respiratory Exam: Decreased Breath Sounds, Rhonchi - Cardiovascular Exam Cardiovascular Exam: REGULAR RHYTHM, +S1, +S2 - GI/Abdominal Exam GI & Abdominal Exam: Distended, Soft - Rectal Exam Rectal Exam: Deferred - Exam Exam: Scrotal Swelling - Extremities Exam Extremities Exam: Pedal Edema - Back Exam Back Exam: absent: CVA tenderness (L), CVA tenderness (R) - Neurological Exam Neurological Exam: Alert, Awake - Psychiatric Exam Psychiatric exam: Depressed Assessment and Plan (1) Abdominal pain Status: Acute (2) Acute kidney injury Status: Acute (3) Complicated UTI (urinary tract infection) Status: Acute (4) Diabetes mellitus type 2 in nonobese Status: Acute (5) Metastasis Status: Acute - Assessment and Plan (Free Text) Assessment: UTI rx in progress Has metastatic renal CA poor prognosis
--- NOTE | 2018-08-20 11:26 | CP.PCM.CON ---
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 Patient interviewed w/ present. He was minimally cooperative with interview due to acute pain. He reports that he is currently upset because of his pain and that his pain makes him feel depressed. He did not have any other acute psychiatric compliant. No AH/VH/SI/HI. PMH: Renal cell carcinoma with metastasis to the lungs, hypertension, anxiety, asthma, bronchitis, diabetes mellitus type II, gastritis, nephrolithiasis, and CKD PPH: Denies past psychiatric treatment SHx: Denies smoking, alcohol, and recreational drug use Impression: 78 yo male in acute distress due to pain; reports feeling depressed secondary to acute pain. No other acute psychiatric complaints. -Recommend pain management as this is his primary complaint -If patient reports feeling depressed in the future, can consider treatment w/ Remeron 7.5 mg PO HS; but do not recommend starting at this time as patient's acute symptoms are primarily due to pain -No acute psychiatric admission indicated at this time Past Patient History - Past Medical History & Family History Past Medical History?: Yes - Past Social History Smoking Status: Never Smoked - CARDIAC Hx Hypertension: Yes - PULMONARY Hx Asthma: Yes Hx Bronchitis: Yes - NEUROLOGICAL Hx Neurological Disorder: No - HEENT Hx HEENT Problems: No - RENAL Hx Chronic Kidney Disease: Yes (CKD) Hx Kidney Stones: Yes - ENDOCRINE/METABOLIC Hx Endocrine Disorders: Yes - HEMATOLOGICAL/ONCOLOGICAL Hx Blood Disorders: No - INTEGUMENTARY Hx Dermatological Problems: No - MUSCULOSKELETAL/RHEUMATOLOGICAL Hx Musculoskeletal Disorders: Yes Hx Falls: Yes - GASTROINTESTINAL Hx Gastritis: Yes - GENITOURINARY/GYNECOLOGICAL Hx Genitourinary Disorders: Yes Hx Bladder Cancer: Yes - PSYCHIATRIC Hx Anxiety: Yes - SURGICAL HISTORY Hx Appendectomy: Yes - ANESTHESIA Hx Anesthesia: Yes Hx Anesthesia Reactions: No Hx Malignant Hyperthermia: No Meds Allergies/Adverse Reactions: Allergies Allergy/AdvReac Type Severity Reaction Status Date / Time No Known Allergies Allergy Verified 08/17/18 14:49 - Medications Medications: Current Medications Al Hydrox/Mg Hydrox/Simethicone (Maalox Plus 30 Ml) 30 ml PO Q6 PRN PRN Reason: Indigestion / Heartburn Last Admin: 08/18/18 15:09 Dose: 30 ml Aspirin (Ecotrin) 81 mg PO DAILY [facility] Last Admin: 08/20/18 08:59 Dose: 81 mg Dexamethasone (Decadron) 2 mg PO DAILY [facility] Last Admin: 08/20/18 09:01 Dose: 2 mg Enoxaparin Sodium (Lovenox) 80 mg 1 mg/kg (75 mg) SC DAILY [facility]; Protocol Last Admin: 08/20/18 08:58 Dose: 80 mg Ferrous Sulfate (Feosol) 325 mg PO BID [facility] Last Admin: 08/20/18 09:00 Dose: 325 mg Finasteride (Proscar) 5 mg PO DAILY [facility] Last Admin: 08/20/18 09:00 Dose: 5 mg Home Med (Icosapent Ethyl [Vascepa]) 2 gm PO BID [facility] Last Admin: 08/20/18 08:59 Dose: 2 gm Home Med (Patient's Own Medication) 1 unit PO DAILY [facility] Last Admin: 08/20/18 09:00 Dose: 1 unit Meropenem 500 mg/ Sodium (Chloride) 100 mls @ 100 mls/hr IVPB Q12@0500,1700 [facility]; Protocol Last Admin: 08/20/18 04:40 Dose: 100 mls/hr Sodium Bicarbonate 133.8 meq/ (Dextrose) 1,150 mls @ 70 mls/hr IV .[id number] [facility] Insulin Human Regular (Humulin R) 0 units SC ACCU-CHECK [facility]; Protocol Last Admin: 08/20/18 06:15 Dose: Not Given Lactulose (Enulose) 20 gm PO DAILY PRN PRN Reason: Constipation Metformin HCl (Glucophage) 500 mg PO BIDWM [facility] Last Admin: 08/20/18 08:59 Dose: 500 mg Morphine Sulfate (Morphine) 2 mg IVP Q4 PRN PRN Reason: Pain, moderate (4-7) Ondansetron HCl (Zofran Tab) 4 mg PO DAILY [facility] Last Admin: 08/20/18 09:01 Dose: 4 mg Oxycodone HCl (Oxycodone Immediate Release Tab) 5 mg PO Q6 PRN PRN Reason: Pain, moderate (4-7) Last Admin: 08/20/18 04:48 Dose: 5 mg Pantoprazole Sodium (Protonix Ec Tab) 40 mg PO DAILY [facility] Last Admin: 08/20/18 08:59 Dose: 40 mg Sitagliptin Phosphate (Januvia) 50 mg PO DAILY [facility] Last Admin: 08/20/18 09:01 Dose: 50 mg Tamsulosin HCl (Flomax) 0.4 mg PO DAILY [facility] Last Admin: 08/20/18 08:59 Dose: 0.4 mg Results - Vital Signs Recent Vital Signs: Last Vital Signs Temp 97.1 F L 08/20/18 08:00 Pulse 107 H 08/20/18 08:00 Resp 18 08/20/18 08:00 BP 107/75 08/20/18 08:00 Pulse Ox 94 L 08/20/18 08:00 - Labs Result Diagrams: 08/20/18 04:35 08/20/18 09:35 Labs: Laboratory Results - last 24 hr 08/19/18 08/19/18 08/19/18 11:40 11:44 13:46 WBC RBC Hgb Hct MCV MCH MCHC RDW Plt Count pCO2 pO2 HCO3 ABG pH ABG Total CO2 ABG O2 Saturation ABG O2 Content ABG Base Excess ABG Hemoglobin ABG Carboxyhemoglobin POC ABG HHb (Measured) ABG Methemoglobin ABG O2 Capacity Franck Test A-a O2 Difference Hgb O2 Saturation FiO2 Sodium Potassium Chloride Carbon Dioxide Anion Gap BUN Creatinine Est GFR ( Amer) Est GFR (Non-Af Amer) POC Glucose (mg/dL) 109 Random Glucose Lactic Acid 3.8 H Calcium Total Bilirubin AST ALT Alkaline Phosphatase NT-Pro-B Natriuret Pep 535 Total Protein Albumin Globulin Albumin/Globulin Ratio 08/19/18 08/19/18 08/19/18 16:10 18:55 21:12 WBC RBC Hgb Hct MCV MCH MCHC RDW Plt Count pCO2 27 L pO2 78 L HCO3 19.9 L ABG pH 7.41 ABG Total CO2 17.9 L ABG O2 Saturation 96.5 ABG O2 Content 15.0 ABG Base Excess -6.3 L ABG Hemoglobin 11.3 L ABG Carboxyhemoglobin 1.8 H POC ABG HHb (Measured) 3.4 ABG Methemoglobin 1.0 ABG O2 Capacity 15.5 L Franck Test Yes A-a O2 Difference 38.0 Hgb O2 Saturation 93.8 L FiO2 21.0 Sodium Potassium Chloride Carbon Dioxide Anion Gap BUN Creatinine Est GFR ( Amer) Est GFR (Non-Af Amer) POC Glucose (mg/dL) 113 H 123 H Random Glucose Lactic Acid Calcium Total Bilirubin AST ALT Alkaline Phosphatase NT-Pro-B Natriuret Pep Total Protein Albumin Globulin Albumin/Globulin Ratio 08/20/18 08/20/18 08/20/18 04:35 04:35 05:21 WBC 6.9 D RBC 4.16 L Hgb 11.8 L Hct 35.8 MCV 85.9 MCH 28.2 MCHC 32.9 L RDW 32.3 H Plt Count 129 L D pCO2 pO2 HCO3 ABG pH ABG Total CO2 ABG O2 Saturation ABG O2 Content ABG Base Excess ABG Hemoglobin ABG Carboxyhemoglobin POC ABG HHb (Measured) ABG Methemoglobin ABG O2 Capacity Franck Test A-a O2 Difference Hgb O2 Saturation FiO2 Sodium 139 Potassium 6.1 H Chloride 104 Carbon Dioxide 16 L Anion Gap 25 H BUN 78 H Creatinine 3.8 H Est GFR ( Amer) 19 Est GFR (Non-Af Amer) 16 POC Glucose (mg/dL) 119 H Random Glucose 110 Lactic Acid Calcium 9.0 Total Bilirubin 2.6 H AST 135 H ALT 35 Alkaline Phosphatase 569 H NT-Pro-B Natriuret Pep Total Protein 6.9 Albumin 3.1 L Globulin 3.8 Albumin/Globulin Ratio 0.8 L 08/20/18 08/20/18 09:35 10:44 WBC RBC Hgb Hct MCV MCH MCHC RDW Plt Count pCO2 pO2 HCO3 ABG pH ABG Total CO2 ABG O2 Saturation ABG O2 Content ABG Base Excess ABG Hemoglobin ABG Carboxyhemoglobin POC ABG HHb (Measured) ABG Methemoglobin ABG O2 Capacity Franck Test A-a O2 Difference Hgb O2 Saturation FiO2 Sodium Potassium 5.8 H Chloride Carbon Dioxide Anion Gap BUN Creatinine Est GFR ( Amer) Est GFR (Non-Af Amer) POC Glucose (mg/dL) 118 H Random Glucose Lactic Acid Calcium Total Bilirubin AST ALT Alkaline Phosphatase NT-Pro-B Natriuret Pep Total Protein Albumin Globulin Albumin/Globulin Ratio
[2018-08-20] MEDS: SODIUM BICARBONATE IV SCH (11:57)
[2018-08-20] MEDS: WATER IV SCH (11:57)
[2018-08-20] MEDS: DEXTROSE 5% IV SCH (11:57)
--- NOTE | 2018-08-20 12:44 | CP.PCM.PN ---
Subjective - Date & Time of Evaluation Date of Evaluation: 08/20/18 Time of Evaluation: 11:00 - Subjective Subjective: Patient examined in bed with at his side. Patient seems to be very uncomfortable compared to yesterday. awake and alert, complaining of abdominal pain. As per Primary RN, patient had an episode of vomiting this morning. Objective - Vital Signs/Intake and Output Vital Signs (last 24 hours): Temp Pulse Resp BP Pulse Ox 97.7 F 105 H 18 96/67 L 94 L 08/20/18 12:00 08/20/18 12:00 08/20/18 12:00 08/20/18 12:00 08/20/18 12:00 - Medications Medications: Current Medications Al Hydrox/Mg Hydrox/Simethicone (Maalox Plus 30 Ml) 30 ml PO Q6 PRN PRN Reason: Indigestion / Heartburn Last Admin: 08/18/18 15:09 Dose: 30 ml Aspirin (Ecotrin) 81 mg PO DAILY [facility] Last Admin: 08/20/18 08:59 Dose: 81 mg Dexamethasone (Decadron) 2 mg PO DAILY [facility] Last Admin: 08/20/18 09:01 Dose: 2 mg Enoxaparin Sodium (Lovenox) 80 mg 1 mg/kg (75 mg) SC DAILY [facility]; Protocol Last Admin: 08/20/18 08:58 Dose: 80 mg Ferrous Sulfate (Feosol) 325 mg PO BID [facility] Last Admin: 08/20/18 09:00 Dose: 325 mg Finasteride (Proscar) 5 mg PO DAILY [facility] Last Admin: 08/20/18 09:00 Dose: 5 mg Home Med (Icosapent Ethyl [Vascepa]) 2 gm PO BID [facility] Last Admin: 08/20/18 08:59 Dose: 2 gm Home Med (Patient's Own Medication) 1 unit PO DAILY [facility] Last Admin: 08/20/18 09:00 Dose: 1 unit Meropenem 500 mg/ Sodium (Chloride) 100 mls @ 100 mls/hr IVPB Q12@0500,1700 [facility]; Protocol Last Admin: 08/20/18 04:40 Dose: 100 mls/hr Sodium Bicarbonate 133.8 meq/ (Dextrose) 1,150 mls @ 70 mls/hr IV .[id number] [facility] Last Admin: 03/19/19 11:57 Dose: 70 mls/hr Insulin Human Regular (Humulin R) 0 units SC ACCU-CHECK [facility]; Protocol Last Admin: 08/20/18 11:59 Dose: Not Given Lactulose (Enulose) 20 gm PO DAILY PRN PRN Reason: Constipation Lorazepam (Ativan) 0.5 mg IVP Q6 PRN PRN Reason: Anxiety Metformin HCl (Glucophage) 500 mg PO BIDWM [facility] Last Admin: 08/20/18 08:59 Dose: 500 mg Morphine Sulfate (Morphine) 2 mg IVP Q4 PRN PRN Reason: Pain, moderate (4-7) Last Admin: 08/20/18 11:56 Dose: 2 mg Ondansetron HCl (Zofran Tab) 4 mg PO DAILY [facility] Last Admin: 08/20/18 09:01 Dose: 4 mg Oxycodone HCl (Oxycodone Immediate Release Tab) 5 mg PO Q6 PRN PRN Reason: Pain, moderate (4-7) Last Admin: 08/20/18 04:48 Dose: 5 mg Pantoprazole Sodium (Protonix Ec Tab) 40 mg PO DAILY [facility] Last Admin: 08/20/18 08:59 Dose: 40 mg Sitagliptin Phosphate (Januvia) 50 mg PO DAILY [facility] Last Admin: 08/20/18 09:01 Dose: 50 mg Tamsulosin HCl (Flomax) 0.4 mg PO DAILY [facility] Last Admin: 08/20/18 08:59 Dose: 0.4 mg - Labs Labs: 08/20/18 04:35 08/20/18 09:35 PT 12.8 Seconds (9.8-13.1) 08/17/18 16:00 INR 1.1 08/17/18 16:00 APTT 28.9 Seconds (25.6-37.1) 08/17/18 16:00 - Constitutional Appears: In Acute Distress, Cachectic, Chronically Ill - Head Exam Head Exam: ATRAUMATIC, NORMAL INSPECTION, NORMOCEPHALIC - Eye Exam Eye Exam: Normal appearance - ENT Exam ENT Exam: Mucous Membranes Moist - Respiratory Exam Respiratory Exam: Decreased Breath Sounds - Cardiovascular Exam Cardiovascular Exam: REGULAR RHYTHM - GI/Abdominal Exam GI & Abdominal Exam: Distended, Normal Bowel Sounds - Rectal Exam Rectal Exam: Deferred - Neurological Exam Neurological Exam: Alert, Altered, Awake - Psychiatric Exam Psychiatric exam: Depressed, Flat Affect - Skin Skin Exam: Dry, Warm Assessment and Plan - Assessment and Plan (Free Text) Assessment: Palliative care Patient seems increasingly uncomfortable in bed. He is complaining of worsening pain in his abdomen. Goals of Care: Patient , who is at bedside, identified herself as decision maker. The severity of the patient's condition was explained to her and she verbalized understanding. She would like to continue full treatment for her . Patient's children will set up family meeting to talk about patient condition with patient's possibly tomorrow. As per Daughter in law, they do not feel like completely understands severity. Daughter in law states that it was patient's children who even encouraged her to take him to ED. Code Status: FULL CODE: As per patient will continue to be full code. She verbalized understanding of code status Impression * Abdominal Pain * depression * nausea and vomiting * decreased mobility Suggestions * Assess for pain. PRN Morphine and Oxycodone available * Daily zofran * max assist with ADLs * reposition q2h * Will continue Goals of care/code status discussion Palliative Care will remain on board as needed Advance Care Planning 30 min
--- NOTE | 2018-08-20 17:24 | CP.PCM.PN ---
Subjective - Date & Time of Evaluation Date of Evaluation: 08/20/18 Time of Evaluation: 17:18 - Subjective Subjective: Delfina Carrasco, PGY-1, Cardiology Progress Note for Dr. Conley Patient seen and evaluated at bedside. Patient had no acute overnight events. Patient was laying in bed in no acute distress. Patient's son was curious regarding the status of the patient and was told that patient was stable at this time from a cardiac standpoint Objective - Vital Signs/Intake and Output Vital Signs (last 24 hours): Temp Pulse Resp BP Pulse Ox 98.1 F 108 H 16 107/77 95 08/20/18 15:38 08/20/18 15:38 08/20/18 15:38 08/20/18 15:38 08/20/18 15:38 - Medications Medications: Current Medications Al Hydrox/Mg Hydrox/Simethicone (Maalox Plus 30 Ml) 30 ml PO Q6 PRN PRN Reason: Indigestion / Heartburn Last Admin: 08/18/18 15:09 Dose: 30 ml Aspirin (Ecotrin) 81 mg PO DAILY [facility] Last Admin: 08/20/18 08:59 Dose: 81 mg Dexamethasone (Decadron) 2 mg PO DAILY [facility] Last Admin: 08/20/18 09:01 Dose: 2 mg Enoxaparin Sodium (Lovenox) 80 mg 1 mg/kg (75 mg) SC DAILY [facility]; Protocol Last Admin: 08/20/18 08:58 Dose: 80 mg Ferrous Sulfate (Feosol) 325 mg PO BID [facility] Last Admin: 08/20/18 09:00 Dose: 325 mg Finasteride (Proscar) 5 mg PO DAILY [facility] Last Admin: 08/20/18 09:00 Dose: 5 mg Home Med (Icosapent Ethyl [Vascepa]) 2 gm PO BID [facility] Last Admin: 08/20/18 08:59 Dose: 2 gm Home Med (Patient's Own Medication) 1 unit PO DAILY [facility] Last Admin: 08/20/18 09:00 Dose: 1 unit Meropenem 500 mg/ Sodium (Chloride) 100 mls @ 100 mls/hr IVPB Q12@0500,1700 [facility]; Protocol Last Admin: 08/20/18 04:40 Dose: 100 mls/hr Sodium Bicarbonate 133.8 meq/ (Dextrose) 1,150 mls @ 70 mls/hr IV .[id number] [facility] Last Admin: 08/20/18 11:57 Dose: 70 mls/hr Insulin Human Regular (Humulin R) 0 units SC ACCU-CHECK [facility]; Protocol Last Admin: 08/20/18 11:59 Dose: Not Given Lactulose (Enulose) 20 gm PO DAILY PRN PRN Reason: Constipation Lorazepam (Ativan) 0.5 mg IVP Q6 PRN PRN Reason: Anxiety Metformin HCl (Glucophage) 500 mg PO BIDWM [facility] Last Admin: 08/20/18 08:59 Dose: 500 mg Morphine Sulfate (Morphine) 2 mg IVP Q4 PRN PRN Reason: Pain, moderate (4-7) Last Admin: 08/20/18 11:56 Dose: 2 mg Ondansetron HCl (Zofran Tab) 4 mg PO DAILY [facility] Last Admin: 08/20/18 09:01 Dose: 4 mg Oxycodone HCl (Oxycodone Immediate Release Tab) 5 mg PO Q6 PRN PRN Reason: Pain, moderate (4-7) Last Admin: 08/20/18 04:48 Dose: 5 mg Pantoprazole Sodium (Protonix Ec Tab) 40 mg PO DAILY [facility] Last Admin: 08/20/18 08:59 Dose: 40 mg Sitagliptin Phosphate (Januvia) 50 mg PO DAILY [facility] Last Admin: 08/20/18 09:01 Dose: 50 mg Tamsulosin HCl (Flomax) 0.4 mg PO DAILY [facility] Last Admin: 08/20/18 08:59 Dose: 0.4 mg - Labs Labs: 08/20/18 04:35 08/20/18 09:35 PT 12.8 Seconds (9.8-13.1) 08/17/18 16:00 INR 1.1 08/17/18 16:00 APTT 28.9 Seconds (25.6-37.1) 08/17/18 16:00 - Constitutional Appears: Well, Non-toxic, No Acute Distress - Head Exam Head Exam: ATRAUMATIC, NORMAL INSPECTION, NORMOCEPHALIC - Eye Exam Eye Exam: EOMI, PERRL - ENT Exam ENT Exam: Mucous Membranes Moist - Neck Exam Neck Exam: Full ROM - Respiratory Exam Respiratory Exam: Clear to Ausculation Bilateral, NORMAL BREATHING PATTERN - Cardiovascular Exam Cardiovascular Exam: Tachycardia, REGULAR RHYTHM, +S1, +S2 - GI/Abdominal Exam GI & Abdominal Exam: Distended, Soft, Normal Bowel Sounds. absent: Tenderness - Extremities Exam Extremities Exam: Full ROM, Normal Capillary Refill. absent: Pedal Edema - Neurological Exam Neurological Exam: Alert, Awake, CN II-XII Intact, Oriented x3 - Psychiatric Exam Psychiatric exam: Normal Affect, Normal Mood - Skin Skin Exam: Dry, Intact, Normal Color Assessment and Plan - Assessment and Plan (Free Text) Assessment: Nonbloody, nonbilious vomiting Rule out Pulmonary Embolism Pulmonary and liver metastasis of renal cell carcinoma Hypertension Diabetes Mellitus Plan: E. Coli UTI rule out sepsis Nonbloody, nonbilious vomiting Type II IL likely 2/2 to increased demand from sepsis Pulmonary and liver metastasis of renal cell carcinoma Hypertension Diabetes Mellitus Abdominal CT: interval increase in pulmonary and hepatic metastatic disease. There is new areas of perinephric inflmmatory change with increased ascites. Increased pericardial effusion and new right pleural effusion. Increased abdominal and retroperitoneal adenopathy CXR: multiple pulmonary nodules Echocardiogram: LVEF of 55-60%, grade I abnormal relaxation pattern, RVSP is 30 mmHg, mild TR, no pericardial effusion V/Q scan: shows low probability of PE EKG: NSR with LAFB with HR: 91 Troponinx2: 0.1650, 0.1430 HgbA1c: 5.7 from 06/2018 BNP: 535 BUN/Cr: elevated at 66/3 on 08/19/2018 NBNB vomiting likely 2/2 to hepatic metastasis. NBNB vomitus has now resoled As PE likely ruled out, stopped therapeutic lovenox Follow up heme/onc recommendations regarding further workup and treatment of renal cell carcinoma with metastasis Elevated troponins are likely a combination of right heart strain from pulmonary metastasis, RAMILA vs. CKD likely from renal metastasis, and sepsis causing increased myocardial demand. Due to multiple comorbid conditions, will be conservative with therapy at this time and continue with medication including dual antiplatelet, beta nik, statin, and ACEI. Medications: aspirin 81 plavix 75 mg daily atorvastatin 20 mg daily metoprolol 25 mg Q12 lisinopril 5 mg daily metformin 500 mg BID Januvia Vascepa 2 gm BID
--- NOTE | 2018-08-21 01:33 | CP.PCM.PN ---
Subjective - Date & Time of Evaluation Date of Evaluation: 08/20/18 Time of Evaluation: 14:00 - Subjective Subjective: Constipated, for suppository Objective - Vital Signs/Intake and Output Vital Signs (last 24 hours): Temp Pulse Resp BP Pulse Ox 98 F 103 H 17 92/68 L 96 08/21/18 00:27 08/21/18 00:27 08/21/18 00:27 08/21/18 00:27 08/21/18 00:27 Intake and Output: 08/20/18 08/21/18 18:59 06:59 Intake Total 1520 Output Total 600 Balance 920 - Medications Medications: Current Medications Al Hydrox/Mg Hydrox/Simethicone (Maalox Plus 30 Ml) 30 ml PO Q6 PRN PRN Reason: Indigestion / Heartburn Last Admin: 08/18/18 15:09 Dose: 30 ml Aspirin (Ecotrin) 81 mg PO DAILY [facility] Last Admin: 08/20/18 08:59 Dose: 81 mg Atorvastatin Calcium (Lipitor) 20 mg PO DAILY [facility] Clopidogrel Bisulfate (Plavix) 75 mg PO DAILY [facility] Dexamethasone (Decadron) 2 mg PO DAILY [facility] Last Admin: 08/20/18 09:01 Dose: 2 mg Ferrous Sulfate (Feosol) 325 mg PO BID [facility] Last Admin: 08/20/18 17:25 Dose: 325 mg Finasteride (Proscar) 5 mg PO DAILY [facility] Last Admin: 08/20/18 09:00 Dose: 5 mg Home Med (Icosapent Ethyl [Vascepa]) 2 gm PO BID [facility] Last Admin: 08/20/18 17:26 Dose: 2 gm Home Med (Patient's Own Medication) 1 unit PO DAILY [facility] Last Admin: 08/20/18 09:00 Dose: 1 unit Meropenem 500 mg/ Sodium (Chloride) 100 mls @ 100 mls/hr IVPB Q12@0500,1700 [facility]; Protocol Last Admin: 08/20/18 17:27 Dose: 100 mls/hr Sodium Bicarbonate 133.8 meq/ (Dextrose) 1,150 mls @ 70 mls/hr IV .[id number] [facility] Last Admin: 08/20/18 11:57 Dose: 70 mls/hr Insulin Human Regular (Humulin R) 0 units SC ACCU-CHECK [facility]; Protocol Last Admin: 08/20/18 22:23 Dose: Not Given Lactulose (Enulose) 20 gm PO DAILY PRN PRN Reason: Constipation Lorazepam (Ativan) 0.5 mg IVP Q6 PRN PRN Reason: Anxiety Metformin HCl (Glucophage) 500 mg PO BIDWM [facility] Last Admin: 08/20/18 08:59 Dose: 500 mg Metoprolol Tartrate (Lopressor) 25 mg PO Q12 [facility] Last Admin: 08/20/18 20:50 Dose: Not Given Morphine Sulfate (Morphine) 2 mg IVP Q4 PRN PRN Reason: Pain, moderate (4-7) Last Admin: 08/20/18 11:56 Dose: 2 mg Ondansetron HCl (Zofran Tab) 4 mg PO DAILY [facility] Last Admin: 08/20/18 09:01 Dose: 4 mg Oxycodone HCl (Oxycodone Immediate Release Tab) 5 mg PO Q6 PRN PRN Reason: Pain, moderate (4-7) Last Admin: 08/20/18 04:48 Dose: 5 mg Pantoprazole Sodium (Protonix Ec Tab) 40 mg PO DAILY [facility] Last Admin: 08/20/18 08:59 Dose: 40 mg Sitagliptin Phosphate (Januvia) 50 mg PO DAILY [facility] Last Admin: 08/20/18 09:01 Dose: 50 mg Tamsulosin HCl (Flomax) 0.4 mg PO DAILY [facility] Last Admin: 08/20/18 08:59 Dose: 0.4 mg - Labs Labs: 08/20/18 04:35 08/20/18 09:35 PT 12.8 Seconds (9.8-13.1) 08/17/18 16:00 INR 1.1 08/17/18 16:00 APTT 28.9 Seconds (25.6-37.1) 08/17/18 16:00 - Head Exam Head Exam: ATRAUMATIC - Eye Exam Eye Exam: Normal appearance - ENT Exam ENT Exam: Mucous Membranes Dry - Respiratory Exam Respiratory Exam: NORMAL BREATHING PATTERN - GI/Abdominal Exam GI & Abdominal Exam: Distended Assessment and Plan (1) Renal cell cancer Assessment & Plan: stage IV pt and family considering outpatient immunotherapy vs hospice Status: Acute (2) Anemia Assessment & Plan: chronic disease and chemotherapy Status: Acute (3) Thrombocytopenia Assessment & Plan: improving Status: Acute
[2018-08-21] MEDS: DEXTROSE 5% IV SCH (01:53)
[2018-08-21] MEDS: SODIUM BICARBONATE IV SCH (01:53)
[2018-08-21] MEDS: WATER IV SCH (01:53)
--- NOTE | 2018-08-21 02:45 | PN ---
DATE: 08/20/2018 FOLLOWUP RENAL CONSULTATION LOCATION: [facility], room 414, bed 1. REQUESTED BY: Dax Brownlee MD REASON FOR FOLLOWUP: Acute renal failure, chronic kidney disease, metastatic renal cell CA, hyperkalemia, metabolic acidosis. SUBJECTIVE: Mr. Zara John is a 78-year-old elderly male with past medical history significant for anxiety, asthma, diabetes, hypertension, chronic kidney disease stage 3, metastatic renal cell carcinoma with metastasis to the lung and liver and abdominal lymphadenopathy, who was admitted with chief complaints of vomiting for four days and also increasing abdominal distension and abdominal pain. The patient was found to have elevated BUN and creatinine and renal consult requested for further evaluation. The patient is in no acute distress, poor appetite, denies any chest pain, palpitation, denies any fever, cough. The patient does complain of abdominal distension. PHYSICAL EXAMINATION: GENERAL: Mr. Zara John is a 78-year-old elderly male moderately built, moderately nourished, not in distress with abdominal distension. VITAL SIGNS: As follows: Blood pressure this morning 107/75, pulse 107, respirations 18, temperature 97.1, saturation 94%. Height 5 feet 10 inches, weight is 170 pounds. HEENT: Pupils normally reactive to light and accommodation. Conjunctivae pink. Sclerae anicteric. Tongue is dry, and trachea is midline. LUNGS: Symmetric on both sides. Bilateral breath sounds present. Occasional basilar crackles present. CARDIOVASCULAR SYSTEM: Tate at the fifth intercostal space and midclavicular line. S1, S2 audible. No murmur, no gallop. ABDOMEN: Distended and soft. Dullness on both flanks. No guarding. No rigidity. No abdominal bruits. No hepatosplenomegaly. CENTRAL NERVOUS SYSTEM: The patient is alert, awake, and oriented x2-3. Cranial nerves II through XII grossly intact. Sensory and motor system is within normal limits. EXTREMITIES: No cyanosis, no clubbing, no edema. CURRENT MEDICATIONS: Include as follows: Ativan 0.5 mg IV every 6 hours p.r.n., aspirin 81 mg daily, lactulose 20 g p.o. daily p.r.n., Feosol 325 mg p.o. b.i.d., Flomax 0.4 mg p.o. daily, metformin on hold and Januvia 50 mg p.o. daily, Lipitor 20 mg p.o. daily, metoprolol 25 mg p.o. every 12 hours, Maalox, morphine sulfate 2 mg IV every 4 hours p.r.n., oxycodone 5 mg p.o. every 6 hours p.r.n., Plavix 75 mg daily, Proscar 5 mg daily, Protonix 40 mg p.o. daily, IV fluids D5W with sodium bicarbonate at 70 mL/hour, lisinopril 5 mg p.o. daily, and Zofran 4 mg p.o. daily. LABORATORY DATA: Include as follows: As of 08/20/2018, WBC 6.9, hemoglobin 11.8, hematocrit is 35.8, platelets 129. Sodium 129, potassium 6.1, chloride 104, and CO2 of 16 with anion gap of 19 and BUN 78, creatinine 3.8, glucose 119, calcium is 9, total bili 2.6, alkaline phosphatase is 569, AST is 135, ALT 35, total protein 6.9, albumin is 3.1, repeat potassium is 5.8. Accu-Chek 119, 118 and 126. Urine culture as of 08/17/2018 positive for E. coli and blood culture x2, negative day 3. ASSESSMENT: In summary, Mr. Zara John is a 78-year-old elderly male with a history of arthritis, asthma, hypertension, diabetes, chronic kidney disease stage 3 with a metastatic renal cell carcinoma with metastasis to the liver and lungs and also with pleural effusion, pericardial effusion and also diffuse lymphadenopathy in the abdomen was admitted with vomiting for four days and also weakness and found to have increased BUN, creatinine and hyperkalemia. 1. Hyperkalemia most likely secondary to multifactorial secondary to renal failure, acute and also angiotensin converting enzyme inhibitors. 2. Metabolic acidosis, anion gap secondary to renal failure. 3. Hyperkalemia secondary to renal failure. 4. Renal cell carcinoma with metastasis to the lungs and liver and also abdominal lymphadenopathy. PLAN: Overall prognosis is very poor. Consider hospice evaluation, and also we will give sodium bicarbonate 1 amp IV push and also will start him on IV bicarbonate drip at 70 mL/hour and also discontinue lisinopril. I agree to hold metformin. We will follow with you. Thank you for allowing me to participate in your patient's care. Overall prognosis is very very poor. Dario Murphy MD
[2018-08-21] MEDS: Meropenem 500 MG in Sodium Chloride 0.9% 100 ML IVPB SCH ×2 (04:16→18:02)
[2018-08-21 06:15] LABS: HEMOGLOBIN 9.7 g/dL (12.0-18.0); MEAN CELL VOLUME 87.2 fl (80.0-94.0); MEAN CORPUSCULAR HEMOGLOBIN 28.9 pg (27.0-31.0); MEAN CORPUSCULAR HGB CONC 33.2 g/dL (33.0-37.0); RBC 3.34 Mil/uL (4.40-5.90); RED CELL DISTRIBUTION WIDTH 31.5 % (11.5-14.5); WHITE BLOOD COUNT 4.1 K/uL (4.8-10.8)
[2018-08-21 06:36] LABS: CALCIUM 8.4 mg/dL (8.4-10.2)
[2018-08-21] MEDS: SUTENT PO SCH (09:39)
[2018-08-21] MEDS: Patient's Own Med (Icosapent Ethyl [Vascepa] 1 GM) PO SCH ×2 (09:39→18:14)
[2018-08-21] MEDS: Pantoprazole 40 mg EC Tab PO SCH (09:39)
[2018-08-21] MEDS: Insulin Regular 100 units/ml SC SCH ×4 (09:40→23:00)
--- NOTE | 2018-08-21 10:15 | CP.PCM.CON ---
History of Present Illness - History of Present Illness History of Present Illness: 78 yo man w/ renal cancer w/ mets to lung and liver, no longer on chemo, is referred for pain management. Patient is deteriorating clinically, and palliative care service is already on board. Recently, patient had been prescribed Oxycodone 5mg as an outpatient. Patient is lethargic, after having just been given Oxycodone. Per at bedside, patient has severe pain in the abdomen, but the Oxycodone is helping. Family will have meeting soon to discuss status. Per chart, may not have full comprehension of the patient's disease but is the decision maker. Past Patient History - Past Medical History & Family History Past Medical History?: Yes - Past Social History Smoking Status: Never Smoked - CARDIAC Hx Hypertension: Yes - PULMONARY Hx Asthma: Yes Hx Bronchitis: Yes - NEUROLOGICAL Hx Neurological Disorder: No - HEENT Hx HEENT Problems: No - RENAL Hx Chronic Kidney Disease: Yes (CKD) Hx Kidney Stones: Yes - ENDOCRINE/METABOLIC Hx Endocrine Disorders: Yes - HEMATOLOGICAL/ONCOLOGICAL Hx Blood Disorders: No - INTEGUMENTARY Hx Dermatological Problems: No - MUSCULOSKELETAL/RHEUMATOLOGICAL Hx Musculoskeletal Disorders: Yes Hx Falls: Yes - GASTROINTESTINAL Hx Gastritis: Yes - GENITOURINARY/GYNECOLOGICAL Hx Genitourinary Disorders: Yes Hx Bladder Cancer: Yes - PSYCHIATRIC Hx Anxiety: Yes - SURGICAL HISTORY Hx Appendectomy: Yes - ANESTHESIA Hx Anesthesia: Yes Hx Anesthesia Reactions: No Hx Malignant Hyperthermia: No Meds Allergies/Adverse Reactions: Allergies Allergy/AdvReac Type Severity Reaction Status Date / Time No Known Allergies Allergy Verified 08/17/18 14:49 - Medications Medications: Current Medications Al Hydrox/Mg Hydrox/Simethicone (Maalox Plus 30 Ml) 30 ml PO Q6 PRN PRN Reason: Indigestion / Heartburn Last Admin: 08/18/18 15:09 Dose: 30 ml Aspirin (Ecotrin) 81 mg PO DAILY [facility] Last Admin: 08/21/18 09:39 Dose: 81 mg Atorvastatin Calcium (Lipitor) 20 mg PO DAILY [facility] Last Admin: 08/21/18 09:39 Dose: 20 mg Clopidogrel Bisulfate (Plavix) 75 mg PO DAILY [facility] Last Admin: 08/21/18 09:39 Dose: 75 mg Dexamethasone (Decadron) 2 mg PO DAILY [facility] Last Admin: 08/21/18 09:39 Dose: 2 mg Ferrous Sulfate (Feosol) 325 mg PO BID [facility] Last Admin: 08/21/18 09:39 Dose: 325 mg Finasteride (Proscar) 5 mg PO DAILY [facility] Last Admin: 08/21/18 09:39 Dose: 5 mg Home Med (Icosapent Ethyl [Vascepa]) 2 gm PO BID [facility] Last Admin: 08/21/18 09:39 Dose: 2 gm Home Med (Patient's Own Medication) 1 unit PO DAILY [facility] Last Admin: 08/21/18 09:39 Dose: 1 unit Meropenem 500 mg/ Sodium (Chloride) 100 mls @ 100 mls/hr IVPB Q12@0500,1700 [facility]; Protocol Last Admin: 08/21/18 04:16 Dose: 100 mls/hr Sodium Bicarbonate 133.8 meq/ (Dextrose) 1,150 mls @ 70 mls/hr IV .[id number] [facility] Last Admin: 08/21/18 01:53 Dose: 70 mls/hr Insulin Human Regular (Humulin R) 0 units SC ACCU-CHECK [facility]; Protocol Last Admin: 08/21/18 09:40 Dose: Not Given Lorazepam (Ativan) 0.5 mg IVP Q6 PRN PRN Reason: Anxiety Metformin HCl (Glucophage) 500 mg PO BIDWM [facility] Last Admin: 08/20/18 08:59 Dose: 500 mg Metoprolol Tartrate (Lopressor) 25 mg PO Q12 [facility] Last Admin: 08/21/18 09:39 Dose: Not Given Morphine Sulfate (Morphine) 2 mg IVP Q4 PRN PRN Reason: Pain, moderate (4-7) Last Admin: 08/21/18 05:45 Dose: 2 mg Ondansetron HCl (Zofran Tab) 4 mg PO DAILY [facility] Last Admin: 08/21/18 09:39 Dose: 4 mg Oxycodone HCl (Oxycodone Immediate Release Tab) 5 mg PO Q6 PRN PRN Reason: Pain, moderate (4-7) Last Admin: 08/20/18 04:48 Dose: 5 mg Pantoprazole Sodium (Protonix Ec Tab) 40 mg PO DAILY [facility] Last Admin: 08/21/18 09:39 Dose: 40 mg Sitagliptin Phosphate (Januvia) 50 mg PO DAILY [facility] Last Admin: 08/21/18 09:39 Dose: 50 mg Sodium Polystyrene Sulfonate (Kayexalate) 30 gm PO Q4 [facility] Tamsulosin HCl (Flomax) 0.4 mg PO DAILY [facility] Last Admin: 08/21/18 09:39 Dose: 0.4 mg Physical Exam - Constitutional Appears: No Acute Distress - GI/Abdominal Exam GI & Abdominal Exam: Distended, Soft, Tenderness Results - Vital Signs Recent Vital Signs: Last Vital Signs Temp 98.3 F 08/21/18 08:16 Pulse 100 H 08/21/18 08:16 Resp 18 08/21/18 08:16 BP 91/68 L 08/21/18 08:16 Pulse Ox 96 08/21/18 08:16 - Labs Result Diagrams: 08/21/18 05:45 08/21/18 05:45 Labs: Laboratory Results - last 24 hr 08/20/18 08/20/18 08/20/18 10:44 15:56 22:17 WBC RBC Hgb Hct MCV MCH MCHC RDW Plt Count Sodium Potassium Chloride Carbon Dioxide Anion Gap BUN Creatinine Est GFR ( Amer) Est GFR (Non-Af Amer) POC Glucose (mg/dL) 118 H 126 H 134 H Random Glucose Calcium 08/21/18 08/21/18 08/21/18 05:45 05:45 05:49 WBC 4.1 L RBC 3.34 L Hgb 9.7 L D Hct 29.1 L MCV 87.2 MCH 28.9 MCHC 33.2 RDW 31.5 H Plt Count 118 L Sodium 139 Potassium 5.8 H Chloride 105 Carbon Dioxide 22 Anion Gap 18 BUN 96 H Creatinine 4.6 H Est GFR ( Amer) 15 Est GFR (Non-Af Amer) 12 POC Glucose (mg/dL) 127 H Random Glucose 120 H Calcium 8.4 Assessment & Plan - Assessment and Plan (Free Text) Assessment: 78 yo man w/ metastatic renal cancer to the lungs and liver, with worsening ascites and abdominal pain. Patient is on minimum opioids at this point, and there is room to titrate, although aggressiveness of titration will need to be tempered due to possible side effects, with patient's status in consideration. - continue Oxycodone PRN for now - consider Fentanyl patch, which is ideal due to side effect profile and route of administration, would start at 25mcg/hr q72h - eventually if patient is not able to tolerate PO, can transition to Morphine IV as in-patient, or Morphine/Oxycodone liquid as outpatient - patient is not a candidate for celiac plexus block, as opioid treatment hasn't been optimized and his being on Plavix - would defer to hospice if and when family decides on that path
--- NOTE | 2018-08-21 10:37 | CP.PCM.PN ---
Subjective - Date & Time of Evaluation Date of Evaluation: 08/21/18 Time of Evaluation: 07:00 - Subjective Subjective: Pt seen and examined this morning. Complains of abdominal pain, states it is only partially alleviated with medication. Denies CP or dyspnea. Poor prognosis. Will discuss goals of care with today. Objective - Vital Signs/Intake and Output Vital Signs (last 24 hours): Temp Pulse Resp BP Pulse Ox 98.3 F 100 H 18 91/68 L 96 08/21/18 08:16 08/21/18 08:16 08/21/18 08:16 08/21/18 08:16 08/21/18 08:16 Intake and Output: 08/21/18 08/21/18 06:59 18:59 Intake Total 1520 Output Total 600 Balance 920 - Medications Medications: Current Medications Al Hydrox/Mg Hydrox/Simethicone (Maalox Plus 30 Ml) 30 ml PO Q6 PRN PRN Reason: Indigestion / Heartburn Last Admin: 08/18/18 15:09 Dose: 30 ml Aspirin (Ecotrin) 81 mg PO DAILY [facility] Last Admin: 08/20/18 08:59 Dose: 81 mg Atorvastatin Calcium (Lipitor) 20 mg PO DAILY [facility] Clopidogrel Bisulfate (Plavix) 75 mg PO DAILY [facility] Dexamethasone (Decadron) 2 mg PO DAILY [facility] Last Admin: 08/20/18 09:01 Dose: 2 mg Ferrous Sulfate (Feosol) 325 mg PO BID [facility] Last Admin: 08/20/18 17:25 Dose: 325 mg Finasteride (Proscar) 5 mg PO DAILY [facility] Last Admin: 08/20/18 09:00 Dose: 5 mg Home Med (Icosapent Ethyl [Vascepa]) 2 gm PO BID [facility] Last Admin: 08/20/18 17:26 Dose: 2 gm Home Med (Patient's Own Medication) 1 unit PO DAILY [facility] Last Admin: 08/20/18 09:00 Dose: 1 unit Meropenem 500 mg/ Sodium (Chloride) 100 mls @ 100 mls/hr IVPB Q12@0500,1700 [facility]; Protocol Last Admin: 08/21/18 04:16 Dose: 100 mls/hr Sodium Bicarbonate 133.8 meq/ (Dextrose) 1,150 mls @ 70 mls/hr IV .[id number] [facility] Last Admin: 08/21/18 01:53 Dose: 70 mls/hr Insulin Human Regular (Humulin R) 0 units SC ACCU-CHECK [facility]; Protocol Last Admin: 08/20/18 22:23 Dose: Not Given Lorazepam (Ativan) 0.5 mg IVP Q6 PRN PRN Reason: Anxiety Metformin HCl (Glucophage) 500 mg PO BIDWM [facility] Last Admin: 08/20/18 08:59 Dose: 500 mg Metoprolol Tartrate (Lopressor) 25 mg PO Q12 [facility] Last Admin: 08/20/18 20:50 Dose: Not Given Morphine Sulfate (Morphine) 2 mg IVP Q4 PRN PRN Reason: Pain, moderate (4-7) Last Admin: 08/21/18 05:45 Dose: 2 mg Ondansetron HCl (Zofran Tab) 4 mg PO DAILY [facility] Last Admin: 08/20/18 09:01 Dose: 4 mg Oxycodone HCl (Oxycodone Immediate Release Tab) 5 mg PO Q6 PRN PRN Reason: Pain, moderate (4-7) Last Admin: 08/20/18 04:48 Dose: 5 mg Pantoprazole Sodium (Protonix Ec Tab) 40 mg PO DAILY [facility] Last Admin: 08/20/18 08:59 Dose: 40 mg Sitagliptin Phosphate (Januvia) 50 mg PO DAILY [facility] Last Admin: 08/20/18 09:01 Dose: 50 mg Tamsulosin HCl (Flomax) 0.4 mg PO DAILY [facility] Last Admin: 08/20/18 08:59 Dose: 0.4 mg - Labs Labs: 08/21/18 05:45 08/21/18 05:45 PT 12.8 Seconds (9.8-13.1) 08/17/18 16:00 INR 1.1 08/17/18 16:00 APTT 28.9 Seconds (25.6-37.1) 08/17/18 16:00 - Constitutional Appears: No Acute Distress (appears uncomfortable) - Eye Exam Eye Exam: Normal appearance - ENT Exam ENT Exam: Mucous Membranes Moist - Respiratory Exam Respiratory Exam: Clear to Ausculation Bilateral - GI/Abdominal Exam GI & Abdominal Exam: Soft, Tenderness (mild diffuse tendnerness + Ascites), Normal Bowel Sounds - Extremities Exam Extremities Exam: Normal Inspection - Neurological Exam Neurological Exam: Alert. absent: Oriented x3 - Psychiatric Exam Psychiatric exam: Flat Affect Assessment and Plan - Assessment and Plan (Free Text) Assessment: 78 y/o male with hx of Metastatic renal Ca and HTN addmited for abdominal pain and vomiting, found to have metastatic lesions in lung and liver, UTI and Acute renal failure. Poor prognosis. #Metastatic Ca #UTI #ARF #Troponemia #Constipation Consultations on board: ID, Nephrology, Cardiology, Palliative, Heme/Onc, Pain - Acute renal failure with metabolic acidosis and hyperkalemia; Nephrology on board- C/W D51/2NS w/ Bicarb. Hyperkalemia treat as needed. - Monitor I/O, electrolytes, acid-base, and volume status. Avoid Nephrotoxic me ds - Active goals of care discussion held between Palliative and family: Full code for now, pending POA - Cardiology on board for troponemia; V/Q low prob for PE, likely strain for renal disease. Therapeutic lonevox d/c. - Meropenem for UTI (hx of ESBL E.Coli in past). Ucx ESBL + from 08/17. - Psych consult as per Palliative recommendation- recommendations appreciated - Pain management- consider titrating opiods or fentanyl patch - Bowel Prep and Enema for opiod-induced constipation - DVT ppx: Heparin 5000 SQ q12 - GI PPX: Protonix Will discuss goals of care with family if available. Discussed case with Dr. Brownlee
--- NOTE | 2018-08-21 11:27 | CP.PCM.PN ---
Subjective - Date & Time of Evaluation Date of Evaluation: 08/21/18 Time of Evaluation: 11:25 - Subjective Subjective: Delfina Carrasco, PGY-1, Cardiology Progress Note for Dr. Conley Patient seen and evaluated at bedside. Patient had no acute overnight events. Patient reports abdominal pain but denies any other symptoms including chest pain, shortness of breath, nausea, vomiting, left arm pain, jaw pain, diaphoresis. Objective - Vital Signs/Intake and Output Vital Signs (last 24 hours): Temp Pulse Resp BP Pulse Ox 98.3 F 100 H 18 91/68 L 96 08/21/18 08:16 08/21/18 08:16 08/21/18 08:16 08/21/18 08:16 08/21/18 08:16 Intake and Output: 08/21/18 08/21/18 06:59 18:59 Intake Total 1520 Output Total 600 Balance 920 - Medications Medications: Current Medications Al Hydrox/Mg Hydrox/Simethicone (Maalox Plus 30 Ml) 30 ml PO Q6 PRN PRN Reason: Indigestion / Heartburn Last Admin: 08/18/18 15:09 Dose: 30 ml Aspirin (Ecotrin) 81 mg PO DAILY [facility] Last Admin: 08/21/18 09:39 Dose: 81 mg Atorvastatin Calcium (Lipitor) 20 mg PO DAILY [facility] Last Admin: 08/21/18 09:39 Dose: 20 mg Clopidogrel Bisulfate (Plavix) 75 mg PO DAILY [facility] Last Admin: 08/21/18 09:39 Dose: 75 mg Dexamethasone (Decadron) 2 mg PO DAILY [facility] Last Admin: 08/21/18 09:39 Dose: 2 mg Ferrous Sulfate (Feosol) 325 mg PO BID [facility] Last Admin: 08/21/18 09:39 Dose: 325 mg Finasteride (Proscar) 5 mg PO DAILY [facility] Last Admin: 08/21/18 09:39 Dose: 5 mg Heparin Sodium (Porcine) (Heparin) 5,000 units SC Q12 [facility]; Protocol Home Med (Icosapent Ethyl [Vascepa]) 2 gm PO BID [facility] Last Admin: 08/21/18 09:39 Dose: 2 gm Home Med (Patient's Own Medication) 1 unit PO DAILY [facility] Last Admin: 08/21/18 09:39 Dose: 1 unit Meropenem 500 mg/ Sodium (Chloride) 100 mls @ 100 mls/hr IVPB Q12@0500,1700 [facility]; Protocol Last Admin: 08/21/18 04:16 Dose: 100 mls/hr Sodium Bicarbonate 133.8 meq/ (Dextrose) 1,150 mls @ 70 mls/hr IV .[id number] [facility] Last Admin: 08/21/18 01:53 Dose: 70 mls/hr Insulin Human Regular (Humulin R) 0 units SC ACCU-CHECK [facility]; Protocol Last Admin: 08/21/18 09:40 Dose: Not Given Lorazepam (Ativan) 0.5 mg IVP Q6 PRN PRN Reason: Anxiety Metformin HCl (Glucophage) 500 mg PO BIDWM [facility] Last Admin: 08/20/18 08:59 Dose: 500 mg Metoprolol Tartrate (Lopressor) 25 mg PO Q12 [facility] Last Admin: 08/21/18 09:39 Dose: Not Given Morphine Sulfate (Morphine) 2 mg IVP Q4 PRN PRN Reason: Pain, moderate (4-7) Last Admin: 08/21/18 05:45 Dose: 2 mg Ondansetron HCl (Zofran Tab) 4 mg PO DAILY [facility] Last Admin: 08/21/18 09:39 Dose: 4 mg Oxycodone HCl (Oxycodone Immediate Release Tab) 5 mg PO Q6 PRN PRN Reason: Pain, moderate (4-7) Last Admin: 08/20/18 04:48 Dose: 5 mg Pantoprazole Sodium (Protonix Ec Tab) 40 mg PO DAILY [facility] Last Admin: 08/21/18 09:39 Dose: 40 mg Sitagliptin Phosphate (Januvia) 50 mg PO DAILY [facility] Last Admin: 08/21/18 09:39 Dose: 50 mg Sodium Polystyrene Sulfonate (Kayexalate) 30 gm PO Q4 [facility] Tamsulosin HCl (Flomax) 0.4 mg PO DAILY [facility] Last Admin: 08/21/18 09:39 Dose: 0.4 mg - Labs Labs: 08/21/18 05:45 08/21/18 05:45 PT 12.8 Seconds (9.8-13.1) 08/17/18 16:00 INR 1.1 08/17/18 16:00 APTT 28.9 Seconds (25.6-37.1) 08/17/18 16:00 - Constitutional Appears: Well, Non-toxic, No Acute Distress - Head Exam Head Exam: ATRAUMATIC, NORMAL INSPECTION, NORMOCEPHALIC - Eye Exam Eye Exam: EOMI, PERRL - ENT Exam ENT Exam: Mucous Membranes Moist - Respiratory Exam Respiratory Exam: Clear to Ausculation Bilateral, NORMAL BREATHING PATTERN - Cardiovascular Exam Cardiovascular Exam: REGULAR RHYTHM, RRR, +S1, +S2 Additional comments: no tachycardia today - GI/Abdominal Exam GI & Abdominal Exam: Distended, Soft, Normal Bowel Sounds - Extremities Exam Extremities Exam: Full ROM, Normal Inspection, Pedal Edema (trace) - Neurological Exam Neurological Exam: Alert, Awake, CN II-XII Intact, Oriented x3 - Psychiatric Exam Additional comments: fatigued - Skin Skin Exam: Dry, Intact Assessment and Plan - Assessment and Plan (Free Text) Assessment: E. 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 There is new areas of perinephric inflammatory change with increased ascites. Increased pericardial effusion and new right pleural effusion. Increased abdominal and retroperitoneal adenopathy CXR: multiple pulmonary nodules Echocardiogram: LVEF of 55-60%, grade I abnormal relaxation pattern, RVSP is 30 mmHg, mild TR, no pericardial effusion V/Q scan: shows low probability of PE EKG: NSR with LAFB with HR: 91 Troponinx2: 0.1650, 0.1430 HgbA1c: 5.7 from 06/2018 BNP: 535 BUN/Cr: elevated at 96/4.6 Hgb: 9.7 from 11.8 NBNB vomiting likely 2/2 to hepatic metastasis. NBNB vomitus has now resoled Follow up heme/onc recommendations regarding further workup and treatment of renal cell carcinoma with metastasis Elevated troponins are likely a combination of right heart strain from pulmonary metastasis, RAMILA vs. CKD likely from renal metastasis, and sepsis causing increased myocardial demand. Continue with antibiotics for treatment of UTI As patient is likely in septic shock, recommend patient to be transferred to ICU. Due to shock, will stop lisinopril and switch metoprolol to 25 mg daily Due to multiple comorbid conditions, will be conservative with therapy at this time and continue with medication including dual antiplatelet, beta nik, statin, and ACEI. Medications: aspirin 81 plavix 75 mg daily atorvastatin 20 mg daily metoprolol succinate 25 mg daily metformin 500 mg BID Januvia Vascepa 2 gm BID
--- NOTE | 2018-08-21 13:52 | CP.PCM.PN ---
Subjective - Date & Time of Evaluation Date of Evaluation: 08/21/18 Time of Evaluation: 07:00 - Subjective Subjective: afeb weak lethargic depressed Objective - Vital Signs/Intake and Output Vital Signs (last 24 hours): Temp Pulse Resp BP Pulse Ox 97.5 F L 95 H 18 101/72 96 08/21/18 11:53 08/21/18 11:53 08/21/18 11:53 08/21/18 11:53 08/21/18 11:53 Intake and Output: 08/21/18 08/21/18 06:59 18:59 Intake Total 1520 Output Total 600 Balance 920 - Medications Medications: Current Medications Al Hydrox/Mg Hydrox/Simethicone (Maalox Plus 30 Ml) 30 ml PO Q6 PRN PRN Reason: Indigestion / Heartburn Last Admin: 08/18/18 15:09 Dose: 30 ml Aspirin (Ecotrin) 81 mg PO DAILY [facility] Last Admin: 08/21/18 09:39 Dose: 81 mg Atorvastatin Calcium (Lipitor) 20 mg PO DAILY [facility] Last Admin: 08/21/18 09:39 Dose: 20 mg Clopidogrel Bisulfate (Plavix) 75 mg PO DAILY [facility] Last Admin: 08/21/18 09:39 Dose: 75 mg Dexamethasone (Decadron) 2 mg PO DAILY [facility] Last Admin: 08/21/18 09:39 Dose: 2 mg Ferrous Sulfate (Feosol) 325 mg PO BID [facility] Last Admin: 08/21/18 09:39 Dose: 325 mg Finasteride (Proscar) 5 mg PO DAILY [facility] Last Admin: 08/21/18 09:39 Dose: 5 mg Heparin Sodium (Porcine) (Heparin) 5,000 units SC Q12 [facility]; Protocol Home Med (Icosapent Ethyl [Vascepa]) 2 gm PO BID [facility] Last Admin: 08/21/18 09:39 Dose: 2 gm Home Med (Patient's Own Medication) 1 unit PO DAILY [facility] Last Admin: 08/21/18 09:39 Dose: 1 unit Meropenem 500 mg/ Sodium (Chloride) 100 mls @ 100 mls/hr IVPB Q12@0500,1700 [facility]; Protocol Last Admin: 08/21/18 04:16 Dose: 100 mls/hr Sodium Bicarbonate 133.8 meq/ (Dextrose) 1,150 mls @ 70 mls/hr IV .[id number] [facility] Last Admin: 08/21/18 01:53 Dose: 70 mls/hr Insulin Human Regular (Humulin R) 0 units SC ACCU-CHECK [facility]; Protocol Last Admin: 08/21/18 12:41 Dose: Not Given Lorazepam (Ativan) 0.5 mg IVP Q6 PRN PRN Reason: Anxiety Metformin HCl (Glucophage) 500 mg PO BIDWM [facility] Last Admin: 08/20/18 08:59 Dose: 500 mg Metoprolol Tartrate (Lopressor) 25 mg PO Q12 [facility] Last Admin: 08/21/18 09:39 Dose: Not Given Morphine Sulfate (Morphine) 2 mg IVP Q4 PRN PRN Reason: Pain, moderate (4-7) Last Admin: 08/21/18 05:45 Dose: 2 mg Ondansetron HCl (Zofran Tab) 4 mg PO DAILY [facility] Last Admin: 08/21/18 09:39 Dose: 4 mg Oxycodone HCl (Oxycodone Immediate Release Tab) 5 mg PO Q6 PRN PRN Reason: Pain, moderate (4-7) Last Admin: 08/20/18 04:48 Dose: 5 mg Pantoprazole Sodium (Protonix Ec Tab) 40 mg PO DAILY [facility] Last Admin: 08/21/18 09:39 Dose: 40 mg Sitagliptin Phosphate (Januvia) 50 mg PO DAILY [facility] Last Admin: 08/21/18 09:39 Dose: 50 mg Sodium Polystyrene Sulfonate (Kayexalate) 30 gm PO Q4 [facility] Last Admin: 08/21/18 12:43 Dose: 30 gm Tamsulosin HCl (Flomax) 0.4 mg PO DAILY [facility] Last Admin: 08/21/18 09:39 Dose: 0.4 mg - Labs Labs: 08/21/18 05:45 08/21/18 05:45 PT 12.8 Seconds (9.8-13.1) 08/17/18 16:00 INR 1.1 08/17/18 16:00 APTT 28.9 Seconds (25.6-37.1) 08/17/18 16:00 - Constitutional Appears: Chronically Ill - Head Exam Head Exam: NORMOCEPHALIC - Eye Exam Eye Exam: absent: Scleral icterus - ENT Exam ENT Exam: Mucous Membranes Dry - Neck Exam Neck Exam: absent: Lymphadenopathy - Respiratory Exam Respiratory Exam: Decreased Breath Sounds - Cardiovascular Exam Cardiovascular Exam: REGULAR RHYTHM - GI/Abdominal Exam GI & Abdominal Exam: Distended, Soft - Rectal Exam Rectal Exam: Deferred Assessment and Plan (1) Abdominal pain Status: Acute (2) Acute kidney injury Status: Acute (3) Complicated UTI (urinary tract infection) Status: Acute (4) Diabetes mellitus type 2 in nonobese Status: Acute (5) Metastasis Status: Acute - Assessment and Plan (Free Text) Assessment: cont iv antibiotics poor prognosis
--- NOTE | 2018-08-21 15:49 | CP.PCM.PN ---
Subjective - Date & Time of Evaluation Date of Evaluation: 08/21/18 Time of Evaluation: 15:40 - Subjective Subjective: examined patient in bed. patient currently complaining of pain Objective - Vital Signs/Intake and Output Vital Signs (last 24 hours): Temp Pulse Resp BP Pulse Ox 97.5 F L 95 H 18 101/72 96 08/21/18 11:53 08/21/18 11:53 08/21/18 11:53 08/21/18 11:53 08/21/18 11:53 Intake and Output: 08/21/18 08/21/18 06:59 18:59 Intake Total 1520 Output Total 600 Balance 920 - Medications Medications: Current Medications Al Hydrox/Mg Hydrox/Simethicone (Maalox Plus 30 Ml) 30 ml PO Q6 PRN PRN Reason: Indigestion / Heartburn Last Admin: 08/18/18 15:09 Dose: 30 ml Aspirin (Ecotrin) 81 mg PO DAILY [facility] Last Admin: 08/21/18 09:39 Dose: 81 mg Atorvastatin Calcium (Lipitor) 20 mg PO DAILY [facility] Last Admin: 08/21/18 09:39 Dose: 20 mg Clopidogrel Bisulfate (Plavix) 75 mg PO DAILY [facility] Last Admin: 08/21/18 09:39 Dose: 75 mg Dexamethasone (Decadron) 2 mg PO DAILY [facility] Last Admin: 08/21/18 09:39 Dose: 2 mg Ferrous Sulfate (Feosol) 325 mg PO BID [facility] Last Admin: 08/21/18 09:39 Dose: 325 mg Finasteride (Proscar) 5 mg PO DAILY [facility] Last Admin: 08/21/18 09:39 Dose: 5 mg Heparin Sodium (Porcine) (Heparin) 5,000 units SC Q12 [facility]; Protocol Home Med (Icosapent Ethyl [Vascepa]) 2 gm PO BID [facility] Last Admin: 08/21/18 09:39 Dose: 2 gm Home Med (Patient's Own Medication) 1 unit PO DAILY [facility] Last Admin: 08/21/18 09:39 Dose: 1 unit Meropenem 500 mg/ Sodium (Chloride) 100 mls @ 100 mls/hr IVPB Q12@0500,1700 [facility]; Protocol Last Admin: 08/21/18 04:16 Dose: 100 mls/hr Sodium Bicarbonate 133.8 meq/ (Dextrose) 1,150 mls @ 70 mls/hr IV .[id number] [facility] Last Admin: 08/21/18 01:53 Dose: 70 mls/hr Insulin Human Regular (Humulin R) 0 units SC ACCU-CHECK [facility]; Protocol Last Admin: 08/21/18 12:41 Dose: Not Given Lorazepam (Ativan) 0.5 mg IVP Q6 PRN PRN Reason: Anxiety Metformin HCl (Glucophage) 500 mg PO BIDWM [facility] Last Admin: 08/20/18 08:59 Dose: 500 mg Metoprolol Succinate (Toprol Xl) 25 mg PO DAILY [facility] Morphine Sulfate (Morphine) 2 mg IVP Q4 PRN PRN Reason: Pain, moderate (4-7) Last Admin: 08/21/18 05:45 Dose: 2 mg Ondansetron HCl (Zofran Tab) 4 mg PO DAILY [facility] Last Admin: 08/21/18 09:39 Dose: 4 mg Oxycodone HCl (Oxycodone Immediate Release Tab) 5 mg PO Q6 PRN PRN Reason: Pain, moderate (4-7) Last Admin: 08/20/18 04:48 Dose: 5 mg Pantoprazole Sodium (Protonix Ec Tab) 40 mg PO DAILY [facility] Last Admin: 08/21/18 09:39 Dose: 40 mg Sitagliptin Phosphate (Januvia) 50 mg PO DAILY [facility] Last Admin: 08/21/18 09:39 Dose: 50 mg Sodium Polystyrene Sulfonate (Kayexalate) 30 gm PO Q4 [facility] Last Admin: 08/21/18 12:43 Dose: 30 gm Tamsulosin HCl (Flomax) 0.4 mg PO DAILY [facility] Last Admin: 08/21/18 09:39 Dose: 0.4 mg - Labs Labs: 08/21/18 05:45 08/21/18 05:45 PT 12.8 Seconds (9.8-13.1) 08/17/18 16:00 INR 1.1 08/17/18 16:00 APTT 28.9 Seconds (25.6-37.1) 08/17/18 16:00 - Constitutional Appears: In Acute Distress, Confused, Cachectic, Chronically Ill - Head Exam Head Exam: ATRAUMATIC, NORMAL INSPECTION, NORMOCEPHALIC - Eye Exam Eye Exam: Normal appearance - ENT Exam ENT Exam: Mucous Membranes Moist - Respiratory Exam Respiratory Exam: Decreased Breath Sounds - Cardiovascular Exam Cardiovascular Exam: Tachycardia - GI/Abdominal Exam GI & Abdominal Exam: Distended - Rectal Exam Rectal Exam: Deferred - Extremities Exam Extremities Exam: Normal Inspection - Neurological Exam Neurological Exam: Altered, Awake - Psychiatric Exam Psychiatric exam: Depressed, Flat Affect - Skin Skin Exam: Dry, Warm Assessment and Plan - Assessment and Plan (Free Text) Plan: Palliative Care Goals of Care: As per family conversation, patient to continue receiving full tr eatment. Patient's family states that per prior conversation with Dr. Maynard, patient will still received cancer treatments. Code Status: FULL CODE, Family wants patient to continue to be full code. Meaning of full code was explained and family verbalized understanding. Impression * Metastatic Ca * Nausea * Vomiting * Pain * incontinence * Depression Suggestion * Assess for pain frequently, PRN pain meds ordered for mod and severe pain * Administer daily zofran * Max assist with ADLs and repositioning * Keep skin clean and dry * Continue Goals of Care discussion Palliative care will remain on board as needed Time spent with patient 35 min
--- NOTE | 2018-08-21 18:17 | CP.PCM.PN ---
Subjective - Date & Time of Evaluation Date of Evaluation: 08/21/18 Time of Evaluation: 18:17 - Subjective Subjective: pt is seen and examined, follow up consult is dictated #[id number] poor prognosis hd at this time is an exercise futile Objective - Vital Signs/Intake and Output Vital Signs (last 24 hours): Temp Pulse Resp BP Pulse Ox 97.4 F L 86 18 108/75 95 08/21/18 16:08 08/21/18 16:08 08/21/18 16:08 08/21/18 16:08 08/21/18 16:08 Intake and Output: 08/21/18 08/21/18 06:59 18:59 Intake Total 1520 Output Total 600 Balance 920 - Medications Medications: Current Medications Al Hydrox/Mg Hydrox/Simethicone (Maalox Plus 30 Ml) 30 ml PO Q6 PRN PRN Reason: Indigestion / Heartburn Last Admin: 08/18/18 15:09 Dose: 30 ml Aspirin (Ecotrin) 81 mg PO DAILY [facility] Last Admin: 08/21/18 09:39 Dose: 81 mg Atorvastatin Calcium (Lipitor) 20 mg PO DAILY [facility] Last Admin: 08/21/18 09:39 Dose: 20 mg Clopidogrel Bisulfate (Plavix) 75 mg PO DAILY [facility] Last Admin: 08/21/18 09:39 Dose: 75 mg Dexamethasone (Decadron) 2 mg PO DAILY [facility] Last Admin: 08/21/18 09:39 Dose: 2 mg Ferrous Sulfate (Feosol) 325 mg PO BID [facility] Last Admin: 08/21/18 18:14 Dose: Not Given Finasteride (Proscar) 5 mg PO DAILY [facility] Last Admin: 08/21/18 09:39 Dose: 5 mg Heparin Sodium (Porcine) (Heparin) 5,000 units SC Q12 [facility]; Protocol Home Med (Icosapent Ethyl [Vascepa]) 2 gm PO BID [facility] Last Admin: 08/21/18 18:14 Dose: Not Given Home Med (Patient's Own Medication) 1 unit PO DAILY [facility] Last Admin: 08/21/18 09:39 Dose: 1 unit Meropenem 500 mg/ Sodium (Chloride) 100 mls @ 100 mls/hr IVPB Q12@0500,1700 [facility]; Protocol Last Admin: 08/21/18 18:02 Dose: 100 mls/hr Sodium Bicarbonate 133.8 meq/ (Dextrose) 1,150 mls @ 70 mls/hr IV .[id number] [facility] Last Admin: 08/21/18 01:53 Dose: 70 mls/hr Insulin Human Regular (Humulin R) 0 units SC ACCU-CHECK [facility]; Protocol Last Admin: 08/21/18 18:14 Dose: Not Given Lorazepam (Ativan) 0.5 mg IVP Q6 PRN PRN Reason: Anxiety Metformin HCl (Glucophage) 500 mg PO BIDWM [facility] Last Admin: 08/20/18 08:59 Dose: 500 mg Metoprolol Succinate (Toprol Xl) 25 mg PO DAILY [facility] Morphine Sulfate (Morphine) 2 mg IVP Q4 PRN PRN Reason: Pain, moderate (4-7) Last Admin: 08/21/18 17:59 Dose: 2 mg Ondansetron HCl (Zofran Tab) 4 mg PO DAILY [facility] Last Admin: 08/21/18 09:39 Dose: 4 mg Oxycodone HCl (Oxycodone Immediate Release Tab) 5 mg PO Q6 PRN PRN Reason: Pain, moderate (4-7) Last Admin: 08/20/18 04:48 Dose: 5 mg Pantoprazole Sodium (Protonix Ec Tab) 40 mg PO DAILY [facility] Last Admin: 08/21/18 09:39 Dose: 40 mg Sitagliptin Phosphate (Januvia) 50 mg PO DAILY [facility] Last Admin: 08/21/18 09:39 Dose: 50 mg Sodium Polystyrene Sulfonate (Kayexalate) 30 gm PO Q4 [facility] Last Admin: 08/21/18 18:13 Dose: Not Given Tamsulosin HCl (Flomax) 0.4 mg PO DAILY [facility] Last Admin: 08/21/18 09:39 Dose: 0.4 mg - Labs Labs: 08/21/18 05:45 08/21/18 05:45 PT 12.8 Seconds (9.8-13.1) 08/17/18 16:00 INR 1.1 08/17/18 16:00 APTT 28.9 Seconds (25.6-37.1) 08/17/18 16:00
--- NOTE | 2018-08-21 20:26 | CP.PCM.PN ---
Subjective - Date & Time of Evaluation Date of Evaluation: 08/21/18 Time of Evaluation: 19:00 - Subjective Subjective: Has pain. Patient and family requesting outpatient immunotherapy trial. Objective - Vital Signs/Intake and Output Vital Signs (last 24 hours): Temp Pulse Resp BP Pulse Ox 97.4 F L 92 H 20 102/72 97 08/21/18 20:02 08/21/18 20:02 08/21/18 20:02 08/21/18 20:02 08/21/18 20:02 - Medications Medications: Current Medications Al Hydrox/Mg Hydrox/Simethicone (Maalox Plus 30 Ml) 30 ml PO Q6 PRN PRN Reason: Indigestion / Heartburn Last Admin: 08/18/18 15:09 Dose: 30 ml Aspirin (Ecotrin) 81 mg PO DAILY [facility] Last Admin: 08/21/18 09:39 Dose: 81 mg Atorvastatin Calcium (Lipitor) 20 mg PO DAILY [facility] Last Admin: 08/21/18 09:39 Dose: 20 mg Clopidogrel Bisulfate (Plavix) 75 mg PO DAILY [facility] Last Admin: 08/21/18 09:39 Dose: 75 mg Dexamethasone (Decadron) 2 mg PO DAILY [facility] Last Admin: 08/21/18 09:39 Dose: 2 mg Ferrous Sulfate (Feosol) 325 mg PO BID [facility] Last Admin: 08/21/18 18:14 Dose: Not Given Finasteride (Proscar) 5 mg PO DAILY [facility] Last Admin: 08/21/18 09:39 Dose: 5 mg Heparin Sodium (Porcine) (Heparin) 5,000 units SC Q12 [facility]; Protocol Home Med (Icosapent Ethyl [Vascepa]) 2 gm PO BID [facility] Last Admin: 08/21/18 18:14 Dose: Not Given Home Med (Patient's Own Medication) 1 unit PO DAILY [facility] Last Admin: 08/21/18 09:39 Dose: 1 unit Meropenem 500 mg/ Sodium (Chloride) 100 mls @ 100 mls/hr IVPB Q12@0500,1700 [facility]; Protocol Last Admin: 08/21/18 18:02 Dose: 100 mls/hr Sodium Bicarbonate 133.8 meq/ (Dextrose) 1,150 mls @ 70 mls/hr IV .[id number] [facility] Last Admin: 08/21/18 01:53 Dose: 70 mls/hr Insulin Human Regular (Humulin R) 0 units SC ACCU-CHECK [facility]; Protocol Last Admin: 08/21/18 18:14 Dose: Not Given Lorazepam (Ativan) 0.5 mg IVP Q6 PRN PRN Reason: Anxiety Metformin HCl (Glucophage) 500 mg PO BIDWM [facility] Last Admin: 08/20/18 08:59 Dose: 500 mg Metoprolol Succinate (Toprol Xl) 25 mg PO DAILY [facility] Morphine Sulfate (Morphine) 2 mg IVP Q4 PRN PRN Reason: Pain, moderate (4-7) Last Admin: 08/21/18 17:59 Dose: 2 mg Ondansetron HCl (Zofran Tab) 4 mg PO DAILY [facility] Last Admin: 08/21/18 09:39 Dose: 4 mg Oxycodone HCl (Oxycodone Immediate Release Tab) 5 mg PO Q6 PRN PRN Reason: Pain, moderate (4-7) Last Admin: 08/20/18 04:48 Dose: 5 mg Pantoprazole Sodium (Protonix Ec Tab) 40 mg PO DAILY [facility] Last Admin: 08/21/18 09:39 Dose: 40 mg Sitagliptin Phosphate (Januvia) 50 mg PO DAILY [facility] Last Admin: 08/21/18 09:39 Dose: 50 mg Sodium Polystyrene Sulfonate (Kayexalate) 30 gm PO Q4 [facility] Last Admin: 08/21/18 18:13 Dose: Not Given Tamsulosin HCl (Flomax) 0.4 mg PO DAILY [facility] Last Admin: 08/21/18 09:39 Dose: 0.4 mg - Labs Labs: 08/21/18 05:45 08/21/18 05:45 PT 12.8 Seconds (9.8-13.1) 08/17/18 16:00 INR 1.1 08/17/18 16:00 APTT 28.9 Seconds (25.6-37.1) 08/17/18 16:00 - Head Exam Head Exam: ATRAUMATIC - Eye Exam Eye Exam: Normal appearance - ENT Exam ENT Exam: Mucous Membranes Dry - Respiratory Exam Respiratory Exam: NORMAL BREATHING PATTERN - Cardiovascular Exam Cardiovascular Exam: +S1, +S2 - GI/Abdominal Exam GI & Abdominal Exam: Normal Bowel Sounds Assessment and Plan (1) Renal cell cancer Assessment & Plan: stage IV progressive disease by imaging discussed hospice vs. immunotherapy trial pt and family prefer a trial of outpatient immunotherapy Status: Acute (2) Anemia Assessment & Plan: chronic disease Status: Acute (3) Thrombocytopenia Assessment & Plan: improved Status: Acute
[2018-08-22] MEDS: WATER IV SCH
[2018-08-22] MEDS: SODIUM BICARBONATE IV SCH
[2018-08-22] MEDS: DEXTROSE 5% IV SCH
--- NOTE | 2018-08-22 01:39 | PN ---
DATE: 08/21/2018 FOLLOWUP RENAL CONSULTATION LOCATION: [facility], Telemetry, room 414, bed 1. REQUESTED BY: Dxa Brownlee MD. REASON FOR FOLLOWUP: Acute renal failure, chronic kidney disease, renal cell carcinoma, metastatic; hyperkalemia, metabolic acidosis for further evaluation. SUBJECTIVE: Mr. Zara John is a 78-year-old elderly male with history of metastatic liver cancer, hypertension, CKD 3, and also history of anxiety, asthma, hypertension, diabetes, was admitted with chief complaints of nausea, vomiting, weakness, and worsening renal function with abdominal distension. The patient is complaining of not feeling well with increasing abdominal distension. No chest pain. No palpitation. No fever. No cough. The patient appears in mild discomfort. PHYSICAL EXAMINATION: VITAL SIGNS: As follows: Blood pressure 108/75, pulse 86, respirations 18, temperature 97.4, saturations 95%. Height is 5 feet 10 inches. Weight is 170 pounds. GENERAL: Mr. Zara John is a 78-year-old elderly male, moderately built, moderately nourished, in mild distress, restless on the bed. HEENT: Pupils normally reactive to light and accommodation. Conjunctivae pink. Sclerae anicteric. Tongue is moist, and trachea is midline. LUNGS: Symmetric on both sides. Bilateral breath sounds present. Occasional basilar crackles present. CARDIOVASCULAR SYSTEM: [place]way at the fifth intercostal space and midclavicular line. S1 and S2 audible. No murmur or gallop. ABDOMEN: Distended and mild, diffuse tenderness and also dullness in both flanks. No guarding. No rigidity. CENTRAL NERVOUS SYSTEM: The patient is alert, awake, and oriented x2-3. Sensory and motor system is within normal limits. EXTREMITIES: No cyanosis, no clubbing, no edema. CURRENT MEDICATIONS: Include as follows: Ativan 0.5 mg IV every 6 hours, Decadron 2 mg p.o. daily, aspirin 81 mg daily, Feosol 325 mg p.o. b.i.d., Flomax 0.4 mg p.o. daily, metformin was discontinued and Heparin 5000 units subcutaneous every 12 hours, Januvia 50 mg p.o. daily, Kayexalate 30 g p.o. every 4 hours, Lipitor 20 mg p.o. daily, morphine 2 mg IV every 4 hours p.r.n., Plavix 75 mg p.o. daily, Proscar 5 mg p.o. daily, Protonix 40 mg p.o. daily, sodium bicarbonate drip at 70 mL/hour, metoprolol 25 mg p.o. daily, and Zofran 4 mg p.o. daily. I and O's are intake is 1520 and output is 600. LABORATORY DATA: Include as follows: As of 08/21/2018, WBC 4.1, hemoglobin 9.7, hematocrit is 29.1, and platelets are 118. Sodium 139, potassium 5.8, chloride 105, CO2 of 22, BUN 96, creatinine 4.6, glucose 120, calcium 8.4. Blood cultures x2 negative day 4 and urine culture is positive for E. coli, more than 100,000 colony forming units and ESBL positive. Resistant to ampicillin, ceftriaxone, Bactrim, cefazolin, ciprofloxacin, and cefepime. ASSESSMENT: In summary, Mr. Zara John is a 78-year-old elderly male with a history of hypertension, diabetes, arthritis, anxiety, asthma, chronic kidney disease 3, was admitted with worsening renal function, nausea, vomiting, abdominal distension, and increased BUN, creatinine, hyperkalemia, metabolic acidosis. 1. Acute renal failure on chronic kidney disease stage 3, though cannot rule out acute tubular necrosis. 2. Urinary tract infection with extended-spectrum beta-lactamase positive Escherichia coli. 3. Anemia. 4. Metastatic renal cell carcinoma with metastasis to the liver and lungs and also worsening intra-abdominal lymphadenopathy. 5. Metabolic acidosis secondary to renal failure. PLAN: Continue Kayexalate 30 g p.o. every 4 hours x2 doses and repeat BMP and also continue IV sodium bicarbonate drip. Continue to monitor I and O's and overall prognosis is very poor. Hemodialysis at this stage is exercise in futility. Discussed with the patient's [id number] regarding the patient's condition and poor prognosis. Consider hospice evaluation. Thank you for allowing me to participate in your patient's care. Hemodialysis at this time is an exercise futile. Dario Murphy MD
[2018-08-22] MEDS: Meropenem 500 MG in Sodium Chloride 0.9% 100 ML IVPB SCH ×2 (04:47→17:12)
[2018-08-22 06:17] LABS: BASO % 0.2 % (0.0-2.0); EOS % 0.1 % (0.0-4.0); HEMOGLOBIN 9.4 g/dL (12.0-18.0); LYMPH # 0.6 K/uL (1.0-4.3); MEAN CELL VOLUME 88.9 fl (80.0-94.0); MEAN CORPUSCULAR HEMOGLOBIN 29.2 pg (27.0-31.0); MEAN CORPUSCULAR HGB CONC 32.8 g/dL (33.0-37.0); MEAN PLATELET VOLUME 8.4 fl (7.2-11.7); MONO # 0.3 K/uL (0.0-0.8); MONO % 5.5 % (0.0-10.0); NEUT % 81.2 % (50.0-75.0); NRBC % 0.2 % (0.0-0.0); RBC 3.24 Mil/uL (4.40-5.90); RED CELL DISTRIBUTION WIDTH 33.1 % (11.5-14.5); WHITE BLOOD COUNT 4.9 K/uL (4.8-10.8)
[2018-08-22 06:46] LABS: CALCIUM 8.3 mg/dL (8.4-10.2)
[2018-08-22] MEDS ORDERED: Albuterol 0.083% Inhal Sol (2.5 mg/3 mL) UD INH ONE (07:37)
[2018-08-22] MEDS: Insulin Regular 100 units/ml SC SCH ×4 (07:37→23:15)
--- NOTE | 2018-08-22 07:50 | CP.PCM.PN ---
Subjective - Date & Time of Evaluation Date of Evaluation: 08/22/18 Time of Evaluation: 07:48 - Subjective Subjective: Delfina Carrasco, PGY-1, Cardiology Progress Note for Dr. Conley Patient was seen and evaluated at bedside this morning. Patient had no acute overnight events. Patient denies any complaints at this time including abdominal pain, chest pain, shortness of breath, nausea, left arm pain, jaw pain, diaphoresis, dizziness. Objective - Vital Signs/Intake and Output Vital Signs (last 24 hours): Temp Pulse Resp BP Pulse Ox 97.6 F 94 H 20 95/69 L 98 08/22/18 05:01 08/22/18 05:01 08/22/18 05:01 08/22/18 05:01 08/22/18 05:01 - Medications Medications: Current Medications Al Hydrox/Mg Hydrox/Simethicone (Maalox Plus 30 Ml) 30 ml PO Q6 PRN PRN Reason: Indigestion / Heartburn Last Admin: 08/18/18 15:09 Dose: 30 ml Aspirin (Ecotrin) 81 mg PO DAILY [facility] Last Admin: 08/21/18 09:39 Dose: 81 mg Atorvastatin Calcium (Lipitor) 20 mg PO DAILY [facility] Last Admin: 08/21/18 09:39 Dose: 20 mg Clopidogrel Bisulfate (Plavix) 75 mg PO DAILY [facility] Last Admin: 08/21/18 09:39 Dose: 75 mg Dexamethasone (Decadron) 2 mg PO DAILY [facility] Last Admin: 08/21/18 09:39 Dose: 2 mg Ferrous Sulfate (Feosol) 325 mg PO BID [facility] Last Admin: 08/21/18 18:14 Dose: Not Given Finasteride (Proscar) 5 mg PO DAILY [facility] Last Admin: 08/21/18 09:39 Dose: 5 mg Heparin Sodium (Porcine) (Heparin) 5,000 units SC Q12 [facility]; Protocol Last Admin: 08/21/18 20:57 Dose: 5,000 units Home Med (Icosapent Ethyl [Vascepa]) 2 gm PO BID [facility] Last Admin: 08/21/18 18:14 Dose: Not Given Home Med (Patient's Own Medication) 1 unit PO DAILY [facility] Last Admin: 08/21/18 09:39 Dose: 1 unit Meropenem 500 mg/ Sodium (Chloride) 100 mls @ 100 mls/hr IVPB Q12@0500,1700 [facility]; Protocol Last Admin: 08/22/18 04:47 Dose: 100 mls/hr Sodium Bicarbonate 133.8 meq/ (Dextrose) 1,150 mls @ 70 mls/hr IV .[id number] [facility] Last Admin: 08/22/18 00:00 Dose: 70 mls/hr Insulin Human Regular (Humulin R) 0 units SC ACCU-CHECK [facility]; Protocol Last Admin: 08/22/18 07:37 Dose: Not Given Lorazepam (Ativan) 0.5 mg IVP Q6 PRN PRN Reason: Anxiety Metformin HCl (Glucophage) 500 mg PO BIDWM [facility] Last Admin: 08/20/18 08:59 Dose: 500 mg Metoprolol Succinate (Toprol Xl) 25 mg PO DAILY [facility] Morphine Sulfate (Morphine) 2 mg IVP Q4 PRN PRN Reason: Pain, moderate (4-7) Last Admin: 08/22/18 01:12 Dose: 2 mg Ondansetron HCl (Zofran Tab) 4 mg PO DAILY [facility] Last Admin: 08/21/18 09:39 Dose: 4 mg Oxycodone HCl (Oxycodone Immediate Release Tab) 5 mg PO Q6 PRN PRN Reason: Pain, moderate (4-7) Last Admin: 08/20/18 04:48 Dose: 5 mg Pantoprazole Sodium (Protonix Ec Tab) 40 mg PO DAILY [facility] Last Admin: 08/21/18 09:39 Dose: 40 mg Sitagliptin Phosphate (Januvia) 50 mg PO DAILY [facility] Last Admin: 08/21/18 09:39 Dose: 50 mg Sodium Polystyrene Sulfonate (Kayexalate) 30 gm RC Q4 [facility] Tamsulosin HCl (Flomax) 0.4 mg PO DAILY [facility] Last Admin: 08/21/18 09:39 Dose: 0.4 mg - Labs Labs: 08/22/18 05:25 08/22/18 05:25 PT 12.8 Seconds (9.8-13.1) 08/17/18 16:00 INR 1.1 08/17/18 16:00 APTT 28.9 Seconds (25.6-37.1) 08/17/18 16:00 - Constitutional Appears: Well, Non-toxic, No Acute Distress - Head Exam Head Exam: ATRAUMATIC, NORMAL INSPECTION, NORMOCEPHALIC - Eye Exam Eye Exam: EOMI, PERRL - ENT Exam ENT Exam: Mucous Membranes Moist - Respiratory Exam Respiratory Exam: Clear to Ausculation Bilateral, NORMAL BREATHING PATTERN - Cardiovascular Exam Cardiovascular Exam: Tachycardia, REGULAR RHYTHM, +S1, +S2 - GI/Abdominal Exam GI & Abdominal Exam: Distended, Soft, Normal Bowel Sounds. absent: Tenderness - Extremities Exam Extremities Exam: Full ROM, Normal Capillary Refill, Normal Inspection - Neurological Exam Neurological Exam: Alert, Awake, CN II-XII Intact, Oriented x3 - Psychiatric Exam Additional comments: fatigued - Skin Skin Exam: Dry, Intact Assessment and Plan - Assessment and Plan (Free Text) Assessment: E. Coli UTI rule out sepsis Nonbloody, nonbilious vomiting Type II TX likely 2/2 to increased demand from sepsis Pulmonary and liver metastasis of renal cell carcinoma Hypertension Diabetes Mellitus Plan: E. Coli UTI rule out sepsis Nonbloody, nonbilious vomiting Type II TX likely 2/2 to increased demand from sepsis Pulmonary and liver metastasis of renal cell carcinoma Hypertension Diabetes Mellitus Abdominal CT: interval increase in pulmonary and hepatic metastatic disease. There is new areas of perinephric inflammatory change with increased ascites. Increased pericardial effusion and new right pleural effusion. Increased abdominal and retroperitoneal adenopathy CXR: multiple pulmonary nodules Echocardiogram: LVEF of 55-60%, grade I abnormal relaxation pattern, RVSP is 30 mmHg, mild TR, no pericardial effusion V/Q scan: shows low probability of PE EKG: NSR with LAFB with HR: 91 Troponinx2: 0.1650, 0.1430 HgbA1c: 5.7 from 06/2018 BNP: 535 BUN/Cr: elevated at 110/4.9 Hgb: 9.4 from 9.7 NBNB vomiting likely 2/2 to hepatic metastasis. NBNB vomitus has now resolved Follow up heme/onc recommendations regarding further workup and treatment of renal cell carcinoma with metastasis Elevated troponins are likely a combination of right heart strain from pulmonary metastasis, RAMILA vs. CKD likely from renal metastasis, and sepsis causing increased myocardial demand. Continue with antibiotics for treatment of UTI Will repeat BNP to reevaluate cardiac function Due to multiple comorbid conditions, will be conservative with therapy at this time and continue with medication including dual antiplatelet, beta nik, statin. Medications: aspirin 81 plavix 75 mg daily atorvastatin 20 mg daily metoprolol succinate 25 mg daily metformin 500 mg BID Junuvjoselin Vascepa 2 gm BID
[2018-08-22] MEDS: Pantoprazole 40 mg EC Tab PO SCH (08:54)
[2018-08-22] MEDS: Patient's Own Med (Icosapent Ethyl [Vascepa] 1 GM) PO SCH (08:55)
[2018-08-22] MEDS: SUTENT PO SCH (08:55)
[2018-08-22] MEDS ORDERED: Metoprolol Succinate 25 mg XL Tab PO SCH (09:00)
--- NOTE | 2018-08-22 11:14 | CP.PCM.PN ---
Subjective - Date & Time of Evaluation Date of Evaluation: 08/22/18 Time of Evaluation: 07:00 - Subjective Subjective: Pt seen and examined at the bedside. Reports abdominal discomfort that is alleviated with medication. at bedside, often seen pacing back and forth in room and has difficulty participating in conversations without losing focus. Noted to also have tangential thought process but is able to be redirected. Sister at bedside and actively participates in discussion. Informed them of patient's current medical state using laymans terms and poor response to treatment measures. Advised family to consider goals of care in light of poor prognosis. Both and sister state they will bring their family today for a discussion regarding this matter. [employer], Frisian, [id number] and [id number] used during this discussion. Objective - Vital Signs/Intake and Output Vital Signs (last 24 hours): Temp Pulse Resp BP Pulse Ox 97.6 F 94 H 20 95/69 L 98 08/22/18 05:01 08/22/18 05:01 08/22/18 05:01 08/22/18 05:01 08/22/18 05:01 - Medications Medications: Current Medications Al Hydrox/Mg Hydrox/Simethicone (Maalox Plus 30 Ml) 30 ml PO Q6 PRN PRN Reason: Indigestion / Heartburn Last Admin: 08/18/18 15:09 Dose: 30 ml Albuterol Sulfate (Albuterol 0.083% Inhal Nelda (2.5 Mg/3 Ml) Ud) 12.5 mg INH ONC E ONE Stop: 08/22/18 07:38 Aspirin (Ecotrin) 81 mg PO DAILY [facility] BEDS AT [facility] Last Admin: 08/21/18 09:39 Dose: 81 mg Atorvastatin Calcium (Lipitor) 20 mg PO DAILY [facility] 234 B[facility]S AT [facility] Last Admin: 08/21/18 09:39 Dose: 20 mg Clopidogrel Bisulfate (Plavix) 75 mg PO DAILY [facility] 234 B[facility]S AT [facility] Last Admin: 08/21/18 09:39 Dose: 75 mg Dexamethasone (Decadron) 2 mg PO DAILY [facility]S [facility] Last Admin: 08/21/18 09:39 Dose: 2 mg Ferrous Sulfate (Feosol) 325 mg PO BID [facility] 234 B[facility]S AT [facility] Last Admin: 08/21/18 18:14 Dose: Not Given Finasteride (Proscar) 5 mg PO DAILY [facility]S [facility] Last Admin: 08/21/18 09:39 Dose: 5 mg Heparin Sodium (Porcine) (Heparin) 5,000 units SC Q12 [facility]S [facility]; Protocol Last Admin: 08/21/18 20:57 Dose: 5,000 units Home Med (Icosapent Ethyl [Vascepa]) 2 gm PO BID [facility] B[facility]S [facility] Last Admin: 08/21/18 18:14 Dose: Not Given Home Med (Patient's Own Medication) 1 unit PO DAILY [facility]S [facility] Last Admin: 08/21/18 09:39 Dose: 1 unit Meropenem 500 mg/ Sodium (Chloride) 100 mls @ 100 mls/hr IVPB Q12@0500,1700 [facility]S [facility]; Protocol Last Admin: 08/22/18 04:47 Dose: 100 mls/hr Sodium Bicarbonate 133.8 meq/ (Dextrose) 1,150 mls @ 70 mls/hr IV .[id number] [facility] 234 B[facility]S [facility] Last Admin: 08/22/18 00:00 Dose: 70 mls/hr Insulin Human Regular (Humulin R) 0 units SC ACCU-CHECK [facility] 234 BEDS [facility]; Protocol Last Admin: 08/22/18 07:37 Dose: Not Given Lorazepam (Ativan) 0.5 mg IVP Q6 PRN PRN Reason: Anxiety Metformin HCl (Glucophage) 500 mg PO BIDWM [facility] 234 B[facility]S [facility] Last Admin: 08/20/18 08:59 Dose: 500 mg Metoprolol Succinate (Toprol Xl) 25 mg PO DAILY [facility] 234 [facility]S [facility] Morphine Sulfate (Morphine) 2 mg IVP Q4 PRN PRN Reason: Pain, moderate (4-7) Last Admin: 08/22/18 01:12 Dose: 2 mg Ondansetron HCl (Zofran Tab) 4 mg PO DAILY [facility]S [facility] Last Admin: 08/21/18 09:39 Dose: 4 mg Oxycodone HCl (Oxycodone Immediate Release Tab) 5 mg PO Q6 PRN PRN Reason: Pain, moderate (4-7) Last Admin: 08/20/18 04:48 Dose: 5 mg Pantoprazole Sodium (Protonix Ec Tab) 40 mg PO DAILY [facility] B[facility]S [facility] Last Admin: 08/21/18 09:39 Dose: 40 mg Sitagliptin Phosphate (Januvia) 50 mg PO DAILY [facility] 234 B[facility]S [facility] Last Admin: 08/21/18 09:39 Dose: 50 mg Sodium Polystyrene Sulfonate (Kayexalate) 30 gm RC Q4 [facility] 234 B[facility]S [facility] Tamsulosin HCl (Flomax) 0.4 mg PO DAILY [facility] 234 BEDS [facility] Last Admin: 08/21/18 09:39 Dose: 0.4 mg - Labs Labs: 08/22/18 05:25 08/22/18 05:25 PT 12.8 Seconds (9.8-13.1) 08/17/18 16:00 INR 1.1 08/17/18 16:00 APTT 28.9 Seconds (25.6-37.1) 08/17/18 16:00 - Constitutional Appears: No Acute Distress - Eye Exam Eye Exam: Normal appearance - ENT Exam ENT Exam: Mucous Membranes Dry - Respiratory Exam Respiratory Exam: Clear to Ausculation Bilateral. absent: Accessory Muscle Use, Rales, Wheezes - Cardiovascular Exam Cardiovascular Exam: REGULAR RHYTHM - GI/Abdominal Exam GI & Abdominal Exam: Distended, Soft, Normal Bowel Sounds. absent: Guarding, Rigid, Tenderness, Hernia, Organomegaly - Extremities Exam Extremities Exam: Normal Inspection - Neurological Exam Neurological Exam: Alert. absent: Oriented x3 - Psychiatric Exam Psychiatric exam: Flat Affect - Skin Skin Exam: Normal Color Assessment and Plan - Assessment and Plan (Free Text) Assessment: 78 y/o male with hx of Metastatic renal Ca and HTN addmited for abdominal pain and vomiting, found to have metastatic lesions in lung and liver, UTI and Acute renal failure. Poor prognosis. #Metastatic Ca #UTI #ARF #Troponemia #Constipation Consultations on board: ID, Nephrology, Cardiology, Palliative, Heme/Onc, Pain - Active goals of care discussions continuously being held between Palliative and family. is next of kin and has been refusing to direct care towards comfort measures despite pt's poor prognosis. She is agreeable to have a family discussion today with medical team and Palliative care to reconsider decision. - Acute renal failure with metabolic acidosis and hyperkalemia; Nephrology on b oard- C/W D51/2NS w/ Bicarb. Hyperkalemia treat as needed. HD is futile. - Monitor I/O, electrolytes, acid-base, and volume status. Avoid Nephrotoxic meds - Cardiology on board for troponemia; V/Q low prob for PE, likely strain for renal disease. - Meropenem for UTI (hx of ESBL E.Coli in past). Ucx ESBL + from 08/18. Day 5/7. Contact precautions in place. - Psych consult as per Palliative recommendation- recommendations appreciated - Pain management- consider titrating opiods or fentanyl patch - Bowel Prep and Enema for opiod-induced constipation - DVT ppx: Heparin 5000 SQ q12 - GI PPX: Protonix Discussed case with Dr. Brownlee
--- NOTE | 2018-08-22 11:47 | CP.PCM.PN ---
Subjective - Date & Time of Evaluation Date of Evaluation: 08/22/18 Time of Evaluation: 11:46 - Subjective Subjective: pt is seen and examined, follow up consult is dictated #[id number] if pt 's family agrees for temporary hd 1-3 tx only tx hyperkalemia medically over all prognosis is extremely poor Objective - Vital Signs/Intake and Output Vital Signs (last 24 hours): Temp Pulse Resp BP Pulse Ox 97.3 F L 92 H 18 95/69 L 97 08/22/18 08:27 08/22/18 08:27 08/22/18 08:27 08/22/18 08:27 08/22/18 08:27 - Medications Medications: Current Medications Al Hydrox/Mg Hydrox/Simethicone (Maalox Plus 30 Ml) 30 ml PO Q6 PRN PRN Reason: Indigestion / Heartburn Last Admin: 08/18/18 15:09 Dose: 30 ml Aspirin (Ecotrin) 81 mg PO DAILY [facility] Last Admin: 08/22/18 08:54 Dose: 81 mg Atorvastatin Calcium (Lipitor) 20 mg PO DAILY [facility] Last Admin: 08/22/18 08:55 Dose: 20 mg Clopidogrel Bisulfate (Plavix) 75 mg PO DAILY [facility] Last Admin: 08/22/18 08:55 Dose: 75 mg Dexamethasone (Decadron) 2 mg PO DAILY [facility] Last Admin: 08/21/18 09:39 Dose: 2 mg Ferrous Sulfate (Feosol) 325 mg PO BID [facility] Last Admin: 08/22/18 08:55 Dose: 325 mg Finasteride (Proscar) 5 mg PO DAILY [facility] Last Admin: 08/22/18 08:54 Dose: 5 mg Heparin Sodium (Porcine) (Heparin) 5,000 units SC Q12 [facility]; Protocol Last Admin: 08/22/18 08:55 Dose: 5,000 units Home Med (Icosapent Ethyl [Vascepa]) 2 gm PO BID [facility] Last Admin: 08/22/18 08:55 Dose: 2 gm Home Med (Patient's Own Medication) 1 unit PO DAILY [facility] Last Admin: 08/22/18 08:55 Dose: 1 unit Meropenem 500 mg/ Sodium (Chloride) 100 mls @ 100 mls/hr IVPB Q12@0500,1700 [facility]; Protocol Last Admin: 08/22/18 04:47 Dose: 100 mls/hr Sodium Bicarbonate 133.8 meq/ (Dextrose) 1,150 mls @ 70 mls/hr IV .[id number] [facility] Last Admin: 08/22/18 00:00 Dose: 70 mls/hr Insulin Human Regular (Humulin R) 0 units SC ACCU-CHECK [facility]; Protocol Last Admin: 08/22/18 07:37 Dose: Not Given Lorazepam (Ativan) 0.5 mg IVP Q6 PRN PRN Reason: Anxiety Metformin HCl (Glucophage) 500 mg PO BIDWM [facility] Last Admin: 08/20/18 08:59 Dose: 500 mg Metoprolol Succinate (Toprol Xl) 25 mg PO DAILY [facility] Morphine Sulfate (Morphine) 2 mg IVP Q4 PRN PRN Reason: Pain, moderate (4-7) Last Admin: 08/22/18 08:50 Dose: 2 mg Ondansetron HCl (Zofran Tab) 4 mg PO DAILY [facility] Last Admin: 08/22/18 08:57 Dose: 4 mg Oxycodone HCl (Oxycodone Immediate Release Tab) 5 mg PO Q6 PRN PRN Reason: Pain, moderate (4-7) Last Admin: 08/20/18 04:48 Dose: 5 mg Pantoprazole Sodium (Protonix Ec Tab) 40 mg PO DAILY [facility] Last Admin: 08/22/18 08:54 Dose: 40 mg Sitagliptin Phosphate (Januvia) 50 mg PO DAILY [facility] Last Admin: 08/22/18 08:54 Dose: 50 mg Tamsulosin HCl (Flomax) 0.4 mg PO DAILY [facility] Last Admin: 08/22/18 08:54 Dose: 0.4 mg - Labs Labs: 08/22/18 05:25 08/22/18 05:25 PT 12.8 Seconds (9.8-13.1) 08/17/18 16:00 INR 1.1 08/17/18 16:00 APTT 28.9 Seconds (25.6-37.1) 08/17/18 16:00
--- NOTE | 2018-08-22 13:21 | CP.PCM.PN ---
Subjective - Date & Time of Evaluation Date of Evaluation: 08/22/18 Time of Evaluation: 11:30 - Subjective Subjective: Examined patient in bed, Family meeting also held with patient's 3 sons. Objective - Vital Signs/Intake and Output Vital Signs (last 24 hours): Temp Pulse Resp BP Pulse Ox 97.3 F L 105 H 18 93/69 L 98 08/22/18 12:16 08/22/18 12:16 08/22/18 12:16 08/22/18 12:16 08/22/18 12:16 - Medications Medications: Current Medications Al Hydrox/Mg Hydrox/Simethicone (Maalox Plus 30 Ml) 30 ml PO Q6 PRN PRN Reason: Indigestion / Heartburn Last Admin: 08/18/18 15:09 Dose: 30 ml Aspirin (Ecotrin) 81 mg PO DAILY [facility] Last Admin: 08/22/18 08:54 Dose: 81 mg Atorvastatin Calcium (Lipitor) 20 mg PO DAILY [facility] Last Admin: 08/22/18 08:55 Dose: 20 mg Clopidogrel Bisulfate (Plavix) 75 mg PO DAILY [facility] Last Admin: 08/22/18 08:55 Dose: 75 mg Dexamethasone (Decadron) 2 mg PO DAILY [facility] Last Admin: 08/21/18 09:39 Dose: 2 mg Ferrous Sulfate (Feosol) 325 mg PO BID [facility] Last Admin: 08/22/18 08:55 Dose: 325 mg Finasteride (Proscar) 5 mg PO DAILY [facility] Last Admin: 08/22/18 08:54 Dose: 5 mg Heparin Sodium (Porcine) (Heparin) 5,000 units SC Q12 [facility]; Protocol Last Admin: 08/22/18 08:55 Dose: 5,000 units Home Med (Icosapent Ethyl [Vascepa]) 2 gm PO BID [facility] Last Admin: 08/22/18 08:55 Dose: 2 gm Home Med (Patient's Own Medication) 1 unit PO DAILY [facility] Last Admin: 08/22/18 08:55 Dose: 1 unit Meropenem 500 mg/ Sodium (Chloride) 100 mls @ 100 mls/hr IVPB Q12@0500,1700 [facility]; Protocol Last Admin: 08/22/18 04:47 Dose: 100 mls/hr Sodium Bicarbonate 133.8 meq/ (Dextrose) 1,150 mls @ 70 mls/hr IV .[id number] [facility] Last Admin: 08/22/18 00:00 Dose: 70 mls/hr Insulin Human Regular (Humulin R) 0 units SC ACCU-CHECK [facility]; Protocol Last Admin: 08/22/18 07:37 Dose: Not Given Lorazepam (Ativan) 0.5 mg IVP Q6 PRN PRN Reason: Anxiety Metformin HCl (Glucophage) 500 mg PO BIDWM [facility] Last Admin: 08/20/18 08:59 Dose: 500 mg Metoprolol Succinate (Toprol Xl) 25 mg PO DAILY [facility] Morphine Sulfate (Morphine) 2 mg IVP Q4 PRN PRN Reason: Pain, moderate (4-7) Last Admin: 08/22/18 08:50 Dose: 2 mg Ondansetron HCl (Zofran Tab) 4 mg PO DAILY [facility] Last Admin: 08/22/18 08:57 Dose: 4 mg Oxycodone HCl (Oxycodone Immediate Release Tab) 5 mg PO Q6 PRN PRN Reason: Pain, moderate (4-7) Last Admin: 08/20/18 04:48 Dose: 5 mg Pantoprazole Sodium (Protonix Ec Tab) 40 mg PO DAILY [facility] Last Admin: 08/22/18 08:54 Dose: 40 mg Sitagliptin Phosphate (Januvia) 50 mg PO DAILY [facility] Last Admin: 08/22/18 08:54 Dose: 50 mg Tamsulosin HCl (Flomax) 0.4 mg PO DAILY [facility] Last Admin: 08/22/18 08:54 Dose: 0.4 mg - Labs Labs: 08/22/18 05:25 08/22/18 05:25 PT 12.8 Seconds (9.8-13.1) 08/17/18 16:00 INR 1.1 08/17/18 16:00 APTT 28.9 Seconds (25.6-37.1) 08/17/18 16:00 - Constitutional Appears: In Acute Distress, Confused, Cachectic - Head Exam Head Exam: ATRAUMATIC, NORMAL INSPECTION, NORMOCEPHALIC - Eye Exam Eye Exam: Normal appearance - ENT Exam ENT Exam: Mucous Membranes Moist - Respiratory Exam Respiratory Exam: Decreased Breath Sounds Additional comments: On 2L NC - Cardiovascular Exam Cardiovascular Exam: Tachycardia - GI/Abdominal Exam GI & Abdominal Exam: Distended, Soft - Rectal Exam Rectal Exam: Deferred - Neurological Exam Neurological Exam: Altered, Awake - Psychiatric Exam Psychiatric exam: Depressed, Flat Affect - Skin Skin Exam: Dry, Pallor, Warm Assessment and Plan - Assessment and Plan (Free Text) Assessment: Palliative Care -patient appears weak and uncomfortable, as per nursing staff patient able to tolerate some of his breakfast today with no reports of vomiting. Goals of Care: Extensive discussion held today with patient's 3 sons. Although pt claim to be decision maker, family states that she may not be in the position to make an informed decision. The severity of the patient's condition and poor prognosis was explained. They verbalized understanding. At this moment, they would like to have a meeting with the patient's and the rest of their family members to make a decision on whether or not they want to continue full treatment. At this time they asked that full treatment continue until the family makes a decision. As per son, decision about goals of care will be made tomorrow. Code Status: FULL CODE, code status was discussed with patient's 3 sons. They verbalized understanding of what it means to be a full code. As with the Goals of Care, they would like a day to think about code status. Patient to remain full code for now Impression * Metastasis * RAMILA * loss of appetite * incontinence * decreased mobility * nausea and vomiting * pain * Needs Goals of Care clarification Suggestion * encourage PO intake as tolerated * Reposition q2h * max assist with ADLs * monitor for pain (PRN po and ivp meds ordered already) * will continue Goals of Care/Code status discussion with family Palliative care will remain on board as needed ext [id number] Time spent 1 hour
--- NOTE | 2018-08-23 01:00 | CP.PCM.PN ---
Subjective - Date & Time of Evaluation Date of Evaluation: 08/22/18 Time of Evaluation: 12:00 - Subjective Subjective: Feels weak. Objective - Vital Signs/Intake and Output Vital Signs (last 24 hours): Temp Pulse Resp BP Pulse Ox 97.9 F 103 H 18 106/70 95 08/23/18 00:22 08/23/18 00:22 08/23/18 00:22 08/23/18 00:22 08/23/18 00:22 - Medications Medications: Current Medications Al Hydrox/Mg Hydrox/Simethicone (Maalox Plus 30 Ml) 30 ml PO Q6 PRN PRN Reason: Indigestion / Heartburn Last Admin: 08/18/18 15:09 Dose: 30 ml Aspirin (Ecotrin) 81 mg PO DAILY [facility] Last Admin: 08/22/18 08:54 Dose: 81 mg Atorvastatin Calcium (Lipitor) 20 mg PO DAILY [facility] Last Admin: 08/22/18 08:55 Dose: 20 mg Clopidogrel Bisulfate (Plavix) 75 mg PO DAILY [facility] Last Admin: 08/22/18 08:55 Dose: 75 mg Dexamethasone (Decadron) 2 mg PO DAILY [facility] Last Admin: 08/21/18 09:39 Dose: 2 mg Ferrous Sulfate (Feosol) 325 mg PO BID [facility] Last Admin: 08/22/18 08:55 Dose: 325 mg Finasteride (Proscar) 5 mg PO DAILY [facility] Last Admin: 08/22/18 08:54 Dose: 5 mg Heparin Sodium (Porcine) (Heparin) 5,000 units SC Q12 [facility]; Protocol Last Admin: 08/22/18 21:20 Dose: Not Given Home Med (Icosapent Ethyl [Vascepa]) 2 gm PO BID [facility] Last Admin: 08/22/18 08:55 Dose: 2 gm Home Med (Patient's Own Medication) 1 unit PO DAILY [facility] Last Admin: 08/22/18 08:55 Dose: 1 unit Meropenem 500 mg/ Sodium (Chloride) 100 mls @ 100 mls/hr IVPB Q12@0500,1700 [facility]; Protocol Last Admin: 08/22/18 17:12 Dose: 100 mls/hr Sodium Bicarbonate 133.8 meq/ (Dextrose) 1,150 mls @ 70 mls/hr IV .[id number] [facility] Last Admin: 08/22/18 00:00 Dose: 70 mls/hr Insulin Human Regular (Humulin R) 0 units SC ACCU-CHECK [facility]; Protocol Last Admin: 08/22/18 23:15 Dose: Not Given Lorazepam (Ativan) 0.5 mg IVP Q6 PRN PRN Reason: Anxiety Metformin HCl (Glucophage) 500 mg PO BIDWM [facility] Last Admin: 08/20/18 08:59 Dose: 500 mg Metoprolol Succinate (Toprol Xl) 25 mg PO DAILY [facility] Morphine Sulfate (Morphine) 2 mg IVP Q4 PRN PRN Reason: Pain, moderate (4-7) Last Admin: 08/22/18 08:50 Dose: 2 mg Ondansetron HCl (Zofran Tab) 4 mg PO DAILY [facility] Last Admin: 08/22/18 08:57 Dose: 4 mg Oxycodone HCl (Oxycodone Immediate Release Tab) 5 mg PO Q6 PRN PRN Reason: Pain, moderate (4-7) Last Admin: 08/20/18 04:48 Dose: 5 mg Pantoprazole Sodium (Protonix Ec Tab) 40 mg PO DAILY [facility] Last Admin: 08/22/18 08:54 Dose: 40 mg Sitagliptin Phosphate (Januvia) 50 mg PO DAILY [facility] Last Admin: 08/22/18 08:54 Dose: 50 mg Tamsulosin HCl (Flomax) 0.4 mg PO DAILY [facility] Last Admin: 08/22/18 08:54 Dose: 0.4 mg - Labs Labs: 08/22/18 05:25 08/22/18 05:25 PT 12.8 Seconds (9.8-13.1) 08/17/18 16:00 INR 1.1 08/17/18 16:00 APTT 28.9 Seconds (25.6-37.1) 08/17/18 16:00 - Head Exam Head Exam: ATRAUMATIC - Eye Exam Eye Exam: Normal appearance - ENT Exam ENT Exam: Mucous Membranes Dry - Respiratory Exam Respiratory Exam: NORMAL BREATHING PATTERN - Cardiovascular Exam Cardiovascular Exam: +S1, +S2 - GI/Abdominal Exam GI & Abdominal Exam: Normal Bowel Sounds Assessment and Plan (1) Renal cell cancer Assessment & Plan: stage IV progressive disease by imaging discussed hospice vs. immunotherapy trial pt and family prefer a trial of outpatient immunotherapy Status: Acute (2) Anemia Assessment & Plan: chronic disease Status: Acute (3) Thrombocytopenia Assessment & Plan: mild improving Status: Acute
--- NOTE | 2018-08-23 02:17 | PN ---
DATE: 08/22/2018 FOLLOWUP RENAL CONSULTATION LOCATION: [facility] in telemetry room 414, bed 1. REQUESTED BY: Dax Brownlee MD REASON FOR RENAL CONSULTATION: Acute renal failure, chronic kidney disease, metastatic renal cell carcinoma. SUBJECTIVE: Mr. Zara John is a 78-year-old elderly male with a past medical history significant for hypertension, diabetes, chronic kidney disease stage 3, anxiety, asthma, metastatic renal cell carcinoma with mets to the lungs, liver, and intraabdominal lymphadenopathy who was recently diagnosed in June. Now, the patient admitted with chief complaints of nausea, vomiting, weakness, and worsening renal function on admission with BUN and creatinine of 66 and 3, and hyperkalemia. Now, renal function is deteriorating since admission with abdominal distention. The patient is not in distress, appears weak and very restless on the bed. Denies any chest pain, palpitation. PHYSICAL EXAMINATION: VITAL SIGNS: This morning blood pressure 93/69, pulse 105, respirations 18, temperature 97.3, and saturation 98%. Height 5 feet 10 inches. Weight is 170 pounds. GENERAL: Mr. Zara John is a 78-year-old elderly male with abdominal distention, not in distress and slightly restless on the bed. HEENT: Pupils normally reactive to light and accommodation. Conjunctivae pink. Sclerae slightly icteric. Tongue is dry and trachea is midline. LUNGS: Symmetric on both sides. Bilateral breath sounds present. Occasional basal crackles present. CARDIOVASCULAR SYSTEM: [place] at the fifth intercostal space and midclavicular line. S1, S2 audible. No murmur. No gallop. ABDOMEN: Markedly distended, dullness in both flanks, and bowel sounds present. No guarding. No rigidity. CENTRAL NERVOUS SYSTEM: The patient is awake, following simple commands. EXTREMITIES: No cyanosis. No clubbing. No edema. CURRENT MEDICATIONS: Include as follows: Ativan 0.5 mg IV every 6 hours p.r.n., aspirin 81 mg daily, Feosol 325 mg p.o. b.i.d., Flomax 0.4 mg p.o. daily, subcutaneous heparin 5000 every 12 hours, Januvia 50 mg p.o. daily, Lipitor 20 mg at bedtime, meropenem 500 mg every 12 hours, morphine sulfate 2 mg IV push every 4 hours p.r.n., oxycodone 5 mg p.o. every 6 hours p.r.n., Proscar 5 mg p.o. daily, Plavix 75 mg daily, IV fluid sodium bicarbonate drip at 70 mL per hour, metoprolol on hold, and Zofran 4 mg p.o. daily. CURRENT LABORATORY DATA: Include as follows: As of 08/22/2018; WBC 4.9, hemoglobin 9.4, hematocrit 28.8, platelets 120. Sodium 136, potassium 5.8, chloride 103, CO2 26, BUN is 110, creatinine 4.9, glucose is 121, calcium 8.3, and proBNP is 872. Accu-Cheks 122 and 153. Urine culture as of 08/17/2018, positive for E. coli, ESBL positive. ASSESSMENT AND PLAN: In summary, Mr. Zara John is a 78-year-old elderly male with history of hypertension, diabetes, anxiety, asthma, chronic kidney disease 3 with metastatic renal cell carcinoma with metastasis to liver, lungs, and also intraabdominal lymphadenopathy with abdominal distention, worsening renal function, off metformin and lisinopril, with hyperkalemia. 1. Acute renal failure on chronic kidney disease stage 3, most likely secondary to acute tubular necrosis secondary to multifactorial, decreased oral intake, recent vomitings and medication, metformin and angiotensin-converting enzyme inhibitors, which were discontinued. 2. Hyperkalemia, secondary to renal failure. 3. Metastatic renal cell carcinoma with metastasis to the lungs, liver, and intraabdominal lymphadenopathy. Overall, prognosis is very poor and hemodialysis at this time is an exercise in futility. Palliative care is on the board and discussing with the patient's family regarding the treatment goals and options. Also, the patient is full code at this time as per the patient's family wish. Discussed with the patient's son at bedside and if the family agrees with dialysis, we will consider temporary dialysis to cut hyperkalemia and also explained to the patient's son he may not tolerate dialysis and it could be an exercise in futility. The family will think about renal replacement therapy. Overall prognosis very poor. Continue treatment for hyperkalemia with Kayexalate 30 g p.o. x1, if the patient can take it by mouth; otherwise, Kayexalate 60 g by enema. Dario Murphy MD
[2018-08-23] MEDS: DEXTROSE 5% IV SCH (02:22)
[2018-08-23] MEDS: WATER IV SCH (02:22)
[2018-08-23] MEDS: SODIUM BICARBONATE IV SCH (02:22)
[2018-08-23 05:56] LABS: HEMOGLOBIN 10.1 g/dL (12.0-18.0); MEAN CELL VOLUME 87.6 fl (80.0-94.0); MEAN CORPUSCULAR HEMOGLOBIN 29.6 pg (27.0-31.0); MEAN CORPUSCULAR HGB CONC 33.8 g/dL (33.0-37.0); RBC 3.41 Mil/uL (4.40-5.90); RED CELL DISTRIBUTION WIDTH 33.8 % (11.5-14.5); WHITE BLOOD COUNT 5.2 K/uL (4.8-10.8)
[2018-08-23 06:15] LABS: ALB/GLOB RATIO 0.8 (1.0-2.1); ALBUMIN 2.8 g/dL (3.5-5.0)
[2018-08-23] MEDS: Meropenem 500 MG in Sodium Chloride 0.9% 100 ML IVPB SCH ×3 (06:27→17:52)
--- NOTE | 2018-08-23 07:50 | CP.PCM.PN ---
<Jonel Howe - Last Filed: 08/23/18 07:45> Subjective - Date & Time of Evaluation Date of Evaluation: 08/23/18 Time of Evaluation: 08:00 - Subjective Subjective: Pt seen at bedside this am with Dr. Brownlee. Appears mildy uncomfortable. States he wants to go home. Oriented to name only. Objective - Vital Signs/Intake and Output Vital Signs (last 24 hours): Temp Pulse Resp BP Pulse Ox 97.5 F L 112 H 16 111/80 93 L 08/23/18 05:29 08/23/18 05:29 08/23/18 05:29 08/23/18 05:29 08/23/18 05:29 - Medications Medications: Current Medications Al Hydrox/Mg Hydrox/Simethicone (Maalox Plus 30 Ml) 30 ml PO Q6 PRN PRN Reason: Indigestion / Heartburn Last Admin: 08/18/18 15:09 Dose: 30 ml Aspirin (Ecotrin) 81 mg PO DAILY [facility] Last Admin: 08/22/18 08:54 Dose: 81 mg Atorvastatin Calcium (Lipitor) 20 mg PO DAILY [facility] Last Admin: 08/22/18 08:55 Dose: 20 mg Clopidogrel Bisulfate (Plavix) 75 mg PO DAILY [facility] Last Admin: 08/22/18 08:55 Dose: 75 mg Dexamethasone (Decadron) 2 mg PO DAILY [facility] Last Admin: 08/21/18 09:39 Dose: 2 mg Ferrous Sulfate (Feosol) 325 mg PO BID [facility] Last Admin: 08/22/18 08:55 Dose: 325 mg Finasteride (Proscar) 5 mg PO DAILY [facility] Last Admin: 08/22/18 08:54 Dose: 5 mg Heparin Sodium (Porcine) (Heparin) 5,000 units SC Q12 [facility]; Protocol Last Admin: 08/22/18 21:20 Dose: Not Given Home Med (Icosapent Ethyl [Vascepa]) 2 gm PO BID [facility] Last Admin: 08/22/18 08:55 Dose: 2 gm Home Med (Patient's Own Medication) 1 unit PO DAILY [facility] Last Admin: 08/22/18 08:55 Dose: 1 unit Meropenem 500 mg/ Sodium (Chloride) 100 mls @ 100 mls/hr IVPB Q12@0500,1700 [facility]; Protocol Last Admin: 08/23/18 06:27 Dose: 100 mls/hr Sodium Bicarbonate 133.8 meq/ (Dextrose) 1,150 mls @ 70 mls/hr IV .[id number] [facility] Last Admin: 08/23/18 02:22 Dose: 70 mls/hr Insulin Human Regular (Humulin R) 0 units SC ACCU-CHECK [facility]; Protocol Last Admin: 08/22/18 23:15 Dose: Not Given Lorazepam (Ativan) 0.5 mg IVP Q6 PRN PRN Reason: Anxiety Metformin HCl (Glucophage) 500 mg PO BIDWM [facility] Last Admin: 08/20/18 08:59 Dose: 500 mg Metoprolol Succinate (Toprol Xl) 25 mg PO DAILY [facility] Morphine Sulfate (Morphine) 2 mg IVP Q4 PRN PRN Reason: Pain, moderate (4-7) Last Admin: 08/22/18 08:50 Dose: 2 mg Ondansetron HCl (Zofran Tab) 4 mg PO DAILY [facility] Last Admin: 08/22/18 08:57 Dose: 4 mg Oxycodone HCl (Oxycodone Immediate Release Tab) 5 mg PO Q6 PRN PRN Reason: Pain, moderate (4-7) Last Admin: 08/20/18 04:48 Dose: 5 mg Pantoprazole Sodium (Protonix Ec Tab) 40 mg PO DAILY [facility] Last Admin: 08/22/18 08:54 Dose: 40 mg Sitagliptin Phosphate (Januvia) 50 mg PO DAILY [facility] Last Admin: 08/22/18 08:54 Dose: 50 mg Tamsulosin HCl (Flomax) 0.4 mg PO DAILY [facility] Last Admin: 08/22/18 08:54 Dose: 0.4 mg - Labs Labs: 08/23/18 05:20 08/23/18 05:20 PT 12.8 Seconds (9.8-13.1) 08/17/18 16:00 INR 1.1 08/17/18 16:00 APTT 28.9 Seconds (25.6-37.1) 08/17/18 16:00 - Constitutional Appears: No Acute Distress, Chronically Ill - Head Exam Head Exam: NORMAL INSPECTION - Eye Exam Eye Exam: Normal appearance - ENT Exam ENT Exam: Mucous Membranes Moist - Respiratory Exam Respiratory Exam: Clear to Ausculation Bilateral. absent: Rales, Wheezes - Cardiovascular Exam Cardiovascular Exam: REGULAR RHYTHM - GI/Abdominal Exam GI & Abdominal Exam: Distended, Soft, Normal Bowel Sounds. absent: Guarding, Rigid, Tenderness - Extremities Exam Extremities Exam: Normal Inspection - Neurological Exam Neurological Exam: Alert, Awake. absent: Oriented x3 - Psychiatric Exam Psychiatric exam: Flat Affect - Skin Skin Exam: Normal Color Assessment and Plan - Assessment and Plan (Free Text) Assessment: 78 y/o male with hx of Metastatic renal Ca and HTN addmited for abdominal pain and vomiting, found to have metastatic lesions in lung and liver, UTI and Acute renal failure. Overall poor prognosis. Full code as per family wishes. Family will make decision today regarding goals of care. #Metastatic Ca #UTI #ARF #Troponemia #Constipation Consultations on board: ID, Nephrology, Cardiology, Palliative, Heme/Onc, Pain - Active goals of care discussions continuously being held between Palliative and family. W - Acute renal failure with hyperkalemia; Nephrology on board- C/W D51/2NS w/ Bicarb. Possible HD if family agrees as per nephrology. - Monitor I/O, electrolytes, acid-base, and volume status. Avoid Nephrotoxic meds - Cardiology on board for troponemia; Not cardiac, V/Q low prob for PE, likely strain for renal disease. - Meropenem for UTI (hx of ESBL E.Coli in past). Ucx ESBL + from 08/18. Day 6/. Contact precautions in place. - Psych consult as per Palliative recommendation- recommendations appreciated - Pain management- consider titrating opiods or fentanyl patch - Bowel Prep and Enema for opiod-induced constipation - DVT ppx: Heparin 5000 SQ q12 - GI PPX: Protonix Discussed case with Dr. Brownlee <Dax Brownlee - Last Filed: 08/26/18 10:18> Objective - Vital Signs/Intake and Output Vital Signs (last 24 hours): Temp Pulse Resp BP Pulse Ox 97.1 F L 98 H 18 92/58 L 95 08/25/18 16:34 08/25/18 16:34 08/25/18 16:34 08/25/18 16:34 08/25/18 16:34 Intake and Output: 08/25/18 08/26/18 23:59 11:59 Output Total 100 Balance -100 - Labs Labs: 08/24/18 04:30 08/24/18 04:30 PT 12.8 Seconds (9.8-13.1) 08/17/18 16:00 INR 1.1 08/17/18 16:00 APTT 28.9 Seconds (25.6-37.1) 08/17/18 16:00 Assessment and Plan - Assessment and Plan (Free Text) Assessment: Patient was personally seen and examined by me in rounds with residents. Available labs and diagnostic data reviewed. Case, Patient's condition and management plan discussed with residents in rounds. Agree with resident's progress note.
[2018-08-23] MEDS: Insulin Regular 100 units/ml SC SCH ×4 (08:11→22:19)
[2018-08-23] MEDS: Patient's Own Med (Icosapent Ethyl [Vascepa] 1 GM) PO SCH ×2 (09:06→17:50)
[2018-08-23] MEDS: SUTENT PO SCH (09:21)
--- NOTE | 2018-08-23 12:27 | RAD ---
Date of service: 08/23/2018 HISTORY: n/v r/o ileus obstruction COMPARISON: None available. FINDINGS: BOWEL: Normal. No obstruction. No free air. BONES: Normal. OTHER FINDINGS: None. IMPRESSION: No significant or acute findings to account for/ related to the clinical presentation. Limitations of the current examination: Single-view non erect study. Therefore assessment for free air is limited.
--- NOTE | 2018-08-23 12:33 | CP.PCM.PN ---
Subjective - Date & Time of Evaluation Date of Evaluation: 08/23/18 Time of Evaluation: 12:30 - Subjective Subjective: Delfina Carrasco, PGY-1, Cardiology Progress Note for Dr. Conley Patient was seen and evaluated at bedside this morning. Patient had no acute overnight events. Patient denies any complaints at this time including abdominal pain, chest pain, shortness of breath, nausea, left arm pain, jaw pain, diaphoresis, dizziness. Objective - Vital Signs/Intake and Output Vital Signs (last 24 hours): Temp Pulse Resp BP Pulse Ox 96.9 F L 105 H 20 90/63 L 93 L 08/23/18 08:39 08/23/18 08:39 08/23/18 08:39 08/23/18 08:39 08/23/18 08:39 - Medications Medications: Current Medications Al Hydrox/Mg Hydrox/Simethicone (Maalox Plus 30 Ml) 30 ml PO Q6 PRN PRN Reason: Indigestion / Heartburn Last Admin: 08/18/18 15:09 Dose: 30 ml Aspirin (Ecotrin) 81 mg PO DAILY [facility] Last Admin: 08/22/18 08:54 Dose: 81 mg Atorvastatin Calcium (Lipitor) 20 mg PO DAILY [facility] Last Admin: 08/22/18 08:55 Dose: 20 mg Clopidogrel Bisulfate (Plavix) 75 mg PO DAILY [facility] Last Admin: 08/22/18 08:55 Dose: 75 mg Dexamethasone (Decadron) 2 mg PO DAILY [facility] Last Admin: 08/21/18 09:39 Dose: 2 mg Ferrous Sulfate (Feosol) 325 mg PO BID [facility] Last Admin: 08/22/18 08:55 Dose: 325 mg Finasteride (Proscar) 5 mg PO DAILY [facility] Last Admin: 08/22/18 08:54 Dose: 5 mg Heparin Sodium (Porcine) (Heparin) 5,000 units SC Q12 [facility]; Protocol Last Admin: 08/22/18 21:20 Dose: Not Given Home Med (Icosapent Ethyl [Vascepa]) 2 gm PO BID [facility] Last Admin: 08/22/18 08:55 Dose: 2 gm Home Med (Patient's Own Medication) 1 unit PO DAILY [facility] Last Admin: 08/22/18 08:55 Dose: 1 unit Meropenem 500 mg/ Sodium (Chloride) 100 mls @ 100 mls/hr IVPB Q12@0500,1700 [facility]; Protocol Last Admin: 08/23/18 06:27 Dose: 100 mls/hr Sodium Bicarbonate 133.8 meq/ (Dextrose) 1,150 mls @ 70 mls/hr IV .[id number] [facility] Last Admin: 08/23/18 02:22 Dose: 70 mls/hr Insulin Human Regular (Humulin R) 0 units SC ACCU-CHECK [facility]; Protocol Last Admin: 08/22/18 23:15 Dose: Not Given Lorazepam (Ativan) 0.5 mg IVP Q6 PRN PRN Reason: Anxiety Last Admin: 08/23/18 12:05 Dose: 0.5 mg Metformin HCl (Glucophage) 500 mg PO BIDWM [facility] Last Admin: 08/20/18 08:59 Dose: 500 mg Metoprolol Succinate (Toprol Xl) 25 mg PO DAILY [facility] Morphine Sulfate (Morphine) 2 mg IVP Q4 PRN PRN Reason: Pain, moderate (4-7) Last Admin: 08/23/18 12:04 Dose: 2 mg Ondansetron HCl (Zofran Inj) 4 mg IVP Q4 PRN PRN Reason: Nausea/Vomiting Oxycodone HCl (Oxycodone Immediate Release Tab) 5 mg PO Q6 PRN PRN Reason: Pain, moderate (4-7) Last Admin: 08/20/18 04:48 Dose: 5 mg Pantoprazole Sodium (Protonix Inj) 40 mg IVP DAILY [facility] Sitagliptin Phosphate (Januvia) 50 mg PO DAILY [facility] Last Admin: 08/22/18 08:54 Dose: 50 mg Tamsulosin HCl (Flomax) 0.4 mg PO DAILY [facility] Last Admin: 08/22/18 08:54 Dose: 0.4 mg - Labs Labs: 08/23/18 05:20 08/23/18 05:20 PT 12.8 Seconds (9.8-13.1) 08/17/18 16:00 INR 1.1 08/17/18 16:00 APTT 28.9 Seconds (25.6-37.1) 08/17/18 16:00 - Constitutional Appears: Well, Non-toxic, No Acute Distress - Head Exam Head Exam: ATRAUMATIC, NORMAL INSPECTION, NORMOCEPHALIC - Eye Exam Eye Exam: EOMI, PERRL - ENT Exam ENT Exam: Mucous Membranes Moist - Respiratory Exam Respiratory Exam: Clear to Ausculation Bilateral, NORMAL BREATHING PATTERN - Cardiovascular Exam Cardiovascular Exam: Tachycardia, REGULAR RHYTHM, +S1, +S2 - GI/Abdominal Exam GI & Abdominal Exam: Distended, Soft, Normal Bowel Sounds. absent: Tenderness - Extremities Exam Extremities Exam: Full ROM, Normal Capillary Refill, Normal Inspection - Neurological Exam Neurological Exam: Alert, Awake, CN II-XII Intact, Oriented x3 - Psychiatric Exam Additional comments: fatigued - Skin Skin Exam: Dry, Intact Assessment and Plan - Assessment and Plan (Free Text) Assessment: E. Coli UTI rule out sepsis Nonbloody, nonbilious vomiting Type II VT likely 2/2 to increased demand from sepsis Pulmonary and liver metastasis of renal cell carcinoma Hypertension Diabetes Mellitus Plan: E. Coli UTI rule out sepsis Nonbloody, nonbilious vomiting Type II VT likely 2/2 to increased demand from sepsis Pulmonary and liver metastasis of renal cell carcinoma Hypertension Diabetes Mellitus Abdominal CT: interval increase in pulmonary and hepatic metastatic disease. There is new areas of perinephric inflammatory change with increased ascites. Increased pericardial effusion and new right pleural effusion. Increased abdominal and retroperitoneal adenopathy CXR: multiple pulmonary nodules Echocardiogram: LVEF of 55-60%, grade I abnormal relaxation pattern, RVSP is 30 mmHg, mild TR, no pericardial effusion V/Q scan: shows low probability of PE EKG: NSR with LAFB with HR: 91 Troponinx2: 0.1650, 0.1430 HgbA1c: 5.7 from 06/2018 BNP: 872 from 535 BUN/Cr: elevated at 118/5 Hgb: 10.1 from 9.4 NBNB vomiting likely 2/2 to hepatic metastasis. NBNB vomitus has now resolved Follow up heme/onc recommendations regarding further workup and treatment of renal cell carcinoma with metastasis Elevated troponins are likely a combination of right heart strain from pulmonary metastasis, RAMILA vs. CKD likely from renal metastasis, and sepsis causing incre ased myocardial demand. Continue with antibiotics for treatment of UTI Due to multiple comorbid conditions, will be conservative with therapy at this time and continue with medication including dual antiplatelet, beta nik, statin. Medications: aspirin 81 plavix 75 mg daily atorvastatin 20 mg daily metoprolol succinate 25 mg daily metformin 500 mg BID Januvia Vascepa 2 gm BID D5W with NaHCO3 at 70 cc/hr
--- NOTE | 2018-08-23 13:31 | CP.PCM.PN ---
Subjective - Date & Time of Evaluation Date of Evaluation: 08/23/18 Time of Evaluation: 13:00 - Subjective Subjective: seen and examined patient in bed. Patient seems more comfortable than yesterday. Currently sleeping with 2L NC. Objective - Vital Signs/Intake and Output Vital Signs (last 24 hours): Temp Pulse Resp BP Pulse Ox 96.9 F L 96 H 18 100/72 95 08/23/18 12:46 08/23/18 12:46 08/23/18 12:46 08/23/18 12:46 08/23/18 12:46 - Medications Medications: Current Medications Al Hydrox/Mg Hydrox/Simethicone (Maalox Plus 30 Ml) 30 ml PO Q6 PRN PRN Reason: Indigestion / Heartburn Last Admin: 08/18/18 15:09 Dose: 30 ml Aspirin (Ecotrin) 81 mg PO DAILY [facility] Last Admin: 08/23/18 09:04 Dose: Not Given Atorvastatin Calcium (Lipitor) 20 mg PO DAILY [facility] Last Admin: 08/23/18 09:13 Dose: Not Given Clopidogrel Bisulfate (Plavix) 75 mg PO DAILY [facility] Last Admin: 08/23/18 10:20 Dose: Not Given Dexamethasone (Decadron) 2 mg PO DAILY [facility] Last Admin: 08/21/18 09:39 Dose: 2 mg Ferrous Sulfate (Feosol) 325 mg PO BID [facility] Last Admin: 08/23/18 09:05 Dose: Not Given Finasteride (Proscar) 5 mg PO DAILY [facility] Last Admin: 08/23/18 10:20 Dose: Not Given Heparin Sodium (Porcine) (Heparin) 5,000 units SC Q12 [facility]; Protocol Last Admin: 08/23/18 09:05 Dose: Not Given Home Med (Icosapent Ethyl [Vascepa]) 2 gm PO BID [facility] Last Admin: 08/23/18 09:06 Dose: Not Given Home Med (Patient's Own Medication) 1 unit PO DAILY [facility] Last Admin: 08/23/18 09:21 Dose: Not Given Meropenem 500 mg/ Sodium (Chloride) 100 mls @ 100 mls/hr IVPB Q12@0500,1700 [facility]; Protocol Last Admin: 08/23/18 06:27 Dose: 100 mls/hr Sodium Bicarbonate 133.8 meq/ (Dextrose) 1,150 mls @ 70 mls/hr IV .[id number] [facility] Last Admin: 08/23/18 02:22 Dose: 70 mls/hr Insulin Human Regular (Humulin R) 0 units SC ACCU-CHECK [facility]; Protocol Last Admin: 08/23/18 12:11 Dose: Not Given Lorazepam (Ativan) 0.5 mg IVP Q6 PRN PRN Reason: Anxiety Last Admin: 08/23/18 12:05 Dose: 0.5 mg Metformin HCl (Glucophage) 500 mg PO BIDWM [facility] Last Admin: 08/20/18 08:59 Dose: 500 mg Metoprolol Succinate (Toprol Xl) 25 mg PO DAILY [facility] Morphine Sulfate (Morphine) 2 mg IVP Q4 PRN PRN Reason: Pain, moderate (4-7) Last Admin: 08/23/18 12:04 Dose: 2 mg Ondansetron HCl (Zofran Inj) 4 mg IVP Q4 PRN PRN Reason: Nausea/Vomiting Oxycodone HCl (Oxycodone Immediate Release Tab) 5 mg PO Q6 PRN PRN Reason: Pain, moderate (4-7) Last Admin: 08/20/18 04:48 Dose: 5 mg Pantoprazole Sodium (Protonix Inj) 40 mg IVP DAILY [facility] Sitagliptin Phosphate (Januvia) 50 mg PO DAILY [facility] Last Admin: 08/23/18 09:12 Dose: Not Given Tamsulosin HCl (Flomax) 0.4 mg PO DAILY [facility] Last Admin: 08/23/18 09:05 Dose: Not Given - Labs Labs: 08/23/18 05:20 08/23/18 05:20 PT 12.8 Seconds (9.8-13.1) 08/17/18 16:00 INR 1.1 08/17/18 16:00 APTT 28.9 Seconds (25.6-37.1) 08/17/18 16:00 - Constitutional Appears: No Acute Distress, Chronically Ill - Head Exam Head Exam: ATRAUMATIC, NORMAL INSPECTION, NORMOCEPHALIC - Eye Exam Eye Exam: Normal appearance - ENT Exam ENT Exam: Mucous Membranes Moist - Respiratory Exam Respiratory Exam: Decreased Breath Sounds Additional comments: O2 via 2L NC - Cardiovascular Exam Cardiovascular Exam: REGULAR RHYTHM - GI/Abdominal Exam GI & Abdominal Exam: Distended, Normal Bowel Sounds - Neurological Exam Neurological Exam: Alert - Psychiatric Exam Psychiatric exam: Flat Affect - Skin Skin Exam: Dry, Pallor, Warm Assessment and Plan - Assessment and Plan (Free Text) Assessment: Palliative Care -patient seems more comfortable today, not in acute distress -Per nursing staff, patient had an episode of vomiting this morning - resting in bed on 2L NC. -no complaints of pain at this time - at bedside Goals of Care: Follow up phone call was made to family to see if decisions were made regarding Goals of Care. As per yesterday's meeting,Family(patient's and 3 sons) verbalized understanding of severity of patient's illness and poor prognosis. Family stated that they would let the medical team know their decision on tx today. Message left with Lupe (emergency contact) to have family members call Nurses station or Palliative Care. As of now patient still to receive FULL TREATMENT Code Status: FULL CODE (family will update if they have made a decision to change code status) Impression * Metastasis * Acute Renal Failure * Loss of appetite * Decreased Mobility * Pain * Nausea * Need decision on Goals of Care Suggestion * Encourage PO feeds as tolerated * Max assist with ADLs * Reposition q2h * Frequent rounding for pain( PRN po and ivp pain medication ordered) * IVP zofran PRN * Will follow up with family for patient Goals of Treatment and code status Palliative Care will remain on board as needed and can be reached at ext [phone] Time spent with patient 40 min
--- NOTE | 2018-08-23 14:27 | CP.PCM.PN ---
Subjective - Date & Time of Evaluation Date of Evaluation: 08/23/18 Time of Evaluation: 09:00 - Subjective Subjective: weak lethargic IV rx renewed Objective - Vital Signs/Intake and Output Vital Signs (last 24 hours): Temp Pulse Resp BP Pulse Ox 96.9 F L 96 H 18 100/72 95 08/23/18 12:46 08/23/18 12:46 08/23/18 12:46 08/23/18 12:46 08/23/18 12:46 - Medications Medications: Current Medications Al Hydrox/Mg Hydrox/Simethicone (Maalox Plus 30 Ml) 30 ml PO Q6 PRN PRN Reason: Indigestion / Heartburn Last Admin: 08/18/18 15:09 Dose: 30 ml Aspirin (Ecotrin) 81 mg PO DAILY [facility] Last Admin: 08/23/18 09:04 Dose: Not Given Atorvastatin Calcium (Lipitor) 20 mg PO DAILY [facility] Last Admin: 08/23/18 09:13 Dose: Not Given Clopidogrel Bisulfate (Plavix) 75 mg PO DAILY [facility] Last Admin: 08/23/18 10:20 Dose: Not Given Dexamethasone (Decadron) 2 mg PO DAILY [facility] Last Admin: 08/21/18 09:39 Dose: 2 mg Ferrous Sulfate (Feosol) 325 mg PO BID [facility] Last Admin: 08/23/18 09:05 Dose: Not Given Finasteride (Proscar) 5 mg PO DAILY [facility] Last Admin: 08/23/18 10:20 Dose: Not Given Heparin Sodium (Porcine) (Heparin) 5,000 units SC Q12 [facility]; Protocol Last Admin: 08/23/18 09:05 Dose: Not Given Home Med (Icosapent Ethyl [Vascepa]) 2 gm PO BID [facility] Last Admin: 08/23/18 09:06 Dose: Not Given Home Med (Patient's Own Medication) 1 unit PO DAILY [facility] Last Admin: 08/23/18 09:21 Dose: Not Given Meropenem 500 mg/ Sodium (Chloride) 100 mls @ 100 mls/hr IVPB Q12@0500,1700 [facility]; Protocol Last Admin: 08/23/18 06:27 Dose: 100 mls/hr Sodium Bicarbonate 133.8 meq/ (Dextrose) 1,150 mls @ 70 mls/hr IV .[id number] [facility] Last Admin: 08/23/18 02:22 Dose: 70 mls/hr Insulin Human Regular (Humulin R) 0 units SC ACCU-CHECK [facility]; Protocol Last Admin: 08/23/18 12:11 Dose: Not Given Lorazepam (Ativan) 0.5 mg IVP Q6 PRN PRN Reason: Anxiety Last Admin: 08/23/18 12:05 Dose: 0.5 mg Metformin HCl (Glucophage) 500 mg PO BIDWM [facility] Last Admin: 08/20/18 08:59 Dose: 500 mg Metoprolol Succinate (Toprol Xl) 25 mg PO DAILY [facility] Morphine Sulfate (Morphine) 2 mg IVP Q4 PRN PRN Reason: Pain, moderate (4-7) Last Admin: 08/23/18 12:04 Dose: 2 mg Ondansetron HCl (Zofran Inj) 4 mg IVP Q4 PRN PRN Reason: Nausea/Vomiting Oxycodone HCl (Oxycodone Immediate Release Tab) 5 mg PO Q6 PRN PRN Reason: Pain, moderate (4-7) Last Admin: 08/20/18 04:48 Dose: 5 mg Pantoprazole Sodium (Protonix Inj) 40 mg IVP DAILY [facility] Last Admin: 08/23/18 13:30 Dose: 40 mg Sitagliptin Phosphate (Januvia) 50 mg PO DAILY [facility] Last Admin: 08/23/18 09:12 Dose: Not Given Tamsulosin HCl (Flomax) 0.4 mg PO DAILY [facility] Last Admin: 08/23/18 09:05 Dose: Not Given - Labs Labs: 08/23/18 05:20 08/23/18 05:20 PT 12.8 Seconds (9.8-13.1) 08/17/18 16:00 INR 1.1 08/17/18 16:00 APTT 28.9 Seconds (25.6-37.1) 08/17/18 16:00 - Constitutional Appears: Non-toxic, Confused, Cachectic, Chronically Ill - Head Exam Head Exam: NORMOCEPHALIC - Eye Exam Pupil Exam: absent: NORMAL ACCOMODATION - ENT Exam ENT Exam: Mucous Membranes Dry - Neck Exam Neck Exam: absent: Lymphadenopathy - Respiratory Exam Respiratory Exam: Decreased Breath Sounds - Cardiovascular Exam Cardiovascular Exam: REGULAR RHYTHM - GI/Abdominal Exam GI & Abdominal Exam: Distended, Soft - Rectal Exam Rectal Exam: Deferred - Exam Exam: NORMAL INSPECTION - Extremities Exam Extremities Exam: absent: Pedal Edema - Back Exam Back Exam: absent: CVA tenderness (L), CVA tenderness (R) Assessment and Plan (1) Abdominal pain Status: Acute (2) Acute kidney injury Status: Acute (3) Complicated UTI (urinary tract infection) Status: Acute (4) Diabetes mellitus type 2 in nonobese Status: Acute (5) Metastasis Status: Acute - Assessment and Plan (Free Text) Assessment: cont iv merrem for complicated UTI
--- NOTE | 2018-08-23 18:23 | CP.PCM.PN ---
Subjective - Date & Time of Evaluation Date of Evaluation: 08/23/18 Time of Evaluation: 18:23 - Subjective Subjective: pt is seen and examined, follow up consult is dictated #[id number] Objective - Vital Signs/Intake and Output Vital Signs (last 24 hours): Temp Pulse Resp BP Pulse Ox 97.1 F L 96 H 18 96/67 L 95 08/23/18 16:21 08/23/18 16:21 08/23/18 16:21 08/23/18 16:21 08/23/18 16:21 - Medications Medications: Current Medications Al Hydrox/Mg Hydrox/Simethicone (Maalox Plus 30 Ml) 30 ml PO Q6 PRN PRN Reason: Indigestion / Heartburn Last Admin: 08/18/18 15:09 Dose: 30 ml Aspirin (Ecotrin) 81 mg PO DAILY [facility] Last Admin: 08/23/18 09:04 Dose: Not Given Atorvastatin Calcium (Lipitor) 20 mg PO DAILY [facility] Last Admin: 08/23/18 09:13 Dose: Not Given Clopidogrel Bisulfate (Plavix) 75 mg PO DAILY [facility] Last Admin: 08/23/18 10:20 Dose: Not Given Dexamethasone (Decadron) 2 mg PO DAILY [facility] Last Admin: 08/21/18 09:39 Dose: 2 mg Ferrous Sulfate (Feosol) 325 mg PO BID [facility] Last Admin: 08/23/18 17:50 Dose: Not Given Finasteride (Proscar) 5 mg PO DAILY [facility] Last Admin: 08/23/18 10:20 Dose: Not Given Heparin Sodium (Porcine) (Heparin) 5,000 units SC Q12 [facility]; Protocol Last Admin: 08/23/18 09:05 Dose: Not Given Home Med (Icosapent Ethyl [Vascepa]) 2 gm PO BID [facility] Last Admin: 08/23/18 17:50 Dose: Not Given Home Med (Patient's Own Medication) 1 unit PO DAILY [facility] Last Admin: 08/23/18 09:21 Dose: Not Given Meropenem 500 mg/ Sodium (Chloride) 100 mls @ 100 mls/hr IVPB Q12@0500,1700 [facility]; Protocol Last Admin: 08/23/18 17:52 Dose: 100 mls/hr Sodium Bicarbonate 133.8 meq/ (Dextrose) 1,150 mls @ 70 mls/hr IV .[id number] [facility] Last Admin: 08/23/18 02:22 Dose: 70 mls/hr Insulin Human Regular (Humulin R) 0 units SC ACCU-CHECK [facility]; Protocol Last Admin: 08/23/18 17:50 Dose: Not Given Lorazepam (Ativan) 0.5 mg IVP Q6 PRN PRN Reason: Anxiety Last Admin: 08/23/18 12:05 Dose: 0.5 mg Metformin HCl (Glucophage) 500 mg PO BIDWM [facility] Last Admin: 08/20/18 08:59 Dose: 500 mg Metoprolol Succinate (Toprol Xl) 25 mg PO DAILY [facility] Morphine Sulfate (Morphine) 2 mg IVP Q4 PRN PRN Reason: Pain, moderate (4-7) Last Admin: 08/23/18 12:04 Dose: 2 mg Ondansetron HCl (Zofran Inj) 4 mg IVP Q4 PRN PRN Reason: Nausea/Vomiting Oxycodone HCl (Oxycodone Immediate Release Tab) 5 mg PO Q6 PRN PRN Reason: Pain, moderate (4-7) Last Admin: 08/20/18 04:48 Dose: 5 mg Pantoprazole Sodium (Protonix Inj) 40 mg IVP DAILY [facility] Last Admin: 08/23/18 13:30 Dose: 40 mg Sitagliptin Phosphate (Januvia) 50 mg PO DAILY [facility] Last Admin: 08/23/18 09:12 Dose: Not Given Tamsulosin HCl (Flomax) 0.4 mg PO DAILY [facility] Last Admin: 08/23/18 09:05 Dose: Not Given - Labs Labs: 08/23/18 05:20 08/23/18 05:20 PT 12.8 Seconds (9.8-13.1) 08/17/18 16:00 INR 1.1 08/17/18 16:00 APTT 28.9 Seconds (25.6-37.1) 08/17/18 16:00
[2018-08-23] MEDS: Dextrose 5%/0.45% NS 1,000 ML IV SCH (19:00)
--- NOTE | 2018-08-24 03:10 | PN ---
DATE: 08/23/2018 FOLLOWUP RENAL CONSULTATION LOCATION: The patient is located in [facility] Telemetry Room 414, bed 1. REQUESTED BY: Dax Brownlee MD REASON FOR FOLLOWUP: Acute renal failure, chronic kidney disease, renal cell carcinoma, metastatic. SUBJECTIVE: Mr. Zara John is a 78-year-old elderly male with a past medical history significant for anxiety, asthma, hypertension, diabetes, recently diagnosed metastatic renal cell carcinoma from the right kidney with mets to the liver and lungs and also intra-abdominal lymphadenopathy who was admitted with weakness, nausea, vomiting, and worsening renal function. Renal function continued to deteriorate since admission. The patient is very drowsy and responding to few simple commands, not in distress. Claims mild abdominal discomfort. As per the registered nurse, the patient has multiple vomiting, bilious this morning. PHYSICAL EXAMINATION: VITAL SIGNS: As follows: Blood pressure 96/67, pulse 96, respirations 18, temperature 97.1, and saturation 95%. Height 5 feet 1 inch. Weight is 170 pounds. GENERAL: Mr. Zara John is a 78-year-old elderly male, moderately built, moderately nourished, not in distress. HEENT: Pupils are normally reactive to light and accommodation. Conjunctivae pink. Sclerae anicteric. Tongue is dry and trachea is midline. LUNGS: Symmetric on both sides. Bilateral breath sounds present. Occasional basal crackles present. CARDIOVASCULAR SYSTEM: Perry at the fifth intercostal space, midclavicular line. S1 and S2 audible. No murmur. No gallop. ABDOMEN: Distended and mild diffuse tenderness. No guarding. No rigidity. No abnormal bruits. CENTRAL NERVOUS SYSTEM: The patient is drowsy, arousable, following simple commands. EXTREMITIES: No cyanosis. No clubbing. The patient has 1+ edema in both lower extremities. CURRENT MEDICATIONS: Include as follows: Ativan 0.5 mg IV every 6 hours p.r.n., Decadron on hold, aspirin 81 mg p.o. daily, Feosol 325 mg p.o. daily, Flomax 0.4 mg p.o. daily, subcu heparin 5000 units every 12 hours, Januvia 50 mg daily, Lipitor 20 mg at bedtime, Maalox, morphine sulfate 2 mg IV every 4 hours p.r.n., oxycodone 5 mg p.o. every 6 hours p.r.n., Plavix 75 mg daily, Proscar 5 mg p.o. daily, IV fluids D5W with sodium bicarbonate at 70 mL per hour, metoprolol on hold, and Zofran 4 mg every 4 hours p.r.n. LABORATORY DATA: Include as follows: As of 08/23/2018: WBC 5, hemoglobin 10.1, hematocrit 29.9, and platelets 120. Sodium 138, potassium 5, chloride 101, CO2 of 24, BUN 118, creatinine 5, glucose 118, calcium 8, phosphorus 5, magnesium 3. Total natanael 3, AST 138, ALT 38, alkaline phosphatase 141, total protein 6.5, albumin is 2.8. ASSESSMENT: In summary, Mr. Zara John is a 78-year-old elderly male with a history of longstanding hypertension, anxiety, asthma, diabetes with recently diagnosed metastatic renal cell carcinoma and also metastasis to the liver and lungs and intra-abdominal lymphadenopathy who was admitted with nausea, vomiting, abdominal distention, worsening renal function, and also low bicarbonate and hyperkalemia. 1. Acute renal failure on chronic kidney disease 3, most likely secondary to acute tubular necrosis, secondary to decreased oral intake. 2. Metastatic renal cell carcinoma and also with metastasis to the liver and lungs and also intra-abdominal lymphadenopathy. 3. Hyperkalemia secondary to renal failure. 4. Metabolic acidosis, improved with sodium bicarbonate. PLAN: Continue his current medications. Continue analgesics as needed. The patient is a full code. The patient's family has not yet decided about his code status until the time the patient will be full code. I discussed with the patient's family at bedside, the patient's [id number] regarding the patient's poor condition, and hemodialysis at this time is an exercise in futility. Continue medical management. Overall prognosis is extremely poor. Dario Murphy MD
[2018-08-24] MEDS: Meropenem 500 MG in Sodium Chloride 0.9% 100 ML IVPB SCH ×2 (04:18→17:49)
[2018-08-24 06:21] LABS: BASO % 0.3 % (0.0-2.0); EOS % 0.2 % (0.0-4.0); HEMOGLOBIN 9.9 g/dL (12.0-18.0); LYMPH # 0.9 K/uL (1.0-4.3); LYMPH % 17.7 % (20.0-40.0); MEAN CELL VOLUME 88.7 fl (80.0-94.0); MEAN CORPUSCULAR HEMOGLOBIN 30.6 pg (27.0-31.0); MEAN CORPUSCULAR HGB CONC 34.6 g/dL (33.0-37.0); MEAN PLATELET VOLUME 8.6 fl (7.2-11.7); MONO # 0.2 K/uL (0.0-0.8); MONO % 3.1 % (0.0-10.0); NEUT # 3.8 K/uL (1.8-7.0); NEUT % 78.7 % (50.0-75.0); NRBC % 0.6 % (0.0-0.0); RBC 3.23 Mil/uL (4.40-5.90); RED CELL DISTRIBUTION WIDTH 34.5 % (11.5-14.5); WHITE BLOOD COUNT 4.8 K/uL (4.8-10.8)
[2018-08-24 06:45] LABS: ALB/GLOB RATIO 0.8 (1.0-2.1); ALBUMIN 2.8 g/dL (3.5-5.0); CALCIUM 8.6 mg/dL (8.4-10.2)
[2018-08-24] MEDS: Insulin Regular 100 units/ml SC SCH ×4 (08:45→22:53)
--- NOTE | 2018-08-24 09:46 | CP.PCM.PN ---
Subjective - Date & Time of Evaluation Date of Evaluation: 08/24/18 Time of Evaluation: 09:46 - Subjective Subjective: pt is seen and examined, follow up consult is dictated #[id number] Objective - Vital Signs/Intake and Output Vital Signs (last 24 hours): Temp Pulse Resp BP Pulse Ox 96.4 F L 96 H 20 89/67 L 93 L 08/24/18 08:46 08/24/18 08:46 08/24/18 08:46 08/24/18 08:46 08/24/18 08:46 - Medications Medications: Current Medications Al Hydrox/Mg Hydrox/Simethicone (Maalox Plus 30 Ml) 30 ml PO Q6 PRN PRN Reason: Indigestion / Heartburn Last Admin: 08/18/18 15:09 Dose: 30 ml Aspirin (Ecotrin) 81 mg PO DAILY [facility] Last Admin: 08/23/18 09:04 Dose: Not Given Atorvastatin Calcium (Lipitor) 20 mg PO DAILY [facility] Last Admin: 08/23/18 09:13 Dose: Not Given Clopidogrel Bisulfate (Plavix) 75 mg PO DAILY [facility] Last Admin: 08/23/18 10:20 Dose: Not Given Dexamethasone (Decadron) 2 mg PO DAILY [facility] Last Admin: 08/21/18 09:39 Dose: 2 mg Ferrous Sulfate (Feosol) 325 mg PO BID [facility] Last Admin: 08/23/18 17:50 Dose: Not Given Finasteride (Proscar) 5 mg PO DAILY [facility] Last Admin: 08/23/18 10:20 Dose: Not Given Heparin Sodium (Porcine) (Heparin) 5,000 units SC Q12 [facility]; Protocol Last Admin: 08/23/18 22:19 Dose: Not Given Home Med (Icosapent Ethyl [Vascepa]) 2 gm PO BID [facility] Last Admin: 08/23/18 17:50 Dose: Not Given Home Med (Patient's Own Medication) 1 unit PO DAILY [facility] Last Admin: 08/23/18 09:21 Dose: Not Given Meropenem 500 mg/ Sodium (Chloride) 100 mls @ 100 mls/hr IVPB Q12@0500,1700 [facility]; Protocol Last Admin: 08/24/18 04:18 Dose: 100 mls/hr Sodium Bicarbonate 133.8 meq/ (Dextrose) 1,150 mls @ 70 mls/hr IV .[id number] [facility] Last Admin: 08/23/18 02:22 Dose: 70 mls/hr Dextrose/Sodium Chloride (Dextrose 5%/0.45% Ns 1000 Ml) 1,000 mls @ 60 mls/hr IV .[id number] [facility] Stop: 08/24/18 18:41 Last Admin: 08/23/18 19:00 Dose: 60 mls/hr Insulin Human Regular (Humulin R) 0 units SC ACCU-CHECK [facility]; Protocol Last Admin: 08/23/18 22:19 Dose: Not Given Lorazepam (Ativan) 0.5 mg IVP Q6 PRN PRN Reason: Anxiety Last Admin: 08/23/18 12:05 Dose: 0.5 mg Metformin HCl (Glucophage) 500 mg PO BIDWM [facility] Last Admin: 08/20/18 08:59 Dose: 500 mg Metoprolol Succinate (Toprol Xl) 25 mg PO DAILY [facility] Morphine Sulfate (Morphine) 2 mg IVP Q4 PRN PRN Reason: Pain, moderate (4-7) Last Admin: 08/23/18 12:04 Dose: 2 mg Ondansetron HCl (Zofran Inj) 4 mg IVP Q4 PRN PRN Reason: Nausea/Vomiting Oxycodone HCl (Oxycodone Immediate Release Tab) 5 mg PO Q6 PRN PRN Reason: Pain, moderate (4-7) Last Admin: 08/20/18 04:48 Dose: 5 mg Pantoprazole Sodium (Protonix Inj) 40 mg IVP DAILY [facility] Last Admin: 08/23/18 13:30 Dose: 40 mg Sitagliptin Phosphate (Januvia) 50 mg PO DAILY [facility] Last Admin: 08/23/18 09:12 Dose: Not Given Tamsulosin HCl (Flomax) 0.4 mg PO DAILY [facility] Last Admin: 08/23/18 09:05 Dose: Not Given - Labs Labs: 08/24/18 04:30 08/24/18 04:30 PT 12.8 Seconds (9.8-13.1) 08/17/18 16:00 INR 1.1 08/17/18 16:00 APTT 28.9 Seconds (25.6-37.1) 08/17/18 16:00
[2018-08-24] MEDS: SUTENT PO SCH (09:59)
[2018-08-24] MEDS: Patient's Own Med (Icosapent Ethyl [Vascepa] 1 GM) PO SCH ×2 (09:59→17:43)
--- NOTE | 2018-08-24 12:39 | PN ---
DATE: 08/24/2018 SUBJECTIVE: The patient is seen and examined. Interim events noted. Consults noted and appreciated. The patient remains in progressive care unit, on telemetry monitoring. The patient is sleeping, arousable. complains of generalized cancer related pain, which is adequately comfortable. No chest pain or shortness of breath. PHYSICAL EXAMINATION: GENERAL: The patient is in no acute distress. VITAL SIGNS: Stable. HEART: S1 and S2. Normal and regular. LUNGS: Good bilateral air exchange. ABDOMEN: The patient remains with tender abdomen consistent with ascites. No sign of acute abdomen. No guarding. No rigidity. No rebound. Bowel sounds are present and normal. EXTREMITIES: No calf swelling, no tenderness, no acute ischemia. CENTRAL NERVOUS SYSTEM: Essentially unchanged. DIAGNOSTIC DATA: Available diagnostic data reviewed. Telemetry monitoring does not reveal significant arrhythmias. BUN and creatinine remains elevated. ASSESSMENT AND PLAN: The patient's current prognosis is very poor due to mental status nature noted. Cancer, which is underlying and reducing complications. Family is . Plan as ordered. Dax Brownlee MD
[2018-08-24] MEDS: Dextrose 5%/0.45% NS 1,000 ML IV SCH (18:04)
--- NOTE | 2018-08-25 05:03 | PN ---
DATE: 08/24/2018 FOLLOWUP RENAL CONSULTATION REQUESTED BY: Dax Brownlee MD. REASON FOR RENAL CONSULTATION: Acute renal failure, on CKD 3, renal cell carcinoma with mets to the liver and lungs, and intraabdominal lymphadenopathy. SUBJECTIVE: Mr. Zara John is a 78-year-old elderly male with a history of arthritis, asthma, diabetes, hypertension, CKD 3 with recently diagnosed metastatic renal cell carcinoma with mets to the liver, lungs, and intraabdominal lymphadenopathy, was admitted with weakness, nausea, vomiting, and worsening renal function, and his renal functions continued to deteriorate and also hyperkalemia. The patient is drowsy, arousable, not in distress, complains of mild abdominal discomfort. PHYSICAL EXAMINATION: VITAL SIGNS: Blood pressure this morning 89/67, pulse 96, respirations 20, temperature 96.4, saturation 93%, height 5 feet 10 inches, weight is 170 pounds. GENERAL: Mr. Zara John is a 78-year-old elderly male, moderately built, moderately nourished, not in distress. Slightly drowsy, not arousable. HEENT: Pupils normally reactive to light and accommodation. Conjunctiva pink. Sclera anicteric. Tongue is moist. Trachea is midline. LUNGS: Symmetric on both sides. Bilateral breath sounds present. Occasional basal crackles present. CARDIOVASCULAR SYSTEM: [place] at the fifth intercostal space and midclavicular line. S1 and S2 audible. No murmur or gallop. ABDOMEN: Distended and mild diffuse tenderness. No guarding. No rigidity. No hepatosplenomegaly. Mild suprapubic dullness present. CENTRAL NERVOUS SYSTEM: The patient is drowsy, arousable, following commands. EXTREMITIES: No cyanosis, no clubbing. The patient has 1+ edema in both lower extremities. CURRENT MEDICATIONS: Include as follows lorazepam 0.5 mg IV every 6 hours, Decadron on hold, aspirin 81 mg daily, Feosol 325 mg p.o. b.i.d., Flomax 0.4 mg daily, subcu heparin 5000 units every 12 hours, Januvia 50 mg daily, Lipitor 20 mg daily, morphine sulphate 2 mg IV every 4 hours p.r.n., Plavix 75 mg daily, Proscar 5 mg daily, Protonix 40 mg IV daily, Toprol-XL on hold, and Zofran 4 mg IV every 4 hours p.r.n. LABORATORY DATA: Include as follows as of 08/24/2018, WBC 4.8, hemoglobin 9.9, hematocrit is 28.6, platelets are 110. Sodium 138, potassium 5.4, chloride 99, CO2 of 27, BUN 120, creatinine 5.5, glucose 102, calcium 8.6, phosphorus 5.3, magnesium 3. Total bili 3.1, AST 169, ALT 43, alkaline phosphatase 773, total protein 6.3, albumin is 2.8. ASSESSMENT: In summary, Mr. Zara John is a 78-year-old elderly male with a history of hypertension, diabetes, chronic kidney disease 3 with recently diagnosed metastatic renal cell carcinoma with metastasis to the liver, lungs, and intraabdominal lymphadenopathy, was admitted with worsening renal function and hyperkalemia. 1. Acute renal failure on chronic kidney disease 3, most likely secondary to acute tubular necrosis secondary to multifactorial decreased p.o. intake and medications. 2. Metastatic renal cell carcinoma. 3. Hyperkalemia. 4. Hypertension. 5. Diabetes. Blood pressure is stable. PLAN: Continue his current medication and pain medications. Overall prognosis is extremely poor. Excessive hemodialysis at this time is an exercise in futility. The family is not making any decision regarding the DNR/DNI at this time. Continue supportive care at this time. Dario Murphy MD
[2018-08-25] MEDS: Meropenem 500 MG in Sodium Chloride 0.9% 100 ML IVPB SCH (05:15)
[2018-08-25] MEDS: Insulin Regular 100 units/ml SC SCH ×3 (06:22→18:23)
[2018-08-25] MEDS: Patient's Own Med (Icosapent Ethyl [Vascepa] 1 GM) PO SCH ×2 (08:34→18:24)
[2018-08-25] MEDS: SUTENT PO SCH (08:35)
--- NOTE | 2018-08-25 08:41 | PN ---
DATE: 08/25/2018 SUBJECTIVE: The patient is seen and examined. Interim events noted. Consults noted and appreciated. The patient is under hospice stay. Hospice evaluation noted and appreciated. The patient remains in progressive care unit, on telemetry monitoring. Not able to provide informative history or review of systems. The patient's family is at bedside. care is being provided. PHYSICAL EXAMINATION: GENERAL: In no acute distress. VITAL SIGNS: Stable. HEART: S1 and S2, normal and regular. LUNGS: Good bilateral air exchange. ABDOMEN: The patient has distention, but no sign of acute abdomen. No guarding. No rigidity. No rebound. Bowel sounds appears normal. EXTREMITIES: No calf swelling. No tenderness. No acute ischemia. CENTRAL NERVOUS SYSTEM: Essentially unchanged. DIAGNOSTIC DATA: Available diagnostic data reviewed. ASSESSMENT AND PLAN: Overall, the patient with metastatic cancer. Very poor prognosis, under hospice care. Plan as ordered. Dax Brownlee MD
--- NOTE | 2018-08-25 14:10 | CP.PCM.PN ---
Subjective - Date & Time of Evaluation Date of Evaluation: 08/25/18 Time of Evaluation: 08:00 - Subjective Subjective: chart reviewed patient examined ROS performed IV antibiotics renewed Objective - Vital Signs/Intake and Output Vital Signs (last 24 hours): Temp Pulse Resp BP Pulse Ox 96.8 F L 97 H 20 89/67 L 93 L 08/25/18 13:01 08/25/18 13:01 08/25/18 13:01 08/25/18 13:01 08/25/18 13:01 Intake and Output: 08/25/18 08/25/18 06:59 18:59 Intake Total 1020 Output Total 400 Balance 620 - Medications Medications: Current Medications Al Hydrox/Mg Hydrox/Simethicone (Maalox Plus 30 Ml) 30 ml PO Q6 PRN PRN Reason: Indigestion / Heartburn Last Admin: 08/18/18 15:09 Dose: 30 ml Aspirin (Ecotrin) 81 mg PO DAILY [facility] Last Admin: 08/25/18 08:34 Dose: Not Given Atorvastatin Calcium (Lipitor) 20 mg PO DAILY [facility] Last Admin: 08/25/18 08:35 Dose: Not Given Clopidogrel Bisulfate (Plavix) 75 mg PO DAILY [facility] Last Admin: 08/25/18 08:35 Dose: Not Given Dexamethasone (Decadron) 2 mg PO DAILY [facility] Last Admin: 08/21/18 09:39 Dose: 2 mg Ferrous Sulfate (Feosol) 325 mg PO BID [facility] Last Admin: 08/25/18 08:34 Dose: Not Given Finasteride (Proscar) 5 mg PO DAILY [facility] Last Admin: 08/25/18 08:36 Dose: Not Given Heparin Sodium (Porcine) (Heparin) 5,000 units SC Q12 [facility]; Protocol Last Admin: 08/25/18 09:35 Dose: 5,000 units Home Med (Icosapent Ethyl [Vascepa]) 2 gm PO BID [facility] Last Admin: 08/25/18 08:34 Dose: Not Given Home Med (Patient's Own Medication) 1 unit PO DAILY [facility] Last Admin: 08/25/18 08:35 Dose: Not Given Meropenem 500 mg/ Sodium (Chloride) 100 mls @ 100 mls/hr IVPB Q12@0500,1700 [facility]; Protocol Last Admin: 08/25/18 05:15 Dose: 100 mls/hr Sodium Bicarbonate 133.8 meq/ (Dextrose) 1,150 mls @ 70 mls/hr IV .[id number] [facility] Last Admin: 08/23/18 02:22 Dose: 70 mls/hr Insulin Human Regular (Humulin R) 0 units SC ACCU-CHECK [facility]; Protocol Last Admin: 08/25/18 12:08 Dose: Not Given Lorazepam (Ativan) 0.5 mg IVP Q6 PRN PRN Reason: Anxiety Last Admin: 08/23/18 12:05 Dose: 0.5 mg Metformin HCl (Glucophage) 500 mg PO BIDWM [facility] Last Admin: 08/20/18 08:59 Dose: 500 mg Metoprolol Succinate (Toprol Xl) 25 mg PO DAILY [facility] Morphine Sulfate (Morphine) 2 mg IVP Q4 PRN PRN Reason: Pain, moderate (4-7) Last Admin: 08/24/18 23:50 Dose: 2 mg Ondansetron HCl (Zofran Inj) 4 mg IVP Q4 PRN PRN Reason: Nausea/Vomiting Oxycodone HCl (Oxycodone Immediate Release Tab) 5 mg PO Q6 PRN PRN Reason: Pain, moderate (4-7) Last Admin: 08/20/18 04:48 Dose: 5 mg Pantoprazole Sodium (Protonix Inj) 40 mg IVP DAILY [facility] Last Admin: 08/25/18 09:32 Dose: 40 mg Sitagliptin Phosphate (Januvia) 50 mg PO DAILY [facility] Last Admin: 08/25/18 08:34 Dose: Not Given Tamsulosin HCl (Flomax) 0.4 mg PO DAILY [facility] Last Admin: 08/25/18 08:34 Dose: Not Given - Labs Labs: 08/24/18 04:30 08/24/18 04:30 PT 12.8 Seconds (9.8-13.1) 08/17/18 16:00 INR 1.1 08/17/18 16:00 APTT 28.9 Seconds (25.6-37.1) 08/17/18 16:00 Assessment and Plan (1) Abdominal pain Status: Acute (2) Acute kidney injury Status: Acute (3) Complicated UTI (urinary tract infection) Status: Acute (4) Diabetes mellitus type 2 in nonobese Status: Acute (5) Metastasis Status: Acute
--- NOTE | 2018-08-25 14:18 | CP.PCM.PN ---
Subjective - Date & Time of Evaluation Date of Evaluation: 08/25/18 Time of Evaluation: 14:18 - Subjective Subjective: pt is seen and examined, follow up consult is dictated #[id number] will sign off the case Objective - Vital Signs/Intake and Output Vital Signs (last 24 hours): Temp Pulse Resp BP Pulse Ox 96.8 F L 97 H 20 89/67 L 93 L 08/25/18 13:01 08/25/18 13:01 08/25/18 13:01 08/25/18 13:01 08/25/18 13:01 Intake and Output: 08/25/18 08/25/18 06:59 18:59 Intake Total 1020 Output Total 400 Balance 620 - Medications Medications: Current Medications Al Hydrox/Mg Hydrox/Simethicone (Maalox Plus 30 Ml) 30 ml PO Q6 PRN PRN Reason: Indigestion / Heartburn Last Admin: 08/18/18 15:09 Dose: 30 ml Aspirin (Ecotrin) 81 mg PO DAILY [facility] Last Admin: 08/25/18 08:34 Dose: Not Given Atorvastatin Calcium (Lipitor) 20 mg PO DAILY [facility] Last Admin: 08/25/18 08:35 Dose: Not Given Clopidogrel Bisulfate (Plavix) 75 mg PO DAILY [facility] Last Admin: 08/25/18 08:35 Dose: Not Given Dexamethasone (Decadron) 2 mg PO DAILY [facility] Last Admin: 08/21/18 09:39 Dose: 2 mg Ferrous Sulfate (Feosol) 325 mg PO BID [facility] Last Admin: 08/25/18 08:34 Dose: Not Given Finasteride (Proscar) 5 mg PO DAILY [facility] Last Admin: 08/25/18 08:36 Dose: Not Given Heparin Sodium (Porcine) (Heparin) 5,000 units SC Q12 [facility]; Protocol Last Admin: 08/25/18 09:35 Dose: 5,000 units Home Med (Icosapent Ethyl [Vascepa]) 2 gm PO BID [facility] Last Admin: 08/25/18 08:34 Dose: Not Given Home Med (Patient's Own Medication) 1 unit PO DAILY [facility] Last Admin: 08/25/18 08:35 Dose: Not Given Meropenem 500 mg/ Sodium (Chloride) 100 mls @ 100 mls/hr IVPB Q12@0500,1700 [facility]; Protocol Last Admin: 08/25/18 05:15 Dose: 100 mls/hr Sodium Bicarbonate 133.8 meq/ (Dextrose) 1,150 mls @ 70 mls/hr IV .[id number] [facility] Last Admin: 08/23/18 02:22 Dose: 70 mls/hr Insulin Human Regular (Humulin R) 0 units SC ACCU-CHECK [facility]; Protocol Last Admin: 08/25/18 12:08 Dose: Not Given Lorazepam (Ativan) 0.5 mg IVP Q6 PRN PRN Reason: Anxiety Last Admin: 08/23/18 12:05 Dose: 0.5 mg Metformin HCl (Glucophage) 500 mg PO BIDWM [facility] Last Admin: 08/20/18 08:59 Dose: 500 mg Metoprolol Succinate (Toprol Xl) 25 mg PO DAILY [facility] Morphine Sulfate (Morphine) 2 mg IVP Q4 PRN PRN Reason: Pain, moderate (4-7) Last Admin: 08/24/18 23:50 Dose: 2 mg Ondansetron HCl (Zofran Inj) 4 mg IVP Q4 PRN PRN Reason: Nausea/Vomiting Oxycodone HCl (Oxycodone Immediate Release Tab) 5 mg PO Q6 PRN PRN Reason: Pain, moderate (4-7) Last Admin: 08/20/18 04:48 Dose: 5 mg Pantoprazole Sodium (Protonix Inj) 40 mg IVP DAILY [facility] Last Admin: 08/25/18 09:32 Dose: 40 mg Sitagliptin Phosphate (Januvia) 50 mg PO DAILY [facility] Last Admin: 08/25/18 08:34 Dose: Not Given Tamsulosin HCl (Flomax) 0.4 mg PO DAILY [facility] Last Admin: 08/25/18 08:34 Dose: Not Given - Labs Labs: 08/24/18 04:30 08/24/18 04:30 PT 12.8 Seconds (9.8-13.1) 08/17/18 16:00 INR 1.1 08/17/18 16:00 APTT 28.9 Seconds (25.6-37.1) 08/17/18 16:00
[2018-08-25 16:35] VITALS: BP 92/58; PULSE 98; RESP 18; TEMP 97.1; O2SAT 95
--- NOTE | 2018-08-25 23:18 | CP.PCM.PN ---
Subjective - Date & Time of Evaluation Date of Evaluation: 08/23/18 Time of Evaluation: 12:00 - Subjective Subjective: Appears weak. Objective - Vital Signs/Intake and Output Vital Signs (last 24 hours): Temp Pulse Resp BP Pulse Ox 97.1 F L 98 H 18 92/58 L 95 08/25/18 16:34 08/25/18 16:34 08/25/18 16:34 08/25/18 16:34 08/25/18 16:34 Intake and Output: 08/25/18 08/26/18 18:59 06:59 Output Total 100 Balance -100 - Labs Labs: 08/24/18 04:30 08/24/18 04:30 PT 12.8 Seconds (9.8-13.1) 08/17/18 16:00 INR 1.1 08/17/18 16:00 APTT 28.9 Seconds (25.6-37.1) 08/17/18 16:00 - Head Exam Head Exam: ATRAUMATIC - Eye Exam Eye Exam: Normal appearance - ENT Exam ENT Exam: Mucous Membranes Dry - Respiratory Exam Respiratory Exam: NORMAL BREATHING PATTERN - Cardiovascular Exam Cardiovascular Exam: +S1, +S2 - GI/Abdominal Exam GI & Abdominal Exam: Distended Assessment and Plan (1) Renal cell cancer Assessment & Plan: stage IV progressive disease by imaging discussed hospice vs. immunotherapy trial family wants to think about it Status: Acute (2) Anemia Assessment & Plan: chronic disease Status: Acute (3) Thrombocytopenia Assessment & Plan: mild Status: Acute
--- NOTE | 2018-08-25 23:19 | CP.PCM.PN ---
Subjective - Date & Time of Evaluation Date of Evaluation: 08/24/18 Time of Evaluation: 15:00 - Subjective Subjective: Appears uncomfortable Objective - Vital Signs/Intake and Output Vital Signs (last 24 hours): Temp Pulse Resp BP Pulse Ox 97.1 F L 98 H 18 92/58 L 95 08/25/18 16:34 08/25/18 16:34 08/25/18 16:34 08/25/18 16:34 08/25/18 16:34 Intake and Output: 08/25/18 08/26/18 18:59 06:59 Output Total 100 Balance -100 - Labs Labs: 08/24/18 04:30 08/24/18 04:30 PT 12.8 Seconds (9.8-13.1) 08/17/18 16:00 INR 1.1 08/17/18 16:00 APTT 28.9 Seconds (25.6-37.1) 08/17/18 16:00 - Head Exam Head Exam: ATRAUMATIC - Eye Exam Eye Exam: Normal appearance - ENT Exam ENT Exam: Mucous Membranes Dry - Respiratory Exam Respiratory Exam: NORMAL BREATHING PATTERN - Cardiovascular Exam Cardiovascular Exam: +S1, +S2 - GI/Abdominal Exam GI & Abdominal Exam: Distended Assessment and Plan (1) Renal cell cancer Assessment & Plan: stage IV progressive disease by imaging family agreeable to hospice. Status: Acute (2) Anemia Status: Acute (3) Thrombocytopenia Status: Acute
--- NOTE | 2018-08-26 01:44 | PN ---
DATE: 08/25/2018 FOLLOWUP RENAL CONSULTATION LOCATION: The patient is located in [facility], room 414, bed 1. REQUESTED BY: Dax Brownlee MD REASON FOR FOLLOWUP: Acute renal failure, CKD 3, metastatic renal cell carcinoma with mets to the lungs and liver, and intraabdominal lymphadenopathy. SUBJECTIVE: Mr. Zara John is a 78-year-old elderly male with a history of longstanding hypertension, diabetes, arthritis, asthma, recently diagnosed metastatic renal cell carcinoma with mets to the lungs, liver and intraabdominal lymphadenopathy, was admitted on 08/17/2018 with weakness, nausea, vomiting, and worsening renal function. The patient was also found to have hyperkalemia, metabolic acidosis and his hospital course complicated by further worsening of the renal function. The patient's family wants only hospice with a full code, not able to make decision about the hemodialysis. He is with poor prognosis and the patient hospice. The patient is lethargic, opens eyes to verbal stimuli, not in distress. PHYSICAL EXAMINATION: VITAL SIGNS: As follows: Blood pressure 89/67, pulse 97, respirations 20, temperature 96.8, saturation 93%, height 5 feet 10 inches, weight is 170 pounds. GENERAL: Mr. Zara John is a 78-year-old elderly male, moderately built, moderately nourished, not in distress. HEENT: Pupils normally reactive to light and accommodation. Conjunctivae pink. Sclerae slightly icteric. Tongue is moist. Trachea is midline. LUNGS: Symmetric on both sides. Bilateral breath sounds present. Occasional basal crackles present. CARDIOVASCULAR SYSTEM: [place] at the fifth intercostal space and midclavicular line. S1 and S2 audible. No murmur or gallop. ABDOMEN: Distended, mild diffuse tenderness present. No guarding. No rigidity. Bowel sounds present. CENTRAL NERVOUS SYSTEM: The patient is drowsy, arousable, following simple commands. EXTREMITIES: No cyanosis, no clubbing. Trace to 1+ edema in both lower extremities. CURRENT MEDICATIONS: Include as follows: Maalox, Ecotrin, atorvastatin, Plavix, Feosol, Proscar, subcu heparin 5000 units every 12 hours, also meropenem 00 mg every 12 hours, also Humulin R for sliding scale, lorazepam 0.5 mg IV every 6 hours p.r.n., morphine sulphate 2 mg IV every 4 hours p.r.n., Zofran, Protonix, Januvia, and Flomax. LABORATORY DATA: Include as of 08/25/2018: Sodium 138, potassium 5.4, chloride 99, CO2 of 27, BUN 120, creatinine 5.5, glucose 102, calcium 8.6, phosphorus 5.3, magnesium is 3. Total bili 3.1, AST 169, ALT 43, alkaline phosphatase 773, total protein 6.3, albumin is 2.8. No other labs are available. Accu-cheks this morning, 93 and 114. ASSESSMENT: In summary, Mr. Zara John is a 78-year-old elderly male with a history of hypertension, diabetes, metastatic renal cell carcinoma with worsening renal function and lethargy. 1. Acute renal failure on chronic kidney disease 3, cannot rule out acute tubular necrosis. 2. Metastatic renal cell carcinoma with metastasis to the lungs and liver and intraabdominal lymphadenopathy. 3. Hypertension. 4. Diabetes. PLAN: Renal function is deteriorating and now the patient's family wants the patient in hospice. Overall prognosis is extremely poor and dialysis at this time is an exercise in futility. Continue supportive care. Thank you for allowing me to participate in your patient's care. We will sign off the case. Dario Murphy MD
== END 2018-08-25 19:47 | disposition hospice, inpatient (51) | DRG 435 ==
LOC: H.ER 14:45 → H.ERHOLD 19:49 → H.TEL 21:50
PROVIDERS: ADMIT Internal Medicine; ATTEND Internal Medicine
DX: C78.7 Secondary malignant neoplasm of liver and intrahepatic bile duct (principal); N17.0 Acute kidney failure with tubular necrosis; A41.9 Sepsis, unspecified organism; R65.21 Severe sepsis with septic shock; C64.9 Malignant neoplasm of unspecified kidney, except renal pelvis; I31.3 Pericardial effusion (noninflammatory); N39.0 Urinary tract infection, site not specified; E87.2 Acidosis; R18.8 Other ascites; C78.02 Secondary malignant neoplasm of left lung; C78.01 Secondary malignant neoplasm of right lung; G89.3 Neoplasm related pain (acute) (chronic); N20.0 Calculus of kidney; Z79.82 Long term (current) use of aspirin; E11.22 Type 2 diabetes mellitus with diabetic chronic kidney disease; I12.9 Hypertensive chronic kidney disease with stage 1 through stage 4 chronic kidney disease, or unspecified chronic kidney disease; E11.65 Type 2 diabetes mellitus with hyperglycemia; K29.70 Gastritis, unspecified, without bleeding; F32.9 Major depressive disorder, single episode, unspecified; F41.9 Anxiety disorder, unspecified; N18.3 Chronic kidney disease, stage 3 (moderate); K59.00 Constipation, unspecified; D63.0 Anemia in neoplastic disease; D64.81 Anemia due to antineoplastic chemotherapy; T45.1X5A Adverse effect of antineoplastic and immunosuppressive drugs, initial encounter; D69.59 Other secondary thrombocytopenia; E87.5 Hyperkalemia; B96.20 Unspecified Escherichia coli [E. coli] as the cause of diseases classified elsewhere; R59.0 Localized enlarged lymph nodes; J45.909 Unspecified asthma, uncomplicated

== ENCOUNTER 2018-08-25 20:06 | Inpatient (IN) | payer OTHER ==
--- NOTE | 2018-08-26 11:51 | PN ---
DATE: 08/26/2018 HISTORY OF PRESENT ILLNESS: The patient is under hospice care. This is a 78-year-old male who was admitted through medical service for stage II renal cancer and associated complication, who was evaluated by hospice and deemed to be a good hospice candidate and was discharged from inpatient and admitted for hospice care under hospice service. The patient is not able to provide informative history or review of systems. Significant past medical history, no other chronic medical problem and acute complication. The patient has stage renal cell carcinoma. PAST SURGICAL HISTORY: Unremarkable. PERSONAL HISTORY: Unremarkable. MEDICATION HISTORY: As per reconciliation sheet. ALLERGIC HISTORY: PER RECONCILIATION SHEET. FAMILY HISTORY: Noncontributory. PHYSICAL EXAMINATION: GENERAL: Chronically sick looking elderly male, in no acute distress. VITAL SIGNS: Temperature afebrile, pulse 80, respirations 18, blood pressure 96/60. HEENT: Pupils reacting to light. No JVD. No thyromegaly. No lymphadenopathy. No nystagmus. HEART: S1 and S2, normal and regular. LUNGS: Good bilateral air exchange. ABDOMEN: The patient has chronic ascites, but no sign of acute abdomen. No guarding. No rigidity. No rebound. Bowel sounds are grossly normal. EXTREMITIES: No edema. No calf swelling. No tenderness. No acute ischemia. CENTRAL NERVOUS SYSTEM: Essentially unchanged and the patient is essentially not communicative. DIAGNOSTIC DATA: Available diagnostic data reviewed. ADMITTING IMPRESSION: Renal cell carcinoma, under hospice care. PLAN: As ordered. aDx Brownlee MD
--- NOTE | 2018-08-26 12:57 | CP.PCM.PN ---
Subjective - Date & Time of Evaluation Date of Evaluation: 08/26/18 Time of Evaluation: 08:30 - Subjective Subjective: Palliative Care examined patient in bed, patient not in acute distress, Objective - Vital Signs/Intake and Output Vital Signs (last 24 hours): Temp Pulse Resp BP Pulse Ox 97.1 F L 96 H 20 88/61 L 95 08/26/18 08:30 08/26/18 08:30 08/26/18 08:30 08/26/18 08:30 08/26/18 08:30 Intake and Output: 08/26/18 08/26/18 06:59 18:59 Output Total 200 Balance -200 - Medications Medications: Current Medications Lorazepam (Ativan) 0.5 mg IVP Q4H PRN PRN Reason: Anxiety Morphine Sulfate (Morphine) 5 mg IVP Q1 PRN PRN Reason: Pain/Dyspnea - Constitutional Appears: No Acute Distress, Cachectic, Chronically Ill - Head Exam Head Exam: ATRAUMATIC, NORMAL INSPECTION, NORMOCEPHALIC - Eye Exam Eye Exam: Normal appearance - ENT Exam ENT Exam: Mucous Membranes Moist - Respiratory Exam Respiratory Exam: Decreased Breath Sounds - Cardiovascular Exam Cardiovascular Exam: REGULAR RHYTHM - GI/Abdominal Exam GI & Abdominal Exam: Distended, Soft - Rectal Exam Rectal Exam: Deferred - Exam Additional comments: castro catheter, dark brooke colored urine in bag - Neurological Exam Neurological Exam: Alert, Awake - Psychiatric Exam Psychiatric exam: Flat Affect - Skin Skin Exam: Pallor, Warm Assessment and Plan - Assessment and Plan (Free Text) Assessment: Palliative Care Examined patient in bed. No family members were at bedside. -awake and alert , following commands -non ambulatory and bed bound, needs max assist -decreased breath sounds -Normal HR -pt has castro catheter, -Bowel sounds present, pt is also incontinent of stool -patient states that he currently has no pain Goals of Care: Patient family decided on hospice services. Hospice eval completed and consent signed by patient's son Shar Ibarra. Code Status: Patient is still currently a full code. As per [facility] career services representative, patient son would like father to be DNI but not DNR. Phone call made to clarify, waiting for call back. Patient son Shar contact number [phone]. As of now patient is on hospice as a full code Impression * Metastasis * Acute renal failure * Loss of appetite * Decreased Mobility * Pain * Incontinence Suggestion * PO feeds as tolerated * Max assist with ADLs * Reposition q2h * Monitor for pain (pain medication ordered) * Catheter care and monitor for signs of catheter associated complications * Will clarify Code status Palliative will remain on board as needed Time spent with patient 30 min
[2018-08-27] MEDS ORDERED: Dextrose 5%/0.9% NS 1,000 ML IV SCH (07:15)
[2018-08-27] MEDS ORDERED: Sodium Chloride 0.9% 500 ML IV SCH (07:15)
--- NOTE | 2018-08-27 10:57 | CP.PCM.PN ---
Subjective - Date & Time of Evaluation Date of Evaluation: 08/27/18 Time of Evaluation: 08:00 - Subjective Subjective: Pt seen and examined this morning with Dr. Brownlee. Appears uncomfortable. Overnight vomited once and did not want to eat or drink. Reports he has some pain. Appears lethargic but responds appropriately to questions. at bedside, concerned about his eating. Reassured her that we will treat his nausea and attempt to offer food and drink today again. IV fluids started. Objective - Vital Signs/Intake and Output Vital Signs (last 24 hours): Temp Pulse Resp BP Pulse Ox 97.0 F L 93 H 20 79/54 L 96 08/27/18 07:53 08/27/18 07:53 08/27/18 07:53 08/27/18 07:53 08/27/18 07:53 Intake and Output: 08/27/18 08/27/18 06:59 18:59 Output Total 250 Balance -250 - Medications Medications: Current Medications Dextrose/Sodium Chloride (Dextrose 5%/0.9% Ns 1000 Ml) 1,000 mls @ 75 mls/hr IV .[id number] [facility] Stop: 08/28/18 07:15 Lorazepam (Ativan) 0.5 mg IVP Q4H PRN PRN Reason: Anxiety Morphine Sulfate (Morphine) 5 mg IVP Q1 PRN PRN Reason: Pain/Dyspnea Last Admin: 08/26/18 22:19 Dose: 5 mg - Constitutional Appears: No Acute Distress (appears uncomfortable), Chronically Ill - Eye Exam Eye Exam: Normal appearance - ENT Exam ENT Exam: Mucous Membranes Moist - Respiratory Exam Respiratory Exam: Clear to Ausculation Bilateral. absent: Rales, Wheezes - Cardiovascular Exam Cardiovascular Exam: REGULAR RHYTHM, +S1, +S2 - GI/Abdominal Exam GI & Abdominal Exam: Distended (Asicites ), Soft, Tenderness (diffuse on deep palpation ), Normal Bowel Sounds. absent: Guarding, Rigid - Extremities Exam Extremities Exam: Normal Inspection - Neurological Exam Neurological Exam: Alert, Awake. absent: Oriented x3 - Psychiatric Exam Psychiatric exam: Flat Affect - Skin Skin Exam: Normal Color Assessment and Plan - Assessment and Plan (Free Text) Assessment: 78 y/o male with hx of HTN, DM, BOH, Renal Cancer (Stage IV, mets to Lung and Liver) and Acute renal faulre admitted for Hospice care. Pt is DNR/DNI as per Dr. Brownlee and Hospice care security systems sales representative based on family's decision. #Metastatic Ca #ARF #Hospice - Will continue with supportive care- symptom management and pain control - Acute renal failure with hyperkalemia; Evaluated by Nephrology on board- HD is exercise futile. - Pain management- consider titrating opiods or fentanyl patch - Bowel Prep and Enema for opiod-induced constipation - Pastoral Referral Discussed case with Dr. Brownlee
[2018-08-27] MEDS ORDERED: Morphine 100 MG in Sodium Chloride 0.9% 100 ML IV SCH (11:30)
--- NOTE | 2018-08-27 12:29 | CP.PCM.PN ---
Subjective - Date & Time of Evaluation Date of Evaluation: 08/27/18 Time of Evaluation: 10:40 - Subjective Subjective: Examined patient in bed. , hospice nurse, and account liaison hospice at the bedside) Objective - Vital Signs/Intake and Output Vital Signs (last 24 hours): Temp Pulse Resp BP Pulse Ox 96.4 F L 97 H 20 64/45 L 93 L 08/27/18 11:40 08/27/18 11:40 08/27/18 11:40 08/27/18 11:40 08/27/18 11:40 Intake and Output: 08/27/18 08/27/18 06:59 18:59 Output Total 250 Balance -250 - Medications Medications: Current Medications Dextrose/Sodium Chloride (Dextrose 5%/0.9% Ns 1000 Ml) 1,000 mls @ 75 mls/hr IV .[id number] [facility] Stop: 08/28/18 07:15 Morphine Sulfate 100 mg/ (Sodium Chloride) 104 mls @ 1.04 mls/hr IV .Q24H [facility]; Protocol Lorazepam (Ativan) 0.5 mg IVP Q4H PRN PRN Reason: Anxiety Ondansetron HCl (Zofran Inj) 4 mg IVP Q4 PRN PRN Reason: Nausea/Vomiting - Constitutional Appears: In Acute Distress, Cachectic, Chronically Ill - Head Exam Head Exam: ATRAUMATIC, NORMAL INSPECTION, NORMOCEPHALIC - Eye Exam Eye Exam: Normal appearance - ENT Exam ENT Exam: Mucous Membranes Moist - Respiratory Exam Respiratory Exam: Decreased Breath Sounds Additional comments: on room air - Cardiovascular Exam Cardiovascular Exam: REGULAR RHYTHM - GI/Abdominal Exam GI & Abdominal Exam: Normal Bowel Sounds - Exam Additional comments: has f/c - Neurological Exam Neurological Exam: Alert, Awake - Psychiatric Exam Psychiatric exam: Depressed, Flat Affect - Skin Skin Exam: Dry, Pallor, Warm Assessment and Plan - Assessment and Plan (Free Text) Assessment: Palliative Care examined patient in bed. patient complaining of pain, recommended use of Morphine drip to team. states that patient had another episode of vomiting today. Goals of Care: Patient is under Hospice Care and is receiving comfort care at this time. Code Status: clarified with family. Patient is DNR/DNI, Eliana credit relationship manager will get updated consent to reflect DNR/DNI status. Impression Metastasis Acute Renal Failure Nausea and vomiting Decreased Mobility Loss of appetite Pain Suggestion Zofran IVP prn medication available Max assist with ADLs Reposition q2h Encourage PO feeds as tolerated Frequent pain assessments (Morphine drip is already oredered) Palliative care will remain on board as needed time Spent with patient 30 min
--- NOTE | 2018-08-28 09:18 | CP.PCM.PN ---
Subjective - Date & Time of Evaluation Date of Evaluation: 08/28/18 Time of Evaluation: 08:00 - Subjective Subjective: Pt seen and examined this am with Dr. Brownlee. Seen sleeping, arousable to voice, able to follow commands slowly. Lethargic. Denies pain. Objective - Vital Signs/Intake and Output Vital Signs (last 24 hours): Temp Pulse Resp BP Pulse Ox 97.8 F 104 H 18 63/42 L 88 L 08/28/18 04:27 08/28/18 04:27 08/28/18 04:27 08/28/18 04:08/28/18 04:27 - Medications Medications: Current Medications Morphine Sulfate 100 mg/ (Sodium Chloride) 104 mls @ 1.04 mls/hr IV .Q24H [facility]; Protocol Last Admin: 08/27/18 12:21 Dose: 1 mg/hr, 1.04 mls/hr Lorazepam (Ativan) 0.5 mg IVP Q4H PRN PRN Reason: Anxiety Ondansetron HCl (Zofran Inj) 4 mg IVP Q4 PRN PRN Reason: Nausea/Vomiting - Constitutional Appears: No Acute Distress, Chronically Ill - Head Exam Head Exam: NORMAL INSPECTION - Eye Exam Eye Exam: Normal appearance - ENT Exam ENT Exam: Mucous Membranes Moist - Respiratory Exam Respiratory Exam: absent: Accessory Muscle Use - Cardiovascular Exam Cardiovascular Exam: Tachycardia - GI/Abdominal Exam GI & Abdominal Exam: Distended, Soft. absent: Tenderness - Neurological Exam Neurological Exam: Altered - Psychiatric Exam Psychiatric exam: Flat Affect - Skin Skin Exam: Normal Color Assessment and Plan - Assessment and Plan (Free Text) Assessment: 78 y/o male with hx of HTN, DM, BOH, Renal Cancer (Stage IV, mets to Lung and Liver) and Acute renal faulre admitted for Hospice care. Pt is DNR/DNI as per Dr. Brownlee and Hospice care training representative based on family's decision. #Metastatic Ca #ARF #Hospice - Will continue with supportive care- symptom management and pain control - Acute renal failure with hyperkalemia; Evaluated by Nephrology on board- HD is exercise futile. - Pain management-Morphine ggt - Pastoral Referral Discussed case with Dr. Brownlee
[2018-08-28 18:11] VITALS: BP 56/35; PULSE 98; TEMP 97.6; O2SAT 93
[2018-08-28 18:37] VITALS: RESP 13
== END 2018-08-29 02:47 | DRG 683 ==
LOC: H.TEL 20:10 → H.MEDSURG1 08-28 17:52
PROVIDERS: ADMIT Internal Medicine; ATTEND Internal Medicine
DX: N17.9 Acute kidney failure, unspecified (principal); C64.9 Malignant neoplasm of unspecified kidney, except renal pelvis; C78.00 Secondary malignant neoplasm of unspecified lung; C78.7 Secondary malignant neoplasm of liver and intrahepatic bile duct; Z66 Do not resuscitate; E11.9 Type 2 diabetes mellitus without complications; I10 Essential (primary) hypertension; Z74.01 Bed confinement status; Z51.5 Encounter for palliative care; E87.5 Hyperkalemia; R32 Unspecified urinary incontinence